=== PATIENT | male | born 1970 | race Caucasian/White ===

== ENCOUNTER 2020-11-09 22:28 | Observation (INO) ==
[2020-11-10] MEDS ORDERED: ONDANSETRON INJ 2 MG/ML 2 ML VIAL IV STA (00:11)
[2020-11-10] MEDS ORDERED: HYDROmorphone INJ 1 MG/ML SYRINGE IV STA (00:11)
--- NOTE | 2020-11-10 00:16 | Emergency Department Note ---
History of Present Illness General Chief complaint: Back Injury/Pain Stated complaint: SEVERE BACK PAIN Time Seen by Provider: 11/10/20 00:03 Source: patient History of Present Illness Provider complaint: Back pain Onset (ago): hour(s) Location: back Radiation: extremity (Both upper legs) Severity: severe Maximum Pain Intensity: 10 Quality: + sharp Exacerbated By: + movement Associated symptoms: no chest pain, no cough, no fever/chills, no nausea/vomiting, no shortness of breath or no weakness This is a 50-year-old male who recently suffered a T12 burst fracture several days ago and was just discharged from [facility] yesterday presenting with worsening pain in his lower back. The patient was being given oxycodone in the hospital which controlled his pain. He states that tonight he only took 1 pill rather than 2 and took his muscle relaxant because he was not having significant pain. He woke up in the middle of night and developed severe pain in his back rating into his upper thighs. He states he had similar pain when he was in the hospital but not as bad as this. He describes the pain as sharp. He rates it a 10 out of 10 in severity. It is worse with movement. He denies any numbness or weakness to his legs, fecal urinary incontinence or saddle anesthesia. He has had no fever, chest pain, shortness of breath, abdominal pain or diarrhea. He does state that he has been constipated. He denies any injury. He has been wearing his thoracic brace as prescribed. Home Medications Medication Instructions Recorded Confirmed Type acetaminophen 500 mg tablet 1,000 mg PO DIRECTED PRN 11/10/20 11/10/20 History (Tylenol Extra Strength) carisoprodol 350 mg tablet 350 mg PO QID PRN 11/10/20 11/10/20 History docusate sodium 100 mg capsule 100 mg PO DAILY 11/10/20 11/10/20 History (Stool Softener) oxycodone 5 mg tablet 5 mg PO Q4H PRN 11/10/20 11/10/20 History paroxetine HCl 20 mg tablet (Paxil) 20 mg PO DAILY 11/10/20 11/10/20 History Allergies Allergy/AdvReac Type Severity Reaction Status Date / Time No Known Allergies Allergy Mild Verified 11/10/20 00:48 Past Med/Surg History Medical History No pertinent past medical history Social History Smoking Status: Current every day smoker Preferred Language: Persian Feels Safe at Home: Yes Review of Systems See HPI for pertinent positives & negatives. and A total of 10 systems reviewed and were otherwise negative Physical Exam Vital Signs Vital Signs - 24 hr 11/09/20 22:31 11/10/20 00:34 11/10/20 01:45 Temperature 36.7 C Temperature Source Temporal Artery Scan Pulse Rate 85 Pulse Rate [Brachial] 87 58 L Pulse Rhythm Regular Pulse Strength Normal Respiratory Rate 21 24 20 Respiratory Effort / Characteristics Non-Labored Spontaneous Respiratory Depth Normal Respiratory Pattern Regular Blood Pressure 137/75 Blood Pressure [Left Arm] 118/72 134/74 Blood Pressure Mean 95 Blood Pressure Mean [Left Arm] 87 94 Blood Pressure Position Sitting Pulse Oximetry 93 96 94 Oxygen Delivery Method Room Air Room Air Room Air Sepsis Recent Fever Within 48 Hours No Sepsis New/Unexplained Change in Mental Status N/A Sepsis Action Taken by Nursing No Action Required Constitutional: Vital signs reviewed. Eyes: Pupils are equal round reactive to light. Conjunctiva are noninjected. ENT: Pharynx is clear without erythema or exudate. Mucous membranes are moist. Neck supple without meningeal signs. Respiratory: Clear to auscultation bilaterally. Breath sounds are equal bilaterally. Cardiovascular: Regular rate and rhythm. No rubs or gallops. GI: Soft, nondistended and nontender. Bowel sounds are present. Musculoskeletal: No peripheral edema. No lower extremity tenderness. Integumentary: No cyanosis. or jaundice. Neurological: The patient is awake and alert. No focal deficits. Motor and sensation are intact throughout the lower extremities. Psychiatric: Anxious. Course Administered Medications Discontinued Medications Hydromorphone HCl (Hydromorphone Inj 1 Mg/Ml Syringe) 1 mg IV NOW STA Stop: 11/10/20 00:12 Last Admin: 11/10/20 00:28 Dose: 1 mg Documented by: [id number] Ondansetron HCl (Ondansetron Inj 2 Mg/Ml 2 Ml Vial) 4 mg IV NOW STA Stop: 11/10/20 00:12 Last Admin: 11/10/20 00:28 Dose: 4 mg Documented by: [id number] Medical Decision Making Differential Diagnosis Compression fracture, strain, disc disease, lumbar radiculopathy, uncontrolled pain Medical Records Attestation: I reviewed the patient's medical records. I did perform a limited focused review of portions of the patient's old chart on the electronic medical record. The patient was seen here 26 for injuries after a fall off a ladder. He was evaluated in the ED and noted to have a T12 burst fracture. He was transferred to [facility]. Home Medications Current Medication List: was personally reviewed by me Laboratory Data Result diagrams: 11/10/20 01:41 11/10/20 01:41 Lab Results 11/10/20 11/10/20 11/10/20 Range/Units 01:41 01:41 01:45 WBC 8.88 (4.8-10.8) K/uL RBC 4.23 L (4.7-6.1) M/uL Hgb 13.3 L (14.0-18.0) g/dL Hct 38.8 L (42-52) % MCV 91.7 (80-100) fL MCH 31.4 (25-34) pg MCHC 34.3 (32-36) g/dL RDW Std Deviation 45.3 (36.4-46.3) fL RDW Coeff of Jaquelin 13.5 (11.5-14.5) % Plt Count 253 (130-400) K/uL MPV 9.4 (7.4-10.4) fL Immature Gran % (Auto) 0.2 % Neut % (Auto) 70.5 % Lymph % (Auto) 15.4 % Gilmer % (Auto) 12.0 % Eos % (Auto) 1.8 % Baso % (Auto) 0.1 % Neut # (Auto) 6.25 (1.4-6.5) K/uL Lymph # (Auto) 1.37 (1.2-3.4) K/uL Gilmer # (Auto) 1.07 H (0.11-0.59) K/uL Eos # (Auto) 0.16 (0-0.5) K/uL Baso # (Auto) 0.01 (0-0.2) K/uL Immature Gran # (Auto) 0.02 (0.00-0.02) K/uL Sodium 136 (136-145) mmol/L Potassium 4.2 (3.5-5.1) mmol/L Chloride 107 (98-107) mmol/L Carbon Dioxide 26 (21-32) mmol/L Anion Gap 3.0 (3-11) BUN 11 (7-18) mg/dl Creatinine 0.73 (0.6-1.4) mg/dl Est Cr Clr Drug Dosing 129.7 ml/min Est GFR ( Amer) 125.4 ml/min Est GFR (Non-Af Amer) 108.2 ml/min BUN/Creatinine Ratio 15.6 (10-20) Glucose 91 (70-99) mg/dl Calcium 8.7 (8.5-10.1) mg/dl COVID-19 Eval Order Covid19 at [facility] Imaging Data Radiologist's Impression: Patient: BYRON SHIELDS (Male) : 70 Status: ER Date: 11/10/20 01:13 Room #: History: FX AT T12 KNOWN, WORSENING PAIN Slices: [id number] Priors: Tech: Luis Haines @ [phone] Exams: CT T SPINE Contrast: Accession Numbers: [id number] Referring Physician: REFERRED SELF Preliminary Findings Only See Final Report For Complete Findings CT T SPINE: Soft tissue: Small right greater than left pleural effusion with some overlying atelectasis. Small hiatal hernia. Lungs: Right lower lobe atelectasis. Linear atelectasis at left lung base. Bones: Slightly comminuted T12 compression fracture with a vertical component. 1.3 cm superior posterior fragment with retropulsion into the spinal canal causing moderately severe spinal canal stenosis. 40% compression deformity along the superior endplate. Remaining vertebral bodies are anatomically aligned. Radiologist: Kevin Nolan MD Study ready at 01:21 and initial results transmitted at 01:31 [facility] Narrative I did evaluate the patient as noted above. Patient is presenting with worsening back pain today. He has a known T12 compression fracture and was evaluated at [facility] and just discharged recently. He does state that the pain radiates down to his upper thighs. On exam he is neurologically intact and has no signs of cauda equina syndrome. IV access was established. I did treat the patient with IV Dilaudid and Zofran. I did order a CT of the abdomen and pelvis. I did review the images myself as well as the radiology report as described above. He has a known compression fracture to T12. I did reassess the patient. He feels slightly better but is still in significant pain if he moves. He does not feel comfortable going home. I did order and review the patient's blood work as noted in the electronic medical record. His white count is not elevated. Hemoglobin is 13.3. Electrolytes are unremarkable. COVID-19 screening is pending. I did discuss the case with the hospitalist and sample case porter. Impression & Plan T12 burst fracture, Intractable back pain Discharge Plan Visit Data Chief Complaint: Back Injury/Pain Stated Complaint: SEVERE BACK PAIN ED Provider: Daniel Adkisn Discharge Problem: T12 burst fracture, Intractable back pain Patient Disposition: Being Evaluated by Hospitalist Forms Stand Alone Forms: My [facility] Prescriptions Prescriptions: No Action carisoprodol 350 mg tablet 350 mg PO QID PRN (Reason: MUSCLE SPASMS) RF: 0 acetaminophen [Tylenol Extra Strength] 500 mg Tablet 1,000 mg PO DIRECTED PRN (Reason: Pain) RF: 0 paroxetine HCl [Paxil] 20 mg Tablet 20 mg PO DAILY RF: 0 docusate sodium [Stool Softener] 100 mg Capsule 100 mg PO DAILY RF: 0 oxycodone 5 mg tablet 5 mg PO Q4H PRN (Reason: Pain) RF: 0 Referrals Referrals: PCP,NO [Primary Care Provider] -
[2020-11-10 02:01] LABS: Basophils # (auto) 0.01 K/uL (0-0.2); Basophils % (auto) 0.1 %; Eosinophils # (auto) 0.16 K/uL (0-0.5); Eosinophils % (auto) 1.8 %; Hematocrit (blood only) 38.8 % (42-52); Hemoglobin 13.3 g/dL (14.0-18.0); Immature Granulocytes # (auto) 0.02 K/uL (0.00-0.02); Immature Granulocytes % (auto) 0.2 %; Lymphocytes # (auto) 1.37 K/uL (1.2-3.4); Lymphocytes % (auto) 15.4 %; Mean Corpuscular Hemoglobin 31.4 pg (25-34); Mean Corpuscular Hgb Conc 34.3 g/dL (32-36); Mean Corpuscular Volume 91.7 fL (80-100); Mean Platelet Volume 9.4 fL (7.4-10.4); Monocytes # (auto) 1.07 K/uL (0.11-0.59); Neutrophils # (auto) 6.25 K/uL (1.4-6.5); Neutrophils % (auto) 70.5 %; Platelet Count 253 K/uL (130-400); RDW Coefficient of Variation 13.5 % (11.5-14.5); RDW Standard Deviation 45.3 fL (36.4-46.3); Red Blood Count 4.23 M/uL (4.7-6.1); White Blood Count 8.88 K/uL (4.8-10.8)
[2020-11-10 02:12] LABS: BUN Creatinine Ratio 15.6 (10-20); Blood Urea Nitrogen 11 mg/dl (7-18); Calcium 8.7 mg/dl (8.5-10.1); Carbon Dioxide 26 mmol/L (21-32); Chloride 107 mmol/L (98-107); Creatinine Clr Calc Pharmacy 129.7 ml/min; Est GFR (African American) 125.4 ml/min; Est GFR (Non-African American) 108.2 ml/min; Glucose 91 mg/dl (70-99); Potassium 4.2 mmol/L (3.5-5.1); Sodium 136 mmol/L (136-145)
--- NOTE | 2020-11-10 02:47 | History & Physical Report ---
Date of Service November 10, 2020 Assessment & Plan (1) Atypical chest pain: Plan: Rule out pulmonary embolism recent T12 burst fracture secondary to fall Worsening discomfort although image unchanged from comparison film as per conversation with teleradiologist hyperlipidemia, as per records anxiety/mood disorder, at baseline Anemia, hemoglobin at baseline of 13 upon discharge from [facility] ongoing tobacco abuse Med telemetry Baseline EKG CT chest PE study Analgesia Orthopedic spine consult Re: Worsening back pain, history T12 burst fracture Nicotine patch as needed DVT prophylaxis. SCDs Re: Possible surgery Full code Text document was generated using [employer] voice recognition software. It may contain grammatical or spelling errors. Kindly contact undersigned for clarification of any documentation item in question. History of Present Illness Chief Complaint: Uncontrolled back pain Primary Care Provider: Dr. Liz History obtained from patient and records. Medical history significant for recent T12 burst fracture, hyperlipidemia, anxiety/mood disorder, ongoing tobacco abuse. Patient fell from a ladder while working in the yard a few days ago. Patient subsequently noted mid/low back pain with some radiation to the right lower extremity. No bowel/bladder incontinence. Thoracic spine pain CT at [facility] ER showed compression fracture deformity of T12 with retropulsion of posterior fractured fragment and mild central canal stenosis as detailed above. Patient transferred to [facility] for further evaluation and was confined from 11/06 to 11/09. Orthopedics spine recommended TLSO brace. No acute surgical intervention at time of exam. 2 weeks follow-up recommended post discharge. Patient woke up last night with mid to low back pain worse than a few days ago without fever, chills, unusual weakness, incontinence symptoms. Transient right-sided chest discomfort without cough symptoms. Patient consulted ER for evaluation. Medical History as above Surgical History : None Family History : Prostate cancer Personal/Social history : 1 pack daily, occasional EtOH intake/denies abuse, disabled Allergies Allergy/AdvReac Type Severity Reaction Status Date / Time No Known Allergies Allergy Mild Verified 11/10/20 00:48 Home Medications Medication Instructions Recorded Confirmed Type acetaminophen 500 mg tablet 1,000 mg PO DIRECTED PRN 11/10/20 11/10/20 History (Tylenol Extra Strength) carisoprodol 350 mg tablet 350 mg PO QID PRN 11/10/20 11/10/20 History docusate sodium 100 mg capsule 100 mg PO DAILY 11/10/20 11/10/20 History (Stool Softener) oxycodone 5 mg tablet 5 mg PO Q4H PRN 11/10/20 11/10/20 History paroxetine HCl 20 mg tablet (Paxil) 20 mg PO DAILY 11/10/20 11/10/20 History Past Med/Surg History Medical History No pertinent past medical history Social History Smoking Status: Current every day smoker Cigarettes Per Day: 10; Hx Alcohol Use: Yes Alcohol type: beer Hx Substance Use: No Preferred Language: Frisian Communication Ability: Effective 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 Beliefs That Will Affect Care: None Current Living Situation: Alone Other Information That Helps Us Care for You: No Feels Safe at Home: Yes Safety Concerns: Feels Safe At This Time Assistive Devices: Brace/Splint/Immobilizer Review of Systems Review of Systems: As per HPI, all 10 systems reviewed, all other ROS negative Physical Exam Physical Exam: GENERAL: uncomfortable, pleasant, no respiratory distress SKIN: Normal color, warm HEENT: [place] palpebral conjunctivae, no ptosis, dry buccal mucosa NECK : Supple, no tenderness CHEST : CTA, no tenderness HEART : Bradycardic, no obvious murmurs ABDOMEN: Some distention, nontender BACK : Mid back tenderness, negative straight leg raise test EXTREMITIES : No LE swelling/tenderness, no other conspicuous deformities noted NEUROLOGIC : Coherent, no facial asymmetry, no other gross focality Results & Data Results & Data ([facility]) Vital Signs (Past 12 Hours) Vital Signs Temp Pulse Pulse Resp BP BP Pulse Ox 11/10/20 01:45 58 L 20 134/74 94 11/10/20 00:34 87 24 118/72 96 11/09/20 22:31 36.7 C 85 21 137/75 93 Laboratory Results Laboratory Results WBC 8.88 K/uL (4.8-10.8) 11/10/20 01:41 RBC 4.23 M/uL (4.7-6.1) L 11/10/20 01:41 Hgb 13.3 g/dL (14.0-18.0) L 11/10/20 01:41 Hct 38.8 % (42-52) L 11/10/20 01:41 MCV 91.7 fL (80-100) 11/10/20 01:41 MCH 31.4 pg (25-34) 11/10/20 01:41 MCHC 34.3 g/dL (32-36) 11/10/20 01:41 RDW Std Deviation 45.3 fL (36.4-46.3) 11/10/20 01:41 RDW Coeff of Jaquelin 13.5 % (11.5-14.5) 11/10/20 01:41 Plt Count 253 K/uL (130-400) 11/10/20 01:41 MPV 9.4 fL (7.4-10.4) 11/10/20 01:41 Immature Gran % (Auto) 0.2 % 11/10/20 01:41 Neut % (Auto) 70.5 % 11/10/20 01:41 Lymph % (Auto) 15.4 % 11/10/20 01:41 White % (Auto) 12.0 % 11/10/20 01:41 Eos % (Auto) 1.8 % 11/10/20 01:41 Baso % (Auto) 0.1 % 11/10/20 01:41 Neut # (Auto) 6.25 K/uL (1.4-6.5) 11/10/20 01:41 Lymph # (Auto) 1.37 K/uL (1.2-3.4) 11/10/20 01:41 White # (Auto) 1.07 K/uL (0.11-0.59) H 11/10/20 01:41 Eos # (Auto) 0.16 K/uL (0-0.5) 11/10/20 01:41 Baso # (Auto) 0.01 K/uL (0-0.2) 11/10/20 01:41 Immature Gran # (Auto) 0.02 K/uL (0.00-0.02) 11/10/20 01:41 Sodium 136 mmol/L (136-145) 11/10/20 01:41 Potassium 4.2 mmol/L (3.5-5.1) 11/10/20 01:41 Chloride 107 mmol/L (98-107) 11/10/20 01:41 Carbon Dioxide 26 mmol/L (21-32) 11/10/20 01:41 Anion Gap 3.0 (3-11) 11/10/20 01:41 BUN 11 mg/dl (7-18) 11/10/20 01:41 Creatinine 0.73 mg/dl (0.6-1.4) 11/10/20 01:41 Est Cr Clr Drug Dosing 129.7 ml/min 11/10/20 01:41 Est GFR ( Amer) 125.4 ml/min 11/10/20 01:41 Est GFR (Non-Af Amer) 108.2 ml/min 11/10/20 01:41 BUN/Creatinine Ratio 15.6 (10-20) 11/10/20 01:41 Glucose 91 mg/dl (70-99) 11/10/20 01:41 Calcium 8.7 mg/dl (8.5-10.1) 11/10/20 01:41 COVID-19 Eval Order Covid19 at [facility] 11/10/20 01:[address] thoracic spine initial read: No significant change fromprior exam. Superior posterior fragment and 40%compression deformityis again noted. Soft tissue: Small right greater than left pleural effusion with some overlying atelectasis. Small hiatal hernia. Lungs:Right lower lobe atelectasis. Linear atelectasis at left lung base. Bones: Slightlycomminuted T12 compression fracture with a vertical component. 1.3 cmsuperior posterior fragment with retropulsion into the spinal canal causing moderatelysevere spinal canal stenosis. 40%compression deformityalong the superior endplate. Remaining vertebral bodies are anatomicallyaligned.
[2020-11-10] MEDS ORDERED: KETOROLAC TROMETHAMINE 15 MG/ML VIAL IV STA (02:56)
[2020-11-10] MEDS ORDERED: LIDOCAINE 5% 1 PATCH TD STA (02:56)
[2020-11-10 03:11] LABS: Troponin I < 0.015 ng/ml (0-0.045)
[2020-11-10] MEDS ORDERED: OPTIRAY 320 125ml IV ONE (03:14)
[2020-11-10] MEDS ORDERED: MoRPHine SULFATE 4 MG/ML 1 ML CARP\\VIAL IV PRN (04:50)
[2020-11-10] MEDS ORDERED: IBUPROFEN 200 MG TAB PO PRN (04:50)
[2020-11-10] MEDS ORDERED: SODIUM CHLORIDE 0.9% 1000ML 1,000 ML IV ONE (04:50)
[2020-11-10] MEDS ORDERED: ACETAMINOPHEN 325 MG TAB PO PRN (04:50)
[2020-11-10] MEDS ORDERED: PROMETHAZINE HCL 12.5 MG in SODIUM CHLORIDE 0.9% 50 ML IV PRN (04:50)
[2020-11-10] MEDS ORDERED: LORazepam 0.5 MG/1 ML VIAL IV PRN (04:50)
--- NOTE | 2020-11-10 07:33 | CT Scan Report ---
THORACIC SPINE CT CT DOSE: 804.25 mGy.cm HISTORY: Fall. worsening pain T12 burst fx TECHNIQUE: Multiaxial CT images of the thoracic spine were performed and reformatted in the sagittal and coronal plane without the use of contrast. A dose lowering technique was utilized adhering to th e principles of ALARA. COMPARISON: Thoracic spine CT 11/06/2020. FINDINGS: There is again noted a T12 burst fracture demonstrating up to 40% loss of height anteriorly and 5 mm of retropulsion of the posterior superior corner. This results in mild to moderate central canal narrowing most pronounced along the left side. This is unchanged compared the prior study. The fracture extends through the left lamina. Therefore, this is consistent with an unstable 3 column fra cture. Mild anterior wedging at the T3 vertebral body is also unchanged and is consistent with an age -indeterminate superior endplate compression fracture. This demonstrates less than 10% loss of height and no significant retropulsion. This favors a chronic compression deformity. There is no paraverteb ral edema identified. Mild paravertebral edema at the T12 level remains unchanged. No pneumothorax. P lease refer the same day chest CTA for further evaluation of the lungs. IMPRESSION: 1. No significant change in the T12 burst fracture demonstrating up to 40% loss of height and 5 mm of retropulsion. This results in [id number] central canal narrowing. The fracture extends into th e left T12 lamina. Therefore, this is consistent with an unstable 3 column fracture. This finding was called/faxed to the emergency department following dictation. 2. Minimal anterior wedging within the superior endplate of T3 is also unchanged. This is consistent with an age-indeterminate compression deformity. This favors a chronic process given the lack of para vertebral edema. ACT 112: Negative or not required by law. Electronically signed by: Ezra Cosme M.D. 11/10/2020 7:32 AM
[2020-11-10] MEDS: PARoxetine HCL 20 MG TAB PO SCH (08:06)
[2020-11-10] MEDS: DOCUSATE SODIUM 100 MG CAP PO SCH (08:06)
--- NOTE | 2020-11-10 08:11 | CT Scan Report ---
CT angio chest PE protocol CT DOSE: 380.58 mGy.cm HISTORY: 50 years-old Male with cp. Acute chest pain with shortness of breath TECHNIQUE: Multiple CTA images of the chest were obtained after the intravenous administration of 95 ml Optiray. Coronal and sagittal MIPS were obtained from the axial data set and were submitted for Bitglassw. All measurements were obtained according to NASCET criteria. A dose lowering technique was ut ilized adhering to the principles of ALARA. COMPARISON: CT thoracic spine of same day and also 11/06/2020 FINDINGS: CTA: Mild cardiac megaly. No pericardial effusion. No thoracic aortic aneurysm or dissection. Dilated pulm onary artery measuring up to 3.2 cm may reflect pulmonary artery hypertension. No pulmonary emboli. CT CHEST: Unremarkable thyroid. Mildly enlarged mediastinal lymph nodes measure up to 10 mm. Prominent hilar ly mph nodes measure up to 9 mm. These findings are likely reactive and have slightly progressed from co mparison. Trace pleural effusions with dependent bibasilar consolidation. Mild patchy groundglass [place] of the upper lobes with mild intralobular septal thickening. Central airways are patent. No acute process of the imaged upper abdomen. Mild wall thickening of the distal esophagus. Mild para vertebral edema at T12 surrounding the acute burst fracture with 40% vertebral body height loss and 5 mm retropulsion. Mild to moderate associated central canal stenosis. Acute fracture of the left T12 lamina is partially imaged. A normal anterior wedging of T3 is unchanged suggestive of a chronic frac ture. IMPRESSION: 1. Cardiomegaly with suggested mild pulmonary edema and trace pleural effusions. 2. Dependent bibasilar consolidation suggestive of atelectasis. Mild patchy groundglass densities of the upper lobes is likely related to pulmonary edema with a superimposed pneumonitis considered less likely. 3. Mild mediastinal and hilar adenopathy, likely reactive. 4. Acute T12 burst fracture with retropulsion and left T12 lamina fracture redemonstrated. 5. Suggested pulmonary arterial hypertension. ACT 112: Negative or not required by law. The above report was generated using voice recognition software. It may contain grammatical, syntax o r spelling errors. Electronically signed by: Reed Kent M.D. 11/10/2020 8:10 AM
--- NOTE | 2020-11-10 08:11 | Orthopedic Consultation ---
Date of Consultation November 10, 2020 Assessment & Plan (1) T12 burst fracture: I did discuss with this patient and treatment plan. Apparently he was going to attempt a period of nonoperative care with a TLSO brace. This is reasonable. However if he continues to have severe spasms or if we appreciate any further deterioration of the vertebral body of T12 he may want to consider surgical stabilization. History of Present Illness Reason for Consultation: Compression fracture Attending Physician: Marlon Koenig MD History of Present Illness Is a very pleasant 50-year-old male that status post fall last Saturday. He sustained a T12 burst fracture and was shifted to [facility]. Apparently he went home yesterday had acute onset of significant pain he was taken to emergency room last evening for pain control. This morning he states his symptoms are improved. He is much, more comfortable. He denies any numbness or tingling to lower extremities. He states he has been up and ambulating with his custom brace in place. Allergies Allergy/AdvReac Type Severity Reaction Status Date / Time No Known Allergies Allergy Mild Verified 11/10/20 00:48 Home Medications Medication Instructions Recorded Confirmed Type acetaminophen 500 mg tablet 1,000 mg PO DIRECTED PRN 11/10/20 11/10/20 History (Tylenol Extra Strength) carisoprodol 350 mg tablet 350 mg PO QID PRN 11/10/20 11/10/20 History docusate sodium 100 mg capsule 100 mg PO DAILY 11/10/20 11/10/20 History (Stool Softener) oxycodone 5 mg tablet 5 mg PO Q4H PRN 11/10/20 11/10/20 History paroxetine HCl 20 mg tablet (Paxil) 20 mg PO DAILY 11/10/20 11/10/20 History Patient History Medical History No pertinent past medical history Social History Smoking Status: Current every day smoker Cigarettes Per Day: 10; Hx Alcohol Use: Yes Alcohol type: beer Hx Substance Use: No Preferred Language: Lao Communication Ability: Effective 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 He does appear comfortable. Sensory symmetric and intact. Results & Data ([facility]) Vital Signs (Past 12 Hours) Vital Signs Temp Pulse Pulse Pulse Resp BP BP 11/10/20 07:44 36.7 C 56 L 20 126/72 11/10/20 04:50 11/10/20 04:20 36.6 C 52 L 20 116/67 11/10/20 03:00 55 L 14 128/67 11/10/20 01:45 58 L 20 134/74 11/10/20 00:34 87 24 118/72 11/09/20 22:31 36.7 C 85 21 137/75 Pulse Ox Pulse Ox 11/10/20 07:44 98 11/10/20 04:50 99 11/10/20 04:20 96 11/10/20 03:00 96 11/10/20 01:45 94 11/10/20 00:34 96 11/09/20 22:31 93
[2020-11-10] MEDS: oxyCODONE HCL IR 5 MG TAB (IMMEDIATE RELEASE) PO PRN ×2 (08:12→18:42)
[2020-11-10] MEDS: KETOROLAC TROMETHAMINE 15 MG/ML VIAL IV PRN (12:02)
[2020-11-10] MEDS: CARISOPRODOL 350 MG TABLET PO PRN ×2 (13:55→22:59)
[2020-11-10] MEDS: POLYETHYLENE (MIRALAX) 17 GM PACK PO PRN (22:59)
--- NOTE | 2020-11-11 00:26 | Hospitalist Progress Note ---
Date of Service November 10, 2020 Assessment & Plan (1) Atypical chest pain: Plan: Mostly due to radiating pain from the back CTA chest showed no pulmonary emboli. Troponin x3 negative clinically stable Back pain Mostly due to T12 burst fracture secondary to fall No significant change in the T12 burst fracture demonstrating up to 40% loss of height and 5 mm of retropulsion. This results in [id number]-[id number] central canal narrowing. The fracture extends into the left T12 lamina. Therefore, this is consistent with an unstable 3 column fracture. Minimal anterior wedging within the superior endplate of T3 is also unchanged. Ortho on board Plan for a period of nonoperative care with a TLSO brace; but if he continues to have severe spasms or if we appreciate any further deterioration of the vertebral body of T12 he may want to consider surgical stabilization. Continue pain control PT/OT eval Will need outpatient Follow up with ortho Fall precaution Tobacco abuse Denies any history of withdrawal or DT Counseling on smoking cessation Continue monitor closely for alcohol withdrawal or DT Continue monitor for sign of DT or withdrawal Alcohol abuse Counseling on alcohol cessation DVT prophylaxis. SCDs Re: Possible surgery Full code Admission and Anticipated Discharge Date Admission Date: November 10, 2020 Subjective Pt was seen and examined for follow up of back pain Lying in bed with no acute distress He said that he continues has back pain worsening with movement and standing Denies any bladder, bowel loss and weakness Physical Exam Physical Exam: General- No acute distress Head- atraumatic Eyes- PERRL, EOMI, ENT- oropharynx clear Neck- supple, no JVD Lungs- clear to auscultation Heart- regular rhythm; no murmur Abdomen- normal bowel sounds, soft, nontender Extremities- no calf tenderness Neuro- alert, oriented x 3; PERRL, EOMI; no facial palsy; no dysarthria Skin- warm & dry Results & Data Results & Data ([facility]) Vital Signs (Past 12 Hours) Vital Signs Temp Pulse Pulse Resp BP Pulse Ox 11/10/20 23:19 55 L 11/10/20 23:07 36.7 C 60 16 136/79 97 11/10/20 19:42 37.4 C 68 17 126/55 L 96 11/10/20 16:23 59 L 11/10/20 15:16 36.7 C 66 17 108/66 95
[2020-11-11] MEDS: KETOROLAC TROMETHAMINE 15 MG/ML VIAL IV PRN ×3 (01:56→16:30)
[2020-11-11] MEDS: oxyCODONE HCL IR 5 MG TAB (IMMEDIATE RELEASE) PO PRN ×2 (01:57→14:14)
[2020-11-11] MEDS ORDERED: KETOROLAC TROMETHAMINE 15 MG/ML VIAL IV ONE (02:04)
[2020-11-11] MEDS ORDERED: LORazepam 1 MG/2 ML VIAL IV STA (02:05)
[2020-11-11] MEDS ORDERED: LORazepam 3 MG/6 ML VIAL IV PRN (04:21)
[2020-11-11] MEDS ORDERED: LORazepam 1 MG/2 ML VIAL IV PRN (04:21)
[2020-11-11] MEDS ORDERED: GABAPENTIN 600 MG TAB PO ONE (04:21)
[2020-11-11] MEDS ORDERED: GABAPENTIN 1200MG ALCOHOL WITHDRAWAL LOAD PO STA (04:21)
[2020-11-11] MEDS ORDERED: LORazepam 2 MG/4 ML VIAL IV PRN (04:21)
[2020-11-11] MEDS ORDERED: ATIVAN IV ALCOHOL WITHDRAWL IV PRN (04:21)
--- NOTE | 2020-11-11 04:23 | Communication Note ---
Date of Service: November 11, 2020 Made aware by RN of restlessness, possible alcohol withdrawal. AP Possible alcohol withdrawal PATRIZIA S, DT precautions Will relay to AM provider.
[2020-11-11] MEDS ORDERED: cloNIDine HCL 0.1 MG TAB PO ONE (04:30)
[2020-11-11] MEDS: CARISOPRODOL 350 MG TABLET PO PRN (04:38)
[2020-11-11] MEDS ORDERED: MULTI-VITAMIN INFUSION 10 ML, THIAMINE HCL 100 MG, FOLIC ACID 1 MG in SODIUM CHLORIDE 0... IV ONE (04:45)
[2020-11-11 04:53] LABS: Basophils # (auto) 0.02 K/uL (0-0.2); Basophils % (auto) 0.2 %; Eosinophils # (auto) 0.19 K/uL (0-0.5); Eosinophils % (auto) 1.9 %; Hematocrit (blood only) 39.7 % (42-52); Hemoglobin 13.5 g/dL (14.0-18.0); Immature Granulocytes # (auto) 0.02 K/uL (0.00-0.02); Immature Granulocytes % (auto) 0.2 %; Lymphocytes # (auto) 1.88 K/uL (1.2-3.4); Lymphocytes % (auto) 18.9 %; Mean Corpuscular Hemoglobin 31.1 pg (25-34); Mean Corpuscular Volume 91.5 fL (80-100); Mean Platelet Volume 9.5 fL (7.4-10.4); Monocytes # (auto) 0.92 K/uL (0.11-0.59); Monocytes % (auto) 9.2 %; Neutrophils # (auto) 6.93 K/uL (1.4-6.5); Neutrophils % (auto) 69.6 %; Platelet Count 244 K/uL (130-400); RDW Coefficient of Variation 13.3 % (11.5-14.5); RDW Standard Deviation 44.9 fL (36.4-46.3); Red Blood Count 4.34 M/uL (4.7-6.1); White Blood Count 9.96 K/uL (4.8-10.8)
[2020-11-11 05:09] LABS: BUN Creatinine Ratio 21.7 (10-20); Calcium 8.5 mg/dl (8.5-10.1); Creatinine Clr Calc Pharmacy 123.8 ml/min; Potassium 4.5 mmol/L (3.5-5.1)
[2020-11-11 05:12] LABS: Albumin Globulin Ratio 0.8 (0.9-2); Bilirubin,Total 0.4 mg/dl (0.2-1); Globulin 3.7 gm/dl (2.5-4.0); Total Protein 6.7 gm/dl (6.4-8.2)
[2020-11-11 05:30] LABS: Magnesium 2.2 mg/dl (1.8-2.4)
[2020-11-11] MEDS ORDERED: LIDOCAINE 5% 1 PATCH TD SCH (09:00)
[2020-11-11] MEDS: PARoxetine HCL 20 MG TAB PO SCH (09:40)
[2020-11-11] MEDS: GABAPENTIN 600 MG TAB PO SCH ×2 (09:40→16:32)
[2020-11-11] MEDS: DOCUSATE SODIUM 100 MG CAP PO SCH (09:40)
--- NOTE | 2020-11-11 10:09 | XRay Report ---
XR thoracic spine 2V CLINICAL HISTORY: standing with brace COMPARISON STUDY: Thoracic spine CT November 10, 2020. FINDINGS: An acute burst fracture of the T12 vertebral body with 40% loss of vertebral body height is similar to CT of November 10, 2020. Retropulsion is better depicted on that examination. No additional a cute thoracic spine fractures are noted. There are multiple old right rib fractures. IMPRESSION: No significant change in an acute burst fracture of T12 with 40% loss of vertebral body h [address] of November 10, 2020. Associated retropulsion of the superior endplate better depicted on that exam. ACT 112: Negative or not required by law. Electronically signed by: Hiren Haskins M.D. 11/11/2020 10:08 AM
--- NOTE | 2020-11-11 13:29 | Orthopedic Progress Note ---
Date of Service November 11, 2020 Assessment & Plan (1) T12 burst fracture: Plan: At this time I have ordered physical therapy for transfers and ambulation. Pending his response we may be able to let him go home this weekend and follow- up next week for x-rays. This point we are hoping he can be managed nonoperatively. Admission and Anticipated Discharge Date Admission Date: November 10, 2020 Subjective Patient states his back pain is much improved since admission. He is tolerating his brace. He has not had physical therapy. Physical Exam Physical Exam: On exam he seen with bed. His TLSO brace is in place in appropriate alignment. He has good strength testing lower extremities. Appears comfortable. Results & Data ([facility]) Vital Signs (Past 12 Hours) Vital Signs Temp Pulse Pulse Resp BP Pulse Ox 11/11/20 12:11 36.9 C 68 18 106/62 99 11/11/20 08:10 37.0 C 88 16 121/63 95 11/11/20 08:00 58 L 11/11/20 04:16 36.4 C L 67 19 171/103 H
[2020-11-11] MEDS: POLYETHYLENE (MIRALAX) 17 GM PACK PO PRN (16:35)
--- NOTE | 2020-11-11 18:13 | Discharge Summary ---
Date of Service November 11, 2020 Admission HPI Per Admitting Provider History obtained from patient and records. Medical history significant for recent T12 burst fracture, hyperlipidemia, anxiety/mood disorder, ongoing tobacco abuse. Patient fell from a ladder while working in the yard a few days ago. Patient subsequently noted mid/low back pain with some radiation to the right lower extremity. No bowel/bladder incontinence. Thoracic spine pain CT at [facility] ER showed compression fracture deformity of T12 with retropulsion of posterior fractured fragment and mild central canal stenosis as detailed above. Patient transferred to [facility] [place] for further evaluation and was confined from 11/06 to 11/09. Orthopedics spine recommended TLSO brace. No acute surgical intervention at time of exam. 2 weeks follow-up recommended post discharge. Patient woke up last night with mid to low back pain worse than a few days ago without fever, chills, unusual weakness, incontinence symptoms. Transient right-sided chest discomfort without cough symptoms. Patient consulted ER for evaluation. Medical History as above Surgical History : None Family History : Prostate cancer Personal/Social history : 1 pack daily, occasional EtOH intake/denies abuse, d isabled Admission Exam Per Admitting Provider GENERAL: uncomfortable, pleasant, no respiratory distress SKIN: Normal color, warm HEENT: [place] palpebral conjunctivae, no ptosis, dry buccal mucosa NECK : Supple, no tenderness CHEST : CTA, no tenderness HEART : Bradycardic, no obvious murmurs ABDOMEN: Some distention, nontender BACK : Mid back tenderness, negative straight leg raise test EXTREMITIES : No LE swelling/tenderness, no other conspicuous deformities noted NEUROLOGIC : Coherent, no facial asymmetry, no other gross focality Principal Diagnosis Back pain Discharge Exam General- No acute distress Head- atraumatic Eyes- PERRL, EOMI, ENT- oropharynx clear Neck- supple, no JVD Lungs- clear to auscultation Heart- regular rhythm; no murmur Abdomen- normal bowel sounds, soft, nontender Extremities- no calf tenderness Neuro- alert, oriented x 3; PERRL, EOMI; no facial palsy; no dysarthria Skin- warm & dry Discharge Data Allergies Allergy/AdvReac Type Severity Reaction Status Date / Time No Known Allergies Allergy Mild Verified 11/10/20 00:48 Consultations 11/10/20 01:36 ED Decision to Admit Stat 11/10/20 03:11 Consult Orthopedic Surgery Routine Ordered Studies 11/10/20 00:11 CT thoracic spine wo con Urgent 11/10/20 02:46 CT angio chest PE protocol Urgent XR thoracic spine 2V CLINICAL HISTORY: standing with brace COMPARISON STUDY: Thoracic spine CT November 10, 2020. FINDINGS: An acute burst fracture of the T12 vertebral body with 40% loss of vertebral body height is similar to CT of November 10, 2020. Retropulsion is better depicted on that examination. No additional acute thoracic spine fractures are noted. There are multiple old right rib fractures. IMPRESSION: No significant change in an acute burst fracture of T12 with 40% loss of vertebral body h[address] of November 10, 2020. Associated retropulsion of the superior endplate better depicted on that exam. ACT 112: Negative or not required by law. Electronically signed by: Hiren Haskins M.D. 11/11/2020 10:08 AM Dictated: 11/11/20 1004Transcribed: 11/11/[address] angio chest PE protocol CT DOSE: 380.58 mGy.cm HISTORY: 50 years-old Male with cp. Acute chest pain with shortness of breath TECHNIQUE: Multiple CTA images of the chest were obtained after the intravenous administration of 95 ml Optiray. Coronal and sagittal MIPS were obtained from the axial data set and were submitted for review. All measurements were obtained according to NASCET criteria. A dose lowering technique was utilized adhering to the principles of ALARA. COMPARISON: CT thoracic spine of same day and also 11/06/2020 FINDINGS: CTA: Mild cardiac megaly. No pericardial effusion. No thoracic aortic aneurysm or dissection. Dilated pulmonary artery measuring up to 3.2 cm may reflect pulmonar y artery hypertension. No pulmonary emboli. CT CHEST: Unremarkable thyroid. Mildly enlarged mediastinal lymph nodes measure up to 10 mm. Prominent hilar lymph nodes measure up to 9 mm. These findings are likely reactive and have slightly progressed from comparison. Trace pleural effusions with dependent bibasilar consolidation. Mild patchy groundglass opacities of the upper lobes with mild intralobular septal thickening. Central airways are patent. No acute process of the imaged upper abdomen. Mild wall thickening of the distal esophagus. Mild paravertebral edema at T12 surrounding the acute burst fracture with 40% vertebral body height loss and 5 mm retropulsion. Mild to moderate associated central canal stenosis. Acute fracture of the left T12 lamina is partially imaged. A normal anterior wedging of T3 is unchanged suggestive of a chronic fracture. IMPRESSION: 1. Cardiomegaly with suggested mild pulmonary edema and trace pleural effusions. 2. Dependent bibasilar consolidation suggestive of atelectasis. Mild patchy groundglass densities of the upper lobes is likely related to pulmonary edema with a superimposed pneumonitis considered less likely. 3. Mild mediastinal and hilar adenopathy, likely reactive. 4. Acute T12 burst fracture with retropulsion and left T12 lamina fracture redemonstrated. 5. Suggested pulmonary arterial hypertension. ACT 112: Negative or not required by law. The above report was generated using voice recognition software. It may contain grammatical, syntax or spelling errors. Electronically signed by: Reed Kent M.D. 11/10/2020 8:10 AM Dictated: 11/10/20 08Transcribed: 11/10/[address] DOSE: 804.25 mGy.cm HISTORY: Fall. worsening pain T12 burst fx TECHNIQUE: Multiaxial CT images of the thoracic spine were performed and reformatted in the sagittal and coronal plane without the use of contrast. A dose lowering technique was utilized adhering to the principles of ALARA. COMPARISON: Thoracic spine CT 11/06/2020. FINDINGS: There is again noted a T12 burst fracture demonstrating up to 40% loss of height anteriorly and 5 mm of retropulsion of the posterior superior corner. This results in mild to moderate central canal narrowing most pronounced along the left side. This is unchanged compared the prior study. The fracture extends through the left lamina. Therefore, this is consistent with an unstable 3 column fracture. Mild anterior wedging at the T3 vertebral body is also unchanged and is consistent with an age-indeterminate superior endplate compression fracture. This demonstrates less than 10% loss of height and no significant retropulsion. This favors a chronic compression deformity. There is no paravertebral edema identified. Mild paravertebral edema at the T12 level remains unchanged. No pneumothorax. Please refer the same day chest CTA for further evaluation of the lungs. IMPRESSION: 1. No significant change in the T12 burst fracture demonstrating up to 40% loss of height and 5 mm of retropulsion. This results in [id number] central canal narrowing. The fracture extends into the left T12 lamina. Therefore, this is consistent with an unstable 3 column fracture. This finding was called/faxed to the emergency department following dictation. 2. Minimal anterior wedging within the superior endplate of T3 is also unchanged. This is consistent with an age-indeterminate compression deformity. This favors a chronic process given the lack of paravertebral edema. ACT 112: Negative or not required by law. Electronically signed by: Ezra Cosme M.D. 11/10/2020 7:32 AM Dictated: 11/10/20725Transcribed: 11/10/20725 Hospital Course (1) Atypical chest pain: Mostly due to radiating pain from the back CTA chest showed no pulmonary emboli. Troponin x3 negative clinically stable Back pain Mostly due to T12 burst fracture secondary to fall No significant change in the T12 burst fracture demonstrating up to 40% loss of height and 5 mm of retropulsion. This results in [id number] central canal narrowing. The fracture extends into the left T12 lamina. Therefore, this is consistent with an unstable 3 column fracture. Minimal anterior wedging within the superior endplate of T3 is also unchanged. Ortho on board Plan for a period of nonoperative care with a TLSO brace; but if he continues to have severe spasms or if we appreciate any further deterioration of the vertebral body of T12 he may want to consider surgical stabilization. Continue pain control PT/OT eval Will need outpatient Follow up with ortho Fall precaution Tobacco abuse Denies any history of withdrawal or DT Counseling on smoking cessation Continue monitor closely for alcohol withdrawal or DT Continue monitor for sign of DT or withdrawal Alcohol abuse Counseling on alcohol cessation DVT prophylaxis. SCDs Re: Possible surgery Full code Total Time Total Time Spent Total Time Spent (In Minutes): 35 miinutes Discharge Plan Discharge Items Patient Disposition: Home - Self-Care Reason For Visit: CP,BACK PAIN Discharge Diagnosis: Back pain Activity: As commented below Non-emergency contact: Primary Care Provider Call non-emergency contact if: you have any medication questions Follow-up/Referrals: PCPAMANDA [Primary Care Provider] - Diet: Regular Addtl Attending Provider Instructions: Follow up with your primary care provider within 1 week Follow up with orthopedic Dr. Small next week for x-rays. (please call for the appointment) Increase your activity gradually as tolerated, No lifting no more than 10 lbs for now fall precaution Counseling on alcohol and tobacco cessation Do not drive or operate any machine after taking the oxycodone Please hold next dose of oxycodone if you become drowsy and lethargy Pending Studies at Discharge: No Stand-Alone Forms: My [facility], Smoking Cessation Medications and DC Order Prescriptions: Continued carisoprodol 350 mg tablet 350 mg PO QID PRN (Reason: MUSCLE SPASMS) RF: 0 acetaminophen [Tylenol Extra Strength] 500 mg Tablet 1,000 mg PO DIRECTED PRN (Reason: Pain) RF: 0 paroxetine HCl [Paxil] 20 mg Tablet 20 mg PO DAILY RF: 0 docusate sodium [Stool Softener] 100 mg Capsule 100 mg PO DAILY RF: 0 Changed oxycodone 5 mg tablet 10 mg PO Q6H PRN (Reason: pain, moderate) Qty: 15 RF: 0 Discontinued oxycodone 5 mg tablet 5 mg PO Q4H PRN (Reason: Pain) RF: 0 Discharge Orders: Discharge Order (Routine); Ordered 11/11/20 Ordered By: Marlon Koenig Admission Data Admit Date/Time: 11/10/20 03:47 Attending Provider: Marlon Koenig Admit Provider: Omer Almaraz Primary Care Provider: PCP,NO Other Providers: Junior Small Other Interventions: Discharge Summary Assessment (RN) Last Done: 11/11/20 18:22
[2020-11-12] MEDS ORDERED: GABAPENTIN 600 MG TAB PO SCH (00:30)
[2020-11-12] MEDS ORDERED: MULTIVITAMIN TAB PO SCH (09:00)
[2020-11-12] MEDS ORDERED: THIAMINE HCL 100 MG TAB PO SCH (09:00)
[2020-11-12] MEDS ORDERED: FOLIC ACID 1 MG TAB PO SCH (09:00)
[2020-11-13] MEDS ORDERED: GABAPENTIN 600 MG TAB PO SCH (04:30)
[2020-11-14] MEDS ORDERED: GABAPENTIN 600 MG TAB PO SCH (16:30)
== END 2020-11-11 18:38 | disposition home or self-care (01) ==
LOC: ED 22:28 → 2S 22:28
DX: Z88.5 Allergy status to narcotic agent; E78.5 Hyperlipidemia, unspecified; W11.XXXA Fall on and from ladder, initial encounter; S22.081A Stable burst fracture of T11-T12 vertebra, initial encounter for closed fracture; Z79.899 Other long term (current) drug therapy; F17.210 Nicotine dependence, cigarettes, uncomplicated; X58.XXXA Exposure to other specified factors, initial encounter; Z88.8 Allergy status to other drugs, medicaments and biological substances

== ENCOUNTER 2023-06-25 11:44 | Inpatient (IN) ==
--- NOTE | 2023-06-25 13:42 | Emergency Department Note ---
Impression & Plan Depression with suicidal ideation, Earache on left, Acute bronchitis due to respiratory syncytial virus ED Provider Note NAME: BYRON SHIELDS AGE: 52 SEX: M : 1970 ARRIVES VIA: Walk-In INFORMANT: Patient, ED PROVIDER(S): Noe White DO CHIEF COMPLAINT: Mental health evaluation HPI: The patient is a 52-year-old male who presented to the emergency department for mental health evaluation. Patient's had some legal problems recently. He is scheduled to be seen in court. He is having significant anxiety and depression about this. He is also had suicidal ideation with a plan to harm himself. The patient also has been describing cough and ear pain. The patient denies having any hemoptysis or chest pain. He denies having high fever or exposures to COVID-19. The patient does have a history of tobacco use. ROS: See above HPI for pertinent positives & negatives. A total of 10 systems reviewed and were otherwise negative. PAST MEDICAL HISTORY: See Below PAST SURGICAL HISTORY: See Below FAMILY HISTORY: See Below SOCIAL HISTORY: See Below HOME MEDICATIONS: See Below ALLERGIES: See Below VITALS: See Below PHYSICAL EXAMINATION: GENERAL: Patient is awake alert in no acute distress patient is resting comfortably and showing no signs of anxiety EYES: The conjunctivae are clear. The pupils are round and reactive. EARS, NOSE, MOUTH AND THROAT: The nose is without any evidence of any deformity. Tympanic membranes are clear. There is mild erythema on the left tympanic membrane. NECK: The neck is nontender and supple. RESPIRATORY: Normal respiratory effort is noted there is no evidence of wheezing rhonchi or rales CARDIOVASCULAR: Regular rate and rhythm noted there no murmurs rubs or gallops normal S1 normal S2. GASTROINTESTINAL: The abdomen is soft. Abdomen is nontender. MUSCULOSKELETAL/EXTREMITIES: There is no evidence of gross deformity full range of motion is noted in the hips and shoulders. SKIN: There is no obvious evidence of any rash. There are no petechiae, pallor or cyanosis noted. NEUROLOGIC: Patient is awake alert and oriented x3 PSYCH: The patient makes good eye contact mostly evaluation. His affect is flat. The patient is currently admitting to having thoughts of harming himself. MEDICAL DECISION MAKING: The patient is a 52-year-old male who presented to the emergency department for an evaluation of mental health issues. The patient was evaluated by the mental health geriatric case manager. The patient was medically cleared in the emergency department. He also complained of earache and cough. He was found to have positive RSV swab. Chest x-ray showed no signs of pneumonia. He also had a left earache. I do feel this is secondary to the upper respiratory tract infection and I do not feel the patient requires an antibiotic at this time. I did recommend that he have his ear rechecked again within the next 2 days to determine if antibiotics would be required at that time. The patient was evaluated by the mental health geriatric case manager. At this time bed search is currently underway the patient was treated with pain medication as well as medication for anxiety. Triage Nursing notes reviewed. Prior medical records reviewed Vital Signs: reviewed and remarkable for no significant abnormalities Differential diagnosis: Mood disorder, infection, hypoglycemia, electrolyte abnormalities, cardiac sources, intracerebral event, toxicologic, trauma, neurologic, as well as other pathologies. ER treatment provided: See below Diagnostics interpreted by me: ECG: none Laboratory studies: As stated above and show below. Imaging studies: See below. Radiographic imaging was reviewed by myself Consultation(s): I discussed this case with the emergency department mental health geriatric case manager. The case was signed out to Dr. Rasheed at change of shift. Please see his note for further disposition. Past Med/Surg History Medical History Intractable back pain T12 burst fracture No pertinent past medical history Social History Smoking Status: Never smoker Cigarettes Per Day: 10; Hx Alcohol Use: Yes Alcohol type: beer Hx Substance Use: No Preferred Language: Bahamian Communication Ability: Effective Mophead Trimmer And Wrapper Required: No Beliefs That Will Affect Care: None Current Living Situation: Alone How many Children do You have: 1 Feels Safe at Home: Yes Gender Identity: Male Assistive Devices: None Allergies Allergies Allergy/AdvReac Type Severity Reaction Status Date / Time No Known Allergies Allergy Mild Verified 11/10/20 00:48 Home Meds Home Medications Medication Instructions Recorded Confirmed acetaminophen 500 mg tablet 1,000 mg PO DIRECTED PRN Pain 11/10/20 11/10/20 (Tylenol Extra Strength) carisoprodol 350 mg tablet 350 mg PO QID PRN MUSCLE SPASMS 11/10/20 11/10/20 docusate sodium 100 mg capsule 100 mg PO DAILY 11/10/20 11/10/20 (Stool Softener) paroxetine HCl 20 mg tablet (Paxil) 20 mg PO DAILY 11/10/20 11/10/20 Previous Rx's Medication Instructions Recorded oxycodone 5 mg tablet 10 mg (2 x 5 mg) PO Q6H PRN pain, 11/11/20 moderate #15 tabs Results & Data (ED) Vital Signs Vital Signs - 24 hr 06/25/23 11:50 06/25/23 12:05 06/25/23 14:00 Temperature 36.6 C Temperature Source Temporal Artery Scan Pulse Rate 101 H Pulse Rate [Radial] 78 Pulse Rhythm [Radial] Pulse Strength [Radial] Respiratory Rate 18 16 Respiratory Effort / Characteristics Non-Labored Spontaneous Non-Labored Non-Labored Respiratory Depth Normal Normal Normal Respiratory Pattern Regular Regular Blood Pressure 114/79 Blood Pressure [Left Arm] 127/79 Blood Pressure Mean 90 Blood Pressure Mean [Left Arm] 95 Blood Pressure Position Sitting Blood Pressure Position [Left Arm] Pulse Oximetry 97 95 Oxygen Delivery Method Room Air Room Air Room Air Sepsis Recent Fever Within 48 Hours No Sepsis New/Unexplained Change in Mental Status N/A Sepsis Action Taken by Nursing No Action Required 06/25/23 17:46 Temperature 36.7 C Temperature Source Oral Pulse Rate Pulse Rate [Radial] 68 Pulse Rhythm [Radial] Regular Pulse Strength [Radial] Normal Respiratory Rate 19 Respiratory Effort / Characteristics Non-Labored Spontaneous Respiratory Depth Normal Respiratory Pattern Regular Blood Pressure Blood Pressure [Left Arm] 116/56 L Blood Pressure Mean Blood Pressure Mean [Left Arm] 76 Blood Pressure Position Blood Pressure Position [Left Arm] Lying Pulse Oximetry 98 Oxygen Delivery Method Room Air Sepsis Recent Fever Within 48 Hours Sepsis New/Unexplained Change in Mental Status Sepsis Action Taken by Intermediate Medications Current Medication List: was personally reviewed by me Laboratory Data Attestation: I reviewed the patient's lab results. 06/25/23 13:08 06/25/23 13:08 Lab Results 06/25/23 06/25/23 06/25/23 Range/Units 13:08 13:16 13:26 WBC 12.46 H (4.8-10.8) K/ul RBC 4.79 (4.70-6.10) M/uL Hgb 13.8 L (14.0-18.0) g/dl Hct 40.9 L (42.0-52.0) % MCV 85.4 (80.0-100.0) fL MCH 28.8 (25.0-34.0) pg MCHC 33.7 (32.0-36.0) g/dL RDW Std Deviation 39.2 (36.4-46.3) fL RDW Coeff of Jaquelin 12.6 (11.5-14.5) % Plt Count 456 H (130-400) K/uL MPV 9.0 L (9.4-12.4) fL Immature Gran % (Auto) 0.6 % Neut % (Auto) 71.7 % Lymph % (Auto) 17.3 % [place] % (Auto) 8.7 % Eos % (Auto) 1.1 % Baso % (Auto) 0.6 % Neut # (Auto) 8.93 H (1.40-6.50) K/uL Lymph # (Auto) 2.15 (1.20-3.40) K/uL [place] # (Auto) 1.09 H (0.11-0.59) K/uL Eos # (Auto) 0.14 (0.00-0.50) K/uL Baso # (Auto) 0.08 (0.00-0.20) K/uL Immature Gran # (Auto) 0.07 (0.01-0.20) K/uL Sodium 134 L (136-145) mmol/L Potassium 3.9 (3.5-5.1) mmol/L Chloride 100 (98-107) mmol/L Carbon Dioxide 25 (21-32) mmol/L Anion Gap 9 (3-11) BUN 11 (6-23) mg/dl Creatinine 0.92 (0.6-1.4) mg/dl Est Cr Clr Drug Dosing 102.0 ml/min Est GFR ( Amer) 110.4 ml/min Est GFR (Non-Af Amer) 95.3 ml/min BUN/Creatinine Ratio 12.0 (10-20) Glucose 113 H (70-99(Fasting)) mg/dl Calcium 9.3 (8.6-10.3) mg/dl Total Bilirubin 0.6 (0.2-1.0) mg/dl AST 14 (13-39) U/L ALT 13 (7-52) U/L Alkaline Phosphatase 134 H (34-104) U/L Total Protein 7.9 (6.0-8.3) gm/dl Albumin 3.9 (3.4-5.0) gm/dl Globulin 4.0 (2.5-4.0) gm/dl Albumin/Globulin Ratio 1.0 (0.9-2) TSH 0.406 (0.300-4.500) uIu/ml Urine Color [place] Urine Appearance Clear (Clear) Urine pH 5.5 (4.5-7.5) Ur Specific [place] 1.028 (1.000-1.030) Urine Protein 1+ H (Negative) Urine Glucose (UA) Negative (Negative) Urine Ketones Trace H (Negative) Urine Blood Negative (Negative) Urine Nitrite Positive A (Negative) Urine Bilirubin 1+ H (Negative) Urine Urobilinogen Negative (Negative) Ur Leukocyte Esterase Trace H (Negative) Urine WBC (Auto) 1-5 (0-5) /hpf Urine RBC (Auto) 0-4 (0-4) /hpf U Hyaline Cast (Auto) 5-10 H (0-5) /lpf U Epithel Cells (Auto) 10-20 H (0-5) /lpf Urine Bacteria (Auto) Negative (Negative) Salicylates < 3.0 L (3.0-30) mg/dl Urine Opiates Screen Neg (Neg) Ur Methadone, Qual Neg (Neg) Acetaminophen < 3 L (10-30) ug/ml Urine Barbiturates Neg (Neg) Ur Phencyclidine (PCP) Neg (Neg) U Amphetamin/Meth Scrn Neg (Neg) MDMA (Ecstasy) Screen Neg (Neg) U Benzodiazepines Scrn Neg (Neg) Ur Cocaine Metabolite Neg (Neg) U Marijuana (THC) Screen Neg (Neg) Ethyl Alcohol mg/dL < 10.0 (<10.0) mg/dl Adenovirus (PCR) Not Detected (NotDetected) B. pertussis DNA (PCR) Not Detected (NotDetected) B.parapertussis DNA PCR Not Detected (NotDetected) C. pneumoniae DNA (PCR) Not Detected (NotDetected) Coronavirus OC43 (PCR) Not Detected (NotDetected) Coronavirus HKU1 (PCR) Not Detected (NotDetected) Coronavirus 229E (PCR) Not Detected (NotDetected) SARS-CoV-2 (PCR) Not Detected (NotDetected) Coronavirus NL63 (PCR) Not Detected (NotDetected) Human Metapneumovir PCR Not Detected (NotDetected) Influenza Type A (PCR) Not Detected (NotDetected) Influenza Type B (PCR) Not Detected (NotDetected) M. pneumoniae (PCR) Not Detected (NotDetected) Parainfluenza 1 (PCR) Not Detected (NotDetected) Parainfluenza 2 (PCR) Not Detected (NotDetected) Parainfluenza 3 (PCR) Not Detected (NotDetected) Parainfluenza 4 (PCR) Not Detected (NotDetected) RSV (PCR) DETECTED A (NotDetected) Entero/Rhino (PCR) Not Detected (NotDetected) Administered Medications Discontinued Medications Acetaminophen (Acetaminophen 500 Mg Tab) 1,000 mg PO NOW STA Stop: 06/25/23 13:39 Last Admin: 06/25/23 13:44 Dose: 1,000 mg Documented By: CRAIG Lorazepam (Lorazepam 1 Mg Tab) 1 mg PO NOW STA Stop: 06/25/23 13:39 Last Admin: 06/25/23 13:44 Dose: 1 mg Documented By: CRAIG Imaging Data Attestation: I personally reviewed and interpreted this imaging study as follows: My Impression: 1 view chest x-ray was obtained in the emergency department. My interpretation is no free air or definite filtrate, final report below Radiologist's Impression: Chest X-Ray 06/25/23 13:38 XR chest 1V portable HISTORY: 52 years-old Male cough acute cough COMPARISON: CTA chest 11/10/2020 TECHNIQUE: AP view the chest FINDINGS: Cardiac mediastinal and hilar silhouettes are within normal limits. No pneumothorax, pleural effusion or airspace consolidation. Chronic appearing right-sided rib fractures. Bones appear grossly intact. IMPRESSION: No acute process. ACT 112: Negative or not required by law. The above report was generated using voice recognition software. It may contain grammatical, syntax or spelling errors. Electronically signed by: Reed Kent M.D. 06/25/2023 2:11 PM Discharge Plan Visit Data Chief Complaint: Mental Health Evaluation Stated Complaint: LEFT EAR DEAFNESS, SOB, CHEST PAIN, MHE ED Provider: Rodrick Rasheed Discharge Problem: Depression with suicidal ideation, Earache on left, Acute bronchitis due to respiratory syncytial virus Patient Disposition: Still a Patient Forms Stand Alone Forms: My [facility], Suicide Prevention Resources Prescriptions Prescriptions: No Action carisoprodol 350 mg tablet 350 mg PO QID PRN (Reason: MUSCLE SPASMS) acetaminophen [Tylenol Extra Strength] 500 mg Tablet 1,000 mg PO DIRECTED PRN (Reason: Pain) paroxetine HCl [Paxil] 20 mg Tablet 20 mg PO DAILY docusate sodium [Stool Softener] 100 mg Capsule 100 mg PO DAILY oxycodone 5 mg tablet 10 mg PO Q6H PRN (Reason: pain, moderate) Qty: 15 0RF Rx Instructions: please hold for lethargy or drowsiness Referrals Referrals: PCP,NO [Physician] -
[2023-06-25] MEDS: LORazepam 1 MG TAB PO STA (13:44)
[2023-06-25] MEDS: ACETAMINOPHEN 500 MG TAB PO STA (13:44)
[2023-06-25 13:57] LABS: Basophils # (auto) 0.08 K/uL (0.00-0.20); Basophils % (auto) 0.6 %; Eosinophils # (auto) 0.14 K/uL (0.00-0.50); Eosinophils % (auto) 1.1 %; Hematocrit (blood only) 40.9 % (42.0-52.0); Hemoglobin 13.8 g/dl (14.0-18.0); Immature Granulocytes # (auto) 0.07 K/uL (0.01-0.20); Immature Granulocytes % (auto) 0.6 %; Lymphocytes # (auto) 2.15 K/uL (1.20-3.40); Lymphocytes % (auto) 17.3 %; Mean Corpuscular Hemoglobin 28.8 pg (25.0-34.0); Mean Corpuscular Hgb Conc 33.7 g/dL (32.0-36.0); Mean Corpuscular Volume 85.4 fL (80.0-100.0); Monocytes # (auto) 1.09 K/uL (0.11-0.59); Monocytes % (auto) 8.7 %; Neutrophils # (auto) 8.93 K/uL (1.40-6.50); Neutrophils % (auto) 71.7 %; Platelet Count 456 K/uL (130-400); RDW Coefficient of Variation 12.6 % (11.5-14.5); RDW Standard Deviation 39.2 fL (36.4-46.3); Red Blood Count 4.79 M/uL (4.70-6.10); White Blood Count 12.46 K/ul (4.8-10.8)
[2023-06-25 13:59] LABS: Appearance Urine Clear (Clear); Bacteria Urine Automated Negative (Negative); Blood Urine Negative (Negative); Color Urine Orange; Glucose Urine UA Negative (Negative); Ketones Urine Trace (Negative); Leukocyte Esterase Urine Trace (Negative); Nitrite Urine Positive (Negative); Protein Urine 1+ (Negative); RBC Urine Automated 0-4 /hpf (0-4); Specific Gravity Urine 1.028 (1.000-1.030); Urobilinogen Urine Negative (Negative); pH Urine 5.5 (4.5-7.5)
[2023-06-25 14:04] LABS: Bilirubin Urine 1+ (Negative)
[2023-06-25 14:09] LABS: Albumin Level 3.9 gm/dl (3.4-5.0); Bilirubin,Total 0.6 mg/dl (0.2-1.0); Calcium 9.3 mg/dl (8.6-10.3); Est GFR (African American) 110.4 ml/min; Est GFR (Non-African American) 95.3 ml/min; Potassium 3.9 mmol/L (3.5-5.1); Total Protein 7.9 gm/dl (6.0-8.3)
[2023-06-25 14:11] LABS: Acetaminophen < 3 ug/ml (10-30); Salicylate < 3.0 mg/dl (3.0-30)
--- NOTE | 2023-06-25 14:14 | XRay Report ---
XR chest 1V portable HISTORY: 52 years-old Male cough acute cough COMPARISON: CTA chest 11/10/2020 TECHNIQUE: AP view the chest FINDINGS: Cardiac mediastinal and hilar silhouettes are within normal limits. No pneumothorax, pleural effusion or airspace consolidation. Chronic appearing right-sided rib fractures. Bones appear grossly intact. IMPRESSION: No acute process. ACT 112: Negative or not required by law. The above report was generated using voice recognition software. It may contain grammatical, syntax o r spelling errors. Electronically signed by: Reed Kent M.D. 06/25/2023 2:11 PM
[2023-06-25 14:25] LABS: Thyroid Stimulating Hormone 0.406 uIu/ml (0.300-4.500)
[2023-06-25 14:27] LABS: Amphetamines+Metham, Urine Neg (Neg); Barbiturates, Urine Neg (Neg); Benzodiazepine, Urine Neg (Neg); Cocaine, Urine Neg (Neg); MDMA (Ecstacy), Urine Neg (Neg); Marijuana, Urine Neg (Neg); Methadone, Urine Neg (Neg); Opiate, Urine Neg (Neg); Phencyclidine, Urine Neg (Neg)
[2023-06-25 14:40] LABS: Adenovirus PCR Not Detected (NotDetected); Bordetella parapertussis PCR Not Detected (NotDetected); Bordetella pertussis PCR Not Detected (NotDetected); Chlamydia pneumoniae PCR Not Detected (NotDetected); Coronavirus 229E PCR Not Detected (NotDetected); Coronavirus CoV-2 (COVID19)PCR Not Detected (NotDetected); Coronavirus HKU1 PCR Not Detected (NotDetected); Coronavirus NL63 PCR Not Detected (NotDetected); Coronavirus OC43PCR Not Detected (NotDetected); Human Metapneumovirus PCR Not Detected (NotDetected); Influenza A PCR Not Detected (NotDetected); Influenza B PCR Not Detected (NotDetected); Mycoplasma pneumoniae PCR Not Detected (NotDetected); Parainfluenza Virus 1 PCR Not Detected (NotDetected); Parainfluenza Virus 2 PCR Not Detected (NotDetected); Parainfluenza Virus 3 PCR Not Detected (NotDetected); Parainfluenza Virus 4 PCR Not Detected (NotDetected); Respiratory Syncytial VirusPCR DETECTED (NotDetected); Rhinovirus/Enterovirus PCR Not Detected (NotDetected)
[2023-06-25] MEDS ORDERED: ACETAMINOPHEN 500 MG TAB PO PRN (18:35)
[2023-06-25] MEDS ORDERED: CARISOPRODOL 350 MG TABLET PO PRN (18:35)
--- NOTE | 2023-06-25 18:36 | Emergency Department Note ---
ED Visit Note 1834: Signout from Dr. White 52-year-old male presenting with suicidal ideation. Patient is RSV positive. Awaiting placement. 1930: Patient is positive for RSV and therefore multiple psychiatric facilities have refused to accept him. Patient will be admitted to the medicine service for a psychiatric consult given his depression and suicidal ideation. .
--- NOTE | 2023-06-25 20:46 | History & Physical Report ---
Date of Service June 25, 2023 Assessment & Plan (1) Complicated UTI (urinary tract infection): Plan: No sepsis for now Shortness of breath rule out PE given abnormal D-dimer and patient debility as per her account RSV infection, congestion symptoms clearing up as per patient today Otitis externa left, unable to fully visualize TM currently to rule out middle ear involvement anxiety/mood disorder Suboptimal Patient anxious during exam and with suicidal thoughts. hyperlipidemia, not on maintenance medications hx fatty liver as per records ongoing tobacco/alcohol abuse. Med telemetry given SOB complaints Urine CS, Ceftriaxone CT chest PE study Topical antibiotic steroid drop for otitis externa left ENT consultation if without improvement Psych consult re: suicidality Suicide precautions until seen by service. PATRIZIA S at risk protocol, DT precautions DVT prophylaxis. Lovenox subcu Full code Text document was generated using [employer] voice recognition software. It may contain grammatical or spelling errors. Kindly contact undersigned for clarification of any documentation item in question. History of Present Illness Chief Complaint: Suicidality Primary Care Provider: Dr. Bravo Medical history significant for T12 burst fracture, hyperlipidemia, fatty liver as per records, adrenal hemorrhage as per records, anxiety/mood disorder, ongoing tobacco/alcohol abuse. Last confinement October 2020 for back pain secondary to T12 burst fracture. Patient with worsening depression since last year. Episodic suicidal ideations. 1 week history of congestion and cough symptoms Poor appetite. Shortness of breath worse on exertion. No chest pain. Symptoms attributed to viral infection as per PCP video visit note. Patient later noted achy left ear pain and hearing loss without drainage Denies trauma or ear manipulation. Dysuria symptoms without flank pain. Some chills. Worsening suicidal ideation secondary to illness as per patient. Patient consulted ER for evaluation. Medical History as above Surgical History : None Family History : Prostate cancer Personal/Social history : 1 pack daily, occasional EtOH intake/denies abuse, disabled Allergies Allergy/AdvReac Type Severity Reaction Status Date / Time No Known Allergies Allergy Mild Verified 06/25/23 19:49 Home Medications Medication Instructions Recorded Confirmed Type mirtazapine 15 mg tablet 15 mg PO HS 06/25/23 06/25/23 History paroxetine HCl 40 mg tablet 40 mg PO DAILY 06/25/23 06/25/23 History Past Med/Surg History Medical History Intractable back pain T12 burst fracture No pertinent past medical history Social History Smoking Status: Current some day smoker Tobacco Type: Cigarettes Cigarettes Per Day: < 1 pack; Smoking End Date: states he quit 2 weeks ago and doesn't plan to start again.; Second Hand Exposure: No; Do You Dip or Chew Tobacco: No; Hx Alcohol Use: Yes Alcohol type: beer Hx Substance Use: No Preferred Language: French Communication Ability: Effective [employer] Sales Representative Required: No Beliefs That Will Affect Care: None Current Living Situation: Alone How many Children do You have: 1 Other Information That Helps Us Care for You: No Feels Safe at Home: Yes Safety Concerns: Feels Safe At This Time Gender Identity: Male Assistive Devices: None Review of Systems Review of Systems: As per HPI, all other systems reviewed and negative Physical Exam Physical Exam: GENERAL: Anxious, unkempt, pleasant, no respiratory distress SKIN: Normal color, warm HEENT: [place] palpebral conjunctivae, no ptosis, dry buccal mucosa; AD patent EAC, intact TM minimal tragal tenderness, retained cerumen, erythematous EAC, TM not fully visualized NECK : Supple, no tenderness CHEST : CTA, no tenderness HEART : RRR, no obvious murmurs ABDOMEN: Some distention, nontender EXTREMITIES : No LE swelling/tenderness, no other conspicuous deformities noted NEUROLOGIC : Coherent, no facial asymmetry, no other gross focality Results & Data Results & Data Vital Signs (Past 12 Hours) Vital Signs Temp Pulse Pulse Resp BP BP Pulse Ox 06/25/23 19:23 36.7 C 67 19 155/75 H 94 06/25/23 17:46 36.7 C 68 19 116/56 L 98 06/25/23 14:00 78 16 127/79 95 06/25/23 12:05 06/25/23 11:50 36.6 C 101 H 18 114/79 97 O2 Del Method 06/25/23 19:23 Room Air 06/25/23 17:46 Room Air 06/25/23 14:00 Room Air 06/25/23 12:05 Room Air 06/25/23 11:50 Room Air Laboratory Results Laboratory Results WBC 12.46 K/ul (4.8-10.8) H 06/25/23 13:08 RBC 4.79 M/uL (4.70-6.10) 06/25/23 13:08 Hgb 13.8 g/dl (14.0-18.0) L 06/25/23 13:08 Hct 40.9 % (42.0-52.0) L 06/25/23 13:08 MCV 85.4 fL (80.0-100.0) 06/25/23 13:08 MCH 28.8 pg (25.0-34.0) 06/25/23 13:08 MCHC 33.7 g/dL (32.0-36.0) 06/25/23 13:08 RDW Std Deviation 39.2 fL (36.4-46.3) 06/25/23 13:08 RDW Coeff of Jaquelin 12.6 % (11.5-14.5) 06/25/23 13:08 Plt Count 456 K/uL (130-400) H 06/25/23 13:08 MPV 9.0 fL (9.4-12.4) L 06/25/23 13:08 Immature Gran % (Auto) 0.6 % 06/25/23 13:08 Neut % (Auto) 71.7 % 06/25/23 13:08 Lymph % (Auto) 17.3 % 06/25/23 13:08 [place] % (Auto) 8.7 % 06/25/23 13:08 Eos % (Auto) 1.1 % 06/25/23 13:08 Baso % (Auto) 0.6 % 06/25/23 13:08 Neut # (Auto) 8.93 K/uL (1.40-6.50) H 06/25/23 13:08 Lymph # (Auto) 2.15 K/uL (1.20-3.40) 06/25/23 13:08 [place] # (Auto) 1.09 K/uL (0.11-0.59) H 06/25/23 13:08 Eos # (Auto) 0.14 K/uL (0.00-0.50) 06/25/23 13:08 Baso # (Auto) 0.08 K/uL (0.00-0.20) 06/25/23 13:08 Immature Gran # (Auto) 0.07 K/uL (0.01-0.20) 06/25/23 13:08 Sodium 134 mmol/L (136-145) L 06/25/23 13:08 Potassium 3.9 mmol/L (3.5-5.1) 06/25/23 13:08 Chloride 100 mmol/L (98-107) 06/25/23 13:08 Carbon Dioxide 25 mmol/L (21-32) 06/25/23 13:08 Anion Gap 9 (3-11) 06/25/23 13:08 BUN 11 mg/dl (6-23) 06/25/23 13:08 Creatinine 0.92 mg/dl (0.6-1.4) 06/25/23 13:08 Est Cr Clr Drug Dosing 102.0 ml/min 06/25/23 13:08 Est GFR ( Amer) 110.4 ml/min 06/25/23 13:08 Est GFR (Non-Af Amer) 95.3 ml/min 06/25/23 13:08 BUN/Creatinine Ratio 12.0 (10-20) 06/25/23 13:08 Glucose 113 mg/dl (70-99(Fasting)) H 06/25/23 13:08 Calcium 9.3 mg/dl (8.6-10.3) 06/25/23 13:08 Total Bilirubin 0.6 mg/dl (0.2-1.0) 06/25/23 13:08 AST 14 U/L (13-39) 06/25/23 13:08 ALT 13 U/L (7-52) 06/25/23 13:08 Alkaline Phosphatase 134 U/L (34-104) H 06/25/23 13:08 Total Protein 7.9 gm/dl (6.0-8.3) 06/25/23 13:08 Albumin 3.9 gm/dl (3.4-5.0) 06/25/23 13:08 Globulin 4.0 gm/dl (2.5-4.0) 06/25/23 13:08 Albumin/Globulin Ratio 1.0 (0.9-2) 06/25/23 13:08 TSH 0.406 uIu/ml (0.300-4.500) 06/25/23 13:08 Urine Color [place] 06/25/23 13:16 Urine Appearance Clear (Clear) 06/25/23 13:16 Urine pH 5.5 (4.5-7.5) 06/25/23 13:16 Ur Specific [place] 1.028 (1.000-1.030) 06/25/23 13:16 Urine Protein 1+ (Negative) H 06/25/23 13:16 Urine Glucose (UA) Negative (Negative) 06/25/23 13:16 Urine Ketones Trace (Negative) H 06/25/23 13:16 Urine Blood Negative (Negative) 06/25/23 13:16 Urine Nitrite Positive (Negative) A 06/25/23 13:16 Urine Bilirubin 1+ (Negative) H 06/25/23 13:16 Urine Urobilinogen Negative (Negative) 06/25/23 13:16 Ur Leukocyte Esterase Trace (Negative) H 06/25/23 13:16 Urine WBC (Auto) 1-5 /hpf (0-5) 06/25/23 13:16 Urine RBC (Auto) 0-4 /hpf (0-4) 06/25/23 13:16 U Hyaline Cast (Auto) 5-10 /lpf (0-5) H 06/25/23 13:16 U Epithel Cells (Auto) 10-20 /lpf (0-5) H 06/25/23 13:16 Urine Bacteria (Auto) Negative (Negative) 06/25/23 13:16 Salicylates < 3.0 mg/dl (3.0-30) L 06/25/23 13:08 Urine Opiates Screen Neg (Neg) 06/25/23 13:16 Ur Methadone, Qual Neg (Neg) 06/25/23 13:16 Acetaminophen < 3 ug/ml (10-30) L 06/25/23 13:08 Urine Barbiturates Neg (Neg) 06/25/23 13:16 Ur Phencyclidine (PCP) Neg (Neg) 06/25/23 13:16 U Amphetamin/Meth Scrn Neg (Neg) 06/25/23 13:16 MDMA (Ecstasy) Screen Neg (Neg) 06/25/23 13:16 U Benzodiazepines Scrn Neg (Neg) 06/25/23 13:16 Ur Cocaine Metabolite Neg (Neg) 06/25/23 13:16 U Marijuana (THC) Screen Neg (Neg) 06/25/23 13:16 Ethyl Alcohol mg/dL < 10.0 mg/dl (<10.0) 06/25/23 13:08 Adenovirus (PCR) Not Detected (NotDetected) 06/25/23 13:26 B. pertussis DNA (PCR) Not Detected (NotDetected) 06/25/23 13:26 B.parapertussis DNA PCR Not Detected (NotDetected) 06/25/23 13:26 C. pneumoniae DNA (PCR) Not Detected (NotDetected) 06/25/23 13:26 Coronavirus OC43 (PCR) Not Detected (NotDetected) 06/25/23 13:26 Coronavirus HKU1 (PCR) Not Detected (NotDetected) 06/25/23 13:26 Coronavirus 229E (PCR) Not Detected (NotDetected) 06/25/23 13:26 SARS-CoV-2 (PCR) Not Detected (NotDetected) 06/25/23 13:26 Coronavirus NL63 (PCR) Not Detected (NotDetected) 06/25/23 13:26 Human Metapneumovir PCR Not Detected (NotDetected) 06/25/23 13:26 Influenza Type A (PCR) Not Detected (NotDetected) 06/25/23 13:26 Influenza Type B (PCR) Not Detected (NotDetected) 06/25/23 13:26 M. pneumoniae (PCR) Not Detected (NotDetected) 06/25/23 13:26 Parainfluenza 1 (PCR) Not Detected (NotDetected) 06/25/23 13:26 Parainfluenza 2 (PCR) Not Detected (NotDetected) 06/25/23 13:26 Parainfluenza 3 (PCR) Not Detected (NotDetected) 06/25/23 13:26 Parainfluenza 4 (PCR) Not Detected (NotDetected) 06/25/23 13:26 RSV (PCR) DETECTED (NotDetected) A 06/25/23 13:26 Entero/Rhino (PCR) Not Detected (NotDetected) 06/25/23 13:26 Impressions Chest X-Ray 06/25/23 13:38 XR chest 1V portable HISTORY: 52 years-old Male cough acute cough COMPARISON: CTA chest 11/10/2020 TECHNIQUE: AP view the chest FINDINGS: Cardiac mediastinal and hilar silhouettes are within normal limits. No pneumothorax, pleural effusion or airspace consolidation. Chronic appearing right-sided rib fractures. Bones appear grossly intact. IMPRESSION: No acute process. ACT 112: Negative or not required by law. The above report was generated using voice recognition software. It may contain grammatical, syntax or spelling errors. Electronically signed by: Reed Kent M.D. 06/25/2023 2:11 PM
[2023-06-25] MEDS ORDERED: LORazepam 1 MG in SYRINGE 0.5 ML IV PRN (20:53)
[2023-06-25] MEDS ORDERED: PROMETHAZINE HCL 12.5 MG in SODIUM CHLORIDE 0.9% 50 ML IV PRN (20:53)
[2023-06-25] MEDS: NSS + 20MEQ KCL 20 MEQ/1,000 ML BAG IV ONE (21:33)
[2023-06-25] MEDS: THIAMINE HCL 100 MG in SYRINGE 9 ML IV STA (21:36)
[2023-06-25] MEDS: MELATONIN 3 MG TAB PO PRN (21:36)
[2023-06-25] MEDS: KETOROLAC TROMETHAMINE 15 MG/ML VIAL IV ONE (21:36)
[2023-06-25 21:45] LABS: Troponin I High Sensitivity 5.8 pg/ml (0-20)
[2023-06-25 22:15] LABS: D Dimer 730 ug/L FEU (0-500)
[2023-06-25] MEDS: OPTIRAY 320 125ml IV ONE (23:04)
[2023-06-25] MEDS: cefTRIAXone SODIUM 2,000 MG in DEXTROSE 5 % MINI-B 50 ML IV SCH (23:23)
[2023-06-25] MEDS: CIPRO 0.2%/HYDROCORTISONE 1% OTIC SUSP 10 ML BTL OTL SCH (23:26)
--- OUTSIDE RECORDS SUMMARY | 2023-06-25 23:26 | External Medical Summary | Summary of Care ---
Author Name Unknown Organization [facility] Address [address] [place] [address] Phone [phone] Care Team Providers Care Wheat Inspector Name Role Phone Nick Bravo MD Primary Care Provider [phone] Reason for Visit * Reason Comments Congestion Encounter Details Date Type Department Care Team ([facility] st Contact Info) Description 06/20/2023 10:20 AM EST Telemedicine [address] [phone] Patience Donovan PA-C [address] [place] [phone] Viral URI with cough* Allergies No known active allergiesdocumented as of this encounter (statuses as of 06/20/2023) Medications Medication Sig Dispensed Refills Start Date End Date Status QUEtiapine Fumarate 25 MG Oral Tablet (SEROquel)Indications :Primary insomnia Take 0.5 Tablets by mouth at bedtime. 45 Tablet 3 04/06/2022 Active traZODone HCl 50 MG Oral Tablet (Desyrel)Indications: Episode of recurrent major depressive disorder, unspecified depression episode severity (HCC) Take 0.5 Tablets by mouth at bedtime. 45 Tablet 3 04/06/2022 Active PARoxetine HCl 40 MG Oral Tablet (Paxil)Indications:Ep isode of recurrent major depressive disorder, unspecified depression episode severity (HCC),Generalized anxiety disorder Take 1 Tablet by mouth in the morning. 90 Tablet 3 07/25/2022 Active documented as of this encounter (statuses as of 06/20/2023) Active Problems Problem Noted Date Diagnosed Date Fall from ladder 11/07/2020 T12 burst fracture 11/07/2020 Scalp abrasion 11/07/2020 Major depressive disorder, recurrent, unspecifie d 02/17/2019 Hyperlipidemia with target LDL less than 130 Fatty liver 07/02/2016 GENERALIZED ANXIETY DIS 12/19/2004 Major depressive disorder 12/19/2004 Overview: ICD-10 update of inactive term documented as of this encounter (statuses as of 06/20/2023) Resolved Problems Problem Noted Date Diagnosed Date Resolved Date Closed fracture of right clavicle 08/04/2017 02/17/2019 Closed fracture of multiple ribs of right side with routine healing 08/04/2017 02/17/2019 Multiple closed fractures of facial bone 08/04/2017 02/17/2019 Adrenal hemorrhage 08/04/2017 9 Purging 11/05/2016 02/17/2019 Closed subcondylar fracture of mandible 02/14/2007 02/17/2019 Overview: ICD-10 update of inactive term Cellulitis of face 02/14/2007 9 documented as of this encounter (statuses as of 06/20/2023) Immunizations Name Administration Dates Next Due Pneumococcal Polysaccharide PPV23 (Pneumovax) 02/17/2013(Deferred: Patient Refused) Seasonal Influenza, Split, I IV3, With Preserve, Inj 02/17/2013(Deferred: Patient Refused) TDAP (age 10 and older)(Boostrix) 08/03/2017 TDAP (age 11 and older)(Adacel) 12/01/19 08(Deferred: Patient Refused - states he is up to date) documented as of this encounter Social History Tobacco Use Types Packs/Day Years Used Date Smoking Tobacco: Some Days Cigarettes Smokeless Tobacco: Former Alcohol Use Standard Drinks/Week Comments Yes 0 (1 standard drink = 0.6 oz pur e alcohol) 5-6 drinks a day PHQ-2 Answer Date Recorded PHQ-2 Score -1 01/03/2020 Hunger Vital Sign Answer Date Recorded Worried About Running Out of Food in the Last Ye ar Never true 11/06/2020 Ran Out of Food in the Last Year Never true 11/06/2020 Sex and Gender Information Value Date Recorded Sex Assigned at Male 02/17/2019 1:30 PM EST Gender Identity Male 02/17/2019 1:30 PM EST Sexual Orientation Straight 02/17/2019 1: 30 PM EST Job Start Date Occupation Industry Not on file Not on file Not on file documented as of this encounter Functional Status Functional Status Response Date of Assess ment Are you deaf or do you have serious difficulty h earing? No 11/07/2020 Are you blind or do you have serious difficulty seeing, even when wearing glasses? No 11/07/2020 Do you have serious difficul ty walking or climbing stairs? (5 years old or older) No 11/07/2020 Do you have difficulty dress ing or bathing? (5 years old or older) No 11/07/2020 Because of a physical, menta l, or emotional condition, do you have difficulty doing errands alone such as visiting a doctor s office or shopping? (15 years old or older) No 11/08/19 Cognitive Status Response Date of Assessm ent Because of a physical, menta l, or emotional condition, do you have serious difficulty concentrating, remembering, or making decisions? (5 years old or older) No 11/07/2020 documented as of this encounter Progress Notes * Patience Donovan PA-C - 06/20/2023 10:22 AM EST Attempted to establish connection at 10:20 AM. Patient having connectivity issues. (Unable to see or hear patient) Allowed time for patient to resolve issues. Issues remained and call was ended at 10:26AM, prior to establishing appropriate connection for visit. Patience Donovan PA-C 06/20/2023 10:28 AM Called patient at 10:49AM Patient location: HOME. I was in a hospital or clinic location. After connecting through televideo,patient was verified with two unique identifiers. Patient (or authorized legal door to door sales representative) was then informed that this was a Telemedicine visit and being conducted confidentially over secure lines. Methods to assure confidentiality were taken. Patient acknowledged consent and understanding of pr ivacy and security of the Telemedicine visit. The patient agreed to participate.TELEPHONIC ONLY Subjective: Bill Berger is a 52 year old male. No chief complaint on file. HPI: Telephonic visit only. Patient reports sinus, chest congestion, and cough for 4- 5 days. Denies any recent increase in his symptoms. Denies any shortness of breath. Denies fevers. Reports fatigue has improved. Denies diagnosis of asthma or COPD. PMH: Patient Active Problem List Diagnosis Code GENERALIZED ANXIETY DIS F41.1 Major depressive disorder F32.9 Hyperlipidemia with target LDL less than 130 E78.5 Fatty liver K76.0 Major depressive disorder, recurrent, unspecified (HCC) F33.9 Fall from ladder W11.XXXA T12 burst fracture (HCC) S22.081A Scalp abrasion S00.01XA Current Outpatient Medications Medication Sig Dispense Refill QUEtiapine Fumarate 25 MG Oral Tablet (SEROquel) Take 0.5 Tablets by mouth at bedtime. 45 Tablet 3 traZODone HCl 50 MG Oral Tablet (Desyrel) Take 0.5 Tablets by mouth at bedtime. 45 Tablet 3 PARoxetine HCl 40 MG Oral Tablet (Paxil) Take 1 Tablet by mouth in the morning. 90 Tablet 3 No current facility-administered medications for this visit. Review of patient's allergies indicates: No Known Allergies Objective: There were no vitals taken for this visit. General: alert Lungs: No conversational dyspnea. Neuro Exam: alert & oriented x 3 with fluent speech ASSESSMENT: Viral URI with cough (Primary) Follow Up: Return if symptoms worsen or fail to improve, for Patient should schedule routine followup with his PCP . | For: Patient should schedule routine follow up with his PCP Continue supportive care. Recommend in person evaluation for any new or worsening symptoms. Seek reevaluation if symptoms fail to improve or become worse. Patience Donovan PA-C documented in this encounter Plan of Treatment Health Maintenance Due Date Last Done Comments Pneumococcal Vaccine: Pediatrics (0 to 5 Years) and At-Risk Patients (6 to 64 Years) (1 of 2 - PCV) 1976 HIV Screening 1985 Hepatitis C Screening 1988 Hepatitis B (1 of 3 - 19+ 3-dose series) 1989 Cologuard 07/27/2015 Fecal Occult Blood Test 07/27/2015 Sigmoidoscopy 07/27/2015 Depression Screening 02/18/2020 02/17/2019 Zoster Vaccines (1 of 2) 2020 Colonoscopy 05/20/2022 05/20/2012 Colorectal Cancer Screening 05/20/2022 COVID-19 Vaccine ( season) 2022 Influenza Vaccine (FLU shot) (#1) 2022 Lipid Panel 12/25/2022 12/25/2017, 03/15, 07/03/2016, Additional history exists Diabetes Screening 12/01/2024 12/01/2021, 0 11/09/2020, 11/08/2020, Additional history exists DTaP,Tdap,and Td Vaccines (3 - Td or Tdap) 11/06/2030 11/06/2020, 08/03/2017 GARDASIL-HPV IMMUNIZATION SERIES Aged Out No longer eligible based on patient's age to complete this topic MENINGOCOCCAL (MENACTRA/MENVEO) Aged Out No longer eligible based on patient's age to complete this topic documented as of this encounter Medical Devices Not on filedocumented as of this encounter Visit Diagnoses Diagnosis Viral URI with cough- Primary Acute upper respiratory infections of unspecified site documented in this encounter Advance Directives Latest Code Status on File Code Status Date Activated Date Inactivated Comments Full Code 11/07/2020 12:14 AM 11/09/2020 6:17 PM This order reflects the patients wishes and were consensually agreed upon. Code Status History Code Status Date Activated Date Inactivated Comments Full Code 08/03/2017 8:12 PM 08/05/2017 8:58 PM Question Answer Comments Discussion of Advance Direct erich occurred with: Not Discussed Does the patient have a Living Will? No Does the patient have Health Care Power of Employment Advisor? No Care Teams Wheat Inspector Relationship Specialty Start Date End Date August, Nick Ortega MD [address] [place] [address] PCP - General Family Medicine 02/01/23 documented as of this encounter"
--- OUTSIDE RECORDS SUMMARY | 2023-06-25 23:26 | External Medical Summary | Summary of Care ---
Author Name Unknown Organization [facility] Address [address] [place] [address] Phone [phone] Care Team Providers Care Client Analyst Name Role Phone AugustNick MD Primary Care Provider [phone] Reason for Visit * Reason Onset Date Comments Med Request 06/18/2023 Encounter Details Date Type Department Care Team (Late st Contact Info) Description 06/18/[address] [facility] [address] [place] [address] Nick Bravo MD [address] [place] [address] Med Request Allergies No known active allergiesdocumented as of this encounter (statuses as of 06/18/2023) Medications Medication Sig Dispensed Refills Start Date [...] as of this encounter (statuses as of 06/18/2023) Active Problems Problem Noted Date Diagnosed Date Fall from ladder 11/07/2020 T12 burst fracture 11/07/2020 Scalp abrasion 11/07/2020 Major depressive disorder, recurrent, unspecifie d 02/17/2019 Hyperlipidemia with target LDL less than 130 Fatty liver 07/02/2016 GENERALIZED ANXIETY DIS 12/19/2004 Major depressive disorder 12/19/2004 Overview: ICD-10 update of inactive term documented as of this encounter (statuses as of 06/18/2023) Resolved Problems Problem Noted Date Diagnosed Date [...] as of this encounter (statuses as of 06/18/2023) Immunizations Name Administration Dates Next Due Pneumococcal [...] No 11/07/2020 documented as of this encounter Miscellaneous Notes * Telephone Encounter - Bridgette Lamb OSA - 06/18/2023 3:23 PM EST LMOM. 06/18/2023 * Telephone Encounter - Lovely Kenney LPN - 06/18/2023 3:16 PM EST Pt will need appointment for any medications, he has not been seen in the office since 2021 * Telephone Encounter - Pastora Ernst CPhT - 06/18/2023 3:08 PM EST Pt asking high priority. Pt calling with complaints of chest cold and is requesting a medication be prescribed. Pt did not want to schedule an appointment at this time. Call details was completed, please refer to this for further information. Thank you, Dot Ernst Garbage Man [facility] (Formerly Telepharmacy) 06/18/2023,3:08 PM documented in this encounter Plan of Treatment [...] Not on filedocumented as of this encounter Advance Directives Latest Code Status [...] the patient have Health Care Power of Manager Agency? No Care Teams Client Analyst Relationship Specialty Start Date End Date August, Nick Ortega MD [address] [id number] PCP - General Family Medicine 02/01/23 documented as of this encounter
--- OUTSIDE RECORDS SUMMARY | 2023-06-25 23:26 | External Medical Summary | Summary of Care ---
Author Name Unknown Organization [facility] Address [address] [place] [address] Phone [phone] Care Team Providers Care Horticultural Specialty Grower Name Role Phone AugustNick MD Primary Care Provider [phone] Reason for Visit * Reason Onset Date Comments Med Request 06/18/2023 Encounter Details Date Type Department Care Team (Late st Contact Info) Description 06/18/2023 Telephone [facility] [address] [place] [address] Nick Bravo MD [address] [place] [address] Med Request Allergies No known active allergiesdocumented as of this encounter (statuses as of 06/19/2023) Medications Medication Sig Dispensed Refills Start Date [...] as of this encounter (statuses as of 06/19/2023) Active Problems Problem Noted Date Diagnosed Date Fall from ladder 11/07/2020 T12 burst fracture 11/07/2020 Scalp abrasion 11/07/2020 Major depressive disorder, recurrent, unspecifie d 02/17/2019 Hyperlipidemia with target LDL less than 130 Fatty liver 07/02/2016 GENERALIZED ANXIETY DIS 12/19/2004 Major depressive disorder 12/19/2004 Overview: ICD-10 update of inactive term documented as of this encounter (statuses as of 06/19/2023) Resolved Problems Problem Noted Date Diagnosed Date [...] as of this encounter (statuses as of 06/19/2023) Immunizations Name Administration Dates Next Due Pneumococcal [...] encounter Miscellaneous Notes * Telephone Encounter - Sosa Maldonado OSA - 06/19/2023 4:59 PM EST Patient has been notified of the message. Patient has no further questions. * Telephone Encounter - Bridgette Lamb OSA [...] for further information. Thank you, Dot Ernst Injection Mold Technician [facility] (Formerly Telepharmacy) [...] Colorectal Cancer Screening 05/20/2022 COVID-19 Vaccine ( - 2022- season) 2022 Influenza Vaccine (FLU shot) (#1) [...] the patient have Health Care Power of Maple Products Supervisor? No Care Teams Horticultural Specialty Grower Relationship Specialty Start Date End Date August, Nick Ortega MD [address] [place] [address] PCP - General Family Medicine 02/01/23 documented as of this encounter
--- OUTSIDE RECORDS SUMMARY | 2023-06-25 23:27 | External Medical Summary | Summary of Care ---
Author Name Unknown Organization [facility] Address [address] [place] [address] Phone [phone] Care Team Providers Care Assistant Professor Sculpture Name Role Phone Nick Bravo MD Primary Care Provider [phone] Reason for Visit * Reason Onset Date Comments Forms Request 05/16/2023 Encounter Details Date Type Department Care Team (Late st Contact Info) Description 05/16/2023 Telephone [facility] [address] [place] [address] Nick Bravo MD [address] [place] [address] Forms Request Allergies No known active allergiesdocumented as of this encounter (statuses as of 05/17/2023) Medications Medication Sig Dispensed Refills Start Date [...] as of this encounter (statuses as of 05/17/2023) Active Problems Problem Noted Date Diagnosed Date Fall from ladder 11/07/2020 T12 burst fracture 11/07/2020 Scalp abrasion 11/07/2020 Major depressive disorder, recurrent, unspecifie d 02/17/2019 Hyperlipidemia with target LDL less than 130 Fatty liver 07/02/2016 GENERALIZED ANXIETY DIS 12/19/2004 Major depressive disorder 12/19/2004 Overview: ICD-10 update of inactive term documented as of this encounter (statuses as of 05/17/2023) Resolved Problems Problem Noted Date Diagnosed Date [...] as of this encounter (statuses as of 05/17/2023) Immunizations Name Administration Dates Next Due Pneumococcal [...] Used Date Smoking Tobacco: Some Days Cigarettes 1 Smokeless Tobacco: Former Alcohol Use Standard Drinks/Week [...] encounter Miscellaneous Notes * Telephone Encounter - Nick Bravo MD - 05/17/2023 11:28 AM EST Most recent office note from late 2021 printed. Nothing more recent. Can be faxed as requested by [place]. Nick Bravo MD * Telephone Encounter - Ariadna Diaz LPN - 05/16/2023 5:28 PM EST Paper work on doctor's desk. See message below. Thanks * Telephone Encounter - Melissa Hill OSA - 05/16/2023 12:19 PM EST 05/16/23 Rec paperwork from [facility] that needs to be completed for the pt. Paperwork placed in the provider's mail bin . documented in this encounter Plan of Treatment Health Maintenance Due Date Last Done Comments Hepatitis B (1 of 3 - 3-dose series) 1970 COVID-19 Vaccine (#1) 01/25/1971 Pneumococcal Vaccine: Pediatrics (0 to 5 Years) and At-Risk Patients (6 to 64 Years) (1 - PCV) 1976 HIV Screening 1985 Hepatitis C Screening 1988 Cologuard 07/27/2015 Fecal Occult Blood Test 07/27/2015 Sigmoidoscopy 07/27/2015 Depression Screening 02/18/2020 02/17/2019 Zoster Vaccines (1 of 2) 2020 Colonoscopy 05/20/2022 05/20/2012 Colorectal Cancer Screening 05/20/2022 Influenza Vaccine (FLU shot) (#1) 2022 Lipid [...] the patient have Health Care Power of Crude Unit Operator? No Care Teams Assistant Professor Sculpture Relationship Specialty Start Date End Date August, Nick Ortega MD [address] [place] [facility] [place] [address] PCP - General Family Medicine 02/01/23 documented as of this encounter
--- OUTSIDE RECORDS SUMMARY | 2023-06-25 23:27 | External Medical Summary | Summary of Care ---
Author Name Unknown Organization [facility] Address [address] [place] [address] Phone [phone] Care Team Providers Care Field Return Repairer Name Role Phone Nick Bravo MD Primary Care Provider [phone] Reason for Visit * Reason Onset Date Comments Forms Request 05/16/2023 Encounter Details Date Type Department Care Team (Late st Contact Info) Description 05/16/2023 Telephone [facility] [address] [place] [address] Nick Bravo MD [address] [place] [address] Forms Request Allergies No known [...] recent. Can be faxed as requested by [email or web address]. Nick Bravo MD * Telephone Encounter - Ariadna Diaz LPN - 05/16/2023 5:28 PM EST Paper work on doctor's desk. See message below. Thanks * Telephone Encounter - Melissa Hill OSA - 05/16/2023 12:19 PM EST 05/16/23 Rec paperwork from [facility] that needs to be completed for [...] the patient have Health Care Power of Rear Admiral? No Care Teams Field Return Repairer Relationship Specialty Start Date End Date August, Nick Ortega MD [address] [facility] [place] [address] PCP - General Family Medicine 02/01/23 documented as of this encounter
--- OUTSIDE RECORDS SUMMARY | 2023-06-25 23:27 | External Medical Summary | Summary of Care ---
Author Name Unknown Organization [facility] Address [address] [place] [address] Phone [phone] Care Team Providers Care Blind Teacher Name Role Phone Ananad Liz MD Primary Care Provider [phone] Reason for Visit * Reason Onset Date Comments Health Maintenance 01/22/2023 Encounter Details Date Type Department Care Team Description 01/22/[address] [phone] Ananda Liz MD [address] [place] [phone] Health Maintenance Allergies No known active allergiesdocumented as of this encounter (statuses as of 01/22/2023) Medications Medication Sig Dispensed Refills Start Date [...] as of this encounter (statuses as of 01/22/2023) Active Problems Problem Noted Date Fall from ladder 11/07/2020 T12 burst fracture 11/07/2020 Scalp abrasion 11/07/2020 Major depressive disorder, recurrent, un specified 02/17/2019 Hyperlipidemia with target LDL less than 130 07/02/2016 Fatty liver 07/02/2016 GENERALIZED ANXIETY DIS 12/19/2004 Major depressive disorder 12/19/2004 Overview: ICD-10 update of inactive term documented as of this encounter (statuses as of 01/22/2023) Resolved Problems Problem Noted Date Resolved Date Closed fracture of right clavicle 08/04/2017 02/17/2019 Closed fracture of multiple ribs of right side with routine healing 08/04/2017 02/17/2019 Multiple closed fractures of facial bone 018 02/17/2019 Adrenal hemorrhage 08/04/2017 02/17/2019 Purging 11/05/2016 02/17/2019 Closed subcondylar fracture of mandible 02/15/20 07 02/17/2019 Overview: ICD-10 update of inactive term Cellulitis of face 02/14/2007 02/17/2019 documented as of this encounter (statuses as of 01/22/2023) Immunizations Name Administration Dates Next Due Pneumococcal [...] pur e alcohol) 5-6 drinks a day Food Insecurity Answer Date Recorded Within the past 12 months, y ou worried that your food would run out before you got money to buy more. Never true 02/17/2019 Within the past 12 months, t he food you bought just didn't last and you didn't have money to get more. Never true 02/17/2019 Sex Assigned at Date Recorded Male 02/17/2019 1:[address] Job Start Date Occupation Industry Not on [...] (15 years old or older) No 11/08/19 21 Cognitive Status Response Date of Assessm ent Because of a physical, menta l, or emotional condition, do you have serious difficulty concentrating, remembering, or making decisions? (5 years old or older No 11/07/2020 documented as of this encounter Miscellaneous Notes * Telephone Encounter - Karine Campbell LPN - 01/22/2023 10:49 AM EDT Care Gaps Comprehensive Care Outreach Last Office/Telemedicine Visit: Visit date not found (in office), 12/01/2021 (telemedicine) Next Office Visit: Visit date not found Hemoglobin AIC Results: No results found for: HEMOGLOBIN A1C Reviewed Health Maintenance below: Health Maintenance Topic Date Due Hepatitis B (1 of 3 - 3-dose series) Never done COVID-19 Vaccine (1) Never done Pneumococcal Vaccine: Pediatrics (0 to 5 Years) and At-Risk Patients (6 to 64 Years) (1 - PCV) Never done HIV Screening Never done Hepatitis C Screening Never done Depression Screening 02/18/2020 Zoster Vaccines (1 of 2) Never done Colorectal Cancer Screening 05/20/2022 Influenza Vaccine (FLU shot) (1) Never done Lipid Panel 12/25/2022 Care Gap Outreach Action Taken: Left message documented in this encounter Plan of Treatment Upcoming Encounters Date Type Specialty Care Team Description 02/11/2023 Office Visit Family Medicine Nick Bravo MD [address] [place] [address] Health Maintenance Due Date Last Done Comments [...] the patient have Health Care Power of Medical Receptionist Biller? No Care Teams Blind Teacher Relationship Specialty Start Date End Date [place] [address] PCP - General Family Medicine 02/19/12 documented as of this encounter
--- OUTSIDE RECORDS SUMMARY | 2023-06-25 23:27 | External Medical Summary | Summary of Care ---
Author Name Unknown Organization [facility] Address [address] [place] [address] Phone [phone] Care Team Providers Care Overnight Associate Name Role Phone Nick Bravo MD Primary Care Provider [phone] Reason for Visit * Reason Onset Date Comments Forms Request 02/01/2023 Encounter Details Date Type Department Care Team ([facility] st Contact Info) Description 02/01/[address] [phone] Ananda Liz MD [address] [place] [phone] Forms Request Allergies No known active allergiesdocumented as of this encounter (statuses as of 05/03/2023) Medications Medication Sig Dispensed Refills Start Date [...] as of this encounter (statuses as of 05/03/2023) Active Problems Problem Noted Date Diagnosed Date Fall from ladder 11/07/2020 T12 burst fracture 11/07/2020 Scalp abrasion 11/07/2020 Major depressive disorder, recurrent, unspecifie d 02/17/2019 Hyperlipidemia with target LDL less than 130 Fatty liver 07/02/2016 GENERALIZED ANXIETY DIS 12/19/2004 Major depressive disorder 12/19/2004 Overview: ICD-10 update of inactive term documented as of this encounter (statuses as of 05/03/2023) Resolved Problems Problem Noted Date Diagnosed Date [...] as of this encounter (statuses as of 05/03/2023) Immunizations Name Administration Dates Next Due Pneumococcal [...] encounter Miscellaneous Notes * Telephone Encounter - Chantal Amaya OSA - 02/01/2023 8:21 AM EDT Received forms forms from [facility]. I put in Dr. Archer. documented in this encounter Plan of Treatment [...] the patient have Health Care Power of Sheet Rock Taper Helper? No Care Teams Overnight Associate Relationship Specialty Start Date End Date August, Nick Ortega MD [address] [place] [address] PCP - General Family Medicine 02/01/23 documented as of this encounter
--- OUTSIDE RECORDS SUMMARY | 2023-06-25 23:27 | External Medical Summary | Summary of Care ---
Author Name Unknown Organization [facility] Address [address] [place] [address] Phone [phone] Care Team Providers Care Textile Science Technician Name Role Phone Nick Bravo MD Primary Care Provider [phone] Reason for Visit * Reason Onset Date Comments FYI 01/18/2023 Encounter Details Date Type Department Care Team Description 01/18/[address] [phone] Ananda Liz MD [address] [place] [id number] FYI Allergies No known active allergiesdocumented as of this encounter (statuses as of 02/01/2023) Medications Medication Sig Dispensed Refills Start Date [...] as of this encounter (statuses as of 02/01/2023) Active Problems Problem Noted Date Fall from ladder 11/07/2020 T12 burst fracture 11/07/2020 Scalp abrasion 11/07/2020 Major depressive disorder, recurrent, un specified 02/17/2019 Hyperlipidemia with target LDL less than 130 07/02/2016 Fatty liver 07/02/2016 GENERALIZED ANXIETY DIS 12/19/2004 Major depressive disorder 12/19/2004 Overview: ICD-10 update of inactive term documented as of this encounter (statuses as of 02/01/2023) Resolved Problems Problem Noted Date Resolved Date [...] as of this encounter (statuses as of 02/01/2023) Immunizations Name Administration Dates Next Due Pneumococcal [...] Notes * Telephone Encounter - Chantal Amaya - 02/01/2023 1:19 PM EDT I sent the request the request for JODI to [place] of Disability Twice. 2nd requedst. * Telephone Encounter - Chantal Amaya - 01/18/2023 10:51 AM EDT Jodi for [place] of Disability Determination. I sent to request to tresa [id number] documented in this encounter Plan of Treatment Upcoming Encounters Date Type Specialty Care Team Description 02/11/2023 Office Visit Family Medicine Nick Bravo MD [address] [place] [address] Health Maintenance Due Date Last Done Comments [...] the patient have Health Care Power of Blue Line Hanger? No Care Teams Textile Science Technician Relationship Specialty Start Date End Date August, Nick Ortega MD [address] [place] [id number] PCP - General Family Medicine 02/01/23 documented as of this encounter
--- OUTSIDE RECORDS SUMMARY | 2023-06-25 23:27 | External Medical Summary | Summary of Care ---
Author Name Unknown Organization [facility] Address [address] [place] [address] Phone [phone] Care Team Providers Care Jewelry Appraiser Name Role Phone Ananda Liz MD Primary Care Provider [phone] Reason for Visit * Reason Onset Date Comments FYI 01/18/2023 Encounter Details Date Type Department Care Team Description 01/18/[address] [address] Ananda Liz MD [address] [place] [phone] FYI Allergies No known active allergiesdocumented as of this encounter (statuses as of 01/18/2023) Medications Medication Sig Dispensed Refills Start Date [...] as of this encounter (statuses as of 01/18/2023) Active Problems Problem Noted Date Fall from ladder 11/07/2020 T12 burst fracture 11/07/2020 Scalp abrasion 11/07/2020 Major depressive disorder, recurrent, un specified 02/17/2019 Hyperlipidemia with target LDL less than 130 07/02/2016 Fatty liver 07/02/2016 GENERALIZED ANXIETY DIS 12/19/2004 Major depressive disorder 12/19/2004 Overview: ICD-10 update of inactive term documented as of this encounter (statuses as of 01/18/2023) Resolved Problems Problem Noted Date Resolved Date [...] as of this encounter (statuses as of 01/18/2023) Immunizations Name Administration Dates Next Due Pneumococcal [...] Chantal Amaya - 01/18/2023 10:51 AM EDT Durga for [place] of Disability Determination. I sent to request to tresa [id number] documented in this encounter Plan of Treatment Upcoming Encounters Date Type Specialty Care Team Description 02/11/2023 Office Visit Family Medicine Nick Bravo MD [address] [place], [place] [phone] Health Maintenance Due Date Last Done Comments [...] the patient have Health Care Power of Electrode Cleaning Machine Operator? No Care Teams Jewelry Appraiser Relationship Specialty Start Date End Date Ananda Liz MD [address] [place] [phone] PCP - General Family Medicine 02/19/12 documented as of this encounter
--- NOTE | 2023-06-25 23:44 | CT Scan Report ---
Exam(s): CTA CHEST EXAM: CT Angiography Chest With Intravenous Contrast CLINICAL HISTORY: Shortness of breath. TECHNIQUE: Axial computed tomographic angiography images of the chest with intravenous contrast. CTDI is 24.47 mGy and DLP is 747 mGy-cm. Automated exposure control was utilized for the study. A dose lowering technique was utilized adhering to the principles of ALARA. MIP reconstructed images were created and reviewed. COMPARISON: CTA chest 11/10/2020 FINDINGS: Pulmonary arteries: Unremarkable. No pulmonary embolus. Aorta: No acute findings. No thoracic aortic aneurysm. Lungs: Interseptal thickening is concerning for pulmonary edema. No mass. Pleural space: Unremarkable. No significant effusion. No pneumothorax. Heart: Unremarkable. No cardiomegaly. No significant pericardial effusion. No evidence of RV dysfunction. Mediastinum: Small hiatal hernia. Bones/joints: There are degenerative changes of the spine. No acute fracture. No dislocation. Soft tissues: Unremarkable. Lymph nodes: Unremarkable. No enlarged lymph nodes. IMPRESSION: 1. No pulmonary embolus. 2. Interseptal thickening is concerning for pulmonary edema. 3. Small hiatal hernia. Electronically signed by: Narcisa Garvey MD 06/25/23 23:43 PM
[2023-06-25] MEDS: MELATONIN 3 MG TAB PO STA (23:53)
[2023-06-26] MEDS: MIRTAZAPINE TAB 15 MG TAB PO SCH (02:18)
[2023-06-26 03:50] LABS: Basophils # (auto) 0.07 K/uL (0.00-0.20); Basophils % (auto) 0.6 %; Eosinophils # (auto) 0.26 K/uL (0.00-0.50); Eosinophils % (auto) 2.4 %; Hematocrit (blood only) 37.5 % (42.0-52.0); Hemoglobin 12.5 g/dl (14.0-18.0); Immature Granulocytes # (auto) 0.07 K/uL (0.01-0.20); Immature Granulocytes % (auto) 0.6 %; Lymphocytes % (auto) 24.1 %; Mean Corpuscular Hemoglobin 28.9 pg (25.0-34.0); Mean Corpuscular Hgb Conc 33.3 g/dL (32.0-36.0); Mean Corpuscular Volume 86.8 fL (80.0-100.0); Monocytes # (auto) 0.94 K/uL (0.11-0.59); Monocytes % (auto) 8.7 %; Neutrophils # (auto) 6.87 K/uL (1.40-6.50); Neutrophils % (auto) 63.6 %; Platelet Count 415 K/uL (130-400); RDW Coefficient of Variation 12.5 % (11.5-14.5); RDW Standard Deviation 39.8 fL (36.4-46.3); Red Blood Count 4.32 M/uL (4.70-6.10); White Blood Count 10.81 K/ul (4.8-10.8)
[2023-06-26 03:52] LABS: Albumin Level 3.5 gm/dl (3.4-5.0); BUN Creatinine Ratio 15.6 (10-20); Bilirubin,Total 0.3 mg/dl (0.2-1.0); Calcium 8.8 mg/dl (8.6-10.3); Creatinine Clr Calc Pharmacy 103.8 ml/min; Est GFR (African American) 113.4 ml/min; Est GFR (Non-African American) 97.9 ml/min; Globulin 3.6 gm/dl (2.5-4.0); Potassium 4.2 mmol/L (3.5-5.1); Total Protein 7.1 gm/dl (6.0-8.3)
[2023-06-26] MEDS: ENOXAPARIN INJ 40 MG/0.4 ML SYR SQ SCH (10:04)
[2023-06-26] MEDS: PARoxetine HCL 20 MG TAB PO SCH (10:05)
[2023-06-26] MEDS: THIAMINE HCL 100 MG TAB PO SCH (10:06)
[2023-06-26] MEDS: MULTIVITAMIN TAB PO SCH (10:06)
[2023-06-26] MEDS: DOCUSATE SODIUM 100 MG CAP PO SCH (10:06)
[2023-06-26] MEDS: FOLIC ACID 1 MG TAB PO SCH (10:06)
--- NOTE | 2023-06-26 14:22 | Hospitalist Progress Note ---
Date of Service June 26, 2023 Assessment & Plan (1) Complicated UTI (urinary tract infection): Plan: Urinary tract infection Urine culture pending Empirically on Rocephin We will adjust medications as needed Acute bronchitis Secondary to RSV infection Elevated D dimer --CTA: No pulmonary embolus.Interseptal thickening is concerning for pulmonary edema. -- BioFire positive for RSV Check procalcitonin Conservative management Saturating well on room air Left Otitis Media/externa Continue ciprofloxacin drops Added Flonase for nasal congestion Will consider ENT evaluation if needed Anxiety/mood disorder Suicidal ideation Continue paroxetine, mirtazapine Psychiatry consulted Suicidal precautions Ongoing tobacco/alcohol abuse Toxicology screen negative Counseled to quit tobacco, alcohol use Monitor for withdrawal Continue thiamine, folic acid Other chronic conditions: Hyperlipidemia--currently not on medications H/O fatty liver DVT Px: Lovenox SQ Code Status Full code Admission and Anticipated Discharge Date Admission Date: June 25, 2023 Subjective Patient is seen and examined at bedside Admits to have cough associate with nasal congestion Also reports feeling depressed Complains of left hearing impairment and pressure-like sensation Denies any chest pain, dyspnea, nausea, vomiting, abdominal pain No other complaints Review of Systems Review of Systems: All systems reviewed & are unremarkable except as noted in Subjective Physical Exam Physical Exam: Physical Exam: Vitals signs as noted above General Appearance:Moderately built and nourished, no apparent distress Head: normocephalic, Atraumatic Eyes: normal inspection, EOMI Neck: supple, Trachea midline Respiratory/Chest: Normal breath sounds, CTA, No accessory muscle use Cardiovascular: S1, S2, No murmur Abdomen/GI:Soft, Non tender, Bowel sounds present Extremities/Musculoskeletal:normal inspection, no edema Neurologic/Psych:AAOX3, grossly no focal neurological deficits, Left hearing impairment Skin: normal color, warm Results & Data Results & Data Vital Signs (Past 12 Hours) Vital Signs Temp Pulse Pulse Resp BP Pulse Ox O2 Del Method 06/26/23 12:37 36.5 C 82 19 131/83 94 Room Air 06/26/23 09:52 36.6 C 69 18 109/69 98 Room Air 06/26/23 05:52 63 Laboratory Results Short CBC 06/26/23 Range/Units 03:16 WBC 10.81 H (4.8-10.8) K/ul Hgb 12.5 L (14.0-18.0) g/dl Hct 37.5 L (42.0-52.0) % Plt Count 415 H (130-400) K/uL BMP 06/25/23 06/26/23 13:08 03:16 Sodium 134 L 133 L Potassium 3.9 4.2 Chloride 100 103 Carbon Dioxide 25 26 BUN 11 14 Creatinine 0.92 0.90 Glucose 113 H 101 H Calcium 9.3 8.8 Liver Function 06/25/23 06/26/23 Range/Units 13:08 03:16 Total Bilirubin 0.6 0.3 (0.2-1.0) mg/dl AST 14 12 L (13-39) U/L ALT 13 12 (7-52) U/L Alkaline Phosphatase 134 H 110 H (34-104) U/L Albumin 3.9 3.5 (3.4-5.0) gm/dl
[2023-06-26] MEDS: ACETAMINOPHEN 325 MG TAB PO PRN (15:27)
[2023-06-26] MEDS: FLUTICASONE PROPIONATE NA SPR 16 GM BTL SCH (15:28)
--- NOTE | 2023-06-26 16:33 | Psychiatric Consultation ---
Date of Consultation June 26, 2023 Impression / Recommendations Impression 52-year-old male with past psychiatric history of depression and anxiety and alcohol dependence with 2 DUIs who came to the hospital due to increased depression. (1) Alcohol use disorder, moderate, dependence: Patient states he is currently attending an outpatient alcohol program. He continues to show minimal insight into how alcohol could be contributing to his depression. A dual diagnosis inpatient unit would be very helpful for this patient. (2) Major depressive disorder with current active episode: Patient would like to voluntarily sign into a inpatient unit for stabilization and treatment. Due to his alcohol dependence and current DUI, a dual diagnosis unit would be very beneficial for the patient If this is not possible, the patient has specifically requested he go to the [facility]. Major depression episode severity: severe Psychotic features: without psychotic features Major depression recurrence: recurrent Qualified Code(s): F33.2 - Major depressive disorder, recurrent severe without psychotic features Plan At the time of the interview the patient denied suicidal ideation homicidal ideation and showed no signs of iza psychosis. He does meet criteria for voluntary psychiatric inpatient hospitalization. Due to the patient's alcohol history and current DUI as well as he is minimizing his current alcohol use I recommend that he go to a dual diagnosis unit. Despite being in outpatient alcohol treatment, the patient continues to show no insight into how alcohol can be contributing to his depression. If this is not possible, the patient voiced a specific preference to go to the [facility]. The patient denies active suicidal ideation, and does not present an imminent danger to self. From the point of view of psychiatry the one-to-one could be discontinued. Psych History Identifying Data 52 year old male with past psychiatric history of depression and alcohol dependence. Chief Complaint "I need something stronger". History of Present Illness 52-year-old male with past psychiatric history of depression and alcohol dependence who presented to the hospital due to increasing depression. The patient states that he has been pretty much lying in bed all year and does not want to keep living like this. He currently takes Paxil 40 mg daily and stated that it helps. When I asked him if he takes it as prescribed he was somewhat evasive. He also has a significant alcohol history that he is minimizing but he does have court for a DUI reportedly next Saturday. He denies suicidal ideation but states he is very depressed and wants more interventions. Reportedly he was recently prescribed Remeron but never picked up the prescription. When I asked him about what other medications he has been on before he only told me Seroquel but found that at very low doses it sedated him. The patient also states that he has bathed only 5 times in the past year. He also states that he goes out approximately once a week and drinks. But he also alluded to the fact that he might be drinking at home. Past Psychiatric History Previous Psych History: Depression. Current Psychiatric Diagnosis: Depression and Anxiety Outpatient Services: He is currently in outpatient services for alcohol treatment. He also has someone who prescribes his Paxil and the Remeron which he never picked up. Previous Psych Admissions: He is willing to go inpatient. History of Previous Suicide Attempt: No Allergies Allergy/AdvReac Type Severity Reaction Status Date / Time No Known Allergies Allergy Mild Verified 06/25/23 19:49 Home Medications Medication Instructions Recorded Confirmed Type mirtazapine 15 mg tablet 15 mg PO HS 06/25/23 06/25/23 History paroxetine HCl 40 mg tablet 40 mg PO DAILY 06/25/23 06/25/23 History Patient History Medical History Intractable back pain T12 burst fracture No pertinent past medical history Social History Smoking Status: Current some day smoker Tobacco Type: Cigarettes Cigarettes Per Day: < 1 pack; Smoking End Date: states he quit 2 weeks ago and doesn't plan to start again.; Second Hand Exposure: No; Do You Dip or Chew Tobacco: No; Hx Alcohol Use: Yes Alcohol type: beer Hx Substance Use: No Preferred Language: British Communication Ability: Effective Manager Financial Services Required: No Beliefs That Will Affect Care: None Current Living Situation: Alone How many Children do You have: 1 Other Information That Helps Us Care for You: No Feels Safe at Home: Yes Safety Concerns: Feels Safe At This Time Gender Identity: Male Assistive Devices: None Physical Exam Psychiatric: A+Ox3, euthymic affect Orientation: alert, oriented x 3 and cooperative Apperance: + disheveled Eye Contact: good eye contact Motor Behavior: no abnormal motor movements Speech: normal rate/rhythm/volume of speech Affect: euthymic affect Mood: + dysphoric mood Thought Process: goal directed thought process, linear/logical thought process and clear/coherent thought process Thought Content: + hopelessness and + worthlessness Suicidal Thoughts: denies suicidal thoughts, denies suicidal plan and denies suicidal intent Homicidal Thoughts: denies homicidal thoughts, denies homicidal plan and denies homicidal intent Hallucinations: no auditory hallucinations and no visual hallucinations Cognition: recent memory grossly intact, remote memory grossly intact, attention grossly intact and language grossly intact Estimated Intelligence: average estimated intelligence Insight: + fair insight Judgment: + fair judgement Vital Signs (Past 24 Hours): Last Vital Signs Temp 36.7 C 06/26/23 14:59 Pulse 81 06/26/23 14:59 Resp 20 06/26/23 14:59 BP 110/72 06/26/23 14:59 Pulse Ox 93 06/26/23 14:59 O2 Del Method Room Air 06/26/23 14:59 Results & Data (PSY) Medications Administered Acetaminophen (Acetaminophen 325 Mg Tab) 650 mg PO QID PRN PRN Reason: pain/fever Stop: 07/25/23 20:52 Last Admin: 06/26/23 15:27 Dose: 650 mg Documented By: FERNANDO Ciprofloxacin/Hydrocortisone (Cipro 0.2%/Hydrocortisone 1% Otic Susp 10 Ml Btl) 3 drops OTL BID [facility] Stop: 07/02/23 20:59 Last Admin: 06/26/23 10:06 Dose: 3 drops Documented By: Admin: 06/25/23 23:26 Dose: 3 drops Documented By: CHIKI Docusate Sodium (Docusate Sodium 100 Mg Cap) 100 mg PO DAILY [facility] Stop: 07/26/23 08:59 Last Admin: 06/26/23 10:06 Dose: 100 mg Documented By: FERNANDO Enoxaparin Sodium (Enoxaparin Inj 40 Mg/0.4 Ml Syr) 40 mg SQ QAM [facility] Stop: 07/26/23 08:59 Last Admin: 06/26/23 10:04 Dose: 40 mg Documented By: FERNANDO Fluticasone Propionate (Fluticasone Propionate Na Spr 16 Gm Btl) 2 sprays NA DAILY [facility] Stop: 07/26/23 11:44 Last Admin: 06/26/23 15:28 Dose: 2 sprays Documented By: FERNANDO Folic Acid (Folic Acid 1 Mg Tab) 1 mg PO QAM [facility] Stop: 07/26/23 08:59 Last Admin: 06/26/23 10:06 Dose: 1 mg Documented By: FERNANDO Ceftriaxone Sodium 2,000 mg/ (Dextrose) 50 mls @ 100 mls/hr IV Q24H [facility]; Protocol Stop: 07/05/23 22:59 Last Infusion: 06/26/23 00:00 Dose: Infused Documented By: Admin: 06/25/23 23:23 Dose: 100 mls/hr Documented By: CHIKI Mirtazapine (Mirtazapine Tab 15 Mg Tab) 15 mg PO HS [facility] Stop: 07/26/23 01:53 Last Admin: 06/26/23 02:18 Dose: 15 mg Documented By: JI Multivitamins (Multivitamin Tab) 1 tab PO [facility] Stop: 07/26/23 08:59 Last Admin: 06/26/23 10:06 Dose: 1 tab Documented By: FERNANDO Paroxetine HCl (Paroxetine Hcl 20 Mg Tab) 20 mg PO DAILY [facility] Stop: 07/26/23 08:59 Last Admin: 06/26/23 10:05 Dose: 20 mg Documented By: FERNANDO Thiamine HCl (Thiamine Hcl 100 Mg Tab) [facility] Stop: 07/26/23 08:59 Last Admin: 06/26/23 10:06 Dose: 100 mg Documented By: FERNANDO [place] [address] Office/OBS Consult Lvl 1 Patient Type New History Problem Focused Exam Problem Focused Medical Decision Making Straight Forward Diagnoses Alcohol use disorder, moderate, dependence F10.20 Severe episode of recurrent major depressive disorder, without psychotic features F33.2 Major depression episode severity: severe Psychotic features: without psychotic features Major depression recurrence: recurrent
--- NOTE | 2023-06-26 19:11 | XRay Report ---
XR orbits for MRI HISTORY: 52 years-old Male Screening for foreign body for MRI COMPARISON: Head CT 11/06/2020 TECHNIQUE: 3 views of the orbits FINDINGS: No metallic foreign body of the orbits. No acute facial bone fracture. Mastoid cells and paranasal si nuses are clear. IMPRESSION: No opaque foreign body in the orbits. ACT 112: Negative or not required by law. The above report was generated using voice recognition software. It may contain grammatical, syntax o r spelling errors. Electronically signed by: Reed Kent M.D. 06/26/2023 7:10 PM
[2023-06-26] MEDS: busPIRone 5 MG TAB PO PRN (20:42)
[2023-06-26] MEDS: MELATONIN 3 MG TAB PO PRN (20:42)
[2023-06-27] MEDS: GADOBUTROL 65ML VIAL IV ONE (02:31)
[2023-06-27] MEDS: guaiFENesin/CODEINE 100MG/10MG 5ML UDC PO PRN (03:05)
--- NOTE | 2023-06-27 03:48 | Magnetic Resonance Report ---
Exam(s): MRI IACS IV Amt: 8.5cc gadavist EXAM: MR Head With Intravenous Contrast, Internal Auditory Canal Protocol CLINICAL HISTORY: Reason for exam: Unilateral hearing loss. TECHNIQUE: Magnetic resonance images of the head/brain with intravenous contrast in multiple planes using internal auditory canal protocol. CONTRAST: Patient received 8.5cc gadavist of IV contrast COMPARISON: Comparison made to prior head CT from November 06, 2009 1. FINDINGS: Cranial nerves: Unremarkable. No mass. No abnormal enhancement. Cochlea and semicircular canals: Unremarkable. Cerebellopontine angles: Unremarkable. No mass. Brain: Mild nonspecific white matter changes. No mass. No hemorrhage. The flow voids at the base of the brain are intact. Ventricles: Unremarkable as visualized. Bones/joints: Unremarkable. No acute fracture. Prominent cervical lymph nodes. Sinuses: Chronic pansinusitis. Mastoid air cells: Left mastoid and middle ear effusion. Orbits: Unremarkable as visualized. IMPRESSION: Left mastoid and middle ear effusion. Mild nonspecific white matter changes. Chronic pansinusitis. Electronically signed by: Devi Fowler MD 06/27/23 03:47 AM
[2023-06-27 07:10] LABS: Hematocrit (blood only) 39.8 % (42.0-52.0); Mean Corpuscular Hemoglobin 28.8 pg (25.0-34.0); Mean Corpuscular Hgb Conc 32.7 g/dL (32.0-36.0); Mean Corpuscular Volume 88.2 fL (80.0-100.0); Platelet Count 456 K/uL (130-400); RDW Coefficient of Variation 12.7 % (11.5-14.5); RDW Standard Deviation 41.4 fL (36.4-46.3); Red Blood Count 4.51 M/uL (4.70-6.10); White Blood Count 11.43 K/ul (4.8-10.8)
[2023-06-27 07:19] LABS: BUN Creatinine Ratio 13.4 (10-20); Calcium 8.9 mg/dl (8.6-10.3); Creatinine Clr Calc Pharmacy 114.4 ml/min; Est GFR (African American) 117.8 ml/min; Est GFR (Non-African American) 101.7 ml/min; Magnesium 2.1 mg/dl (1.7-2.4); Potassium 4.6 mmol/L (3.5-5.1)
--- NOTE | 2023-06-27 16:16 | Hospitalist Progress Note ---
Date of Service June 27, 2023 Assessment & Plan (1) Complicated UTI (urinary tract infection): Plan: Acute bronchitis Secondary to RSV infection Elevated D dimer --CTA: No pulmonary embolus.Interseptal thickening is concerning for pulmonary edema. -- BioFire positive for RSV Normal procalcitonin Empirically received Rocephin Day #2 Conservative management Saturating well on room air Urinary tract infection--Ruled out Urine culture showed no growth Empirically received Rocephin Left Otitis Media/externa Continue ciprofloxacin drops Also on Rocephin Added Flonase for nasal congestion Will consider ENT evaluation if needed Anxiety/mood disorder Suicidal ideation Continue paroxetine, mirtazapine Psychiatry consulted Suicidal precautions Ongoing tobacco/alcohol abuse Toxicology screen negative Counseled to quit tobacco, alcohol use Monitor for withdrawal Continue thiamine, folic acid Other chronic conditions: Hyperlipidemia--currently not on medications H/O fatty liver DVT Px: Lovenox SQ Code Status Full code Admission and Anticipated Discharge Date Admission Date: June 26, 2023 Subjective Patient is seen and examined at bedside States feeling better today No new complaints Less cough today Still has left ear pressure-like sensation Denies any chest pain, dyspnea, nausea, vomiting, abdominal pain Review of Systems Review of Systems: All systems reviewed & are unremarkable except as noted in Subjective Physical Exam Physical Exam: Physical Exam: Vitals signs as noted above General Appearance:Moderately built and nourished, no apparent distress Head: normocephalic, Atraumatic Eyes: normal inspection, EOMI Neck: supple, Trachea midline Respiratory/Chest: Normal breath sounds, CTA, No accessory muscle use Cardiovascular: S1, S2, No murmur Abdomen/GI:Soft, Non tender, Bowel sounds present Extremities/Musculoskeletal:normal inspection, no edema Neurologic/Psych:AAOX3, grossly no focal neurological deficits, Left hearing impairment Skin: normal color, warm Results & Data Results & Data Vital Signs (Past 12 Hours) Vital Signs Temp Pulse Pulse Resp BP BP Pulse Ox 06/27/23 15:34 70 06/27/23 15:01 36.9 C 71 16 134/80 95 06/27/23 09:31 36.8 C 68 16 109/70 96 06/27/23 05:56 57 L O2 Del Method 06/27/23 15:34 06/27/23 15:01 Room Air 06/27/23 09:31 Room Air 06/27/23 05:56 Laboratory Results Short CBC 06/27/23 Range/Units 06:41 WBC 11.43 H (4.8-10.8) K/ul Hgb 13.0 L (14.0-18.0) g/dl Hct 39.8 L (42.0-52.0) % Plt Count 456 H (130-400) K/uL BMP 06/27/23 06:41 Sodium 137 Potassium 4.6 Chloride 105 Carbon Dioxide 28 BUN 11 Creatinine 0.82 Glucose 87 Calcium 8.9
[2023-06-27] MEDS: LORATADINE 10 MG TAB PO ONE (19:52)
[2023-06-28 07:07] LABS: Hematocrit (blood only) 39.9 % (42.0-52.0); Hemoglobin 12.9 g/dl (14.0-18.0); Mean Corpuscular Hemoglobin 28.5 pg (25.0-34.0); Mean Corpuscular Hgb Conc 32.3 g/dL (32.0-36.0); Mean Corpuscular Volume 88.1 fL (80.0-100.0); Mean Platelet Volume 8.9 fL (9.4-12.4); Platelet Count 483 K/uL (130-400); RDW Coefficient of Variation 12.7 % (11.5-14.5); RDW Standard Deviation 40.9 fL (36.4-46.3); Red Blood Count 4.53 M/uL (4.70-6.10); White Blood Count 8.73 K/ul (4.8-10.8)
[2023-06-28 07:42] LABS: BUN Creatinine Ratio 16.2 (10-20); Calcium 9.1 mg/dl (8.6-10.3); Creatinine Clr Calc Pharmacy 126.1 ml/min; Est GFR (African American) 122.9 ml/min; Est GFR (Non-African American) 106.1 ml/min; Potassium 4.2 mmol/L (3.5-5.1)
[2023-06-28] MEDS: LORATADINE 10 MG TAB PO SCH (09:22)
--- NOTE | 2023-06-28 10:48 | Hospitalist Progress Note ---
Date of Service June 28, 2023 Assessment & Plan (1) Complicated UTI (urinary tract infection): Plan: Acute bronchitis Secondary to RSV infection Elevated D dimer --CTA: No pulmonary embolus.Interseptal thickening is concerning for pulmonary edema. -- BioFire positive for RSV Normal procalcitonin Continue antitussives and supportive care. Urinary tract infection--Ruled out Urine culture showed no growth Left Otitis Media Antibiotic changed to Augmentin. Continue loratadine. Internal auditory canal MRI noted left mastoid and middle ear effusion, mild nonspecific white matter changes and chronic pansinusitis. I called [facility] ENT physician and reviewed patient with him. He recommends continuing current treatment. He stated that hearing loss usually persist for some time and improves over time with resolution of effusion Anxiety/mood disorder Continue paroxetine, mirtazapine Psych evaluation noted. Psychiatry recommended discharge to a floor unit once stable. One-to-one discontinued per psychiatry recommendation. Ongoing tobacco/alcohol abuse Toxicology screen negative Counseled to quit tobacco, alcohol use Monitor for withdrawal and manage appropriately Continue thiamine, folic acid Other chronic conditions: Hyperlipidemia--currently not on medications H/O fatty liver DVT Px: Lovenox SQ Code Status Full code Patient will need to be discharged to psych unit per psych recommendation once off RSV isolation I spent a total of 55 minutes coordinating, documenting and providing care for this patient excluding time spent in performance of separately billed services Admission and Anticipated Discharge Date Admission Date: June 26, 2023 Subjective Patient seen and examined. Reports cough continues to improve. Still reports left ear pressure and occasional pain. Also still has left hearing loss. Denies any fever, chills, nausea, vomiting Denies chest pain, shortness of breath Denies any suicidal homicidal ideation today. Physical Exam Constitutional: + well hydrated; no acute distress Eyes: PERRL, conjunctivae normal, anicteric sclerae ENMT: External ear is normal. No tragal tenderness. Has some tenderness over the left mastoid region Respiratory: normal respiratory effort, lungs clear to auscultation Cardiovascular: Rate/Rhythm: regular rate and regular rhythm S1-S2. Gastrointestinal (Abdomen): normal bowel sounds, soft, nontender, no hep atosplenomegaly Musculoskeletal: no cyanosis or clubbing, extremities motor strength 5/5 Neurologic: PERRL, EOMI, accommodation nl, no face palsy, no dysarthria Psychiatric: A+Ox3, euthymic affect Results & Data Results & Data Vital Signs (Past 12 Hours) Vital Signs Temp Pulse Pulse Resp BP BP Pulse Ox 06/28/23 09:56 06/28/23 08:04 36.5 C 54 L 18 151/84 H 99 06/28/23 07:00 56 L 06/28/23 06:23 60 18 122/75 96 06/27/23 23:27 36.4 C L 72 18 121/68 96 O2 Del Method 06/28/23 09:56 Room Air 06/28/23 08:04 Room Air 06/28/23 07:00 06/28/23 06:23 Room Air 06/27/23 23:27 Room Air Laboratory Results Abnormal lab results 06/28/23 Range/Units 06:18 RBC 4.53 L (4.70-6.10) M/uL Hgb 12.9 L (14.0-18.0) g/dl Hct 39.9 L (42.0-52.0) % Plt Count 483 H (130-400) K/uL MPV 8.9 L (9.4-12.4) fL
[2023-06-28] MEDS: AMOXICILLIN/CLAVULANATE 875 MG TAB PO SCH (13:36)
[2023-06-29 06:59] LABS: Hematocrit (blood only) 39.2 % (42.0-52.0); Hemoglobin 13.1 g/dl (14.0-18.0); Mean Corpuscular Hemoglobin 28.9 pg (25.0-34.0); Mean Corpuscular Hgb Conc 33.4 g/dL (32.0-36.0); Mean Corpuscular Volume 86.3 fL (80.0-100.0); Mean Platelet Volume 8.8 fL (9.4-12.4); Platelet Count 493 K/uL (130-400); RDW Coefficient of Variation 12.6 % (11.5-14.5); RDW Standard Deviation 39.7 fL (36.4-46.3); Red Blood Count 4.54 M/uL (4.70-6.10); White Blood Count 9.39 K/ul (4.8-10.8)
[2023-06-29 07:07] LABS: BUN Creatinine Ratio 17.7 (10-20); Calcium 9.2 mg/dl (8.6-10.3); Creatinine Clr Calc Pharmacy 118.4 ml/min; Est GFR (African American) 119.7 ml/min; Est GFR (Non-African American) 103.2 ml/min; Magnesium 2.2 mg/dl (1.7-2.4); Phosphorus 4.1 mg/dl (2.5-4.9); Potassium 4.3 mmol/L (3.5-5.1)
--- NOTE | 2023-06-29 09:09 | Hospitalist Progress Note ---
Date of Service June 29, 2023 Assessment & Plan (1) Acute bronchitis due to respiratory syncytial virus: Plan: Acute bronchitis Secondary to RSV infection Elevated D dimer --CTA: No pulmonary embolus.Interseptal thickening is concerning for pulmonary edema. -- BioFire positive for RSV Normal procalcitonin Continue antitussives and supportive care. Urinary tract infection--Ruled out Urine culture showed no growth Left Otitis Media Continue Augmentin. Continue loratadine. Internal auditory canal MRI noted left mastoid and middle ear effusion, mild nonspecific white matter changes and chronic pansinusitis. On 06/28/23, I called [facility] ENT physician and reviewed patient with him. He recommends continuing current treatment. He stated that hearing loss usually persist for some time and improves over time with resolution of effusion Anxiety/mood disorder Continue paroxetine, mirtazapine Psych evaluation noted. Psychiatry recommended discharge to a floor unit once stable. One-to-one discontinued per psychiatry recommendation. Ongoing tobacco/alcohol abuse Toxicology screen negative Counseled to quit tobacco, alcohol use Monitor for withdrawal and manage appropriately Continue thiamine, folic acid Other chronic conditions: Hyperlipidemia--currently not on medications H/O fatty liver DVT Px: Lovenox SQ Code Status Full code Downgrade to med surg Patient will need to be discharged to psych unit per psych recommendation once off RSV isolation I spent a total of 45 minutes coordinating, documenting and providing care for this patient excluding time spent in performance of separately billed services Admission and Anticipated Discharge Date Admission Date: June 26, 2023 Subjective Patient seen and examined. Still has left-sided ear fullness and hearing loss. Reports cough is minimal. No other new complaints Physical Exam Constitutional: + well hydrated; no acute distress Eyes: PERRL, conjunctivae normal, anicteric sclerae Respiratory: normal respiratory effort, lungs clear to auscultation Cardiovascular: Rate/Rhythm: regular rate and regular rhythm S1 S2 Gastrointestinal (Abdomen): normal bowel sounds, soft, nontender, no hepatosplenomegaly Musculoskeletal: no cyanosis or clubbing, extremities motor strength 5/5 Neurologic: PERRL, EOMI, accommodation nl, no face palsy, no dysarthria Psychiatric: A+Ox3, euthymic affect Results & Data Results & Data Vital Signs (Past 12 Hours) Vital Signs Temp Pulse Pulse Resp BP BP Pulse Ox 06/29/23 07:50 36.6 C 66 16 128/78 98 06/29/23 07:00 59 L 06/29/23 03:25 36.9 C 76 18 126/79 94 06/29/23 00:38 36.6 C 70 18 130/80 95 06/29/23 00:19 06/28/23 21:59 71 O2 Del Method 06/29/23 07:50 Room Air 06/29/23 07:00 06/29/23 03:25 Room Air 06/29/23 00:38 Room Air 06/29/23 00:19 Room Air 06/28/23 21:59 Laboratory Results Abnormal lab results 06/29/23 Range/Units 06:08 RBC 4.54 L (4.70-6.10) M/uL Hgb 13.1 L (14.0-18.0) g/dl Hct 39.2 L (42.0-52.0) % Plt Count 493 H (130-400) K/uL MPV 8.8 L (9.4-12.4) fL
--- NOTE | 2023-06-29 11:21 | Psychiatric Progress Note ---
Date of Service June 29, 2023 Impression / Recommendations Impression 52-year-old male with past psychiatric history of depression and anxiety and alcohol dependence with 2 DUIs who came to the hospital due to increased depression and was found RSV positive and admitted medically for respiratory isolation, w/u ear c/o Overall, I spent a total of 45 minutes with this case, including review of chart, direct evaluation of the patient, ordering medication, coordination of care with nursing, and documentation. (1) Alcohol use disorder, moderate, dependence: (2) Major depressive disorder with current active episode: Plan patient is now less acutely suicidal than when first admitted to the hospital, reviewed his medications/sure scripts history and Paxil dose does see to prefer/be 40 mg, will shift to hs as how it is dosed at home. I see no hx of qtc issues with Paxil and historically has worked well for him. Patient already received 20 mg this am, reviewed with pharmacy rationale to start 40 mg tonight as getting less Paxil past few days. continue Remeron trial, a bit early to increase. will need formal safety plan, confirmation of follow up care and possible involvement of his CM if not admitted psychiatrically. Protective Factors Assessment Employed: No (Disabled) Interval History Identifying Information 52 year old male with past psychiatric history of depression and alcohol dependence. Admit RSV + for respiratory isolation. Initial consult by Dr. Davila completed on 06/26/23. Chief Complaint "I've just laid in bed for the past year." Subjective Subjective at the same time, patient does have a DUI charge, has 2 therapy sessions a week and meets with CM at the library, etc. He was focussed on his inability to care for self but admittedly doing well in hospital as needs are being met re: meals, care. He denies active SI but states his thoughts are intermittent and chronic. Continues to minimize contribution of ETOH. He hadn't picked up Remeron yet per patient so just started here 3 days ago with some benefit. He asked questions about Xanax and CBD oil and we reviewed why those would not be recommended. No evidence of withdrawal during stay and says "I can never drink again." Reviewed that therapy sessions are not available on med floor, we provide support, monitor medications, and make level of care recommendations. Patient was seen & assessed and interval progress reviewed with nursing. Physical Exam Psychiatric A+Ox3, euthymic affect Orientation: alert, oriented x 3 and cooperative Apperance: appropriately groomed (though long hair/verdin) Eye Contact: good eye contact Motor Behavior: no abnormal motor movements Speech: normal rate/rhythm/volume of speech Affect: euthymic affect Mood: + dysphoric mood Thought Process: + circumstantial thought process Thought Content: reality based without delusions Suicidal Thoughts: denies suicidal thoughts ("but not sure how I"d be at home.") Homicidal Thoughts: denies homicidal thoughts Hallucinations: no auditory hallucinations and no visual hallucinations Cognition: recent memory grossly intact, remote memory grossly intact, attention grossly intact and language grossly intact Estimated Intelligence: average estimated intelligence Vital Signs (Past 24 Hours) Last Vital Signs Temp 36.6 C 06/29/23 07:50 Pulse 66 06/29/23 07:50 Resp 16 06/29/23 07:50 BP 128/78 06/29/23 07:50 Pulse Ox 98 06/29/23 07:50 O2 Del Method Room Air 06/29/23 08:00 Results & Data ([facility]) Laboratory Results Laboratory Results - last 24 hr 06/29/23 06:08 WBC 9.39 RBC 4.54 L Hgb 13.1 L Hct 39.2 L MCV 86.3 MCH 28.9 MCHC 33.4 RDW Std Deviation 39.7 RDW Coeff of Jaquelin 12.6 Plt Count 493 H MPV 8.8 L Sodium 136 Potassium 4.3 Chloride 105 Carbon Dioxide 24 Anion Gap 7 BUN 14 Creatinine 0.79 Est Cr Clr Drug Dosing 118.4 Est GFR ( Amer) 119.7 Est GFR (Non-Af Amer) 103.2 BUN/Creatinine Ratio 17.7 Glucose 88 Calcium 9.2 Phosphorus 4.1 Magnesium 2.2 Current Inpatient Medications Current Inpatient Medications: Current Inpatient Medications Acetaminophen (Acetaminophen 325 Mg Tab) 650 mg PO QID PRN PRN Reason: pain/fever Stop: 07/25/23 20:52 Last Admin: 06/27/23 23:19 Dose: 650 mg Amoxicillin/Clavulanate Potassium (Amoxicillin/Clavulanate 875 Mg Tab) 1 tab PO BIDM [facility]; Protocol Stop: 07/08/23 12:29 Last Admin: 06/29/23 08:59 Dose: 1 tab Buspirone HCl (Buspirone 5 Mg Tab) 10 mg PO TID PRN PRN Reason: Anxiety Stop: 07/26/23 20:59 Last Admin: 06/28/23 14:53 Dose: 10 mg Ciprofloxacin/Hydrocortisone (Cipro 0.2%/Hydrocortisone 1% Otic Susp 10 Ml Btl) 3 drops OTL BID [facility] Stop: 07/02/23 20:59 Last Admin: 06/29/23 09:00 Dose: 3 drops Docusate Sodium (Docusate Sodium 100 Mg Cap) 100 mg PO DAILY [facility] Stop: 07/26/23 08:59 Last Admin: 06/29/23 09:00 Dose: Not Given Enoxaparin Sodium (Enoxaparin Inj 40 Mg/0.4 Ml Syr) 40 mg SQ QAM [facility] Stop: 07/26/23 08:59 Last Admin: 06/29/23 08:59 Dose: 40 mg Fluticasone Propionate (Fluticasone Propionate Na Spr 16 Gm Btl) 2 sprays NA DAILY [facility] Stop: 07/26/23 11:44 Last Admin: 06/29/23 09:00 Dose: Not Given Folic Acid (Folic Acid 1 Mg Tab) 1 mg PO QAM [facility] Stop: 07/26/23 08:59 Last Admin: 06/29/23 08:59 Dose: 1 mg Guaifenesin/Codeine Phosphate (Guaifenesin/Codeine 100mg/10mg 5ml Udc) 5 ml PO Q6H PRN PRN Reason: Cough Stop: 07/27/23 02:52 Last Admin: 06/27/23 03:05 Dose: 5 ml Promethazine HCl 12.5 mg/ (Sodium Chloride) 50.5 mls @ 202 mls/hr IV Q6H PRN PRN Reason: Nausea And Vomiting Stop: 07/25/23 20:52 Lorazepam 1 mg/ Syringe 1 mls @ 2 mls/min IV ONE PRN; Protocol PRN Reason: EtoH Withdrawal AWSS 6-10 Loratadine (Loratadine 10 Mg Tab) 10 mg PO QAM [facility] Stop: 07/28/23 08:59 Last Admin: 06/29/23 08:59 Dose: 10 mg Melatonin (Melatonin 3 Mg Tab) 6 mg PO HS PRN PRN Reason: Sleep Stop: 07/25/23 20:45 Last Admin: 06/28/23 21:33 Dose: 6 mg Mirtazapine (Mirtazapine Tab 15 Mg Tab) 15 mg PO HS [facility] Stop: 07/26/23 01:53 Last Admin: 06/28/23 21:32 Dose: 15 mg Multivitamins (Multivitamin Tab) 1 tab PO QAM [facility] Stop: 07/26/23 08:59 Last Admin: 06/29/23 08:59 Dose: 1 tab Paroxetine HCl (Paroxetine Hcl 20 Mg Tab) 20 mg PO DAILY [facility] Stop: 07/26/23 08:59 Last Admin: 06/29/23 08:59 Dose: 20 mg Thiamine HCl (Thiamine Hcl 100 Mg Tab) 100 mg PO QAM [facility] Stop: 07/26/23 08:59 Last Admin: 06/29/23 08:59 Dose: 100 mg Mental Health & Subst Abuse Tx Therapist Name of Therapist: Paige Luevano Dialysis Biomed Technician Name of Dialysis Biomed Technician: Yonathan SNIDER Post Discharge Appointments Primary Care Physician Name Of Family Doctor/PCP: NO PCP (2) Major depressive disorder with current active episode Major depression recurrence: recurrent Major depression episode severity: severe Psychotic features: without psychotic features Qualified Code(s): F33.2 - Major depressive disorder, recurrent severe without psychotic features
[2023-06-29] MEDS: PARoxetine HCL 20 MG TAB PO SCH (21:56)
[2023-06-30 06:42] LABS: Hematocrit (blood only) 43.5 % (42.0-52.0); Hemoglobin 14.2 g/dl (14.0-18.0); Mean Corpuscular Hemoglobin 28.6 pg (25.0-34.0); Mean Corpuscular Hgb Conc 32.6 g/dL (32.0-36.0); Mean Corpuscular Volume 87.7 fL (80.0-100.0); Mean Platelet Volume 8.7 fL (9.4-12.4); Platelet Count 546 K/uL (130-400); RDW Coefficient of Variation 12.7 % (11.5-14.5); RDW Standard Deviation 40.8 fL (36.4-46.3); Red Blood Count 4.96 M/uL (4.70-6.10)
[2023-06-30 07:11] LABS: Calcium 9.7 mg/dl (8.6-10.3); Creatinine Clr Calc Pharmacy 106.3 ml/min; Est GFR (African American) 114.5 ml/min; Est GFR (Non-African American) 98.8 ml/min; Potassium 5.1 mmol/L (3.5-5.1)
--- NOTE | 2023-06-30 10:53 | Hospitalist Progress Note ---
Date of Service June 30, 2023 Assessment & Plan (1) Acute bronchitis due to respiratory syncytial virus: Plan: Acute bronchitis Secondary to RSV infection Elevated D dimer --CTA: No pulmonary embolus.Interseptal thickening is concerning for pulmonary edema. -- BioFire positive for RSV Normal procalcitonin Continue antitussives and supportive care. Urinary tract infection--Ruled out Urine culture showed no growth Left Otitis Media Continue Augmentin. Continue loratadine. Internal auditory canal MRI noted left mastoid and middle ear effusion, mild nonspecific white matter changes and chronic pansinusitis. On 06/28/23, I called [facility] ENT physician and reviewed patient with him. He recommends continuing current treatment. He stated that hearing loss usually persist for some time and improves over time with resolution of effusion Anxiety/mood disorder Continue paroxetine, mirtazapine Psych evaluation noted. Psychiatry recommended discharge to a dual unit once stable. One-to-one discontinued per psychiatry recommendation. Ongoing tobacco/alcohol abuse Toxicology screen negative Counseled to quit tobacco, alcohol use Monitor for withdrawal and manage appropriately Continue thiamine, folic acid Other chronic conditions: Hyperlipidemia--currently not on medications H/O fatty liver DVT Px: Lovenox SQ Code Status Full code Patient will need to be discharged to psych unit per psych recommendation once off RSV isolation I spent a total of 35 minutes coordinating, documenting and providing care for this patient excluding time spent in performance of separately billed services Admission and Anticipated Discharge Date Admission Date: June 26, 2023 Subjective Patient seen and examined. Still has left-sided ear fullness and hearing loss. No cough today No other new complaints Physical Exam Constitutional: + well hydrated; no acute distress Eyes: PERRL, conjunctivae normal, anicteric sclerae Respiratory: normal respiratory effort, lungs clear to auscultation Cardiovascular: Rate/Rhythm: regular rate and regular rhythm S1 S2 Gastrointestinal (Abdomen): normal bowel sounds, soft, nontender, no hepatosplenomegaly Musculoskeletal: no cyanosis or clubbing, extremities motor strength 5/5 Neurologic: PERRL, EOMI, accommodation nl, no face palsy, no dysarthria Psychiatric: A+Ox3, euthymic affect Results & Data Results & Data Vital Signs (Past 12 Hours) Vital Signs Temp Pulse Resp BP Pulse Ox O2 Del Method 06/30/23 07:11 36.5 C 63 18 129/78 96 Room Air Laboratory Results Abnormal lab results 06/30/23 Range/Units 06:19 Plt Count 546 H (130-400) K/uL MPV 8.7 L (9.4-12.4) fL
--- NOTE | 2023-06-30 12:29 | History & Physical ---
Date of Service June 30, 2023 Impression / Recommendations Impression 52-year-old male with past psychiatric history of depression and anxiety and alcohol dependence with 2 DUIs who came to the hospital due to increased depression and was found RSV positive and admitted medically for respiratory isolation, w/u ear c/o A private room remains medically necessary for the safety of self and others due to paranoid and pspycho Overall, I spent a total of 45 minutes with this case, including review of chart, direct evaluation of the patient, ordering medication, coordination of care with nursing, and documentation. Plan The patient was admitted to the [facility] ([facility] unit) on q15 min checks (behavioral with suicide precautions) for safety. The patient will participate in group, recreational, and milieu therapies and will be offered additional individual and family sessions as clinically appropriate. Protective Factors Assessment Employed: No (Disabled) Psychiatric History Identifying Data is a 52-year-old M who currently lives in [facility] , has a history of [id number], and was admitted on 06/26/23 15:44 on a 201 voluntary commitment for SI with plan. Chief Complaint "". History of Present Illness Past Psychiatric History Current Psychiatric Diagnosis: Depression and Anxiety History of Previous Suicide Attempt: No Allergies Allergy/AdvReac Type Severity Reaction Status Date / Time No Known Allergies Allergy Mild Verified 06/25/23 19:49 Home Medications Medication Instructions Recorded Confirmed Type mirtazapine 15 mg tablet 15 mg PO HS 06/25/23 06/25/23 History paroxetine HCl 40 mg tablet 40 mg PO DAILY 06/25/23 06/25/23 History Family History Family History of: Depression and Anxiety Alcohol History Hx of Alcohol Use Over the Past 12 Months: Yes Smoking Use Have You Smoked or Used Tobacco Products in the Last 30 Days: Yes tobacco type: cigarettes Smoking Status: Current some day smoker Substance History Hx of Prescription Med Misuse Over the Past 12 Months: No Hx of Over the Counter Med Misuse Over the Past 12 Months: No Hx of Inhalent Misuse Over the Past 12 Months: No Hx of Organic Substance Use Over the Past 12 Months: No Hx of Illegal Substances/Street Drug Use Over Past 12 Months: No Problems as a Result of Past Substance Use: 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 Personal History Living Arrangements: Home Beliefs That Will Affect Care: None Patient History Medical History Intractable back pain T12 burst fracture No pertinent past medical history Social History Smoking Status: Current some day smoker Tobacco Type: Cigarettes Cigarettes Per Day: < 1 pack; Second Hand Exposure: No; Do You Dip or Chew Tobacco: No; Hx Alcohol Use: Yes Alcohol type: beer Hx Substance Use: No Preferred Language: Mozambican Communication Ability: Effective 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 Beliefs That Will Affect Care: None Current Living Situation: Alone How many Children do You have: 1 Feels Safe at Home: Yes Gender Identity: Male Assistive Devices: None Review of Systems Review of Systems: All systems reviewed & are unremarkable except as noted in HPI & below Physical Exam Psychiatric: Orientation: alert and oriented x 3 Apperance: appropriately dressed and appropriately groomed Eye Contact: good eye contact Motor Behavior: no abnormal motor movements Speech: normal rate/rhythm/volume of speech Affect: no depressed affect Mood: + depressed mood Thought Process: goal directed thought process Thought Content: reality based without delusions Suicidal Thoughts: denies suicidal thoughts Homicidal Thoughts: denies homicidal thoughts Hallucinations: no auditory hallucinations and no visual hallucinations Cognition: attention grossly intact and language grossly intact Estimated Intelligence: consistent with education level Insight: + limited insight Judgment: + limited judgement Vital Signs (Past 24 Hours): Last Vital Signs Temp 36.5 C 06/30/23 07:11 Pulse 63 06/30/23 07:11 Resp 18 06/30/23 07:11 BP 129/78 06/30/23 07:11 Pulse Ox 96 06/30/23 07:11 O2 Del Method Room Air 06/30/23 07:11 Exam Statement: A physical exam was performed in the ED by Dr. Dubose for the purposes of medical clearance. I accept that physical as correct and adequate for the purposes of the inpatient physical exam. Results & Data (U) Laboratory Results Laboratory Results - last 24 hr 06/30/23 06:19 WBC 7.60 RBC 4.96 Hgb 14.2 Hct 43.5 MCV 87.7 MCH 28.6 MCHC 32.6 RDW Std Deviation 40.8 RDW Coeff of Jaquelin 12.7 Plt Count 546 H MPV 8.7 L Sodium 138 Potassium 5.1 Chloride 102 Carbon Dioxide 32 Anion Gap 4 BUN 15 Creatinine 0.88 Est Cr Clr Drug Dosing 106.3 Est GFR ( Amer) 114.5 Est GFR (Non-Af Amer) 98.8 BUN/Creatinine Ratio 17.0 Glucose 88 Calcium 9.7 Current Inpatient Medications Current Inpatient Medications: Current Inpatient Medications Acetaminophen (Acetaminophen 325 Mg Tab) 650 mg PO QID PRN PRN Reason: pain/fever Stop: 07/25/23 20:52 Last Admin: 06/27/23 23:19 Dose: 650 mg Amoxicillin/Clavulanate Potassium (Amoxicillin/Clavulanate 875 Mg Tab) 1 tab PO BIDM [facility]; Protocol Stop: 07/08/23 12:29 Last Admin: 06/30/23 08:19 Dose: 1 tab Buspirone HCl (Buspirone 5 Mg Tab) 10 mg PO TID PRN PRN Reason: Anxiety Stop: 07/26/23 20:59 Last Admin: 06/30/23 08:19 Dose: 10 mg Ciprofloxacin/Hydrocortisone (Cipro 0.2%/Hydrocortisone 1% Otic Susp 10 Ml Btl) 3 drops OTL BID [facility] Stop: 07/02/23 20:59 Last Admin: 06/30/23 08:20 Dose: Not Given Docusate Sodium (Docusate Sodium 100 Mg Cap) 100 mg PO DAILY [facility] Stop: 07/26/23 08:59 Last Admin: 06/30/23 08:23 Dose: 100 mg Enoxaparin Sodium (Enoxaparin Inj 40 Mg/0.4 Ml Syr) 40 mg SQ QAM [facility] Stop: 07/26/23 08:59 Last Admin: 06/30/23 08:20 Dose: 40 mg Fluticasone Propionate (Fluticasone Propionate Na Spr 16 Gm Btl) 2 sprays NA DAILY [facility] Stop: 07/26/23 11:44 Last Admin: 06/30/23 08:21 Dose: 2 sprays Folic Acid (Folic Acid 1 Mg Tab) 1 mg PO QAM [facility] Stop: 07/26/23 08:59 Last Admin: 06/30/23 08:19 Dose: 1 mg Guaifenesin/Codeine Phosphate (Guaifenesin/Codeine 100mg/10mg 5ml Udc) 5 ml PO Q6H PRN PRN Reason: Cough Stop: 07/27/23 02:52 Last Admin: 06/27/23 03:05 Dose: 5 ml Promethazine HCl 12.5 mg/ (Sodium Chloride) 50.5 mls @ 202 mls/hr IV Q6H PRN PRN Reason: Nausea And Vomiting Stop: 07/25/23 20:52 Lorazepam 1 mg/ Syringe 1 mls @ 2 mls/min IV ONE PRN; Protocol PRN Reason: EtoH Withdrawal AWSS 6-10 Loratadine (Loratadine 10 Mg Tab) 10 mg PO [facility] Stop: 07/28/23 08:59 Last Admin: 06/30/23 08:19 Dose: 10 mg Melatonin (Melatonin 3 Mg Tab) 6 mg PO HS PRN PRN Reason: Sleep Stop: 07/25/23 20:45 Last Admin: 06/29/23 21:57 Dose: 6 mg Mirtazapine (Mirtazapine Tab 15 Mg Tab) 15 mg PO [facility] Stop: 07/26/23 01:53 Last Admin: 06/29/23 21:56 Dose: 15 mg [facility]ivit[facility] ([facility]) [facility] Stop: 07/26/23 08:59 Last Admin: 06/30/23 08:19 Dose: 1 tab Paroxetine HCl (Paroxetine Hcl 20 Mg Tab) 40 mg PO [facility] Stop: 07/29/23 20:59 Last Admin: 06/29/23 21:56 Dose: 40 mg Thiamine HCl (Thiamine Hcl 100 Mg Tab) [facility] Stop: 07/26/23 08:59 Last Admin: 06/30/23 08:19 Dose: 100 mg
[2023-07-01 07:24] LABS: Hematocrit (blood only) 40.9 % (42.0-52.0); Hemoglobin 13.2 g/dl (14.0-18.0); Mean Corpuscular Hemoglobin 28.3 pg (25.0-34.0); Mean Corpuscular Hgb Conc 32.3 g/dL (32.0-36.0); Mean Corpuscular Volume 87.6 fL (80.0-100.0); Mean Platelet Volume 8.8 fL (9.4-12.4); Platelet Count 515 K/uL (130-400); RDW Coefficient of Variation 12.9 % (11.5-14.5); RDW Standard Deviation 41.4 fL (36.4-46.3); Red Blood Count 4.67 M/uL (4.70-6.10); White Blood Count 8.46 K/ul (4.8-10.8)
[2023-07-01 07:43] LABS: BUN Creatinine Ratio 18.4 (10-20); Calcium 9.3 mg/dl (8.6-10.3); Creatinine Clr Calc Pharmacy 107.5 ml/min; Est GFR (Non-African American) 99.2 ml/min; Potassium 4.8 mmol/L (3.5-5.1)
--- NOTE | 2023-07-01 13:03 | Discharge Summary ---
Date of Service July 01, 2023 Admission HPI Per Admitting Provider Medical history significant for T12 burst fracture, hyperlipidemia, fatty liver as per records, adrenal hemorrhage as per records, anxiety/mood disorder, ongoing tobacco/alcohol abuse. Last confinement October 2020 for back pain secondary to T12 burst fracture. Patient with worsening depression since last year. Episodic suicidal ideations. 1 week history of congestion and cough symptoms Poor appetite. Shortness of breath worse on exertion. No chest pain. Symptoms attributed to viral infection as per PCP video visit note. Patient later noted achy left ear pain and hearing loss without drainage Denies trauma or ear manipulation. Dysuria symptoms without flank pain. Some chills. Worsening suicidal ideation secondary to illness as per patient. Patient consulted ER for evaluation. Medical History as above Surgical History : None Family History : Prostate cancer Personal/Social history : 1 pack daily, occasional EtOH intake/denies abuse, disabled Admission Exam Per Admitting Provider GENERAL: Anxious, unkempt, pleasant, no respiratory distress SKIN: Normal color, warm HEENT: [place] palpebral conjunctivae, no ptosis, dry buccal mucosa; AD patent EAC, intact TM minimal tragal tenderness, retained cerumen, erythematous EAC, TM not fully visualized NECK : Supple, no tenderness CHEST : CTA, no tenderness HEART : RRR, no obvious murmurs ABDOMEN: Some distention, nontender EXTREMITIES : No LE swelling/tenderness, no other conspicuous deformities noted NEUROLOGIC : Coherent, no facial asymmetry, no other gross focality Principal Diagnosis Acute bronchitis due to RSV infection Otitis media Major depressive disorder Alcohol use Discharge Exam Constitutional + well hydrated; no acute distress Eyes PERRL, conjunctivae normal, anicteric sclerae ENMT +left hearing deficit Respiratory normal respiratory effort, lungs clear to auscultation Cardiovascular Rate/Rhythm: regular rate and regular rhythm S1 S2 Gastrointestinal (Abdomen) normal bowel sounds, soft, nontender, no hepatosplenomegaly Musculoskeletal no cyanosis or clubbing, extremities motor strength 5/5 Neurologic PERRL, EOMI, accommodation nl, no face palsy, no dysarthria Psychiatric A+Ox3, euthymic affect Discharge Data Allergies Allergy/AdvReac Type Severity Reaction Status Date / Time No Known Allergies Allergy Mild Verified 06/25/23 19:49 Consultations 06/25/23 19:26 ED Decision to Admit Stat 06/26/23 01:54 Consult Psychiatry Routine Ordered Studies 06/25/23 22:15 CT angio chest PE protocol Stat 06/27/23 01:40 MR brain IAC wo/w con Routine Hospital Course (1) Acute bronchitis due to respiratory syncytial virus: Acute bronchitis Secondary to RSV infection Elevated D dimer --CTA: No pulmonary embolus.Interseptal thickening is concerning for pulmonary edema. -- BioFire positive for RSV Normal procalcitonin Managed with antitussives and supportive care. Left Otitis Media Continue Augmentin for 5 days to complete treatment Continue loratadine. Internal auditory canal MRI noted left mastoid and middle ear effusion, mild nonspecific white matter changes and chronic pansinusitis. On 06/28/23, I called [facility] ENT physician and reviewed patient with him. He recommends continuing current treatment. He stated that hearing loss usually persist for some time and improves over time with resolution of effusion PCP can refer to ENT if hearing deficit does not improve with resolution Anxiety/mood disorder Major depressive disorder Ongoing tobacco/alcohol abuse Continue paroxetine, mirtazapine Started on buspirone inpatient Psych had evaluated and initially recommended inpt psych. However, Psychiatrist notified me today after reevaluation and recommended no inpt psych needed at this time Patient is to follow up with his psych programs outpatient Continue thiamine, folic acid Other chronic conditions: Hyperlipidemia--currently not on medications H/O fatty liver Urinary tract infection--Ruled out Total Time Total Time Spent Total Time Spent (In Minutes): 40 Total Time Includes: Examination of the Patient, Discharge Planning, Medication Reconciliation and Communication With Other Providers Discharge Plan Discharge Items Patient Disposition: Home - Self-Care Reason For Visit: Shortness of breath, cough, depression Discharge Diagnosis: Acute bronchitis due to RSV infection Otitis media Major depressive disorder Alcohol use Activity: Resume your previous activity Non-emergency contact: Primary Care Provider and Psychiatrist Call non-emergency contact if: you have any medication questions and your symptoms worsen Follow-up/Referrals: Aleena Garcias MD [Primary Care Provider] - 07/05/23 11:00 am (Date & Time 07/05/2023 11:00 AM Provider Aleena Garcias MD [facility] ) Diet: Regular Addtl Attending Provider Instructions: Mr Berger You came to the hospital complaining of congestion, shortness of breath, depression You were managed for the above listed diagnosis You were also managed by the Psychiatrist. You are being discharged on Augmentin for next 5 days to complete treatment. You are being discharged on buspirone in addition to your home medications. Please ensure follow up with your Primary Doctor. Your Primary Doctor can refer you to ENT doctor if hearing loss does not improve. It was a pleasure taking care of you. Pending Studies at Discharge: No Stand-Alone Forms: My [facility], Smoking Cessation Medications and DC Order Prescriptions: New buspirone 5 mg Tablet 10 mg PO TID PRN (Reason: anxiety) 30 Days Qty: 180 0RF thiamine HCl (vitamin B1) 100 mg Tablet 100 mg PO QAM Qty: 30 0RF folic acid 1 mg Tablet 1 mg PO QAM Qty: 30 0RF loratadine [Wal-itin] 10 mg Tablet 10 mg PO QAM 5 Days Qty: 5 0RF amoxicillin-pot clavulanate 875-125 mg Tablet 1 tab PO BIDM 5 Days Qty: 10 0RF Continued paroxetine HCl 40 mg tablet 40 mg PO DAILY mirtazapine 15 mg tablet 15 mg PO HS Patient Comments: Pt states he is to be taking this medication but has not started it yet/ has not picked it up yet Discharge Orders: Discharge Order (Routine); Ordered 07/01/23 Ordered By: Augusta Shea/Other Patient Handouts: Suicide Know Self Warnings, RSV (Respiratory Syncytial Virus) Admission Data Admit Date/Time: 06/26/23 15:44 Attending Provider: Augusta Snyder I. Admit Provider: Enrique Weaver Primary Care Provider: Aleena Garcias Other Providers: Enrique Weaver; Omer Almaraz; Mercy Luna; Karine Kate; Jordan Forrest; Myke Alexander; Evans Foster Jr; Angelic Davila; Joy Espinosa Other Interventions: Discharge Summary Assessment (RN) Last Done: 07/01/23 13:13
== END 2023-07-01 14:43 | disposition home or self-care (01) | DRG 202 ==
LOC: ED 11:44 → 2N 11:44 → SUATTDRO 20:51 → 2N 06-26 01:36 → SUATTDRO 06-26 15:44 → 3N 06-29 15:17

== ENCOUNTER 2024-01-23 15:19 | Inpatient (IN) ==
[2024-01-23 16:09] LABS: Basophils # (auto) 0.07 K/uL (0.00-0.20); Basophils % (auto) 0.6 %; Eosinophils # (auto) 0.21 K/uL (0.00-0.50); Eosinophils % (auto) 1.9 %; Hematocrit (blood only) 37.7 % (42.0-52.0); Hemoglobin 12.7 g/dl (14.0-18.0); Immature Granulocytes # (auto) 0.05 K/uL (0.01-0.20); Immature Granulocytes % (auto) 0.5 %; Lymphocytes # (auto) 3.02 K/uL (1.20-3.40); Lymphocytes % (auto) 27.2 %; Mean Corpuscular Hemoglobin 29.1 pg (25.0-34.0); Mean Corpuscular Hgb Conc 33.7 g/dL (32.0-36.0); Mean Corpuscular Volume 86.3 fL (80.0-100.0); Mean Platelet Volume 9.6 fL (9.4-12.4); Monocytes # (auto) 0.81 K/uL (0.11-0.59); Monocytes % (auto) 7.3 %; Neutrophils # (auto) 6.93 K/uL (1.40-6.50); Neutrophils % (auto) 62.5 %; Platelet Count 350 K/uL (130-400); RDW Coefficient of Variation 14.2 % (11.5-14.5); RDW Standard Deviation 44.2 fL (36.4-46.3); Red Blood Count 4.37 M/uL (4.70-6.10); White Blood Count 11.09 K/ul (4.8-10.8)
[2024-01-23 16:16] LABS: Appearance Urine Clear (Clear); Bilirubin Urine Negative (Negative); Blood Urine Negative (Negative); Color Urine Yellow; Glucose Urine UA Negative (Negative); Ketones Urine Negative (Negative); Leukocyte Esterase Urine Negative (Negative); Nitrite Urine Negative (Negative); Protein Urine Negative (Negative); Specific Gravity Urine 1.024 (1.000-1.030); Urobilinogen Urine Negative (Negative)
[2024-01-23 16:27] LABS: Albumin Level 3.9 gm/dl (3.4-5.0); Bilirubin,Total 0.3 mg/dl (0.2-1.0); Calcium 9.2 mg/dl (8.6-10.3); Potassium 4.2 mmol/L (3.5-5.1)
[2024-01-23 16:30] LABS: Acetaminophen < 3 ug/ml (10-30); Salicylate < 3.0 mg/dl (3.0-30)
[2024-01-23 16:33] LABS: Albumin Globulin Ratio 1.3 (0.9-2); BUN Creatinine Ratio 19.8 (10-20); Creatinine Clr Calc Pharmacy 118.3 ml/min; Globulin 2.9 gm/dl (2.5-4.0); Total Protein 6.8 gm/dl (6.0-8.3)
--- NOTE | 2024-01-23 16:34 | Emergency Department Note ---
History of Present Illness General Chief complaint: Mental Health Evaluation Time Seen by Provider: 01/23/24 15:20 History of Present Illness Provider complaint: Mental health evaluation 53-year-old male presents emergency department for mental health evaluation patient states he is depressed and wants to . Patient is requesting to be sedated. Denies any drugs or alcohol. No access to any firearms. Home Medications Medication Instructions Recorded Confirmed Type buspirone 5 mg tablet 10 mg PO TID PRN Anxiety 09/13/23 01/23/24 History multivitamin 1 tab PO DAILY 09/13/23 01/23/24 History paroxetine HCl 40 mg tablet 40 mg PO QAM 09/13/23 01/23/24 History quetiapine 25 mg tablet 12.5 mg PO HS 09/13/23 01/23/24 History Allergies Allergy/AdvReac Type Severity Reaction Status Date / Time No Known Allergies Allergy Mild Verified 06/25/23 19:49 Past Med/Surg History Problem List (Updated 01/23/24 @ 20:02 by Rodrick Rasheed MD) Depression with suicidal ideation (Acute) Complicated UTI (urinary tract infection) Acute bronchitis due to respiratory syncytial virus (Acute) Earache on left (Acute) Medical History (Updated 01/23/24 @ 20:02 by Rodrick Rasheed MD) Major depressive disorder with current active episode Alcohol use disorder, moderate, dependence Depression with suicidal ideation Intractable back pain T12 burst fracture No pertinent past medical history Social History Smoking Status: Current some day smoker Tobacco Type: Cigarettes Cigarettes Per Day: < 1 pack; Second Hand Exposure: No; Do You Dip or Chew Tobacco: No; Hx Alcohol Use: Yes Alcohol type: beer Hx Substance Use: No Preferred Language: Divehi Communication Ability: Effective [employer] Required: No Beliefs That Will Affect Care: None Current Living Situation: Alone How many Children do You have: 1 Feels Safe at Home: Yes Gender Identity: Male Assistive Devices: None Physical Exam Vital Signs Vital Signs - 24 hr 01/23/24 15:29 01/23/24 18:30 Temperature 36.8 C 36.8 C Temperature Source Oral Oral Pulse Rate 75 Pulse Rate [Right Finger] 84 Pulse Rhythm Regular Pulse Rhythm [Right Finger] Regular Pulse Strength Normal Pulse Strength [Right Finger] Normal Respiratory Rate 20 20 Respiratory Effort / Characteristics Non-Labored Spontaneous Non-Labored Spontaneous Respiratory Depth Normal Normal Respiratory Pattern Regular Regular Blood Pressure 117/71 Blood Pressure [Right Arm] 139/79 Blood Pressure Mean 86 Blood Pressure Mean [Right Arm] 99 Blood Pressure Position Semi-fowlers Blood Pressure Position [Right Arm] Lying Pulse Oximetry 98 98 Oxygen Delivery Method Room Air Room Air Sepsis Recent Fever Within 48 Hours No Sepsis New/Unexplained Change in Mental Status N/A Sepsis Action Taken by Nursing No Action Required Physical Exam GENERAL: Disheveled. HENT: Exam performed. - Head: Normocephalic and atraumatic. EYES: Conjunctivae and EOM are normal. Right eye exhibits no discharge. Left eye exhibits no discharge. No scleral icterus. NECK: Normal range of motion. Neck supple. No JVD present. CV: Normal rate, regular rhythm, normal heart sounds and intact distal pulses. There is no peripheral edema. Palpable radial pulses bue. PULM/CHEST: Effort normal and breath sounds normal. No respiratory distress. No stridor. no wheezes. no rales. NEURO: Motor and sensation grossly intact. PSYCH: Bizarre affect. Depressed. Suicidal ideation. Course Course 1520: The patient was evaluated in room A6. A complete history and physical exam was performed 164: Vital signs stable. Patient medically cleared. Awaiting psychiatric evaluation and placement. Patient placed in observation at this time. 2000: Vital signs stable. Awaiting psychiatric evaluation and placement. Case signed out to Dr. Vogel Medical Decision Making Laboratory Data Attestation: I reviewed the patient's lab results. 01/23/24 15:46 01/23/24 15:46 Lab Results 01/23/24 Range/Units 15:46 WBC 11.09 H (4.8-10.8) K/ul RBC 4.37 L (4.70-6.10) M/uL Hgb 12.7 L (14.0-18.0) g/dl Hct 37.7 L (42.0-52.0) % MCV 86.3 (80.0-100.0) fL MCH 29.1 (25.0-34.0) pg MCHC 33.7 (32.0-36.0) g/dL RDW Std Deviation 44.2 (36.4-46.3) fL RDW Coeff of Jaquelin 14.2 (11.5-14.5) % Plt Count 350 (130-400) K/uL MPV 9.6 (9.4-12.4) fL Immature Gran % (Auto) 0.5 % Neut % (Auto) 62.5 % Lymph % (Auto) 27.2 % [place] % (Auto) 7.3 % Eos % (Auto) 1.9 % Baso % (Auto) 0.6 % Neut # (Auto) 6.93 H (1.40-6.50) K/uL Lymph # (Auto) 3.02 (1.20-3.40) K/uL [place] # (Auto) 0.81 H (0.11-0.59) K/uL Eos # (Auto) 0.21 (0.00-0.50) K/uL Baso # (Auto) 0.07 (0.00-0.20) K/uL Immature Gran # (Auto) 0.05 (0.01-0.20) K/uL Sodium 140 (136-145) mmol/L Potassium 4.2 (3.5-5.1) mmol/L Chloride 106 (98-107) mmol/L Carbon Dioxide 28 (21-32) mmol/L Anion Gap 6 (3-11) BUN 16 (6-23) mg/dl Creatinine 0.81 (0.6-1.4) mg/dl Est Cr Clr Drug Dosing 118.3 ml/min eGFR 105.43 BUN/Creatinine Ratio 19.8 (10-20) Glucose 85 (70-99(Fasting)) mg/dl Calcium 9.2 (8.6-10.3) mg/dl Magnesium 1.9 (1.7-2.4) mg/dl Total Bilirubin 0.3 (0.2-1.0) mg/dl AST 17 (13-39) U/L ALT 23 (7-52) U/L Alkaline Phosphatase 100 (34-104) U/L Total Creatine Kinase 49 (30-223) U/L Total Protein 6.8 (6.0-8.3) gm/dl Albumin 3.9 (3.4-5.0) gm/dl Globulin 2.9 (2.5-4.0) gm/dl Albumin/Globulin Ratio 1.3 (0.9-2) TSH 0.545 (0.300-4.500) uIu/ml Urine Color Yellow Urine Appearance Clear (Clear) Urine pH 6.0 (4.5-7.5) Ur Specific [place] 1.024 (1.000-1.030) Urine Protein Negative (Negative) Urine Glucose (UA) Negative (Negative) Urine Ketones Negative (Negative) Urine Blood Negative (Negative) Urine Nitrite Negative (Negative) Urine Bilirubin Negative (Negative) Urine Urobilinogen Negative (Negative) Ur Leukocyte Esterase Negative (Negative) Salicylates < 3.0 L (3.0-30) mg/dl Urine Opiates Screen Neg (Neg) Ur Methadone, Qual Neg (Neg) Urine Fentanyl Screen Neg (Neg) Acetaminophen < 3 L (10-30) ug/ml Urine Barbiturates Neg (Neg) Ur Phencyclidine (PCP) Neg (Neg) U Amphetamin/Meth Scrn Neg (Neg) MDMA (Ecstasy) Screen Neg (Neg) U Benzodiazepines Scrn Neg (Neg) Ur Cocaine Metabolite Neg (Neg) U Marijuana (THC) Screen Pos H (Neg) Ethyl Alcohol mg/dL < 10.0 (<10.0) mg/dl SARS-CoV-2, RNA, NAAT NEGATIVE (NEGATIVE) MDM Narrative 1520: The patient was evaluated in room A6. A complete history and physical exam was performed 1645: Vital signs stable. Patient medically cleared. Awaiting psychiatric evaluation and placement. Patient placed in observation at this time. 2000: Vital signs stable. Awaiting psychiatric evaluation and placement. Case signed out to Dr. Vogel Observation note Indication: Psych eval/placement Patient, with depression and suicidal ideation was first seen at 1520 hrs and the observation time began at 1645 hrs and was necessary in order to have psych evaluation completed . Impression & Plan Depression with suicidal ideation Discharge Plan Visit Data Chief Complaint: Mental Health Evaluation ED Provider: Rodrick Rasheed Discharge Problem: Depression with suicidal ideation Patient Disposition: Still a Patient Forms Stand Alone Forms: My [facility], Suicide Prevention Resources Prescriptions Prescriptions: No Action multivitamin Tablet 1 tab PO DAILY quetiapine 25 mg tablet 12.5 mg PO HS buspirone 5 mg tablet 10 mg PO TID PRN (Reason: Anxiety) paroxetine HCl 40 mg tablet 40 mg PO QAM Referrals Referrals: Aleena Garcias MD [Primary Care Provider] -
[2024-01-23 16:41] LABS: Thyroid Stimulating Hormone 0.545 uIu/ml (0.300-4.500)
[2024-01-23 17:02] LABS: Amphetamines+Metham, Urine Neg (Neg); Barbiturates, Urine Neg (Neg); Benzodiazepine, Urine Neg (Neg); Cocaine, Urine Neg (Neg); Fentanyl, Urine Neg (Neg); MDMA (Ecstacy), Urine Neg (Neg); Marijuana, Urine Pos (Neg); Methadone, Urine Neg (Neg); Opiate, Urine Neg (Neg); Phencyclidine, Urine Neg (Neg)
[2024-01-23 17:03] LABS: Magnesium 1.9 mg/dl (1.7-2.4)
--- NOTE | 2024-01-23 20:06 | Emergency Department Note ---
ED Visit Note Received this patient in signout. See Dr. Rasheed's note for full details. Patient with depressive thoughts and suicidal thoughts. Inpatient voluntary mental health care placement was sought with assistance case management. Home medications ordered. Accepted to [facility] for further inpatient treatment. .
[2024-01-23] MEDS: QUEtiapine FUMARATE 25 MG TABLET PO SCH (21:10)
[2024-01-23] MEDS: LORazepam 0.5 MG TAB PO STA (21:19)
[2024-01-24] MEDS ORDERED: SODIUM CHLORIDE 0.65% NA SOLN 45 ML (OCEAN) PRN (01:16)
[2024-01-24] MEDS ORDERED: ACETAMINOPHEN 325 MG TAB PO PRN (01:16)
[2024-01-24] MEDS ORDERED: MAGNESIUM HYDROXIDE SUSP 30 ML UDC PO PRN (01:16)
[2024-01-24] MEDS ORDERED: ALUMINUM/MAGNESIUM SUSP 30 ML UDC PO PRN (01:16)
[2024-01-24] MEDS ORDERED: BISMUTH SUBSALICYLATE 262 MG CHEW PO PRN (01:16)
[2024-01-24] MEDS: hydrOXYzine HCl 25 MG TAB PO PRN ×2 (01:42→11:30)
[2024-01-24 02:47] VITALS: RESP 18
[2024-01-24] MEDS ORDERED: NON-FORMULARY MEDICATION (Paroxetine Hcl 40 mg tablet) PO SCH (09:00)
[2024-01-24] MEDS ORDERED: PARoxetine HCL 20 MG TAB PO SCH (09:00)
--- OUTSIDE RECORDS SUMMARY | 2024-01-24 10:43 | External Medical Summary | Summary of Care ---
Author Name Unknown Organization [facility] Address [address] [place] [address] Phone [phone] Care Team Providers Care Network Services Project Manager Name Role Phone Clifton Cruz MD Primary Care Provider [phone] Reason for Visit * Reason Comments eRx-Medication Refill Encounter Details Date Type Department Care Team (Late st Contact Info) Description 09/16/[address] [facility] [address] [place] [address] Aleena Garcias MD [address] [place] [address] Episode of recurrent major depressive disorder, unspecified depression episode severity (HCC); GENERALIZED ANXIETY DIS Allergies No known active allergiesdocumented as of this encounter (statuses as of 09/17/2023) Medications Medication Sig Dispensed Refills Start Date End Date Status QUEtiapine Fumarate 25 MG Oral Tablet (SEROquel)Indicat ions:Primary insomnia Take 0.5 Tablets by mouth at bedtime. 45 Tablet 3 04/06/2022 Active Additional Information Patient not taking.Reported on 07/05/2023 busPIRone HCl 5 MG Oral Tablet (Buspar) TAKE 2 TABLETS BY MOUTH 3 TIMES A DAY NEEDED FOR ANXIETY 07/01/2023 Active Mirtazapine 15 MG Oral Tablet (Remeron) Take 1 Tablet by mouth at bedtime. 07/02/2023 Active Amoxicillin-Pot Clavulanate 875-125 MG Oral Tablet (Augmentin) TAKE 1 TAB ORALLY TWICE DAILY WITH MEALS FOR 5 DAYS 07/01/2023 Active Multivitamin Adult Oral Tablet Take by mouth. Act tyler PARoxetine HCl 40 MG Oral Tablet (pAXil)Indication s:Episode of recurrent major depressive disorder, unspecified depression episode severity (HCC),Generalized anxiety disorder TAKE 1 TABLET BY MOUTH EVERY DAY IN THE MORNING 90 Tablet 3 09/17/2023 Active PARoxetine HCl 40 MG Oral Tablet (pAXil)Indication s:Episode of recurrent major depressive disorder, unspecified depression episode severity (HCC),Generalized anxiety disorder TAKE 1 TABLET BY MOUTH EVERY DAY IN THE MORNING 90 Tablet 07/05/2023 4 Discontinued Hospital, Clinic, or Other Facility Administered Medication Ordered Dose Route Frequency Start Date End Date Status albuterol (VENTOLIN HFA/PROVENTIL HFA) inhalerIndications:Form er heavy cigarette smoker (20-39 per day),Shortness of breath 3 Puff IN PRN 07/05/2023 07/04/2024 Active Albuterol Sulfate (Proventil) (2.5 MG/3ML) 0.083% inhalation solution 2.5 mgIndications:Former heavy cigarette smoker (20-39 per day),Shortness of breath 2.5 mg NEBULIZER PRN 07/15/2023 07/14/2024 Active Albuterol Sulfate (Proventil) (5 MG/ML) 0.5% *conc* inhalation solution 2.5 mgIndications:Former heavy cigarette smoker (20-39 per day),Shortness of breath 2.5 mg NEBULIZER PRN 07/15/2023 07/14/2024 Active documented as of this encounter (statuses as of 09/17/2023) Active Problems Problem Noted Date Diagnosed Date Former heavy cigarette smoker (20-39 per day) Fall from ladder 11/07/2020 T12 burst fracture 11/07/2020 Scalp abrasion 11/07/2020 Major depressive disorder, recurrent, unspecifie d 02/17/2019 Hyperlipidemia with target LDL less than 130 Fatty liver 07/02/2016 GENERALIZED ANXIETY DIS 12/19/2004 Major depressive disorder 12/19/2004 Overview: ICD-10 update of inactive term documented as of this encounter (statuses as of 09/17/2023) Resolved Problems Problem Noted Date Diagnosed Date [...] as of this encounter (statuses as of 09/17/2023) Immunizations Name Administration Dates Next Due Pneumococcal Polysaccharide PPV23 (Pneumovax) 02/17/2013(Deferred: Patient Refused) Seasonal Influenza, Split, I IV3, With Preserve, Inj 02/17/2013(Deferred: Patient Refused) TDAP (age 10 and older)(Boostrix) 08/03/2017 TDAP, Age 7 and older, IM (Adacel) 11/30(Deferred: Patient Refused - states he is up to date) documented as of this encounter Social History Tobacco Use Types Packs/Day Years Used Date Smoking Tobacco: Every Day Cigarettes 1 30.2 Started: 07/04/1993 Smokeless Tobacco: Former Alcohol Use Standard Drinks/Week Comments Not Currently 0 (1 standard drink = 0.6 oz [...] encounter Miscellaneous Notes * Telephone Encounter - Rachid Barnard [facility] - 09/17/2023 4:59 PM EDTSigned Prescriptions: Disp Refills PARoxetine HCl 40 MG Oral Tablet (pAXil) 90 Tab*3 Sig: TAKE 1 TABLET BY MOUTH EVERY DAY IN THE MORNINGAuthorizing Provider: CLIFTON CRUZ User: RACHID BARNARD documented in this encounter Plan of Treatment Upcoming Encounters Date Type Department Care Team (Late st Contact Info) Description 01/01/2024 2:00 PM EDT [facility] [place] [address] [address] [place] [address] [facility] [place] [address] 01/06/2024 4:20 PM EDT Office Visit [facility] [address] [place] [facility] [address] Aleena Garcias MD [address] [place] [address] Health Maintenance Due Date Last Done Comments Pneumococcal Vaccine: Pediatrics (0 to 5 Years) and At-Risk Patients (6 to 64 Years) (1 of 2 - PCV) 1976 HIV Screening 1985 Hepatitis C Screening 1988 Hepatitis B (1 of 3 - 19+ 3-dose series) 1989 Cologuard 07/27/2015 Fecal Occult Blood Test 07/27/2015 Sigmoidoscopy 07/27/2015 Lung Cancer Screening 2020 08/03/2017 Zoster Vaccines (1 of 2) 2020 Colonoscopy 05/20/2022 05/20/2012 Colorectal Cancer Screening 05/20/2022 COVID-19 Vaccine ( season) 2022 Lipid Panel 12/25/2022 12/25/2017, 03/15, 07/03/2016, Additional history exists Influenza Vaccine (FLU shot) (Season Ended) 2023 Diabetes Screening 12/01/2024 12/01/2021, 0 11/09/2020, 11/08/2020, [...] as of this encounter Visit Diagnoses Diagnosis Episode of recurrent major depressive disorder, unspecified depression episode severity (HCC) GENERALIZED ANXIETY DIS Generalized anxiety disorder documented in this encounter Advance Directives * Full Code (Latest Code Status on File) Date Activated Date Inactivated Comments 11/07/2020 12:14 AM 11/09/2020 6:17 PM This order reflects the patients wishes and were consensually agreed upon. * Full Code Date Activated Date Inactivated Comments 08/03/2017 8:12 PM 08/05/2017 8:58 PM Question Answer Comments Discussion of Advance Directives occurred with: Not Discussed Does the patient have a Living Will? No Does the patient have Health Care Power of Attor arianna? No Care Teams Network Services Project Manager Relationship Specialty Start Date End Date August, Clifton Ortega MD [address] [place] [id number] PCP - General Family Medicine 02/01/23 documented as of this encounter
--- OUTSIDE RECORDS SUMMARY | 2024-01-24 10:43 | External Medical Summary | Summary of Care ---
Author Name Unknown Organization [facility] Address [address] [place] [address] Phone [phone] Care Team Providers Care Dispensing Operator Name Role Phone Nick Bravo MD Primary Care Provider [phone] Reason for Visit * Reason Comments Acute Pt is here today due to having some anxiety Pt states he has a lump on the right side of his neck Encounter Details Date Type Department Care Team (Late st Contact Info) Description 12/27/2023 12:40 PM EDT Office Visit [facility] [address] [place] [address] Ellie Sutton MD [address] [place] [address] Episode of recurrent major depressive disorder, unspecified depression episode severity (HCC)*; GENERALIZED ANXIETY DIS; PTSD (post-traumatic stress disorder); Dermoid cyst Allergies No known active allergiesdocumented as of this encounter (statuses as of 12/27/2023) Medications Medication Sig Dispensed Refills Start Date End Date Status Multivitamin Adult Oral Tablet Take by mouth. Active PARoxetine HCl 40 MG Oral Tablet (pAXil)Indication s:Episode of recurrent major depressive disorder, unspecified depression episode severity (HCC),Generalized anxiety disorder TAKE 1 TABLET BY MOUTH EVERY DAY IN THE MORNING 90 Tablet 3 09/17/2023 Active QUEtiapine Fumarate 25 MG Oral Tablet (SEROquel)Indicat ions:Primary insomnia Take 0.5 Tablets by mouth at bedtime. 45 Tablet 3 04/06/2022 4 Discontinued busPIRone HCl 5 MG Oral Tablet (Buspar) TAKE 2 TABLETS BY MOUTH 3 TIMES A DAY NEEDED FOR ANXIETY 07/01/2023 4 Discontinued Mirtazapine 15 MG Oral Tablet (Remeron) Take 1 Tablet by mouth at bedtime. 07/02/2023 4 Discontinued Amoxicillin-Pot Clavulanate 875-125 MG Oral Tablet (Augmentin) TAKE 1 TAB ORALLY TWICE DAILY WITH MEALS FOR 5 DAYS 07/01/2023 4 Discontinued(Rhoda ent preference/discon tinuation) Hospital, Clinic, or Other Facility Administered Medication [...] as of this encounter (statuses as of 12/27/2023) Active Problems Problem Noted Date Diagnosed Date PTSD (post-traumatic stress disorder) 12/27/2023 Former heavy cigarette smoker (20-39 per day) Fall from ladder 11/07/2020 T12 burst fracture 11/07/2020 Scalp abrasion 11/07/2020 Major depressive disorder, recurrent, unspecifie d 02/17/2019 Hyperlipidemia with target LDL less than 130 Fatty liver 07/02/2016 GENERALIZED ANXIETY DIS 12/19/2004 documented as of this encounter (statuses as of 12/27/2023) Resolved Problems Problem Noted Date Diagnosed Date Resolved Date Closed fracture of right clavicle 08/04/2017 02/17/2019 Closed fracture of multiple ribs of right side with routine healing 08/04/2017 02/17/2019 Multiple closed fractures of facial bone 08/04/2017 02/17/2019 Adrenal hemorrhage 08/04/2017 9 Purging 11/05/2016 02/17/2019 Closed subcondylar fracture of mandible 02/14/2007 02/17/2019 Overview: ICD-10 update of inactive term Cellulitis of face 02/14/2007 9 Major depressive disorder 12/19/2004 Overview: ICD-10 update of inactive term documented as of this encounter (statuses as of 12/27/2023) Immunizations Name Administration Dates Next Due Pneumococcal Polysaccharide PPV23 (Pneumovax) 02/17/2013(Deferred: Patient Refused) Seasonal Influenza, Trivalen t, (IIV3), with Preserv, (Fluzone) 02/17/2013(Deferred: Patient Refused) TDAP (age 10 and older)(Boostrix) 08/03/2017 TDAP, Age 7 and older, IM (Adacel) 11/30(Deferred: Patient Refused - states he is up to date) documented as of this encounter Social History Tobacco Use Types Packs/Day Years Used Date Smoking Tobacco: Every Day Cigarettes 1 30.5 Started: 07/04/1993 Smokeless Tobacco: Former Alcohol Use [...] in the Last Year Never true 11/06/2020 Utilities Answer Date Recorded Do you have trouble paying y our heating, water, or electric bill? (Adult - for ages 18 years and over) Not on file 10/01/2023 Is your family able to pay t he heat, water, or electric bill? (Household - for ages 0-17 years) Not on file 10/01/2023 Does your family have access to good internet? (Household - for ages 0-17 years) Not on file 10/01/2023 Social Connections Answer Date Recorded How often do you feel lonely or isolated from those around you? (Adult - for ages 18 years and over) Not on file 10/01/2023 Sex and Gender Information Value Date Recorded Sex Assigned at Male 02/17/2019 1:30 PM EST Gender Identity Male 02/17/2019 1:30 PM EST Sexual Orientation Straight 02/17/2019 1: 30 PM EST Job Start Date Occupation Industry Not on file Not on file Not on file documented as of this encounter Last Filed Vital Signs Vital Sign Reading Time Taken Comments Blood Pressure 118/76 12/27/2023 12:35 PM EDT Pulse 86 12/27/2023 12:35 PM EDT Temperature 36.6 C (97.8 F) 12/27/2023 12:35 PM E DT Respiratory Rate 20 12/27/2023 12:35 PM EDT Oxygen Saturation 95% 12/27/2023 12:35 PM EDT Inhaled Oxygen Concentration - - Weight 94.8 kg (209 lb) 12/27/2023 12:35 PM EDT Height - - Body Mass Index 31.78 02/09/2022 1:13 PM EDT documented in this encounter Functional Status Functional Status Response [...] No 11/07/2020 documented as of this encounter Patient Instructions * Patient Instructions* Ariadna Diaz LPN - 12/27/2023 12:38 PM EDT ~~PATIENT INSTRUCTIONS FOR PNEUMOCOCCAL VACCINE~~ Possible side effects of pneumococcal vaccine, (pneumonia shot), are usually mild and can include: 1. Soreness or redness at injection site 2. Low grade fever 3. Body aches You may use Tylenol/Acetaminophen as needed for these symptoms. LET YOUR DOCTOR KNOW IMMEDIATELY IF YOU HAVE DIFFICULTY BREATHING OR SWALLOWING, EXPERIENCE ITCHINGOF FEET OR HANDS, HAVE SWELLING OF EYES, FACE OR INSIDE OF NOSE. Vaccination is the best way to protect against hepatitis B. Depending on age and vaccine used most patients get 2 or 3 doses of hepatitis B vaccine. If you miss a dose or get behind schedule, get the next dose as soon as you can. There is no need to start over. Age for Hepatitis B Vaccine: INFANTS: *Infants whose mother HAS hepatitis B virus: #1 dose- at 2 month visit #2 dose- 1 month after dose #1 #3 dose- 7 months of age (at least 5 months after dose #1) *Infants whose mother does NOT have hepatitis B virus: #1 dose- - 2 months of age #2 dose- 1-4 months of age (at least 1 month after dose #1) #3 dose- 6-18 months of age ( at least 2 months after dose #2) *Adults at recommended age to receive Hepatitis B vaccine may receive 2 or 3 doses depending on thetype of vaccine administered: #1 dose- Now #2 dose- 1-2 months after dose #1 #3 dose- (if needed)- 4-6 months after dose #1 WHAT ARE THE RISKS FROM HEPATITIS B VACCINE? Hepatitis B vaccine is one of the safest vaccines. Getting the disease is much more likely to causeserious illness than getting the vaccine. MILD PROBLEMS: - soreness where the shot was given. - mild to moderate fever Acetaminophen or Ibuprofen (not aspirin) may be used to reduce fever and pain. SEVERE PROBLEMS: - serious allergic reaction is very rare. WHAT TO DO IF THERE IS A SERIOUS REACTION: - Call a doctor or get the person to a doctor right away. - Ask your doctor, nurse, or health department to file a Vaccine Adverse Event Report form. To filea report yourself you can call: (toll-free) LET YOUR DOCTOR KNOW IMMEDIATELY IF YOU HAVE DIFFICULTY BREATHING OR SWALLOWING, EXPERIENCE ITCHING OF FEET OR HANDS, HAVE SWELLING OF EYES, FACE OR INSIDE OF NOSE. documented in this encounter Progress Notes * Ellie Sutton MD - 12/27/2023 12:46 PM EDT Subjective Bill Berger is a 53 year old male. Chief Complaint Patient presents with Acute Pt is here today due to having some anxiety Pt states he has a lump on the right side of his neck HPI: Here to discuss about chronic depression anxiety , PTSD Has chronic hx , currently taking paxil 40 mg daily Seeing counselor weekly Was seeing psych at [facility] but he didn't like provider there , stopped going there Also mentioned that he has ADHD chronic He wanted to check about xanax, ativan klonopin or valium Discussed about limitation use , side effect of mentioned meds Since pt was seeing psych until 3 wks ago , should be managed by his recent psychiatrist Small rt sided neck cyst, dermoid cyst, Not infection Ok to observe PMH: Patient Active Problem List Diagnosis GENERALIZED ANXIETY DIS Hyperlipidemia with target LDL less than 130 Fatty liver Major depressive disorder, recurrent, unspecified (HCC) Fall from ladder T12 burst fracture (HCC) Scalp abrasion Former heavy cigarette smoker (20-39 per day) PTSD (post-traumatic stress disorder) Current Outpatient Medications Medication Sig Dispense Refill Multivitamin Adult Oral Tablet Take by mouth. PARoxetine HCl 40 MG Oral Tablet (pAXil) TAKE 1 TABLET BY MOUTH EVERY DAY IN THE MORNING 90 Tablet 3 Current Facility-Administered Medications Medication Dose Route Frequency Provider Last Rate Last Admin albuterol (VENTOLIN HFA/PROVENTIL HFA) inhaler 3 Puff Inhalation PRN Aleena Garcias MD Albuterol Sulfate (Proventil) (2.5 MG/3ML) 0.083% inhalation solution 2.5 mg 2.5 mg Nebulizer PRAleena Avitia MD Albuterol Sulfate (Proventil) (5 MG/ML) 0.5% *conc* inhalation solution 2.5 mg 2.5 mg Nebulizer PRAleena Carreno MD Past Medical History: Diagnosis Date Adrenal hemorrhage (HCC) 08/04/2017 Cellulitis of face 02/14/2007 Closed fracture of multiple ribs of right side with routine healing 08/04/2017 Closed fracture of right clavicle 08/04/2017 Closed subcondylar fracture of mandible (HCC) 02/14/2007 ICD-10 update of inactive term Multiple closed fractures of facial bone (HCC) 08/04/2017 No past surgical history on file. Review of patient's allergies indicates: No Known Allergies Family History Problem Relation Name Age of Onset Cancer Father prostate cancer in 50's Family Status Relation Status Fa (Not Specified) Social History Socioeconomic History Marital status: Single Spouse name: Not on file Number of children: Not on file Years of education: Not on file Highest education level: Not on file Occupational History Not on file Tobacco Use Smoking status: Every Day Current packs/day: 1.00 Average packs/day: 1 pack/day for 30.5 years (30.5 ttl pk-yrs) Types: Cigarettes Start date: 07/04/1993 Smokeless tobacco: Former Vaping Use Vaping status: Never Used Substance and Sexual Activity Alcohol use: Not Currently Comment: 5-6 drinks a day Drug use: No Sexual activity: Not on file Other Topics Concern Not on file Social History Narrative Not on file Social Determinants of Health Financial Resource Strain: Not on file Food Insecurity: No Food Insecurity (11/06/2020) Hunger Vital Sign Worried About Running Out of Food in the Last Year: Never true Ran Out of Food in the Last Year: Never true Transportation Needs: Not on file Social Connections: Unknown (10/01/2023) Social Connections How often do you feel lonely or isolated from those around you? (Adult - for ages 18 years and over): Not on file Housing Stability: Not on file Review of Systems Constitutional: Positive for fatigue. Negative for activity change, appetite change, chills, diaphoresis, fever and unexpected weight change. Respiratory: Positive for chest tightness (with anxiety) and shortness of breath (with anxiety). Negative for cough and wheezing. Cardiovascular: Negative for chest pain, palpitations and leg swelling. Gastrointestinal: Negative for abdominal distention and abdominal pain. Endocrine: Negative. Neurological: Negative for dizziness, light-headedness and headaches. Psychiatric/Behavioral: Positive for decreased concentration, dysphoric mood and sleep disturbance.Negative for agitation and behavioral problems. The patient is nervous/anxious. Objective BP 118/76 | Pulse 86 | Temp 36.6 C (97.8 F) (Tympanic) | Resp 20 | Wt 94.8 kg (209 lb) | SpO2 95% | BMI 31.78 kg/m | BSA 2.13 m Physical Exam Constitutional: General: He is not in acute distress. Appearance: Normal appearance. He is not ill-appearing, toxic-appearing or diaphoretic. HENT: Head: Normocephalic and atraumatic. Nose: Nose normal. Eyes: Extraocular Movements: Extraocular movements intact. Cardiovascular: Rate and Rhythm: Normal rate and regular rhythm. Pulmonary: Effort: Pulmonary effort is normal. Breath sounds: Normal breath sounds. Neurological: General: No focal deficit present. Mental Status: He is alert and oriented to person, place, and time. Psychiatric: Behavior: Behavior normal. Comments: Depression anxiety ADHD ASSESSMENT/PLAN: Episode of recurrent major depressive disorder, unspecified depression episode severity (HCC) (Primary) GENERALIZED ANXIETY DIS PTSD (post-traumatic stress disorder) Dermoid cyst Check-out note: Follow-up 1 month HepB nurse appt F/u with counseling Discuss about benzo class medication prescription with psychiatrist Ok to cont harmonyil Ellie Sutton MD documented in this encounter Nursing Notes * Ariadna Diaz LPN - 12/27/2023 12:33 PM EDT Chief Complaint Patient presents with Acute Pt is here today due to having some anxiety documented in this encounter Plan of Treatment Upcoming Encounters Date Type Department Care Team (Late st Contact Info) Description 01/01/2024 2:00 PM EDT [facility] [place] [address] [address] [place] [address] [facility] [place] [id number] 01/06/2024 4:20 PM EDT Office Visit [facility] [place] [address] [facility] [place] [phone] Aleena Garcias MD [address], [place] [id number] Health Maintenance Due Date Last Done Comments Pneumococcal Vaccine: Pediatrics (0 to 5 Years) and At-Risk Patients (6 to 64 Years) (1 of 2 - PCV) 1976 HIV Screening 1985 Hepatitis C Screening 1988 Hepatitis B Vaccine (1 of 3 - 19+ 3-dose series) 1989 Cologuard 07/27/2015 Fecal Occult Blood Test 07/27/2015 Sigmoidoscopy 07/27/2015 Lung Cancer Screening 2020 08/03/2017 Zoster Vaccines (1 of 2) 2020 Colonoscopy 05/20/2022 05/20/2012 Colorectal Cancer Screening 05/20/2022 Lipid Panel 12/25/2022 12/25/2017, 03/15, 07/03/2016, Additional history exists COVID-19 Vaccine ( - season) 2023 Influenza Vaccine (FLU shot) (#1) 2023 Diabetes Screening 12/01/2024 12/01/2021, 0 11/09/2020, 11/08/2020, Additional history exists Depression Monitoring 12/26/2024 12/27/2023, 019 DTap/Tdap Vaccines (3 - Td or Tdap) 11/06/2030 11/06/2020, 08/03/2017 HPV (Gardasil) Vaccine Aged Out No lo nger eligible based on patient's age to complete this topic MENINGOCOCCAL (MENACTRA/MENVEO) Aged Out No longer eligible based on patient's age to complete this topic documented as of this encounter Medical Devices Not on filedocumented as of this encounter Visit Diagnoses Diagnosis Episode of recurrent major depressive disorder, unspecified depression episode severity (HCC)- Primary GENERALIZED ANXIETY DIS Generalized anxiety disorder PTSD (post-traumatic stress disorder) Posttraumatic stress disorder Dermoid cyst Benign neoplasm of unspecified site documented in this encounter Advance Directives * [...] Power of Attor arianna? No Care Teams Dispensing Operator Relationship Specialty Start Date End Date August, Nick Ortega MD [address] [facility] [place] [address] PCP - General Family Medicine 02/01/23 documented as of this encounter"
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
[2024-01-24] MEDS ORDERED: QUEtiapine FUMARATE 25 MG TABLET PO PRN (18:43)
[2024-01-24] MEDS: PARoxetine HCL 20 MG TAB PO SCH (19:47)
[2024-01-24] MEDS: QUEtiapine FUMARATE 25 MG TABLET PO SCH (21:00)
[2024-01-25 06:50] VITALS: BP 104/68; TEMP 97.4; O2SAT 93
[2024-01-25] MEDS: QUEtiapine FUMARATE 25 MG TABLET PO SCH ×2 (08:54→14:31)
--- NOTE | 2024-01-25 09:41 | Psychiatric Progress Note ---
Date of Service January 25, 2024 Impression / Recommendations Risk Factors Assessment Do You Have Access To A Gun?: No Protective Factors Assessment Employed: No Interval History Chief Complaint "[]". Review of Systems Sleep Information Total Hours of Sleep: 8 Sleep Comments: HS Seroquel Meal Information Percent Meal Consumed - Breakfast: 50 Percent Meal Consumed - Lunch: 0 Percent Meal Consumed - Dinner: 0 Subjective Subjective Patient was seen & assessed and interval progress reviewed with treatment team nursing and social work. Very isolative to his room, not attending any groups. Has been requesting benzodiazepines. Irritable last evening. Showered this morning. Physical Exam Vital Signs (Past 24 Hours) Last Vital Signs Temp 36.3 C L 01/25/24 06:48 Pulse 60 01/25/24 06:48 Resp 18 01/25/24 06:48 BP 104/68 01/25/24 06:49 Pulse Ox 93 01/25/24 06:48 O2 Del Method Room Air 01/25/24 06:48 Results & Data ([facility]) Current Inpatient Medications Current Inpatient Medications: Current Inpatient Medications Acetaminophen (Acetaminophen 325 Mg Tab) 650 mg PO Q4H PRN PRN Reason: Headache or Minor Fever Stop: 02/23/24 01:15 Al Hydrox/Mg Hydrox/Simethicone (Aluminum/Magnesium Susp 30 Ml Udc) 30 ml PO Q4H PRN PRN Reason: GI Upset Stop: 02/23/24 01:15 Bismuth Subsalicylate (Bismuth Subsalicylate 262 Mg Chew) 2 tab PO Q30M PRN PRN Reason: Loose Stool/Diarrhea Stop: 02/23/24 01:15 Hydroxyzine HCl (Hydroxyzine Hcl 25 Mg Tab) 50 mg PO HSZ PRN PRN Reason: Insomnia Stop: 02/23/24 01:15 Last Admin: 01/24/24 01:42 Dose: 50 mg Hydroxyzine HCl (Hydroxyzine Hcl 25 Mg Tab) 25 mg PO Q4H PRN PRN Reason: Anxiety Stop: 02/23/24 01:15 Last Admin: 01/24/24 11:30 Dose: 25 mg Magnesium Hydroxide (Magnesium Hydroxide Susp 30 Ml Udc) 30 ml PO DAILY PRN PRN Reason: Constipation Stop: 02/23/24 01:15 Paroxetine HCl (Paroxetine Hcl 20 Mg Tab) 60 mg PO QAM GEETA Stop: 02/23/24 18:44 Last Admin: 01/25/24 08:53 Dose: 60 mg Quetiapine Fumarate (Quetiapine Fumarate 25 Mg Tablet) 25 mg PO HS GEETA Stop: 02/23/24 21:59 Last Admin: 01/24/24 21:00 Dose: 25 mg Quetiapine Fumarate (Quetiapine Fumarate 25 Mg Tablet) 12.5 mg PO DAILY GEETA Stop: 02/24/24 08:59 Last Admin: 01/25/24 08:54 Dose: 12.5 mg Quetiapine Fumarate (Quetiapine Fumarate 25 Mg Tablet) 12.5 mg PO BID PRN PRN Reason: Anxiety Stop: 02/23/24 18:42 Quetiapine Fumarate (Quetiapine Fumarate 25 Mg Tablet) 12.5 mg PO DAILY@1400 [facility] Stop: 02/24/24 13:59 Sodium Chloride (Sodium Chloride 0.65% Na Soln 45 Ml ([place])) 1 - 2 sprays NA PRN PRN PRN Reason: Nasal Dryness/Congestion Stop: 02/23/24 01:15 Mental Health & Subst Abuse Tx Therapist Name of Therapist: Paige Ambrose: [facility] [phone] Date of Therapist Appointment: 01/30/24 Time of Therapist Appointment: 2:00pm Therapist Release of Information: Obtained Java Front End Web Developer Name of Java Front End Web Developer: Shelli
[2024-01-25] MEDS ORDERED: QUEtiapine FUMARATE 200 MG TAB PO SCH (14:00)
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
[2024-01-25 16:32] VITALS: PULSE 67
[2024-01-26 10:12] LABS: Marijuana Quant, GCMS Urine 188 ng/mL (<5)
== END 2024-01-25 18:02 | disposition home or self-care (01) | DRG 881 ==
LOC: ED 15:19 → SUATTDRO 01-24 00:06 → 3S 01-24 00:06

== ENCOUNTER 2024-04-17 14:54 | Inpatient (IN) ==
--- NOTE | 2024-04-17 15:34 | Emergency Department Note ---
Impression & Plan Depression ED Provider Note ED Provider Note NAME: BYRON SHIELDS AGE:53 SEX: Male : 1970 ARRIVES VIA: Private vehicle INFORMANT: Patient ED PROVIDER(s): Ynes Maki DO CHIEF COMPLAINT: Mental health evaluation HPI: This is a 53-year-old male presents emerged department for mental health evaluation. Patient with a long history of depression and prior inpatient mental health treatment. Patient states he feels his symptoms have been worse of the last 2 years. Patient's most recent admission was to the [facility] in February 2024. He states they started him on Effexor at that time and after 1 month he felt as though he was finally experiencing some effectiveness of this however it caused him to have difficulty sleeping and so he stopped it on his own. He restarted the Paxil he had previously been prescribed. Patient states he does occasionally use alcohol and marijuana, last use was yesterday. Patient states he has thoughts of not wanting to be here anymore although no active SI or plan. He denies HI. PAST MEDICAL HISTORY:See Below PAST SURGICAL HISTORY:See Below FAMILY HISTORY:See Below SOCIAL HISTORY:See Below HOME MEDICATIONS:See Below ALLERGIES:See Below VITALS:See Below PHYSICAL EXAMINATION: GENERAL: alert, well appearing, well nourished, no distress, non-toxic EYE EXAM: normal conjunctiva, PERRL and EOM's grossly intact OROPHARYNX: no exudate, no erythema, lips, buccal mucosa, and tongue normal and mucous membranes are moist NECK: supple, no nuchal rigidity, no adenopathy, non-tender LUNGS: Clear to auscultation. Normal chest wall mechanics, no w/r/r HEART: no murmurs, S1 normal and S2 normal ABDOMEN: abdomen soft, non-tender, normo-active bowel sounds, no masses, no rebound or guarding. SKIN: no rashes, petechiae, orbruising UPPER EXTREMITIES: upper extremities are grossly normal. FROM, nml pulses b/l. LOWER EXTREMITIES: No pitting edema. FROM, nml pulses b/l. NEURO EXAM: Normal sensorium, cranial nerves II-XII grossly intact, normal speech, no facial droop,nogross weakness of arms, no gross weakness of legs. Gross sensation intact. No ataxia. Vital Signs: reviewed and remarkable Differential Diagnosis: mood disorder, suicidal ideation, anxiety, depression, substance abuse, toxidrome, infection, hypoglycemia, electrolyte abnormalities, ICH as well as others were considered. MEDICAL DECISION MAKING: This is a 53-year-old male presents emergency department due to worsening anxiety and depression and passive SI. Patient states this has been waxing and waning over many years. He was afebrile vital signs stable on arrival. Labs and urine collected and sent per protocol are reassuring. Patient medically cleared and seen and evaluated by case management. Patient desires inpatient mental health treatment and was referred to [facility]. Patient evaluated by [facility] and accepted for ongoing inpatient mental health treatment. 201 signed by me. Consultation(s): 1819: Patient seen and evaluated by case management and referred to [facility] for additional inpatient evaluation. Patient seen by [facility] and accepted for further inpatient treatment. 201 signed by me. ER Treatment Provided: See below Diagnostics Interpreted By Me: -Laboratory studies: As stated above and show below. Triage Nursing Note Reviewed Prior/Outside Records Reviewed Past Med/Surg History Problem List (Updated 04/17/24 @ 15:34 by Ynes Maki DO) Depression (Acute) Passive suicidal ideations Chronic depression Generalized anxiety disorder with panic attacks Complicated UTI (urinary tract infection) Acute bronchitis due to respiratory syncytial virus (Acute) Earache on left (Acute) Medical History (Updated 04/17/24 @ 15:34 by Ynes Maki DO) Polysubstance use disorder Polysubstance abuse Depression with suicidal ideation Major depressive disorder with current active episode Alcohol use disorder, moderate, dependence Depression with suicidal ideation Intractable back pain T12 burst fracture No pertinent past medical history Social History Smoking Status: Current some day smoker Tobacco Type: Cigarettes Cigarettes Per Day: < 1 pack; Second Hand Exposure: No; Do You Dip or Chew Tobacco: No; Hx Alcohol Use: Yes Alcohol type: beer Hx Substance Use: Yes Preferred Language: Kuwaiti Communication Ability: Effective Small Order Cutter Required: No Beliefs That Will Affect Care: None Current Living Situation: Alone How many Children do You have: 1 Feels Safe at Home: Yes Gender Identity: Male Assistive Devices: None Allergies Allergies Allergy/AdvReac Type Severity Reaction Status Date / Time No Known Allergies Allergy Mild Verified 06/25/23 19:49 Home Meds Home Medications Medication Instructions Recorded Confirmed multivitamin 1 tab PO DAILY 09/13/23 04/17/24 lorazepam 1 mg tablet 1 mg PO BID PRN Anxiety 02/24/24 04/17/24 paroxetine HCl 20 mg tablet 40 mg PO DAILY 02/24/24 04/17/24 hydroxyzine pamoate 25 mg capsule mg PRN Anxiety 04/17/24 (Vistaril) propranolol 10 mg tablet 10 mg PO 1XD 04/17/24 04/17/24 Results & Data (ED) Vital Signs Vital Signs - 24 hr 04/17/24 15:10 04/17/24 16:20 04/17/24 16:22 Temperature 36.7 C 37.1 C Temperature Source Skin Oral Pulse Rate 80 Pulse Rate [Finger] 60 Pulse Rhythm [Finger] Regular Pulse Strength [Finger] Normal Respiratory Rate 18 18 Respiratory Effort / Characteristics Non-Labored Spontaneous Non-Labored Spontaneous Respiratory Depth Normal Normal Respiratory Pattern Regular Regular Blood Pressure 122/81 Blood Pressure [Left Arm] 122/77 Blood Pressure Mean 94 Blood Pressure Mean [Left Arm] 92 Blood Pressure Position [Left Arm] Semi-fowlers Pulse Oximetry 99 99 96 Oxygen Delivery Method Room Air Room Air Room Air Sepsis Recent Fever Within 48 Hours No Sepsis New/Unexplained Change in Mental Status N/A Sepsis Action Taken by Nursing No Action Required 04/17/24 18:32 Temperature Temperature Source Pulse Rate Pulse Rate [Finger] Pulse Rhythm [Finger] Pulse Strength [Finger] Respiratory Rate Respiratory Effort / Characteristics Respiratory Depth Respiratory Pattern Blood Pressure Blood Pressure [Left Arm] Blood Pressure Mean Blood Pressure Mean [Left Arm] Blood Pressure Position [Left Arm] Pulse Oximetry Oxygen Delivery Method Room Air Sepsis Recent Fever Within 48 Hours Sepsis New/Unexplained Change in Mental Status Sepsis Action Taken by Nursing Laboratory Data 04/17/24 15:40 04/17/24 15:40 Lab Results 04/17/24 04/17/24 04/17/24 Range/Units 15:21 15:40 16:27 WBC 10.87 H (4.8-10.8) K/ul RBC 4.21 L (4.70-6.10) M/uL Hgb 11.0 L (14.0-18.0) g/dl Hct 34.8 L (42.0-52.0) % MCV 82.7 (80.0-100.0) fL MCH 26.1 (25.0-34.0) pg MCHC 31.6 L (32.0-36.0) g/dL RDW Std Deviation 41.0 (36.4-46.3) fL RDW Coeff of Jaquelin 13.8 (11.5-14.5) % Plt Count 424 H (130-400) K/uL MPV 9.3 L (9.4-12.4) fL Immature Gran % (Auto) 0.4 % Neut % (Auto) 58.9 % Lymph % (Auto) 30.6 % Simpson % (Auto) 7.7 % Eos % (Auto) 1.8 % Baso % (Auto) 0.6 % Neut # (Auto) 6.40 (1.40-6.50) K/uL Lymph # (Auto) 3.33 (1.20-3.40) K/uL Simpson # (Auto) 0.84 H (0.11-0.59) K/uL Eos # (Auto) 0.20 (0.00-0.50) K/uL Baso # (Auto) 0.06 (0.00-0.20) K/uL Immature Gran # (Auto) 0.04 (0.01-0.20) K/uL Sodium 139 (136-145) mmol/L Potassium 4.7 (3.5-5.1) mmol/L Chloride 105 (98-107) mmol/L Carbon Dioxide 28 (21-32) mmol/L Anion Gap 6 (3-11) BUN 15 (6-23) mg/dl Creatinine 0.84 (0.6-1.4) mg/dl Est Cr Clr Drug Dosing 114.9 ml/min eGFR 104.27 BUN/Creatinine Ratio 17.9 (10-20) Glucose 91 (70-99(Fasting)) mg/dl Calcium 9.4 (8.6-10.3) mg/dl Total Bilirubin 0.3 (0.2-1.0) mg/dl AST 16 (13-39) U/L ALT 16 (7-52) U/L Alkaline Phosphatase 108 H (34-104) U/L Total Protein 7.0 (6.0-8.3) gm/dl Albumin 4.0 (3.4-5.0) gm/dl Globulin 3.0 (2.5-4.0) gm/dl Albumin/Globulin Ratio 1.3 (0.9-2) TSH 1.792 (0.300-4.500) uIu/ml Urine Color Yellow Urine Appearance Clear (Clear) Urine pH 5.5 (4.5-7.5) Ur Specific Ringling 1.020 (1.000-1.030) Urine Protein Negative (Negative) Urine Glucose (UA) Negative (Negative) Urine Ketones Negative (Negative) Urine Blood Negative (Negative) Urine Nitrite Negative (Negative) Urine Bilirubin Negative (Negative) Urine Urobilinogen Negative (Negative) Ur Leukocyte Esterase Negative (Negative) Salicylates < 3.0 L (3.0-30) mg/dl Urine Opiates Screen Neg (Neg) Ur Methadone, Qual Neg (Neg) Urine Fentanyl Screen Neg (Neg) Acetaminophen < 3 L (10-30) ug/ml Urine Barbiturates Neg (Neg) Ur Phencyclidine (PCP) Neg (Neg) U Amphetamin/Meth Scrn Neg (Neg) MDMA (Ecstasy) Screen Neg (Neg) U Benzodiazepines Scrn Neg (Neg) Ur Cocaine Metabolite Neg (Neg) U Marijuana (THC) Screen Pos H (Neg) Ethyl Alcohol mg/dL < 10.0 (<10.0) mg/dl SARS-CoV-2, RNA, NAAT NEGATIVE (NEGATIVE) Administered Medications Hydroxyzine HCl (Hydroxyzine Hcl 25 Mg Tab) 50 mg PO HSZ PRN PRN Reason: Insomnia Stop: 05/17/24 19:07 Last Admin: 04/17/24 21:02 Dose: 50 mg Documented By: HUDSON Lorazepam (Lorazepam 0.5 Mg Tab) 0.5 mg PO BID PRN PRN Reason: Agitation Stop: 05/17/24 19:09 Last Admin: 04/17/24 21:02 Dose: 0.5 mg Documented By: HUDSON Olanzapine (Olanzapine 5 Mg Tablet) 5 mg PO HS GEETA Stop: 05/17/24 21:59 Last Admin: 04/17/24 21:02 Dose: 5 mg Documented By: HUDSON Discharge Plan Visit Data Chief Complaint: Anxiety Stated Complaint: ANXIETY, DEPRESSION ED Provider: Ynes Maki Discharge Problem: Depression Patient Disposition: Admitted As Inpatient Discharge Instructions Interventions: ED Discharge Assessment Last Done: 04/17/24 18:32
[2024-04-17 15:49] LABS: Appearance Urine Clear (Clear); Bilirubin Urine Negative (Negative); Blood Urine Negative (Negative); Color Urine Yellow; Glucose Urine UA Negative (Negative); Ketones Urine Negative (Negative); Leukocyte Esterase Urine Negative (Negative); Nitrite Urine Negative (Negative); Protein Urine Negative (Negative); Urobilinogen Urine Negative (Negative); pH Urine 5.5 (4.5-7.5)
[2024-04-17 16:01] LABS: Basophils # (auto) 0.06 K/uL (0.00-0.20); Basophils % (auto) 0.6 %; Eosinophils % (auto) 1.8 %; Hematocrit (blood only) 34.8 % (42.0-52.0); Immature Granulocytes # (auto) 0.04 K/uL (0.01-0.20); Immature Granulocytes % (auto) 0.4 %; Lymphocytes # (auto) 3.33 K/uL (1.20-3.40); Lymphocytes % (auto) 30.6 %; Mean Corpuscular Hemoglobin 26.1 pg (25.0-34.0); Mean Corpuscular Hgb Conc 31.6 g/dL (32.0-36.0); Mean Corpuscular Volume 82.7 fL (80.0-100.0); Mean Platelet Volume 9.3 fL (9.4-12.4); Monocytes # (auto) 0.84 K/uL (0.11-0.59); Monocytes % (auto) 7.7 %; Neutrophils % (auto) 58.9 %; Platelet Count 424 K/uL (130-400); RDW Coefficient of Variation 13.8 % (11.5-14.5); Red Blood Count 4.21 M/uL (4.70-6.10); White Blood Count 10.87 K/ul (4.8-10.8)
[2024-04-17 16:11] LABS: Amphetamines+Metham, Urine Neg (Neg); Barbiturates, Urine Neg (Neg); Benzodiazepine, Urine Neg (Neg); Cocaine, Urine Neg (Neg); Fentanyl, Urine Neg (Neg); MDMA (Ecstacy), Urine Neg (Neg); Marijuana, Urine Pos (Neg); Methadone, Urine Neg (Neg); Opiate, Urine Neg (Neg); Phencyclidine, Urine Neg (Neg)
[2024-04-17 16:14] LABS: Acetaminophen < 3 ug/ml (10-30); Salicylate < 3.0 mg/dl (3.0-30)
[2024-04-17 16:19] LABS: Albumin Globulin Ratio 1.3 (0.9-2); BUN Creatinine Ratio 17.9 (10-20); Bilirubin,Total 0.3 mg/dl (0.2-1.0); Calcium 9.4 mg/dl (8.6-10.3); Creatinine Clr Calc Pharmacy 114.9 ml/min; Potassium 4.7 mmol/L (3.5-5.1)
[2024-04-17 16:32] LABS: Thyroid Stimulating Hormone 1.792 uIu/ml (0.300-4.500)
[2024-04-17] MEDS ORDERED: ALUMINUM/MAGNESIUM SUSP 30 ML UDC PO PRN (19:08)
[2024-04-17] MEDS ORDERED: hydrOXYzine HCl 25 MG TAB PO PRN (19:08)
[2024-04-17] MEDS ORDERED: BISMUTH SUBSALICYLATE 262 MG CHEW PO PRN (19:08)
[2024-04-17] MEDS ORDERED: NICOTINE POLACRILEX 2 MG GUM MT PRN (19:08)
[2024-04-17] MEDS ORDERED: SODIUM CHLORIDE 0.65% NA SOLN 45 ML (OCEAN) PRN (19:08)
[2024-04-17] MEDS ORDERED: MAGNESIUM HYDROXIDE SUSP 30 ML UDC PO PRN (19:08)
[2024-04-17] MEDS ORDERED: ACETAMINOPHEN 325 MG TAB PO PRN (19:08)
[2024-04-17] MEDS: LORazepam 0.5 MG TAB PO PRN (21:02)
[2024-04-17] MEDS: hydrOXYzine HCl 25 MG TAB PO PRN (21:02)
[2024-04-17] MEDS: OLANZapine 5 MG TABLET PO SCH (21:02)
--- OUTSIDE RECORDS SUMMARY | 2024-04-17 21:52 | External Medical Summary | Summary of Care ---
Author Name Unknown Organization [facility] Address [address] [place] [address] Phone [phone] Care Team Providers Care Floor Care Technician Name Role Phone Nick Bravo MD Primary Care Provider [phone] Reason for Visit * Reason Onset Date Comments No Show 03/11/2024 [facility] No Show Auto mation Encounter Details Date Type Department Care Team (Late st Contact Info) Description 03/11/2024 Telephone [facility] [address] [facility] [place] [address] Francheska Garcias MD [address] [place] [address] No Show ([place] No Show Automation) Allergies No known active allergiesdocumented as of this encounter (statuses as of 03/11/2024) Medications Multivitamin Adult Oral Tablet Take by mouth. Active PARoxetine HCl 40 MG Oral Tablet (pAXil)Indicatio ns:Episode of recurrent major depressive disorder, unspecified depression episode severity (HCC),Generalize d anxiety disorder TAKE 1 TABLET BY MOUTH EVERY DAY IN THE MORNING 90 Tablet 3 09/17/2023 Active Hospital, Clinic, or Other Facility Administered Medication [...] as of this encounter (statuses as of 03/11/2024) Active Problems Problem Noted Date Diagnosed Date PTSD (post-traumatic stress disorder) 12/27/2023 Former heavy cigarette smoker (20-39 per day) Fall from ladder 11/07/2020 T12 burst fracture 11/07/2020 Scalp abrasion 11/07/2020 Major depressive disorder, recurrent, unspecifie d 02/17/2019 Hyperlipidemia with target LDL less than 130 Fatty liver 07/02/2016 GENERALIZED ANXIETY DIS 12/19/2004 documented as of this encounter (statuses as of 03/11/2024) Resolved Problems Problem Noted Date Diagnosed Date Resolved Date Closed fracture of right clavicle 08/04/2017 02/17/2019 Closed fracture of multiple ribs of right side with routine healing 08/04/2017 02/17/2019 Multiple closed fractures of facial bone 08/04/2017 02/17/2019 Adrenal hemorrhage 08/04/2017 9 Purging 11/05/2016 02/17/2019 Closed subcondylar fracture of mandible 02/14/2007 02/17/2019 Overview (01/17/2016): ICD-10 update of inactive term Cellulitis of face 02/14/2007 9 Major depressive disorder 12/19/2004 Overview (02/05/2017): ICD-10 update of inactive term documented as of this encounter (statuses as of 03/11/2024) Immunizations Name Administration Dates Next Due Pneumococcal Polysaccharide PPV23 (Pneumovax) 02/17/2013(Deferred: Patient Refused) Seasonal Influenza Vac., MDV , IM, 0.5 mL (Fluzone) 02/17/2013(Deferred: Patient Refused) TDAP (age 10 and older)(Boostrix) 08/03/2017 TDAP, Age 7 and older, IM (Adacel) 11/30(Deferred: Patient Refused - states he is up to date) documented as of this encounter Social History Tobacco Use Types Packs/Day Years Used Date Smoking Tobacco: Every Day Cigarettes 1 30.7 Started: 07/04/1993 Smokeless Tobacco: Former Alcohol Use Standard Drinks/Week Comments Not Currently 0 (1 standard drink = 0.6 oz pur e alcohol) 5-6 drinks a day PHQ-2 Answer Date Recorded PHQ Adult Total Score 2 12/27/2023 Hunger Vital Sign Answer Date Recorded Worried [...] Assigned at Male 02/17/2019 1:30 PM EST Legal Sex Male 5:40 AM EST Gender Identity Male 02/17/2019 1:30 PM EST Sexual Orientation Straight 02/17/2019 1: 30 PM EST documented as of this encounter Functional Status * Are you deaf or do you have serious difficulty hearing? Answer Date of Assessment Author No 11/07/2020 12:29 PM EDT Nisreen Ricketts RN * Are you blind or do you have serious difficulty seeing, even when wearing glasses? Answer Date of Assessment Author No 11/07/2020 12:29 PM EDT Nisreen Ricketts RN * Do you have serious difficulty walking or climbing stairs? (5 years old or older) Answer Date of Assessment Author No 11/07/2020 12:29 PM EDT Nisreen Ricketts RN * Do you have difficulty dressing or bathing? (5 years old or older) Answer Date of Assessment Author No 11/07/2020 12:29 PM EDT Nisreen Ricketts RN * Because of a physical, mental, or emotional condition, do you have difficulty doing errands alone such as visiting a doctors office or shopping? (15 years old or older) Answer Date of Assessment Author No 11/07/2020 12:29 PM EDT Nisreen Ricketts RN documented as of this encounter Mental Status * Because of a physical, mental, or emotional condition, do you have serious difficulty concentrating, remembering, or making decisions? (5 years old or older) Answer Entry Date Author No 11/07/2020 12:29 PM EDT Nisreen Ricketts RN documented in this encounter Miscellaneous Notes * Telephone Encounter - [facility], No Show - 03/11/2024 3:44 PM EST Dear Bill Berger, Looks like you missed an appointment with FRANCHESKA GARCIAS on 03/06/2024 at 11:00 AM. If you haven't already rescheduled, you have a couple of options: Reschedule in [email or web address] Call us at [phone] Can't make a future appointment? Cancel and let someone else have your spot! It's easy to do via PayNearMe or by calling us. Thanks for trusting [facility] with your care. We hope to see you back in our office soon. Sincerely, FRANCHESKA GARCIAS documented in this encounter Plan of Treatment [...] 05/20/2012 Colorectal Cancer Screening 05/20/2022 COVID-19 Vaccine (1 - season) 2023 Influenza Vaccine (FLU shot) (#1) 2023 Depression Monitoring 12/26/2024 12/27/2023 Lipid Panel 02/24/2029 02/25/2024, 12/14, 04/01/2017, Additional history exists DTap/Tdap Vaccines (3 - Td or Tdap) 11/06/2030 11/06/2020, 08/03/2017 HPV (Gardasil) Vaccine Aged Out No lo nger eligible based on patient's age to complete this topic MENINGOCOCCAL (MENACTRA/MENVEO) Aged Out No longer eligible based on patient's age to complete this topic documented as of this encounter Medical Devices Not on filedocumented as of this encounter Advance Directives * Full Code [...] Power of Attor arianna? No Care Teams Floor Care Technician Relationship Specialty Start Date End Date August, Nick Ortega MD [address] [facility] [place] [address] PCP - General Family Medicine 02/01/23 documented as of this encounter
--- OUTSIDE RECORDS SUMMARY | 2024-04-17 21:52 | External Medical Summary | Summary of Care ---
Author Name Unknown Organization [facility] Address [address] [place] [address] Phone [phone] Care Team Providers Care Sample Coordinator Name Role Phone AugustNick MD Primary Care Provider [phone] Reason for Visit * Reason Onset Date Comments Appointment 03/06/2024 Hospital Follow-Up 03/06/2024 Encounter Details Date Type Department Care Team (Late st Contact Info) Description 03/06/2024 Telephone [facility] [address] [place] [address] Nick Bravo MD [address] [place] [address] Appointment; Hospital Follow-Up Allergies No known active allergiesdocumented as of this encounter (statuses as of 03/13/2024) Medications Multivitamin Adult Oral Tablet Take by [...] as of this encounter (statuses as of 03/13/2024) Active Problems Problem Noted Date Diagnosed Date PTSD (post-traumatic stress disorder) 12/27/2023 Former heavy cigarette smoker (20-39 per day) Fall from ladder 11/07/2020 T12 burst fracture 11/07/2020 Scalp abrasion 11/07/2020 Major depressive disorder, recurrent, unspecifie d 02/17/2019 Hyperlipidemia with target LDL less than 130 Fatty liver 07/02/2016 GENERALIZED ANXIETY DIS 12/19/2004 documented as of this encounter (statuses as of 03/13/2024) Resolved Problems Problem Noted Date Diagnosed Date [...] as of this encounter (statuses as of 03/13/2024) Immunizations Name Administration Dates Next Due Pneumococcal [...] of Assessment Author No 11/07/2020 12:29 PM ROBSONT Nisreen Ricketts RN * Do you have [...] encounter Miscellaneous Notes * Telephone Encounter - Ant Smith OSA - 03/13/2024 11:23 AM EST Patient will call back later * Telephone Encounter - Pako Lea OSA - 03/06/2024 11:10 AM EST Reason for patient's call: HOSPITAL DISCHARGE appt needed please call back at: [phone] Appt was missed due to weather documented in this encounter Plan of Treatment [...] Power of Attor arianna? No Care Teams Sample Coordinator Relationship Specialty Start Date End Date August, Nick Ortega MD [address] [place] [address] PCP - General Family Medicine 02/01/23 documented as of this encounter
--- OUTSIDE RECORDS SUMMARY | 2024-04-17 21:52 | External Medical Summary | Summary of Care ---
Author Name Unknown Organization [facility] Address [address] [place] [address] Phone [phone] Care Team Providers Care Rn Cardiology Name Role Phone AugustNick MD Primary Care Provider [phone] Reason for Visit * Reason Onset Date Comments FYI 12/26/2023 Encounter Details Date Type Department Care Team (Late st Contact Info) Description 12/26/2023 Telephone [facility] [address] [place] [address] Nick Bravo MD [address] [place] [address] FY Allergies No known active allergiesdocumented as of this encounter (statuses as of 03/26/2024) Medications Multivitamin Adult Oral Tablet Take by [...] as of this encounter (statuses as of 03/26/2024) Active Problems Problem Noted Date Diagnosed Date PTSD (post-traumatic stress disorder) 12/27/2023 Former heavy cigarette smoker (20-39 per day) Fall from ladder 11/07/2020 T12 burst fracture 11/07/2020 Scalp abrasion 11/07/2020 Major depressive disorder, recurrent, unspecifie d 02/17/2019 Hyperlipidemia with target LDL less than 130 Fatty liver 07/02/2016 GENERALIZED ANXIETY DIS 12/19/2004 documented as of this encounter (statuses as of 03/26/2024) Resolved Problems Problem Noted Date Diagnosed Date [...] as of this encounter (statuses as of 03/26/2024) Immunizations Name Administration Dates Next Due Pneumococcal [...] of Assessment Author No 11/07/2020 12:29 PM Nisreen Stubbs RN * Are you blind or do you have serious difficulty seeing, even when wearing glasses? Answer Date of Assessment Author No 11/07/2020 12:29 PM Nisreen Stubbs RN * Do you have serious difficulty [...] encounter Miscellaneous Notes * Telephone Encounter - Jody Mistry LPN - 12/27/2023 8:39 AM EDT I attempted to call Amanda to clarify the relation to the patient and got the voicemail for [facility]. * Telephone Encounter - Shabana Zamora OSA - 12/26/2023 6:26 PM EDT Amanda called and said that if anyone needed to reach out in regards to ongoing care for the patient they can reach out to [phone] and ask for Amanda or Pretty. documented in this encounter Plan of Treatment Upcoming Encounters Date Type Department Care Team (Late st Contact Info) Description 03/31/2024 11:00 AM EST Office [facility] Ordonez [address] [place] [address] Nick Bravo MD [address] [address] Health Maintenance Due Date Last Done Comments [...] Cancer Screening 05/20/2022 COVID-19 Vaccine ( - season) 2023 Influenza [...] Power of Attor arianna? No Care Teams Rn Cardiology Relationship Specialty Start Date End Date August, Nick Ortega MD [address] [place] [address] PCP - General Family Medicine 02/01/23 documented as of this encounter
--- OUTSIDE RECORDS SUMMARY | 2024-04-17 21:52 | External Medical Summary | Summary of Care ---
Author Name Unknown Organization [facility] Address [address] [place] [address] Phone [phone] Care Team Providers Care Stenotypist Name Role Phone Nick Bravo MD Primary Care Provider [phone] Encounter Details Date Type Department Care Team (Late st Contact Info) Description 03/10/2024 Orders Only [facility] [address] [facility] [address] [address] Aleena Garcias MD [address] [place] [address] Allergies No known active allergiesdocumented as of this encounter (statuses as of 03/10/2024) Medications Multivitamin Adult Oral Tablet Take by [...] as of this encounter (statuses as of 03/10/2024) Active Problems Problem Noted Date Diagnosed Date PTSD (post-traumatic stress disorder) 12/27/2023 Former heavy cigarette smoker (20-39 per day) Fall from ladder 11/07/2020 T12 burst fracture 11/07/2020 Scalp abrasion 11/07/2020 Major depressive disorder, recurrent, unspecifie d 02/17/2019 Hyperlipidemia with target LDL less than 130 Fatty liver 07/02/2016 GENERALIZED ANXIETY DIS 12/19/2004 documented as of this encounter (statuses as of 03/10/2024) Resolved Problems Problem Noted Date Diagnosed Date [...] as of this encounter (statuses as of 03/10/2024) Immunizations Name Administration Dates Next Due Pneumococcal [...] Nisreen Ricketts RN documented in this encounter Plan of Treatment [...] Colorectal Cancer Screening 05/20/2022 Lipid Panel 12/25/2022 02/25/2024, 12/14, 04/01/2017, Additional history exists COVID-19 Vaccine ( season) 2023 Influenza Vaccine (FLU shot) (#1) 2023 Depression Monitoring 12/26/2024 12/27/2023 DTap/Tdap Vaccines (3 - Td or Tdap) 11/06/2030 11/06/2020, 08/03/2017 HPV (Gardasil) Vaccine Aged Out No lo nger eligible based on patient's age to complete this topic MENINGOCOCCAL (MENACTRA/MENVEO) Aged Out No longer eligible based on patient's age to complete this topic documented as of this encounter Medical Devices Not on filedocumented as of this encounter Procedures Procedure Name Priority Date/Time Associated Diagnosis Comments CHEMISTRY-OUTSIDE Routine 02/25/2024 documented in this encounter Results * (ABNORMAL) CHEMISTRY-OUTSIDE (02/25/2024) Not all results display below - see scan for full detail OUTSIDE LAB (SEE SCANNED REPORT) Comment:SCAN INCLUDES - LP CREATININE OUTSIDE L AB (SEE SCANNED REPORT) EGFR OUTSIDE LA B (SEE SCANNED REPORT) POTASSIUM OUTSIDE LA B (SEE SCANNED REPORT) GLUCOSE OUTSIDE LA B (SEE SCANNED REPORT) HOURS FASTING OUTSID E LAB (SEE SCANNED REPORT) TRIGLYCERIDES-OUT SIDE LAB 169(A) 0 - 149 MG/DL OUTSIDE LAB (SEE SCANNED REPORT) CHOLESTEROL-OUTSI DE LAB 162 100 - 199 MG/DL OUTSIDE LAB (SEE SCANNED REPORT) HDL-OUTSIDE LAB 43 >39 MG/DL OUTS EFRAIN LAB (SEE SCANNED REPORT) CHOL/HDL RATIO-OUTSIDE LAB OUTSIDE LA B (SEE SCANNED REPORT) LDL (CALCULATED)-OUTS EFRAIN LAB 90 0 - 99 MG/DL OUTSIDE LAB (SEE SCANNED REPORT) LDL (DIRECT MEASURE)-OUTSIDE LAB OUTSIDE LAB (SEE SCANNED REPORT) HEMOGLOBIN, [id number] LAB OUTSIDE LAB (SEE SCANNED REPORT) PHOSPHORUS-OUTSID E LAB OUTSIDE LAB (SEE SCANNED REPORT) PTH-OUTSIDE LAB OUTS EFRAIN LAB (SEE SCANNED REPORT) MICROALBUMIN RATIO-OUTSIDE LAB OUTSIDE LA B (SEE SCANNED REPORT) PROTEIN, UA-OUTSIDE LAB OUTSIDE LAB (SEE SCANNED REPORT) HGB OUTSIDE LA B (SEE SCANNED REPORT) 02/25/2024 us History Per Patient LABORATORY Final Result OUTSIDE LAB (SEE SCANNED REPORT) documented in this encounter Advance Directives * [...] Power of Attor arianna? No Care Teams Stenotypist Relationship Specialty Start Date End Date August, Nick Ortega MD [address] [place] [id number] PCP - General Family Medicine 02/01/23 documented as of this encounter
[2024-04-18 06:30] VITALS: RESP 16
[2024-04-18] MEDS: NICOTINE 14 MG/24 HR PATCH TD SCH (09:18)
--- NOTE | 2024-04-18 09:31 | History & Physical ---
Date of Service April 18, 2024 Impression / Recommendations Impression BYRON SHIELDS is a 53-year-old man who currently lives in [place] has a history of persistent depressive disorder, generalized anxiety with panic attacks, alcohol use disorder, and was admitted on 04/17/24 18:42 on a 201 voluntary commitment for worsening depression, passive SI, poor self-care. Diagnostically consistent with unspecified depression with differential including persistent depressive disorder vs depression and anxiety 2/2 alcohol use vs MDD and VEGA with panic attacks vs anxiety 2/2 cannabis and benzodiazepine use. Discussed medication treatment options in detail. Discussed risks, benefits and alternatives. Patient would like to start and consented to Abilify for depression augmentation, ongoing use of Paxil for depression/anxiety, mirtazapine for insomnia/depression/anxiety, propranolol as off-label use for anxiety, and Ativan prn for panic attacks/agitation with goal of longer term tapering given his history of alcohol use disorder. Reviewed side effects including but not limited to: GI, REYNOLDS, sexual side effects with Paxil; movement (TD, NMS), cardiac (QTc prolongation), and metabolic (stroke, insulin resistance) and necessity for fasting lipid and glucose labwork and AIMS done wi th score of 0 with Abilify; low BP/syncope with propranolol; sedation/weight gain with mirtazapine; respiratory suppression/addiction/confusion/falls/not operating vehicle or machinery while using with Ativan. The patient's audit score, use history and negative consequences suggests alcohol use disorder. Motivational interviewing was done as a brief intervention. Intervention was greater than 5 minutes in length and included assessing readiness to quit, advice on how to reduce or abstain and to set a specific goal for this hospitalization. sand worker will also assist in anticipating barriers to reducing or abstaining from substance use and in problem-solving for solutions to those problems while arranging for referral to appropriate treatment. The patient is in contemplative stage with regards to transtheoretical model of change. Recommended decreasing consumption due to disinhibiting effects and potential for worsening psychiatric symptoms. Overall I spent a total of 75 minutes for this admission including review of chart records, review of labwork, direct evaluation of the patient, counseling the patient, ordering medication, risk assessment, discussion with the psychiatric liason RN and documentation in the electronic health record. (1) Depression: (2) Generalized anxiety disorder with panic attacks: (3) Alcohol use: Plan 04/18/2024: The patient was admitted to the [facility] ([facility] unit) on q15 min checks (behavioral with suicide precautions) for safety. The patient will participate in group, recreational, and milieu therapies and will be offered additional individual and family sessions as clinically appropriate. -Medications: * Continue Paxil 40mg daily (he declines option to increase dose or try alternative SSRI) * Start mirtazapine 15mg HS po * Start Abilify 5mg daily * Propranolol 10mg TID po * Ativan 0.5mg BID prn for panic attacks/agitation * Consider use of naltrexone -Labwork: * HbA1c * Fasting lipid panel * Vit D level -Recovery handbook -[facility] [place], at this time he prefers weekly individual therapy -Discussed ECT/ketamine-reviewed neither available in our inpatient setting. Discussed indications, risks, benefits and outpatient locations where such services are offered locally for his consideration in the future Inventory Assets Strengths: has outpatient providers, willing to get treatment Needs: safety and stabilization, medication adjustment, additional coping skills, increased outpatient services Suicide Risk Level Suicide Risk Level: Moderate (q15 min suicide checks) (passive SI but increased mood symptoms, feels safe in the hospital, feels able to ask for support) Risk Factors Assessment Male: Yes : Yes Do You Have Access To A Gun?: No Health Problems: No Mental Health Diagnoses: Yes Substance Use Disorders: Yes Previous Attempt: No Family History of Suicide: No Previous Psychiatric Hospitalization: Yes Hopelessness: No Protective Factors Assessment Employed: No Stable Relationships: Yes Good Rapport with Provider: Yes Psychiatric History Identifying Data BYRON SHIELDS is a 53-year-old man who currently lives in [place] has a history of persistent depressive disorder, generalized anxiety with panic attacks, alcohol use disorder, and was admitted on 04/17/24 18:42 on a 201 voluntary commitment for worsening depression, passive SI, poor self-care. Chief Complaint "It's like I'm in a constant anxiety attack 05/11". History of Present Illness Byron presents for psychiatric admission for worsening depression and anxiety describing that "I can't handle the pain and suffering" and feels as though "I'm in a constant panic attack". He feels his symptoms have been present for decades and worsening over the past two years. He describes symptoms of increased irritability, feeling sick, nauseous, and "not right in his head". He wonders about having a brain scan to show "the extent of my depression and anxiety". Reviewed limitations of brain imaging which he understood, he denies any recent or historical neurological symptoms except sometimes having dizziness which we reviewed could also be due to his Ativan use. He reports thinking of frequently but denies current suicidal ideation. States that he "loves life" but thinks about due to his psychic distress. He is currently prescribed psychiatric medications of Paxil and Ativan. Ativan is prescribed as 1mg BID prn but he finds this provides little relief, so at times has taken it as a combined dose of 2mg which seems to help but still only slightly. He wonders about having Xanax "or something stronger" to treat his anxiety. He's also prescribed propranolol but hasn't been taking this, isn't sure if it's helpful. Reviewed past medication trials of which he's found all to be ineffective for his anxiety. He is willing to try other medication options but also notes he doesn't like to take many medications. He asks about ECT and ketamine and if he could leave the hospital to get these treatments during the day and then return. He is currently attending therapy once a week but does not believe increasing the frequency would be helpful for his symptoms. He cannot identify any recent stressors or changes in his life. He reports no longer being on probation from past DUI, feels his alcohol use has been minimal. Reports having a beer two days ago and a 6 pack of beer two days before [place]. Occasionally uses cannabis. Psychiatric ROS notable for no current nor history of symptoms of iza, psychosis, OCD nor eating disorder. History of PTSD, denies current symptoms though describes being in constant heightened anxiety state which could represent stress response/trauma reaction. Past Psychiatric History Current Psychiatric Diagnosis: Chronic depression Outpatient Services: Psychiatry through [employer], therapy at [place] and [facility] through [facility] Previous Psych Admissions: Feb 2024-[facility] Jan 2024-[facility] Do You Have Access To A Gun?: No History of Previous Suicide Attempt: No Past Medication Trials: Effexor in Feb but stopped due to nightmares duloxetine Buspar-ineffective Seroquel-helped with sleep but no benefit for anxiety Wellbutrin-ineffective mirtazapine-prescribed in the past, unclear if he's ever taken this Past Head Trauma/Neuro History History of Concussion/Seizure: No Allergies Allergy/AdvReac Type Severity Reaction Status Date / Time No Known Allergies Allergy Mild Verified 06/25/23 19:49 Home Medications Medication Instructions Recorded Confirmed Type multivitamin 1 tab PO DAILY 09/13/23 04/17/24 History lorazepam 1 mg tablet 1 mg PO BID PRN Anxiety 02/24/24 04/17/24 History paroxetine HCl 20 mg tablet 40 mg PO DAILY 02/24/24 04/17/24 History hydroxyzine pamoate 25 mg capsule mg PRN Anxiety 04/17/24 History (Vistaril) propranolol 10 mg tablet 10 mg PO 1XD 04/17/24 04/17/24 History Family History Family History of: Depression, Anxiety and Alcoholism/Drug Abuse Alcohol History Hx of Alcohol Use Over the Past 12 Months: Yes (Heavy Consumption Monthly) AUDIT Total Score: 15 He reports lower use currently but seems to minimize impact of past and recent use given hx of legal consequences from drinking (2 prior DUIs) Smoking Use Have You Smoked or Used Tobacco Products in the Last 30 Days: Yes tobacco type: cigarettes Smoking Status: Current some day smoker Substance History Hx of Prescription Med Misuse Over the Past 12 Months: No (denies) Hx of Over the Counter Med Misuse Over the Past 12 Months: No (denies) Hx of Inhalent Misuse Over the Past 12 Months: No (denies) Hx of Organic Substance Use Over the Past 12 Months: Yes (marijuana) Hx of Illegal Substances/Street Drug Use Over Past 12 Months: No (denies) Problems as a Result of Past Substance Use: Arrested Personal History Living Arrangements: Home Employment Status: Disabled Marital Status: Single Beliefs That Will Affect Care: None Current Legal Problems: No (recently on probation for past DUI) Hx Legal Problems: Yes Hx Traumatic Life Events: Yes Patient History Medical History Polysubstance use disorder Polysubstance abuse Depression with suicidal ideation Major depressive disorder with current active episode Alcohol use disorder, moderate, dependence Depression with suicidal ideation Intractable back pain T12 burst fracture No pertinent past medical history Social History Smoking Status: Current some day smoker Tobacco Type: Cigarettes Cigarettes Per Day: < 1 pack; Second Hand Exposure: No; Do You Dip or Chew Tobacco: No; Hx Alcohol Use: Yes Alcohol type: beer Hx Substance Use: Yes Preferred Language: Setswana Communication Ability: Effective Game Master Required: No Beliefs That Will Affect Care: None Current Living Situation: Alone How many Children do You have: 1 Feels Safe at Home: Yes Gender Identity: Male Assistive Devices: None Review of Systems Review of Systems: All systems reviewed & are unremarkable except as noted in HPI & below Physical Exam Psychiatric: Orientation: alert and oriented x 3 Apperance: appropriately dressed and + disheveled Eye Contact: good eye contact Motor Behavior: no abnormal motor movements Speech: normal rate/rhythm/volume of speech Affect: + depressed affect and + constricted affect Mood: + depressed mood and + anxious mood Thought Process: goal directed thought process Thought Content: reality based without delusions Suicidal Thoughts: denies suicidal plan and denies suicidal intent; + reports suicidal thoughts (passive thoughts ) Homicidal Thoughts: denies homicidal thoughts Hallucinations: no auditory hallucinations and no visual hallucinations Cognition: recent memory grossly intact, remote memory grossly intact, attention grossly intact and language grossly intact Estimated Intelligence: consistent with education level Insight: + limited insight Judgment: + limited judgement Vital Signs (Past 24 Hours): Last Vital Signs Temp 36.1 C L 04/18/24 06:00 Pulse 71 04/18/24 06:00 Resp 16 04/18/24 06:00 BP 101/68 04/18/24 06:30 Pulse Ox 98 04/18/24 06:00 O2 Del Method Room Air 04/18/24 06:00 Exam Statement: A physical exam was performed in the ED by Dr. Maynard for the purposes of medical clearance. I accept that physical as correct and adequate for the purposes of the inpatient physical exam. Results & Data ([facility]) Laboratory Results Laboratory Results - last 24 hr 04/17/24 04/17/24 04/17/24 15:21 15:40 16:27 WBC 10.87 H RBC 4.21 L Hgb 11.0 L Hct 34.8 L MCV 82.7 MCH 26.1 MCHC 31.6 L RDW Std Deviation 41.0 RDW Coeff of Jaquelin 13.8 Plt Count 424 H MPV 9.3 L Immature Gran % (Auto) 0.4 Neut % (Auto) 58.9 Lymph % (Auto) 30.6 [place] % (Auto) 7.7 Eos % (Auto) 1.8 Baso % (Auto) 0.6 Neut # (Auto) 6.40 Lymph # (Auto) 3.33 [place] # (Auto) 0.84 H Eos # (Auto) 0.20 Baso # (Auto) 0.06 Immature Gran # (Auto) 0.04 Sodium 139 Potassium 4.7 Chloride 105 Carbon Dioxide 28 Anion Gap 6 BUN 15 Creatinine 0.84 Est Cr Clr Drug Dosing 114.9 eGFR 104.27 BUN/Creatinine Ratio 17.9 Glucose 91 Calcium 9.4 Total Bilirubin 0.3 AST 16 ALT 16 Alkaline Phosphatase 108 H Total Protein 7.0 Albumin 4.0 Globulin 3.0 Albumin/Globulin Ratio 1.3 TSH 1.792 Urine Color Yellow Urine Appearance Clear Urine pH 5.5 Ur Specific [place] 1.020 Urine Protein Negative Urine Glucose (UA) Negative Urine Ketones Negative Urine Blood Negative Urine Nitrite Negative Urine Bilirubin Negative Urine Urobilinogen Negative Ur Leukocyte Esterase Negative Salicylates < 3.0 L Urine Opiates Screen Neg Ur Methadone, Qual Neg Urine Fentanyl Screen Neg Acetaminophen < 3 L Urine Barbiturates Neg Ur Phencyclidine (PCP) Neg U Amphetamin/Meth Scrn Neg MDMA (Ecstasy) Screen Neg U Benzodiazepines Scrn Neg Ur Cocaine Metabolite Neg U Marijuana (THC) Screen Pos H U Marijuana THC Carboxy Pending Drug Screen Comment Pending Ethyl Alcohol mg/dL < 10.0 SARS-CoV-2, RNA, NAAT NEGATIVE Current Inpatient Medications Current Inpatient Medications: Current Inpatient Medications Acetaminophen (Acetaminophen 325 Mg Tab) 650 mg PO Q4H PRN PRN Reason: Headache or Minor Fever Stop: 05/17/24 19:07 Al Hydrox/Mg Hydrox/Simethicone (Aluminum/Magnesium Susp 30 Ml Udc) 30 ml PO Q4H PRN PRN Reason: GI Upset Stop: 05/17/24 19:07 Bismuth Subsalicylate (Bismuth Subsalicylate 262 Mg Chew) 2 tab PO Q30M PRN PRN Reason: Loose Stool/Diarrhea Stop: 05/17/24 19:07 Hydroxyzine HCl (Hydroxyzine Hcl 25 Mg Tab) 50 mg PO HSZ PRN PRN Reason: Insomnia Stop: 05/17/24 19:07 Last Admin: 04/17/24 21:02 Dose: 50 mg Hydroxyzine HCl (Hydroxyzine Hcl 25 Mg Tab) 25 mg PO Q4H PRN PRN Reason: Anxiety Stop: 05/17/24 19:07 Lorazepam (Lorazepam 0.5 Mg Tab) 0.5 mg PO BID PRN PRN Reason: Agitation Stop: 05/17/24 19:09 Last Admin: 04/17/24 21:02 Dose: 0.5 mg Magnesium Hydroxide (Magnesium Hydroxide Susp 30 Ml Udc) 30 ml PO DAILY PRN PRN Reason: Constipation Stop: 05/17/24 19:07 Miscellaneous (Remove Nicoderm Patch) 1 each N/A DAILY@[id number] [facility] Stop: 05/18/24 08:58 Last Admin: 04/18/24 09:20 Dose: Not Given Nicotine (Nicotine 14 Mg/24 Hr Patch) 1 patch TD QAM [facility] Stop: 05/18/24 08:59 Last Admin: 04/18/24 09:18 Dose: Not Given Nicotine Polacrilex (Nicotine Polacrilex 2 Mg Gum) 2 piece MT PRN PRN PRN Reason: Nicotine Withdrawal Symptoms Stop: 05/17/24 19:07 Olanzapine (Olanzapine 5 Mg Tablet) 5 mg PO HS [facility] Stop: 05/17/24 21:59 Last Admin: 04/17/24 21:02 Dose: 5 mg Sodium Chloride (Sodium Chloride 0.65% Na Soln 45 Ml ([place])) 1 - 2 sprays NA PRN PRN PRN Reason: Nasal Dryness/Congestion Stop: 05/17/24 19:07
[2024-04-18] MEDS: PARoxetine HCL 20 MG TAB PO SCH (10:12)
[2024-04-18] MEDS: MULTIVITAMIN TAB PO SCH (10:12)
[2024-04-18] MEDS: ARIPiprazole 5 MG TAB PO SCH (12:58)
[2024-04-18] MEDS: PROPRANOLOL HCL 10 MG TAB PO SCH (14:00)
[2024-04-18] MEDS: MIRTAZAPINE TAB 15 MG TAB PO SCH (21:08)
[2024-04-19 06:35] VITALS: BP 124/70; PULSE 64; TEMP 97.5; O2SAT 97
[2024-04-19 08:11] LABS: Chol HDL Ratio 5.2 (0-5)
[2024-04-19 08:34] LABS: Estimated Average Glucose 123 mg/dl; Hemoglobin A1C 5.9 % (4.5-5.6)
--- NOTE | 2024-04-19 09:17 | Psychiatric Progress Note ---
Date of Service April 19, 2024 Impression / Recommendations Impression BYRON SHIELDS is a 53-year-old man who currently lives in [place] has a history of persistent depressive disorder, generalized anxiety with panic attacks, alcohol use disorder, and was admitted on 04/17/24 18:42 on a 201 voluntary commitment for worsening depression, passive SI, poor self-care. Diagnostically consistent with unspecified depression with differential including persistent depressive disorder vs depression and anxiety 2/2 alcohol use vs MDD and VEGA with panic attacks vs anxiety 2/2 cannabis and benzodiazepine use. Discussed medication treatment options in detail. Discussed risks, benefits and alternatives. Patient would like to start and consented to Abilify for depression augmentation, ongoing use of Paxil for depression/anxiety, mirtazapine for insomnia/depression/anxiety, propranolol as off-label use for anxiety, and Ativan prn for panic attacks/agitation with goal of longer term tapering given his history of alcohol use disorder. Reviewed side effects including but not limited to: GI, REYNOLDS, sexual side effects with Paxil; movement (TD, NMS), cardiac (QTc prolongation), and metabolic (stroke, insulin resistance) and necessity for fasting lipid and glucose labwork and AIMS done wi th score of 0 with Abilify; low BP/syncope with propranolol; sedation/weight gain with mirtazapine; respiratory suppression/addiction/confusion/falls/not operating vehicle or machinery while using with Ativan. The patient's audit score, use history and negative consequences suggests alcohol use disorder. Motivational interviewing was done as a brief intervention. Intervention was greater than 5 minutes in length and included assessing readiness to quit, advice on how to reduce or abstain and to set a specific goal for this hospitalization. transfer and line up worker will also assist in anticipating barriers to reducing or abstaining from substance use and in problem-solving for solutions to those problems while arranging for referral to appropriate treatment. The patient is in contemplative stage with regards to transtheoretical model of change. Recommended decreasing consumption due to disinhibiting effects and potential for worsening psychiatric symptoms. Overall I spent a total of 75 minutes for this admission including review of chart records, review of labwork, direct evaluation of the patient, counseling the patient, ordering medication, risk assessment, discussion with the psychiatric liason RN and documentation in the electronic health record. (1) Depression: (2) Generalized anxiety disorder with panic attacks: (3) Alcohol use: Plan 04/18/2024: The patient was admitted to the [facility]) on q15 min checks (behavioral with suicide precautions) for safety. The patient will participate in group, recreational, and milieu therapies and will be offered additional individual and family sessions as clinically appropriate. -Medications: * Continue Paxil 40mg daily (he declines option to increase dose or try alternative SSRI) * Start mirtazapine 15mg HS po * Start Abilify 5mg daily * Propranolol 10mg TID po * Ativan 0.5mg BID prn for panic attacks/agitation * Consider use of naltrexone -Labwork: * HbA1c * Fasting lipid panel * Vit D level -Recovery handbook -Consideration for [facility], at this time he prefers weekly individual therapy -Discussed ECT/ketamine-reviewed neither available in our inpatient setting. Discussed indications, risks, benefits and outpatient locations where such services are offered locally for his consideration in the future Inventory Assets Strengths: has outpatient providers, willing to get treatment Needs: safety and stabilization, medication adjustment, additional coping skills, increased outpatient services Suicide Risk Level Suicide Risk Level: Moderate (q15 min suicide checks) (passive SI but increased mood symptoms, feels safe in the hospital, feels able to ask for support) Risk Factors Assessment Male: Yes : Yes Do You Have Access To A Gun?: No Health Problems: No Mental Health Diagnoses: Yes Substance Use Disorders: Yes Previous Attempt: No Family History of Suicide: No Previous Psychiatric Hospitalization: Yes Hopelessness: No Protective Factors Assessment Employed: No Stable Relationships: Yes Good Rapport with Provider: Yes Interval History Chief Complaint "[]". Review of Systems Sleep Information Total Hours of Sleep: 7 Meal Information Percent Meal Consumed - Breakfast: 100 Percent Meal Consumed - Lunch: 100 Percent Meal Consumed - Dinner: 100 Subjective Subjective Patient was seen & assessed and interval progress reviewed with nursing. Attending groups. Still very disheveled. Reports ongoing constant anxiety, using BID atian prn. Watched football with peers last evening, reported his mood as "exhausted". Physical Exam Vital Signs (Past 24 Hours) Last Vital Signs Temp 36.4 C L 04/19/24 06:00 Pulse 64 04/19/24 06:00 Resp 16 04/19/24 06:00 BP 124/70 04/19/24 06:00 Pulse Ox 97 04/19/24 06:00 O2 Del Method Room Air 04/19/24 06:00 Results & Data ([facility]) Laboratory Results Laboratory Results - last 24 hr 04/19/24 07:08 Estimat Average Glucose 123 Hemoglobin A1c 5.9 H Triglycerides 273 H Cholesterol 219 H LDL Cholesterol, Calc 122 VLDL Cholesterol, Calc 55 H HDL Cholesterol 42 Cholesterol/HDL Ratio 5.2 H 25-OH Vitamin D Total 17.4 L Current Inpatient Medications Current Inpatient Medications: Current Inpatient Medications Acetaminophen (Acetaminophen 325 Mg Tab) 650 mg PO Q4H PRN PRN Reason: Headache or Minor Fever Stop: 05/17/24 19:07 Al Hydrox/Mg Hydrox/Simethicone (Aluminum/Magnesium Susp 30 Ml Udc) 30 ml PO Q4H PRN PRN Reason: GI Upset Stop: 05/17/24 19:07 Aripiprazole (Aripiprazole 5 Mg Tab) 5 mg PO QAM GEETA Stop: 05/18/24 11:44 Last Admin: 04/19/24 09:03 Dose: 5 mg Bismuth Subsalicylate (Bismuth Subsalicylate 262 Mg Chew) 2 tab PO Q30M PRN PRN Reason: Loose Stool/Diarrhea Stop: 05/17/24 19:07 Hydroxyzine HCl (Hydroxyzine Hcl 25 Mg Tab) 50 mg PO HSZ PRN PRN Reason: Insomnia Stop: 05/17/24 19:07 Last Admin: 04/17/24 21:02 Dose: 50 mg Hydroxyzine HCl (Hydroxyzine Hcl 25 Mg Tab) 25 mg PO Q4H PRN PRN Reason: Anxiety Stop: 05/17/24 19:07 Lorazepam (Lorazepam 0.5 Mg Tab) 0.5 mg PO BID PRN PRN Reason: Agitation Stop: 05/17/24 19:09 Last Admin: 04/19/24 09:08 Dose: 0.5 mg Magnesium Hydroxide (Magnesium Hydroxide Susp 30 Ml Udc) 30 ml PO DAILY PRN PRN Reason: Constipation Stop: 05/17/24 19:07 Mirtazapine (Mirtazapine Tab 15 Mg Tab) 15 mg PO HS GEETA Stop: 05/18/24 21:59 Last Admin: 04/18/24 21:08 Dose: 15 mg Miscellaneous (Remove Nicoderm Patch) 1 each N/A DAILY@0859 [facility] Stop: 05/18/24 08:58 Last Admin: 04/19/24 09:03 Dose: Not Given Multivitamins (Multivitamin Tab) 1 tab PO QAM [facility] Stop: 05/18/24 09:44 Last Admin: 04/19/24 09:03 Dose: 1 tab Nicotine (Nicotine 14 Mg/24 Hr Patch) 1 patch TD QAM [facility] Stop: 05/18/24 08:59 Last Admin: 04/19/24 09:04 Dose: Not Given Nicotine Polacrilex (Nicotine Polacrilex 2 Mg Gum) 2 piece MT PRN PRN PRN Reason: Nicotine Withdrawal Symptoms Stop: 05/17/24 19:07 Olanzapine (Olanzapine 5 Mg Tablet) 5 mg PO HS [facility] Stop: 05/17/24 21:59 Last Admin: 04/18/24 21:08 Dose: 5 mg Paroxetine HCl (Paroxetine Hcl 20 Mg Tab) 40 mg PO DAILY [facility] Stop: 05/18/24 09:44 Last Admin: 04/18/24 10:12 Dose: 40 mg Propranolol HCl (Propranolol Hcl 10 Mg Tab) 10 mg PO TID GEETA Stop: 05/18/24 13:59 Last Admin: 04/19/24 09:04 Dose: 10 mg Sodium Chloride (Sodium Chloride 0.65% Na Soln 45 Ml ([place])) 1 - 2 sprays NA PRN PRN PRN Reason: Nasal Dryness/Congestion Stop: 05/17/24 19:07 Mental Health & Subst Abuse Tx Therapist Name of Therapist: NINA MILES Case Manager Name of Paralegals: BEE SIMS [facility]ID Post Discharge Appointments Primary Care Physician Name Of Family Doctor/PCP: Dr. Garcias
--- NOTE | 2024-04-19 12:31 | Discharge Summary ---
Date of Service April 19, 2024 History of Present Illness Bill presents for psychiatric admission for worsening depression and anxiety describing that "I can't handle the pain and suffering" and feels as though "I'm in a constant panic attack". He feels his symptoms have been present for decades and worsening over the past two years. He describes symptoms of increased irritability, feeling sick, nauseous, and "not right in his head". He wonders about having a brain scan to show "the extent of my depression and anxiety". Reviewed limitations of brain imaging which he understood, he denies any recent or historical neurological symptoms except sometimes having dizziness which we reviewed could also be due to his Ativan use. He reports thinking of frequently but denies current suicidal ideation. States that he "loves life" but thinks about due to his psychic distress. He is currently prescribed psychiatric medications of Paxil and Ativan. Ativan is prescribed as 1mg BID prn but he finds this provides little relief, so at times has taken it as a combined dose of 2mg which seems to help but still only slightly. He wonders about having Xanax "or something stronger" to treat his anxiety. He's also prescribed propranolol but hasn't been taking this, isn't sure if it's helpful. Reviewed past medication trials of which he's found all to be ineffective for his anxiety. He is willing to try other medication options but also notes he doesn't like to take many medications. He asks about ECT and ketamine and if he could leave the hospital to get these treatments during the day and then return. He is currently attending therapy once a week but does not believe increasing the frequency would be helpful for his symptoms. He cannot identify any recent stressors or changes in his life. He reports no longer being on probation from past DUI, feels his alcohol use has been minimal. Reports having a beer two days ago and a 6 pack of beer two days before [place]. Occasionally uses cannabis. Psychiatric ROS notable for no current nor history of symptoms of iza, psychosis, OCD nor eating disorder. History of PTSD, denies current symptoms though describes being in constant heightened anxiety state which could represent stress response/trauma reaction. Physical Exam Vital Signs (Past 24 Hours) Last Vital Signs Temp 36.4 C L 04/19/24 06:00 Pulse 64 04/19/24 06:00 Resp 16 04/19/24 06:00 BP 124/70 04/19/24 06:00 Pulse Ox 97 04/19/24 06:00 O2 Del Method Room Air 04/19/24 06:00 Principal Diagnosis Generalized Anxiety Disorder with panic attacks, Unspecified Depressive Disorder Psychiatric Data See daily stay summary. In short, patient was engaged with the social/therapeutic milieu of the unit, safety was maintained and the patient was cooperative with care. Medication changes included initiation of Abilify for off-label use for anxiety and depression augmentation, mirtazapine for depression/anxiety/insomnia, increase of propranolol to TID for off-label use for anxiety/panic symptoms and discontinuation of olanzapine and they tolerated this well. He also requested a prescription for naltrexone for history of alcohol use disorder and potential help should he have cravings in the future. Discussed risks, benefits and alternatives, reviewed side effects including but not limited to: liver damage, GI side effects, need to avoid concurrent opioids. Baseline labs of fasting glucose, fasting lipid profile, and weight were preformed (see labwork results below). Reviewed that Abilify may have slightly lower risk for some metabolic side effects compared to olanzapine but still risks are present and therefore recommended ongoing follow-up and discussions with his outpatient psychiatrist and PCP given his elevated HbA1c and cholesterol. He is agreeable to continuing to follow this closely and discuss potential options for management (i.e. metformin and/or statin) with his providers. Recommend repeat weight in one month. Recommend repeat fasting glucose, HbA1c and fasting lipid profile every 12 weeks and then annually. If symptoms arise recommend checking BP, EKG, prolactin level as clinically indicated or relevant. He declined a support session. He completed a safety plan prior to discharge. They participated in safety planning and in discussions about ways to seek support and recognizing warning signs and utilizing coping skills. Reviewed ways to have their safety plan and contacts easily available should thoughts of SI re-emerge in the future. Reviewed importance of seeking emergency care should SI intensify, worsen or should they feel unsafe in the future which they agree to do. On the day of discharge they stated their mood was "I seem to be feeling good, I'd like to leave today before the snow comes tomorrow" and remained future-oriented including seeing his neighbors, showering, eventually getting back to work and engaging in aftercare appointments for psychiatry and therapy. Day of Discharge Assessment Today the patient voices readiness for discharge. They note improvement in mood and anxiety. They deny thoughts of harm to self or others. Thoughts remain organized and they are clinically improved from admission. There is no evidence of psychosis. They improved in the hospital with support and medication adjustments. They agree to take medications as prescribed and keep follow-up appointments. At the time of the discharge they are deemed to be stable and appropriate for outpatient level of care. They are not deemed to be at imminent risk of harm to self or others. They are aware of emergency and crisis services. Knows to call 911 or go to nearest emergency care center if in a crisis which cannot be handled as an outpatient. Suicide risk assessment: Acute risk is low given improvement in mood and denial of SI, lack of access to lethal means, plan to avoid substance use, improvement in sleep, hopefulness and improvement in anxiety and physical symptoms (no longer with nausea). Chronic risk is moderate given some non-modifiable risk factors: psychiatric co-morbid diagnoses, periods of impulsivity, prior psychiatric hospitalizations, limited social support, childhood trauma but also with protective factors including sense of responsibility to family and social supports, outpatient care in place, positive coping skills, positive problem solving, willingness to engage with treatment. Counseled on ways to reduce acute and chronic risk including engaging with outpatient providers, using safety plan if needed, utilizing supports, avoiding substance use, taking medication, and using coping skills. Modifiable risk factors of passive SI, anxiety and depression were addressed during hospitalization through development of new coping skills, safety planning, and medication adjustments. Discharge physical exam: See admission H&P, MSE per above and day of discharge summary. Overall, I spent a total of 35 minutes on this case including meeting with the patient, reviewing the chart, nursing report, multidisciplinary team meeting, discharge orders, anticipatory planning, safety planning, risk assessment and documentation. Transition of Care Transition Of Care Record: was reviewed with the patient Advance Directives Advance Directives Information Provided: No Advance Directives: No Mental Health Advance Directive: No Advance Directives on File: No Living Will: No Power of Transfer Coordinator: No Advance Directives Reason:: Declines as Mental Health Visit. Suicide Risk Level Suicide Risk Level Comments: Acute risk is low given denial of SI and future-oriented, see further assessment above Risk Factors Assessment Male: Yes : Yes Do You Have Access To A Gun?: No Health Problems: No Mental Health Diagnoses: Yes Substance Use Disorders: Yes Previous Attempt: No Family History of Suicide: No Previous Psychiatric Hospitalization: Yes Hopelessness: No Protective Factors Assessment Employed: No Stable Relationships: Yes Good Rapport with Provider: Yes Discharge Data Lab Results 04/17/24 04/17/24 04/17/24 15:21 15:40 16:27 WBC 10.87 H RBC 4.21 L Hgb 11.0 L Hct 34.8 L MCV 82.7 MCH 26.1 MCHC 31.6 L RDW Std Deviation 41.0 RDW Coeff of Jaquelin 13.8 Plt Count 424 H MPV 9.3 L Immature Gran % (Auto) 0.4 Neut % (Auto) 58.9 Lymph % (Auto) 30.6 [place] % (Auto) 7.7 Eos % (Auto) 1.8 Baso % (Auto) 0.6 Neut # (Auto) 6.40 Lymph # (Auto) 3.33 [place] # (Auto) 0.84 H Eos # (Auto) 0.20 Baso # (Auto) 0.06 Immature Gran # (Auto) 0.04 Sodium 139 Potassium 4.7 Chloride 105 Carbon Dioxide 28 Anion Gap 6 BUN 15 Creatinine 0.84 Est Cr Clr Drug Dosing 114.9 eGFR 104.27 BUN/Creatinine Ratio 17.9 Glucose 91 Estimat Average Glucose Hemoglobin A1c Calcium 9.4 Total Bilirubin 0.3 AST 16 ALT 16 Alkaline Phosphatase 108 H Total Protein 7.0 Albumin 4.0 Globulin 3.0 Albumin/Globulin Ratio 1.3 Triglycerides Cholesterol LDL Cholesterol, Calc VLDL Cholesterol, Calc HDL Cholesterol Cholesterol/HDL Ratio 25-OH Vitamin D Total TSH 1.792 Urine Color Yellow Urine Appearance Clear Urine pH 5.5 Ur Specific [place] 1.020 Urine Protein Negative Urine Glucose (UA) Negative Urine Ketones Negative Urine Blood Negative Urine Nitrite Negative Urine Bilirubin Negative Urine Urobilinogen Negative Ur Leukocyte Esterase Negative Salicylates < 3.0 L Urine Opiates Screen Neg Ur Methadone, Qual Neg Urine Fentanyl Screen Neg Acetaminophen < 3 L Urine Barbiturates Neg Ur Phencyclidine (PCP) Neg U Amphetamin/Meth Scrn Neg MDMA (Ecstasy) Screen Neg U Benzodiazepines Scrn Neg Ur Cocaine Metabolite Neg U Marijuana (THC) Screen Pos H Ethyl Alcohol mg/dL < 10.0 SARS-CoV-2, RNA, NAAT NEGATIVE 04/19/24 07:08 WBC RBC Hgb Hct MCV MCH MCHC RDW Std Deviation RDW Coeff of [place] Plt Count MPV Immature Gran % (Auto) Neut % (Auto) Lymph % (Auto) [place] % (Auto) Eos % (Auto) Baso % (Auto) Neut # (Auto) Lymph # (Auto) [place] # (Auto) Eos # (Auto) Baso # (Auto) Immature Gran # (Auto) Sodium Potassium Chloride Carbon Dioxide Anion Gap BUN Creatinine Est Cr Clr Drug Dosing eGFR BUN/Creatinine Ratio Glucose Estimat Average Glucose 123 Hemoglobin A1c 5.9 H Calcium Total Bilirubin AST ALT Alkaline Phosphatase Total Protein Albumin Globulin Albumin/Globulin Ratio Triglycerides 273 H Cholesterol 219 H LDL Cholesterol, Calc 122 VLDL Cholesterol, Calc 55 H HDL Cholesterol 42 Cholesterol/HDL Ratio 5.2 H 25-OH Vitamin D Total 17.4 L TSH Urine Color Urine Appearance Urine pH Ur Specific [place] Urine Protein Urine Glucose (UA) Urine Ketones Urine Blood Urine Nitrite Urine Bilirubin Urine Urobilinogen Ur Leukocyte Esterase Salicylates Urine Opiates Screen Ur Methadone, Qual Urine Fentanyl Screen Acetaminophen Urine Barbiturates Ur Phencyclidine (PCP) U Amphetamin/Meth Scrn MDMA (Ecstasy) Screen U Benzodiazepines Scrn Ur Cocaine Metabolite U Marijuana (THC) Screen Ethyl Alcohol mg/dL SARS-CoV-2, RNA, NAAT Hospital Course (1) Depression: (2) Generalized anxiety disorder with panic attacks: (3) Alcohol use: Plan 04/19/2024: He reports significant improvement in his mood and lessening of anxiety today. He desires discharge and doesn't meet 302 criteria. Safe for discharge. -Naltrexone 50mg daily for alcohol use disorder -Recommended Vit D supplement, he prefers to get over the counter 04/18/2024: The patient was admitted to the [facility]) on q15 min checks (behavioral with suicide precautions) for safety. The patient will participate in group, recreational, and milieu therapies and will be offered additional individual and family sessions as clinically appropriate. -Medications: * Continue Paxil 40mg daily (he declines option to increase dose or try alternative SSRI) * Start mirtazapine 15mg HS po * Start Abilify 5mg daily * Propranolol 10mg TID po * Ativan 0.5mg BID prn for panic attacks/agitation * Consider use of naltrexone -Labwork: * HbA1c * Fasting lipid panel * Vit D level -Recovery handbook -Consideration for [facility], at this time he prefers weekly individual therapy -Discussed ECT/ketamine-reviewed neither available in our inpatient setting. Discussed indications, risks, benefits and outpatient locations where such services are offered locally for his consideration in the future Mental Health & Subst Abuse Tx Therapist Name of Therapist: NINA MILES stretcher leveler operator helper Name of Acquisition Lead: BEE SIMS [facility] Post Discharge Appointments Primary Care Physician Name Of Family Doctor/PCP: Dr. Garcias Discharge Plan Discharge Items Patient Disposition: Home - Self-Care Reason For Visit: UNSPECIFIED DEPRESSIVE DISORDER Discharge Diagnosis: Generalized Anxiety Disorder Activity: Resume your previous activity Non-emergency contact: Primary Care Provider, Psychiatrist and Therapist Call non-emergency contact if: you have any medication questions and your symptoms worsen Follow-up/Referrals: Aleena Garcias MD [Primary Care Provider] - Diet: Regular Addtl Attending Provider Instructions: SPECIAL CARE INSTRUCTIONS: 1. Follow through with your scheduled aftercare appointments. If unable to keep an appointment, please call to reschedule. 2. Take your medication only as prescribed. Medication should not be changed or stopped without the approval of your doctor. In the event of worsening symptoms or concerns about side effects, contact your doctor immediately. 3. Utilize new healthy coping skills, anger management skills, and stress management skills learned during your hospitalization. Journal feelings and process them with a support person. Identify stressors or situations that may result in relapse, deterioration or inappropriate behaviors and develop a plan to deal with those issues. 4. If your coping skills are ineffective and you are in crisis, contact your outpatient providers for direction. If unable to reach your providers, please call the [facility] CRISIS LINE AT , go to the [facility] walk-in center at [address], [address], [place], or go to the closest Emergency Room. 5. Avoid alcohol and un-prescribed drugs. 6. You have been provided with the Mental Health Advance Directives Pamphlet for your review. 7. Your condition is stable for discharge to outpatient level of care, but recovery is an ongoing process. Ifthoughts to harm yourself or others return, follow the safety plan developed during your stay. Planning for a safe return home includes securing weapons. Our treatment team recommends weaponsbe removed from the home until your outpatient provider reassesses your progress. In rare cases where the items themselvescannot be removed, guns and ammunitionshould be secured separatelyand keys stored by a reliable personoutside of the home. If you were admitted on an involuntary commitment, the police or other legal authorities may be involved in this process. AFTERCARE APPOINTMENTS: * Please call your insurance company prior to your scheduled appointment to confirm your aftercare providers are covered. Take your insurance information to your appointments. WHO TO CALL AND WHEN: Medical Emergencies: For questions or emergencies related to your hospital stay, please contact the Inpatient Behavioral Health Unit at [phone]. A manager presentation is on-call 05/11 for the Behavioral Health Unit for emergencies At any time you feel your situation is an emergency, you may also call 911 immediately. National Crisis Hotline: 829 Pending Studies at Discharge: No Stand-Alone Forms: My [facility] Medications and DC Order Prescriptions: New propranolol 10 mg Tablet 10 mg PO TID 30 Days Qty: 90 0RF mirtazapine 15 mg Tablet 15 mg PO HS 30 Days Qty: 30 0RF aripiprazole [Abilify] 5 mg Tablet 5 mg PO QAM 30 Days Qty: 30 0RF naltrexone 50 mg Tablet 50 mg PO DAILY 30 Days Qty: 30 0RF Continued multivitamin Tablet 1 tab PO DAILY paroxetine HCl 20 mg tablet 40 mg PO DAILY lorazepam 1 mg tablet 1 mg PO BID PRN (Reason: Anxiety) hydroxyzine pamoate [Vistaril] 25 mg capsule PRN (Reason: Anxiety) Discontinued propranolol 10 mg Tablet 10 mg PO 1XD Discharge Orders: Discharge Order (Routine); Ordered 04/19/24 Ordered By: Mercy Luna Admission Data Admit Date/Time: 04/17/24 18:42 Attending Provider: Mercy Luna Admit Provider: Mercy Luna Primary Care Provider: Aleena Garcias Other Interventions: Discharge Summary Assessment (RN) Last Done: 04/19/24 12:44 PSY Interdisciplinary Discharge Planning Last Done: 04/19/24 12:40 Coding Level of Care Code 18381 D/C day mgmt > 30 min Diagnoses Depression F32.A Generalized anxiety disorder with panic attacks F41.1; F41.0 Alcohol use F10.90
[2024-04-20] MEDS ORDERED: NALTREXONE HCL 50 MG TAB PO SCH (09:00)
[2024-04-20 14:27] LABS: Marijuana Quant, GCMS Urine 2204 ng/mL (<5)
== END 2024-04-19 13:32 | disposition home or self-care (01) | DRG 880 ==
LOC: ED 14:54 → 3S 18:32

== ENCOUNTER 2024-06-30 14:45 | Inpatient (IN) ==
--- NOTE | 2024-06-30 15:02 | Emergency Department Note ---
Impression & Plan Anxiety and depression ED Provider Note Provider: Jean Claude Vogel MD CHIEF COMPLAINT: Anxiety, depression HISTORY OF PRESENT ILLNESS: Patient is a 53-year-old gentleman significant past medical history including anxiety and depression prior hospitalization in April of this year on [facility] for inpatient psychiatric care presenting today stating he has had worsening symptoms. States he has been following with his outpatient therapist at [place]. Denies HI but reports general suicidal thoughts just not wanting to be alive. No specific plan or attempts have been reported. Reports his anxiety makes him feel quite nauseous. This is similar to prior episodes. States compliance with home medication. Here with his [facility] case operator. Did not feel left doing his telehealth appointment. States Ativan at home for anxiety has not been helpful. States Xanax has helped before. Also states he got an oxycodone tablet from her friend did help his symptoms several days ago. Feels clammy and tingly and palpitations and again this nausea. Denies true pain however when asked specifically. He reports he believes he needs inpatient treatment. Not getting out of bed and being functional. PAST MEDICAL HISTORY: As noted above MEDICATIONS: Reviewed home medications SOCIAL HISTORY: Smoker no recent alcohol use. Lives by himself PHYSICAL EXAM: GENERAL: alert and oriented in no acute distress on stretcher Head: normocephalic and atraumatic EYES: No injection, discharge or icterus. NECK: Trachea midline. ENT: Mucous membranes pink and moist. LUNGS: Airway patent. No retractions. Breath sounds clear with good air entry bilaterally. HEART: Regular rate and rhythm. No chest wall tenderness ABDOMEN: Soft and non-tender, without guarding or rebound. SKIN: Acyanotic, warm, dry, without rashes EXTREMITIES: Without swelling, tenderness or deformity NEUROLOGICAL: No focal deficits. No aphasia. No facial droop or slurred speech. Ambulatory. Psych: Some pressured speech with mildly elevated affect. Reports some hopelessness and generalized SI/thoughts of not wanting to be alive but denying specific attempts recently or plans. Denies HI. Denies hallucinations. EK bpm normal sinus rhythm. No PVC or PAC with a QTc of 402. Some artifact in lead V3. No ST segment elevation or depression. Patient's laboratory studies reviewed. Differential includes Mood disorder, infection, hypoglycemia, electrolyte abnormalities, cardiac sources, intracerebral event, toxicologic, trauma, neurologic, as well as other pathologies. IMPRESSION/MEDICAL DECISION MAKING: Patient reports significant anxiety affecting his ability to function and now having hopelessness and thoughts of not wanting to be alive. Denies acting on this or having a specific plan for suicide. Has a history of multiple inpatient treatments in the past. States has been on outpatient medications including as needed Ativan which has not been helpful currently. Benign abdomen on exam and doubt acute intra-abdominal pathologies perforation, obstruction, volvulus, diverticulitis, or pancreatitis. Patient reports his symptoms ongoing for some time but worsening recent leave with his anxiety. Basic blood work as well as EKG obtained here to screen for any general medical condition but seems likely more related to his underlying anxiety and mental health issues. Blood work without significant leukocytosis and stable mild anemia. He is requesting inpatient treatment. Seen with case operator here. Referrals made based on his wishes and complaints of anxiety and depression. Reviewed and accepted by [facility] here for further inpatient psychiatric care. DIAGNOSIS: Anxiety and depression DISPOSITION: To [facility] for further inpatient psychiatric care on a voluntary basis. Past Med/Surg History Problem List (Updated 06/30/24 @ 15:41 by Jean Claude Vogel M.D.) Anxiety and depression (Acute) Depression (Acute) Passive suicidal ideations Chronic depression Generalized anxiety disorder with panic attacks Complicated UTI (urinary tract infection) Acute bronchitis due to respiratory syncytial virus (Acute) Earache on left (Acute) Medical History Polysubstance use disorder Polysubstance abuse Depression with suicidal ideation Major depressive disorder with current active episode Alcohol use disorder, moderate, dependence Depression with suicidal ideation Intractable back pain T12 burst fracture No pertinent past medical history Social History Smoking Status: Heavy tobacco smoker Tobacco Type: Cigarettes Cigarettes Per Day: < 1 pack; Second Hand Exposure: No; Do You Dip or Chew Tobacco: No; Hx Alcohol Use: Yes Alcohol type: beer Hx Substance Use: Yes Preferred Language: Malagasy Communication Ability: Effective Education Research Analyst Required: No Beliefs That Will Affect Care: None Current Living Situation: Alone How many Children do You have: 1 Feels Safe at Home: Yes Gender Identity: Male Assistive Devices: None Allergies Allergies Allergy/AdvReac Type Severity Reaction Status Date / Time No Known Allergies Allergy Mild Verified 06/25/23 19:49 Home Meds Home Medications Medication Instructions Recorded Confirmed multivitamin 1 tab PO DAILY 09/13/23 06/30/24 lorazepam 1 mg tablet 1 mg PO BID PRN Anxiety 02/24/24 06/30/24 paroxetine HCl 20 mg tablet 40 mg PO PM 02/24/24 06/30/24 hydroxyzine pamoate 25 mg capsule 25 mg PO TID PRN Anxiety 04/17/24 06/30/24 (Vistaril) mirtazapine 30 mg tablet 30 mg PO PM 06/30/24 06/30/24 Results & Data (ED) Vital Signs Vital Signs - 24 hr 06/30/24 14:48 Temperature 36.7 C Temperature Source Temporal Artery Scan Pulse Rate 84 Pulse Rhythm Regular Pulse Strength Normal Respiratory Rate 20 Respiratory Effort / Characteristics Non-Labored Spontaneous Respiratory Depth Normal Blood Pressure 134/86 Blood Pressure Mean 102 Blood Pressure Position Sitting Pulse Oximetry 97 Oxygen Delivery Method Room Air Sepsis Recent Fever Within 48 Hours No Sepsis New/Unexplained Change in Mental Status N/A Sepsis Action Taken by Nursing No Action Required Laboratory Data 06/30/24 15:29 06/30/24 15:29 Lab Results 06/30/24 06/30/24 Range/Units 15:20 15:29 WBC 9.27 (4.8-10.8) K/ul RBC 4.68 L (4.70-6.10) M/uL Hgb 11.6 L (14.0-18.0) g/dl Hct 36.6 L (42.0-52.0) % MCV 78.2 L (80.0-100.0) fL MCH 24.8 L (25.0-34.0) pg MCHC 31.7 L (32.0-36.0) g/dL RDW Std Deviation 47.0 H (36.4-46.3) fL RDW Coeff of Jaquelin 16.7 H (11.5-14.5) % Plt Count 406 H (130-400) K/uL MPV 9.3 L (9.4-12.4) fL Immature Gran % (Auto) 0.4 % Neut % (Auto) 53.6 % Lymph % (Auto) 32.7 % Duchesne % (Auto) 9.4 % Eos % (Auto) 3.1 % Baso % (Auto) 0.8 % Neut # (Auto) 4.97 (1.40-6.50) K/uL Lymph # (Auto) 3.03 (1.20-3.40) K/uL Duchesne # (Auto) 0.87 H (0.11-0.59) K/uL Eos # (Auto) 0.29 (0.00-0.50) K/uL Baso # (Auto) 0.07 (0.00-0.20) K/uL Immature Gran # (Auto) 0.04 (0.01-0.20) K/uL Sodium 139 (136-145) mmol/L Potassium 4.1 (3.5-5.1) mmol/L Chloride 108 H (98-107) mmol/L Carbon Dioxide 24 (21-32) mmol/L Anion Gap 7 (3-11) BUN 14 (6-23) mg/dl Creatinine 0.91 (0.6-1.4) mg/dl Est Cr Clr Drug Dosing 108.2 ml/min eGFR 100.78 BUN/Creatinine Ratio 15.4 (10-20) Glucose 86 (70-99(Fasting)) mg/dl Calcium 9.2 (8.6-10.3) mg/dl Total Bilirubin 0.4 (0.2-1.0) mg/dl AST 17 (13-39) U/L ALT 19 (7-52) U/L Alkaline Phosphatase 107 H (34-104) U/L Total Protein 7.1 (6.0-8.3) gm/dl Albumin 4.2 (3.4-5.0) gm/dl Globulin 2.9 (2.5-4.0) gm/dl Albumin/Globulin Ratio 1.4 (0.9-2) TSH 1.056 (0.300-4.500) uIu/ml Urine Color Yellow Urine Appearance Clear (Clear) Urine pH 7.0 (4.5-7.5) Ur Specific Lentner 1.026 (1.000-1.030) Urine Protein Negative (Negative) Urine Glucose (UA) Negative (Negative) Urine Ketones Trace H (Negative) Urine Blood Negative (Negative) Urine Nitrite Negative (Negative) Urine Bilirubin Negative (Negative) Urine Urobilinogen Negative (Negative) Ur Leukocyte Esterase Trace H (Negative) Urine WBC (Auto) 0-5 (0-5) /hpf Urine RBC (Auto) 0-2 (0-2) /hpf U Hyaline Cast (Auto) 0-2 (0-2) /lpf U Epithel Cells (Auto) 0-2 (0-2) /hpf Urine Bacteria (Auto) None Seen (None Seen) Salicylates < 3.0 L (3.0-30) mg/dl Urine Opiates Screen Neg (Neg) Ur Methadone, Qual Neg (Neg) Urine Fentanyl Screen Neg (Neg) Acetaminophen < 3 L (10-30) ug/ml Urine Barbiturates Neg (Neg) Ur Phencyclidine (PCP) Neg (Neg) U Amphetamin/Meth Scrn Neg (Neg) MDMA (Ecstasy) Screen Neg (Neg) U Benzodiazepines Scrn Neg (Neg) Ur Cocaine Metabolite Neg (Neg) U Marijuana (THC) Screen Pos H (Neg) Ethyl Alcohol mg/dL < 10.0 (<10.0) mg/dl SARS-CoV-2, RNA, NAAT NEGATIVE (NEGATIVE) Administered Medications Lorazepam (Lorazepam 1 Mg Tab) 1 mg PO BID PRN PRN Reason: Anxiety Stop: 07/30/24 18:49 Last Admin: 06/30/24 20:57 Dose: 1 mg Documented By: RB Mirtazapine (Mirtazapine Tab 15 Mg Tab) 30 mg PO HS GEETA Stop: 07/30/24 21:59 Last Admin: 06/30/24 20:57 Dose: 30 mg Documented By: RB Paroxetine HCl (Paroxetine Hcl 20 Mg Tab) 40 mg PO HS GEETA Stop: 07/30/24 21:59 Last Admin: 06/30/24 20:57 Dose: 40 mg Documented By: RB Discontinued Medications Alprazolam (Alprazolam 0.5 Mg Tablet) 1 mg PO NOW STA Stop: 06/30/24 15:14 Last Admin: 06/30/24 15:22 Dose: 1 mg Documented By: TNK Discharge Plan Visit Data Chief Complaint: Anxiety Stated Complaint: NAUSEA, ANXIETY AND DEPRESSION ED Provider: Jean Claude Vogel Discharge Problem: Anxiety and depression Patient Disposition: Admitted As Inpatient Discharge Instructions Interventions: ED Discharge Assessment Last Done: 06/30/24 18:05
[2024-06-30] MEDS: ALPRAZolam 0.5 MG TABLET PO STA (15:22)
[2024-06-30 15:49] LABS: Appearance Urine Clear (Clear); Bacteria Urine Automated None Seen (None Seen); Bilirubin Urine Negative (Negative); Blood Urine Negative (Negative); Cast Urine Automated 0-2 /lpf (0-2); Color Urine Yellow; Epithelial Cell Urine Auto 0-2 /hpf (0-2); Glucose Urine UA Negative (Negative); Ketones Urine Trace (Negative); Leukocyte Esterase Urine Trace (Negative); Nitrite Urine Negative (Negative); Protein Urine Negative (Negative); RBC Urine Automated 0-2 /hpf (0-2); Specific Gravity Urine 1.026 (1.000-1.030); Urobilinogen Urine Negative (Negative); WBC Urine Automated 0-5 /hpf (0-5)
[2024-06-30 15:54] LABS: Basophils # (auto) 0.07 K/uL (0.00-0.20); Basophils % (auto) 0.8 %; Eosinophils # (auto) 0.29 K/uL (0.00-0.50); Eosinophils % (auto) 3.1 %; Hematocrit (blood only) 36.6 % (42.0-52.0); Hemoglobin 11.6 g/dl (14.0-18.0); Immature Granulocytes # (auto) 0.04 K/uL (0.01-0.20); Immature Granulocytes % (auto) 0.4 %; Lymphocytes # (auto) 3.03 K/uL (1.20-3.40); Lymphocytes % (auto) 32.7 %; Mean Corpuscular Hemoglobin 24.8 pg (25.0-34.0); Mean Corpuscular Hgb Conc 31.7 g/dL (32.0-36.0); Mean Corpuscular Volume 78.2 fL (80.0-100.0); Mean Platelet Volume 9.3 fL (9.4-12.4); Monocytes # (auto) 0.87 K/uL (0.11-0.59); Monocytes % (auto) 9.4 %; Neutrophils # (auto) 4.97 K/uL (1.40-6.50); Neutrophils % (auto) 53.6 %; Platelet Count 406 K/uL (130-400); RDW Coefficient of Variation 16.7 % (11.5-14.5); Red Blood Count 4.68 M/uL (4.70-6.10); White Blood Count 9.27 K/ul (4.8-10.8)
[2024-06-30 16:10] LABS: Acetaminophen < 3 ug/ml (10-30); Salicylate < 3.0 mg/dl (3.0-30)
[2024-06-30 16:13] LABS: Albumin Globulin Ratio 1.4 (0.9-2); Albumin Level 4.2 gm/dl (3.4-5.0); BUN Creatinine Ratio 15.4 (10-20); Bilirubin,Total 0.4 mg/dl (0.2-1.0); Calcium 9.2 mg/dl (8.6-10.3); Creatinine Clr Calc Pharmacy 108.2 ml/min; Globulin 2.9 gm/dl (2.5-4.0); Potassium 4.1 mmol/L (3.5-5.1); Total Protein 7.1 gm/dl (6.0-8.3)
[2024-06-30 16:27] LABS: Thyroid Stimulating Hormone 1.056 uIu/ml (0.300-4.500)
[2024-06-30 16:41] LABS: Amphetamines+Metham, Urine Neg (Neg); Barbiturates, Urine Neg (Neg); Benzodiazepine, Urine Neg (Neg); Cocaine, Urine Neg (Neg); Fentanyl, Urine Neg (Neg); MDMA (Ecstacy), Urine Neg (Neg); Marijuana, Urine Pos (Neg); Methadone, Urine Neg (Neg); Opiate, Urine Neg (Neg); Phencyclidine, Urine Neg (Neg)
[2024-06-30] MEDS ORDERED: hydrOXYzine HCl 25 MG TAB PO PRN ×2 (18:37)
[2024-06-30] MEDS ORDERED: MAGNESIUM HYDROXIDE SUSP 30 ML UDC PO PRN (18:37)
[2024-06-30] MEDS ORDERED: NICOTINE POLACRILEX 2 MG GUM MT PRN (18:37)
[2024-06-30] MEDS ORDERED: BISMUTH SUBSALICYLATE 262 MG CHEW PO PRN (18:37)
[2024-06-30] MEDS ORDERED: SODIUM CHLORIDE 0.65% NA SOLN 45 ML (OCEAN) PRN (18:37)
[2024-06-30] MEDS ORDERED: ACETAMINOPHEN 325 MG TAB PO PRN (18:37)
[2024-06-30] MEDS: LORazepam 1 MG TAB PO PRN (20:57)
[2024-06-30] MEDS: MIRTAZAPINE TAB 15 MG TAB PO SCH (20:57)
[2024-06-30] MEDS: PARoxetine HCL 20 MG TAB PO SCH (20:57)
[2024-07-01] MEDS: MULTIVITAMIN TAB PO SCH (09:00)
[2024-07-01] MEDS: NICOTINE 21 MG/24 HR TDSY TD SCH (09:00)
--- NOTE | 2024-07-01 09:16 | History & Physical ---
Date of Service July 01, 2024 Impression / Recommendations Impression BYRON SHIELDS is a 53-year-old man who currently lives in [place], has a history of persistent depressive disorder, generalized anxiety with panic attacks, alcohol use disorder, and was admitted on 06/30/24 18:31 on a 201 voluntary commitment for increased depression, anxiety and SI. Diagnostically consistent with persistent depressive disorder, generalized anxiety disorder with panic attacks and history of alcohol use disorder with recent use of non-prescribed oxycodone and still drinks alcohol in small amount intermittently. Suspect current symptoms exacerbated in setting of not having a lorazepam refill available and cancelling appointments with his outpatient psychiatric provider. Concern for a possible medication seeking component to his presentation as typically he declines groups and is focused on starting Xanax however this could also represent his level of depression and feeling of helplessness coping with his symptoms without a psychoactive substance (in the past he used alcohol to this end, drinking much less and less frequently but he now feels benzodiazepines may the only solution for his symptoms). Discussed medication treatment options in detail. Discussed risks, benefits and alternatives. He consents to increasing Paxil to max dose of 50mg daily in the evening for depression and anxiety, continuing mirtazapine and trial of gabapentin as off-label use for anxiety and alcohol use disorder and pain. Will also start PPI given his report of increased GI symptoms consistent with possible reflex, no episodes of hematemesis to suggest need for acute GI workup/ulcer concern, encouraged him to explore symptoms further with his primary care provider if symptoms do not improve with psychiatric medication changes and start of PPI. Reviewed side effects including but not limited to: GI, REYNOLDS, sexual side effects with Paxil, sedation/increased appetite with mirtazapine, dizziness/addiction potential/potential for fatal respiratory suppression if combing alcohol and/or benzodiazepines with gabapentin. Will continue prior to admission lorazepam prn as he has been using this consistently to avoid potential for acute withdrawal but he reports limited benefit so long- term goal of taper to discontinuation is recommended, especially given his history of alcohol use disorder, which we discussed. Overall I spent a total of 75 minutes for this admission including review of chart records, review of labwork, direct evaluation of the patient, counseling the patient, ordering medication, risk assessment, discussion with the psychiatric liason RN and documentation in the electronic health record. (1) Chronic depression: (2) Generalized anxiety disorder with panic attacks: (3) Passive suicidal ideations: (4) Anxiety and depression: (5) Alcohol use: Plan 07/01/2024: The patient was admitted to the [facility] ([facility]) on q15 min checks (behavioral with suicide precautions) for safety. The patient will participate in group, recreational, and milieu therapies and will be offered additional individual and family sessions as clinically appropriate. -Increase Paxil to 50mg daily in the evening -Continue mirtazapine 30mg HS -Start gabapentin 100mg TID -Continue prior to admission lorazepam 1mg BID prn for panic attack -Consider option for TMS but discussed importance of outpatient adherence with treatment plan to better determine if medications can offer benefit prior to utilizing more invasive option Inventory Assets Strengths: supportive relationships, willing to get treatment Needs: safety and stabilization, medication adjustment, additional coping skills, increased outpatient services Suicide Risk Level Suicide Risk Level: Moderate (q15 min suicide checks) (depression and anxiety with SI but feels safe in the hospital and feels able to ask for support and wants treatment ) Suicide Risk Level Comments: Risk Factors Assessment Male: Yes : Yes Do You Have Access To A Gun?: No Health Problems: Yes Mental Health Diagnoses: Yes Substance Use Disorders: Yes (hx alcohol use disorder, recent use of alcohol) Previous Attempt: No Family History of Suicide: No Previous Psychiatric Hospitalization: Yes Hopelessness: No Protective Factors Assessment Employed: No Stable Relationships: Yes Supportive Family: Yes (sister) Good Rapport with Provider: Yes Psychiatric History Identifying Data BYRON SHIELDS is a 53-year-old man who currently lives in [place], has a history of persistent depressive disorder, generalized anxiety with panic attacks, alcohol use disorder, and was admitted on 06/30/24 18:31 on a 201 voluntary commitment for increased depression, anxiety and SI. Chief Complaint "I'm suffering every day, I can't keep going like this". History of Present Illness Byron presents with persistent nausea, anxiety, depression, and generalized pain that have been worsening in recent days. He describes a long history of symptoms, ongoing for 27 years, with significant worsening over the past two years. He describes a constant feeling of being 'sick' and nauseous, with a burning sensation in the stomach and he raises concerns about having a possible ulcer. He cites some difficulty engaging fully with the interview due to feeling as though he is on the verge of vomiting. He denies any new acute stressors, but did run out of his previous lorazpeam script a few days ago. He describes ongoing depression noting "I don't enjoy life at all" and "I can't keep going." He expresses frustration that nothing seems to be helping, including his current medications. Notably he has not been consistent with his medications (has not filled abilify since April and cancelled his outpatient psychiatry appointment yesterday). States he felt better after taking a friend's oxycodone recently and wishes there was something like that he could be prescribed. Feels ativan doesn't work for him and wishes he could be on Xanax. He endorses depressive symptoms including anhedonia and hopelessness. He describes his pain as both mental and physical, stating, "Everywhere, just like I feel sick, my body hurts. It's not pain like a broken bone. It's a different pain." He endorses thoughts of dying and doesn't want to act of these thoughts but feels that "soon I'll have no choice, I can't keep going like this". Describes that: "I don't feel good at all. I feel sick." and "I just don't want to get out of bed" and "I'm suffering every day. I can't keep going." He reports constant severe anxiety that presents as nausea and constant worry. He finds no relief from his medications. He expresses that his current medications are not providing adequate relief and has been taking Paxil consistently, he's unsure if he's been taking mirtazapine but did fill this in late May along with the Paxil. Has not had a lorazepam script since early May, and hasn't filled abilify or naltrexone since discharge from last hospitalization in early April. He reports his current substance use is very rare use of marijuana and minimal alcohol consumption (1/2 bottle of beer now and then, most recently a few days ago). He states, "I don't like being drunk or high. I like control of myself." He denies feeling as though he is struggling with any type of substance use disorder. He expresses a strong willingness to try new treatments, including TMS, stating, "I'm interested in anything that's different. It isn't a week, it isn't a month, it isn't a year, it's been 27 years now." Psychiatric ROS notable for no known current or history of iza nor psychosis nor eating disorder nor OCD nor self-harm. Past Psychiatric History Current Psychiatric Diagnosis: MDD, Anxiety, PTSD, ADHD Outpatient Services: Psychiatry: [facility]. Rasmussen [facility] Therapy with [facility] Previous Psych Admissions: multiple, most recently [facility] in April 2024 Do You Have Access To A Gun?: No History of Previous Suicide Attempt: No Past Medication Trials: multiple: SNRI: Effexor and duloxetine Buspar-ineffective Seroquel-helped with sleep but no benefit for anxiety Wellbutrin-ineffective propranolol-ineffective Abilify-discontinued Past Head Trauma/Neuro History History of Concussion/Seizure: No Allergies Allergy/AdvReac Type Severity Reaction Status Date / Time No Known Allergies Allergy Mild Verified 06/25/23 19:49 Home Medications Medication Instructions Recorded Confirmed Type multivitamin 1 tab PO DAILY 09/13/23 06/30/24 History lorazepam 1 mg tablet 1 mg PO BID PRN Anxiety 02/24/24 06/30/24 History paroxetine HCl 20 mg tablet 40 mg PO PM 02/24/24 06/30/24 History mirtazapine 30 mg tablet 30 mg PO PM 06/30/24 06/30/24 History Family History Family History of: Depression and Anxiety Alcohol History Hx of Alcohol Use Over the Past 12 Months: Yes ("not much at all") Smoking Use Have You Smoked or Used Tobacco Products in the Last 30 Days: Yes tobacco type: cigarettes Smoking Status: Heavy tobacco smoker Smoking packs per day: 1 Substance History Hx of Prescription Med Misuse Over the Past 12 Months: Yes (used a friend's Oxycodone several times) Hx of Over the Counter Med Misuse Over the Past 12 Months: No Hx of Inhalent Misuse Over the Past 12 Months: No Hx of Organic Substance Use Over the Past 12 Months: Yes (marijuana - "a couple hits from friend's vape pen") Hx of Illegal Substances/Street Drug Use Over Past 12 Months: No Problems as a Result of Past Substance Use: None Identified Personal History Living Arrangements: Home Highest Grade Completed: G.E.D. Employment Status: Disabled Marital Status: Single Beliefs That Will Affect Care: None Current Legal Problems: No Hx Legal Problems: Yes (DUI) Hx Traumatic Life Events: Yes Patient History Medical History Alcohol use Polysubstance use disorder Polysubstance abuse Depression with suicidal ideation Major depressive disorder with current active episode Alcohol use disorder, moderate, dependence Depression with suicidal ideation Intractable back pain T12 burst fracture No pertinent past medical history Social History Smoking Status: Heavy tobacco smoker Tobacco Type: Cigarettes Cigarettes Per Day: < 1 pack; Second Hand Exposure: No; Do You Dip or Chew Tobacco: No; Hx Alcohol Use: Yes Alcohol type: beer Hx Substance Use: Yes Preferred Language: Italian Communication Ability: Effective Sulphate Tester Required: No Beliefs That Will Affect Care: None Current Living Situation: Alone How many Children do You have: 1 Feels Safe at Home: Yes Gender Identity: Male Assistive Devices: None Review of Systems Review of Systems: All systems reviewed & are unremarkable except as noted in HPI & below Physical Exam Psychiatric: Orientation: alert and oriented x 3 Apperance: appropriately dressed and appropriately groomed Eye Contact: + fair eye contact Motor Behavior: no abnormal motor movements Speech: normal rate/rhythm/volume of speech Affect: + anxious affect Mood: + depressed mood and + anxious mood Thought Process: goal directed thought process Thought Content: reality based without delusions Suicidal Thoughts: denies suicidal plan and denies suicidal intent; + reports suicidal thoughts (intermittent passive thoughts ) Homicidal Thoughts: denies homicidal thoughts Hallucinations: no auditory hallucinations and no visual hallucinations Cognition: recent memory grossly intact, remote memory grossly intact, attention grossly intact and language grossly intact Estimated Intelligence: consistent with education level Insight: + limited insight Judgment: + limited judgement Vital Signs (Past 24 Hours): Last Vital Signs Temp 36.6 C 07/01/24 06:00 Pulse 84 07/01/24 06:27 Resp 17 07/01/24 06:00 BP 108/72 07/01/24 06:27 Pulse Ox 96 07/01/24 06:00 O2 Del Method Room Air 07/01/24 06:00 Exam Statement: A physical exam was performed in the ED by Dr. Vogel for the purposes of m edical clearance. I accept that physical as correct and adequate for the purposes of the inpatient physical exam. Results & Data ([facility]) Laboratory Results Laboratory Results - last 24 hr 06/30/24 06/30/24 15:20 15:29 WBC 9.27 RBC 4.68 L Hgb 11.6 L Hct 36.6 L MCV 78.2 L MCH 24.8 L MCHC 31.7 L RDW Std Deviation 47.0 H RDW Coeff of Jaquelin 16.7 H Plt Count 406 H MPV 9.3 L Immature Gran % (Auto) 0.4 Neut % (Auto) 53.6 Lymph % (Auto) 32.7 [place] % (Auto) 9.4 Eos % (Auto) 3.1 Baso % (Auto) 0.8 Neut # (Auto) 4.97 Lymph # (Auto) 3.03 [place] # (Auto) 0.87 H Eos # (Auto) 0.29 Baso # (Auto) 0.07 Immature Gran # (Auto) 0.04 Sodium 139 Potassium 4.1 Chloride 108 H Carbon Dioxide 24 Anion Gap 7 BUN 14 Creatinine 0.91 Est Cr Clr Drug Dosing 108.2 eGFR 100.78 BUN/Creatinine Ratio 15.4 Glucose 86 Calcium 9.2 Total Bilirubin 0.4 AST 17 ALT 19 Alkaline Phosphatase 107 H Total Protein 7.1 Albumin 4.2 Globulin 2.9 Albumin/Globulin Ratio 1.4 TSH 1.056 Urine Color Yellow Urine Appearance Clear Urine pH 7.0 Ur Specific Curtis 1.026 Urine Protein Negative Urine Glucose (UA) Negative Urine Ketones Trace H Urine Blood Negative Urine Nitrite Negative Urine Bilirubin Negative Urine Urobilinogen Negative Ur Leukocyte Esterase Trace H Urine WBC (Auto) 0-5 Urine RBC (Auto) 0-2 U Hyaline Cast (Auto) 0-2 U Epithel Cells (Auto) 0-2 Urine Bacteria (Auto) None Seen Salicylates < 3.0 L Urine Opiates Screen Neg Ur Methadone, Qual Neg Urine Fentanyl Screen Neg Acetaminophen < 3 L Urine Barbiturates Neg Ur Phencyclidine (PCP) Neg U Amphetamin/Meth Scrn Neg MDMA (Ecstasy) Screen Neg U Benzodiazepines Scrn Neg Ur Cocaine Metabolite Neg U Marijuana (THC) Screen Pos H U Marijuana THC Carboxy Pending Drug Screen Comment Pending Ethyl Alcohol mg/dL < 10.0 SARS-CoV-2, RNA, NAAT NEGATIVE Current Inpatient Medications Current Inpatient Medications: Current Inpatient Medications Acetaminophen (Acetaminophen 325 Mg Tab) 650 mg PO Q4H PRN PRN Reason: Headache or Minor Fever Stop: 07/30/24 18:36 Al Hydrox/Mg Hydrox/Simethicone (Aluminum/Magnesium Susp 30 Ml Udc) 30 ml PO Q4H PRN PRN Reason: GI Upset Stop: 07/30/24 18:36 Bismuth Subsalicylate (Bismuth Subsalicylate 262 Mg Chew) 2 tab PO Q30M PRN PRN Reason: Loose Stool/Diarrhea Stop: 07/30/24 18:36 Hydroxyzine HCl (Hydroxyzine Hcl 25 Mg Tab) 50 mg PO HSZ PRN PRN Reason: Insomnia Stop: 07/30/24 18:36 Hydroxyzine HCl (Hydroxyzine Hcl 25 Mg Tab) 25 mg PO Q4H PRN PRN Reason: Anxiety Stop: 07/30/24 18:36 Lorazepam (Lorazepam 1 Mg Tab) 1 mg PO BID PRN PRN Reason: Anxiety Stop: 07/30/24 18:49 Last Admin: 06/30/24 20:57 Dose: 1 mg Magnesium Hydroxide (Magnesium Hydroxide Susp 30 Ml Udc) 30 ml PO DAILY PRN PRN Reason: Constipation Stop: 07/30/24 18:36 Mirtazapine (Mirtazapine Tab 15 Mg Tab) 30 mg PO HS [facility] Stop: 07/30/24 21:59 Last Admin: 06/30/24 20:57 Dose: 30 mg Miscellaneous (Remove Nicoderm Patch) 1 each N/A DAILY@0859 [facility] Stop: 07/31/24 08:58 Last Admin: 07/01/24 08:59 Dose: Not Given Multivitamins (Multivitamin Tab) 1 tab PO QAM [facility] Stop: 07/31/24 08:59 Last Admin: 07/01/24 09:00 Dose: 1 tab Nicotine (Nicotine 21 Mg/24 Hr Tdsy) 1 patch TD QAM [facility] Stop: 07/31/24 08:59 Last Admin: 07/01/24 09:00 Dose: Not Given Nicotine Polacrilex (Nicotine Polacrilex 2 Mg Gum) 1 piece MT PRN PRN PRN Reason: Nicotine Withdrawal Symptoms Stop: 07/30/24 18:36 Paroxetine HCl (Paroxetine Hcl 20 Mg Tab) 40 mg PO HS [facility] Stop: 07/30/24 21:59 Last Admin: 06/30/24 20:57 Dose: 40 mg Sodium Chloride (Sodium Chloride 0.65% Na Soln 45 Ml ([place])) 1 - 2 sprays NA PRN PRN PRN Reason: Nasal Dryness/Congestion Stop: 07/30/24 18:36
--- NOTE | 2024-07-01 11:40 | Electrocardiogram Report ---
Test Reason : Blood Pressure : */* mmHG Vent. Rate : 66 BPM Atrial Rate : 66 BPM P-R Int : 176 ms QRS Dur : 86 ms QT Int : 384 ms P-R-T Axes : 48 -21 21 degrees QTcB Int : 402 ms Normal sinus rhythm Incomplete right bundle branch block When compared with ECG of 06-Nov-2020 17:23, No significant change was found Confirmed by Jae Flores [id number] on 07/01/2024 11:39:53 AM Referred By: REFERRED SELF Confirmed By: Jae Flores
[2024-07-01] MEDS: ALUMINUM/MAGNESIUM SUSP 30 ML UDC PO PRN (12:46)
[2024-07-01] MEDS: PANTOprazole 40 MG TAB PO SCH (12:49)
[2024-07-01] MEDS: GABAPENTIN 100 MG CAP PO SCH (13:38)
[2024-07-01] MEDS: LORazepam 1 MG TAB PO PRN (19:32)
[2024-07-01] MEDS ORDERED: PARoxetine HCL 10 MG TAB PO SCH ×2 (21:00→22:00)
[2024-07-01] MEDS: PARoxetine HCL 10 MG TAB PO SCH (21:22)
[2024-07-01] MEDS: MIRTAZAPINE TAB 15 MG TAB PO SCH (21:22)
[2024-07-02 06:31] VITALS: O2SAT 98
--- NOTE | 2024-07-02 08:53 | Psychiatric Progress Note ---
Date of Service July 02, 2024 Impression / Recommendations Impression BYRON SHIELDS is a 53-year-old man who currently lives in [place], has a history of persistent depressive disorder, generalized anxiety with panic attacks, alcohol use disorder, and was admitted on 06/30/24 18:31 on a 201 voluntary commitment for increased depression, anxiety and SI. Diagnostically consistent with persistent depressive disorder, generalized anxiety disorder with panic attacks and history of alcohol use disorder with recent use of non-prescribed oxycodone and still drinks alcohol in small amount intermittently. Suspect current symptoms exacerbated in setting of not having a lorazepam refill available and cancelling appointments with his outpatient psychiatric provider. Concern for a possible medication seeking component to his presentation as typically he declines groups and is focused on starting Xanax however this could also represent his level of depression and feeling of helplessness coping with his symptoms without a psychoactive substance (in the past he used alcohol to this end, drinking much less and less frequently but he now feels benzodiazepines may the only solution for his symptoms). A: Mood improving significantly today, tolerating medication changes, denies any medication side effects. Thinking more about behavioral activation and strategies to improve his mood once he return to his home environment. Discussed option for a support meeting, he declines this. Overall, I spent a total of 35 minutes on this case including meeting with the patient, reviewing the chart, nursing report, multidisciplinary team meeting, orders, and documentation. (1) Chronic depression: (2) Generalized anxiety disorder with panic attacks: (3) Passive suicidal ideations: (4) Anxiety and depression: (5) Alcohol use: Plan 07/02/2024: Continue current medications and tx plan 07/01/2024: The patient was admitted to the [facility] ([facility] mental health unit) on q15 min checks (behavioral with suicide precautions) for safety. The patient will participate in group, recreational, and milieu therapies and will be offered additional individual and family sessions as clinically appropriate. -Increase Paxil to 50mg daily in the evening -Continue mirtazapine 30mg HS -Start gabapentin 100mg TID -Continue prior to admission lorazepam 1mg BID prn for panic attack -Consider option for TMS but discussed importance of outpatient adherence with treatment plan to better determine if medications can offer benefit prior to utilizing more invasive option Inventory Assets Strengths: supportive relationships, willing to get treatment Needs: safety and stabilization, medication adjustment, additional coping skills, increased outpatient services Suicide Risk Level Suicide Risk Level: Moderate (q15 min suicide checks) (depression and anxiety with SI prior to admission, mood improving, denies SI and feels safe in the hospital and feels able to ask for support and wants treatment ) Suicide Risk Level Comments: Risk Factors Assessment Male: Yes : Yes Do You Have Access To A Gun?: No Health Problems: Yes Mental Health Diagnoses: Yes Substance Use Disorders: Yes (hx alcohol use disorder, recent use of alcohol) Previous Attempt: No Family History of Suicide: No Previous Psychiatric Hospitalization: Yes Hopelessness: No Protective Factors Assessment Employed: No Stable Relationships: Yes Supportive Family: Yes (sister) Good Rapport with Provider: Yes Interval History Identifying Information BYRON SHIELDS is a 53-year-old man who currently lives in [place], has a history of persistent depressive disorder, generalized anxiety with panic attacks, alcohol use disorder, and was admitted on 06/30/24 18:31 on a 201 voluntary commitment for increased depression, anxiety and SI. Chief Complaint "I feel a lot better". Review of Systems Sleep Information Total Hours of Sleep: 7 Meal Information Percent Meal Consumed - Breakfast: 100 Percent Meal Consumed - Dinner: 75 Subjective Subjective Patient was seen & assessed and interval progress reviewed with nursing and social work. Yesterday his CM visited and he then asked to be transferred to the [facility] or started on Xanax. Then in the evening he got upset with a nurse who was attempting to process his anxiety with him rather than utilizing ativan prn. He then attended group later in the evening and reported his marlin as "content". Was otherwise isolative to his room and in bed. Ate the majority of his dinner. Today he has been attending some groups and tells me that his mood is "a lot better". Reports that his stomach issues have resolved and he is pleased about this. He denies suicidal ideation today and reflects that he feels it was the anxiety contributing to his significant physical pain and stomach issues yesterday. He likes the gabapentin so far denies any side effects and feels that this is helping and working well. He feels that it is also helping with some of the body aches/physical pain that he struggles with and relates to his anxiety and depression. He reflects that he was thinking about going to the [facility] yesterday and explains to me that this is because he wanted more time than was initially presented on his treatment plan. We discussed this in his history of preferring brief stays and thus that being part of the treatment team plan but option for him to stay longer if he is benefiting from treatment and if he feels more inpatient treatment is needed for safety and stabilization. He reflects that now given his improvement today he is thinking that this timeline seems appropriate and he does not desire lateral transfer. He describes that he is thinking about making some changes to his home environment as he thinks this is contributing to his depression and anxiety after staying in bed for most of the winter month. He will be able to get his license back potentially at the end of August and September from his DUI this winter but is also considering instead maybe using an electric bike to get outside and do more activity. Physical Exam Psychiatric Orientation: alert and oriented x 3 Apperance: appropriately dressed and appropriately groomed Eye Contact: + fair eye contact Motor Behavior: no abnormal motor movements Speech: normal rate/rhythm/volume of speech Affect: + constricted affect (but a lot brighter) Mood: + depressed mood and + anxious mood Thought Process: goal directed thought process Thought Content: reality based without delusions Suicidal Thoughts: denies suicidal thoughts, denies suicidal plan and denies suicidal intent Homicidal Thoughts: denies homicidal thoughts Hallucinations: no auditory hallucinations and no visual hallucinations Cognition: recent memory grossly intact, remote memory grossly intact, attention grossly intact and language grossly intact Estimated Intelligence: consistent with education level Insight: + limited insight Judgment: + limited judgement Vital Signs (Past 24 Hours) Last Vital Signs Temp 36.6 C 07/02/24 06:00 Pulse 78 07/02/24 06:30 Resp 17 07/02/24 06:00 BP 103/68 07/02/24 06:30 Pulse Ox 98 07/02/24 06:00 O2 Del Method Room Air 07/02/24 06:00 Results & Data ([facility]) Current Inpatient Medications Current Inpatient Medications: Current Inpatient Medications Acetaminophen (Acetaminophen 325 Mg Tab) 650 mg PO Q4H PRN PRN Reason: Headache or Minor Fever Stop: 07/30/24 18:36 Al Hydrox/Mg Hydrox/Simethicone (Aluminum/Magnesium Susp 30 Ml Udc) 30 ml PO Q4H PRN PRN Reason: GI Upset Stop: 07/30/24 18:36 Last Admin: 07/01/24 12:46 Dose: 30 ml Bismuth Subsalicylate (Bismuth Subsalicylate 262 Mg Chew) 2 tab PO Q30M PRN PRN Reason: Loose Stool/Diarrhea Stop: 07/30/24 18:36 Gabapentin (Gabapentin 100 Mg Cap) 100 mg PO TID [facility] Stop: 07/31/24 13:59 Last Admin: 07/01/24 21:21 Dose: 100 mg Hydroxyzine HCl (Hydroxyzine Hcl 25 Mg Tab) 50 mg PO HSZ PRN PRN Reason: Insomnia Stop: 07/30/24 18:36 Hydroxyzine HCl (Hydroxyzine Hcl 25 Mg Tab) 25 mg PO Q4H PRN PRN Reason: Anxiety Stop: 07/30/24 18:36 Lorazepam (Lorazepam 1 Mg Tab) 1 mg PO BID PRN PRN Reason: panic attack Stop: 07/31/24 16:20 Last Admin: 07/01/24 19:32 Dose: 1 mg Magnesium Hydroxide (Magnesium Hydroxide Susp 30 Ml Udc) 30 ml PO DAILY PRN PRN Reason: Constipation Stop: 07/30/24 18:36 Mirtazapine (Mirtazapine Tab 15 Mg Tab) 30 mg PO PM [facility] Stop: 07/31/24 20:59 Last Admin: 07/01/24 21:22 Dose: 30 mg Miscellaneous (Remove Nicoderm Patch) 1 each N/A DAILY@0859 [facility] Stop: 07/31/24 08:58 Last Admin: 07/01/24 08:59 Dose: Not Given Multivitamins (Multivitamin Tab) 1 tab PO DAILY [facility] Stop: 08/01/24 08:59 Nicotine (Nicotine 21 Mg/24 Hr Tdsy) 1 patch TD QAM [facility] Stop: 07/31/24 08:59 Last Admin: 07/01/24 09:00 Dose: Not Given Nicotine Polacrilex (Nicotine Polacrilex 2 Mg Gum) 1 piece MT PRN PRN PRN Reason: Nicotine Withdrawal Symptoms Stop: 07/30/24 18:36 Pantoprazole Sodium (Pantoprazole 40 Mg Tab) 40 mg PO QAM [facility] Stop: 07/31/24 12:29 Last Admin: 07/01/24 12:49 Dose: 40 mg Paroxetine HCl (Paroxetine Hcl 10 Mg Tab) 50 mg PO PM [facility] Stop: 07/31/24 20:59 Last Admin: 07/01/24 21:22 Dose: 50 mg Sodium Chloride (Sodium Chloride 0.65% Na Soln 45 Ml ([place])) 1 - 2 sprays NA PRN PRN PRN Reason: Nasal Dryness/Congestion Stop: 07/30/24 18:36 Mental Health & Subst Abuse Tx Psychiatrist Name of Psychiatrist: [facility]. Rasmussen Psychiatrist's Date Of Appointment With Psychiatric Provider: 07/08/24 Time of Appointment with Psychiatrist: 11:40 Therapist Name of Therapist: Paige Gresham Therapist's Date of Therapist Appointment: 07/10 Time of Therapist Appointment: 4pm Therapy Appointment Comment: Telehealth appt Industrial Maintenance Electrician Name of Industrial Maintenance Electrician: AGATHA Neal Post Discharge Appointments Primary Care Physician Name Of Family Doctor/PCP: Dr. Garcias Contact Information Discharge Discharge Address: [address] [place] [id number]
[2024-07-02] MEDS: MULTIVITAMIN TAB PO SCH (09:12)
[2024-07-03 06:46] VITALS: RESP 16
--- NOTE | 2024-07-03 11:03 | Psychiatric Progress Note ---
Date of Service July 03, 2024 Impression / Recommendations Impression BYRON SHIELDS is a 53-year-old man who currently lives in [place], has a history of persistent depressive disorder, generalized anxiety with panic attacks, alcohol use disorder, and was admitted on 06/30/24 18:31 on a 201 voluntary commitment for increased depression, anxiety and SI. Diagnostically consistent with persistent depressive disorder, generalized anxiety disorder with panic attacks and history of alcohol use disorder with recent use of non-prescribed oxycodone and still drinks alcohol in small amount intermittently. Suspect current symptoms exacerbated in setting of not having a lorazepam refill available and cancelling appointments with his outpatient psychiatric provider. Concern for a possible medication seeking component to his presentation as typically he declines groups and is focused on starting Xanax however this could also represent his level of depression and feeling of helplessness coping with his symptoms without a psychoactive substance (in the past he used alcohol to this end, drinking much less and less frequently but he now feels benzodiazepines may the only solution for his symptoms). A: Mood continues to improve with lessening of depression and anxiety, brighter affect and now spending time out of his bed and engaging in groups. Continuing to discuss behavioral activation and how to continue this improvement after he he leaves the hospital. For the first time in recent admissions he is willing to continue with inpatient treatment to work on some of his coping skills by attending groups which was praised. Given increased nightmares we will adjust dosing of Paxil will give 20mg dose for tonight to prevent serotonin withdrawal symptoms and then with 50mg dose tomorrow morning. Overall, I spent a total of 40 minutes on this case including meeting with the patient, reviewing the chart, nursing report, multidisciplinary team meeting, orders, and documentation. (1) Chronic depression: (2) Generalized anxiety disorder with panic attacks: (3) Passive suicidal ideations: (4) Anxiety and depression: (5) Alcohol use: Plan 07/03/2024: -Reduce Paxil dose tonight due to concern for nightmares so 20mg to avoid withdrawal symptoms -Tomorrow AM Paxil dose of 50mg 07/02/2024: Continue current medications and tx plan 07/01/2024: The patient was admitted to the [facility] ([facility] mental health unit) on q15 min checks (behavioral with suicide precautions) for safety. The patient will participate in group, recreational, and milieu therapies and will be offered additional individual and family sessions as clinically appropriate. -Increase Paxil to 50mg daily in the evening -Continue mirtazapine 30mg HS -Start gabapentin 100mg TID -Continue prior to admission lorazepam 1mg BID prn for panic attack -Consider option for TMS but discussed importance of outpatient adherence with treatment plan to better determine if medications can offer benefit prior to utilizing more invasive option Inventory Assets Strengths: supportive relationships, willing to get treatment Needs: safety and stabilization, medication adjustment, additional coping skills, increased outpatient services Suicide Risk Level Suicide Risk Level: Moderate (q15 min suicide checks) (depression and anxiety with SI prior to admission, mood improving, denies SI and feels safe in the hospital and feels able to ask for support and wants treatment ) Suicide Risk Level Comments: Risk Factors Assessment Male: Yes : Yes Do You Have Access To A Gun?: No Health Problems: Yes Mental Health Diagnoses: Yes Substance Use Disorders: Yes (hx alcohol use disorder, recent use of alcohol) Previous Attempt: No Family History of Suicide: No Previous Psychiatric Hospitalization: Yes Hopelessness: No Protective Factors Assessment Employed: No Stable Relationships: Yes Supportive Family: Yes (sister) Good Rapport with Provider: Yes Interval History Identifying Information BYRON SHIELDS is a 53-year-old man who currently lives in [place], has a history of persistent depressive disorder, generalized anxiety with panic attacks, alc ohol use disorder, and was admitted on 06/30/24 18:31 on a 201 voluntary commitment for increased depression, anxiety and SI. Chief Complaint "Not bad". Review of Systems Sleep Information Total Hours of Sleep: 6.5 Meal Information Percent Meal Consumed - Breakfast: 100 Percent Meal Consumed - Lunch: 100 Percent Meal Consumed - Dinner: 90 Subjective Subjective Patient was seen & assessed and interval progress reviewed with treatment team. Attending some groups. Eating more. Reports that it was a little uncomfortable to have a roommate as he has been alone for so long but feels he is getting used to it. Reports he had some nightmares last night which he wonders if it could be related to the higher dose of Paxil he asked about moving this to morning dosing. Continues to be quite focused on Ativan and wonders if he will get a prescription for this when he leaves the hospital, though has only been using one prn dose daily. Reports he is thinking about going and spending a month with one of his sisters to continue the behavioral activation that has been helpful here. Reports that his sisters are very supportive and all live near the [place] area where [place] could use the metro be outside and go to museums. He denies suicidal thoughts today. He denies any other medication issues or side effects. Anxiety and physical pain/sense of heaviness from depression significantly improving. Physical Exam Psychiatric Orientation: alert and oriented x 3 Apperance: appropriately dressed and appropriately groomed Eye Contact: + fair eye contact Motor Behavior: no abnormal motor movements Speech: normal rate/rhythm/volume of speech Affect: euthymic affect Mood: + depressed mood and + anxious mood Thought Process: goal directed thought process Thought Content: reality based without delusions Suicidal Thoughts: denies suicidal thoughts, denies suicidal plan and denies suicidal intent Homicidal Thoughts: denies homicidal thoughts Hallucinations: no auditory hallucinations and no visual hallucinations Cognition: recent memory grossly intact, remote memory grossly intact, attention grossly intact and language grossly intact Estimated Intelligence: consistent with education level Insight: + limited insight Judgment: + limited judgement Vital Signs (Past 24 Hours) Last Vital Signs Temp 36.7 C 07/03/24 06:44 Pulse 86 07/03/24 06:45 Resp 16 07/03/24 06:44 BP 117/73 07/03/24 06:45 Pulse Ox 98 07/02/24 06:00 O2 Del Method Room Air 07/02/24 06:00 Results & Data ([facility]) Current Inpatient Medications Current Inpatient Medications: Current Inpatient Medications Acetaminophen (Acetaminophen 325 Mg Tab) 650 mg PO Q4H PRN PRN Reason: Headache or Minor Fever Stop: 07/30/24 18:36 Al Hydrox/Mg Hydrox/Simethicone (Aluminum/Magnesium Susp 30 Ml Udc) 30 ml PO Q4H PRN PRN Reason: GI Upset Stop: 07/30/24 18:36 Last Admin: 07/01/24 12:46 Dose: 30 ml Bismuth Subsalicylate (Bismuth Subsalicylate 262 Mg Chew) 2 tab PO Q30M PRN PRN Reason: Loose Stool/Diarrhea Stop: 07/30/24 18:36 Gabapentin (Gabapentin 100 Mg Cap) 100 mg PO TID [facility] Stop: 07/31/24 13:59 Last Admin: 07/03/24 08:51 Dose: 100 mg Hydroxyzine HCl (Hydroxyzine Hcl 25 Mg Tab) 50 mg PO HSZ PRN PRN Reason: Insomnia Stop: 07/30/24 18:36 Hydroxyzine HCl (Hydroxyzine Hcl 25 Mg Tab) 25 mg PO Q4H PRN PRN Reason: Anxiety Stop: 07/30/24 18:36 Lorazepam (Lorazepam 1 Mg Tab) 1 mg PO BID PRN PRN Reason: panic attack Stop: 07/31/24 16:20 Last Admin: 07/03/24 08:55 Dose: 1 mg Magnesium Hydroxide (Magnesium Hydroxide Susp 30 Ml Udc) 30 ml PO DAILY PRN PRN Reason: Constipation Stop: 07/30/24 18:36 Mirtazapine (Mirtazapine Tab 15 Mg Tab) 30 mg PO PM [facility] Stop: 07/31/24 20:59 Last Admin: 07/02/24 21:41 Dose: 30 mg Miscellaneous (Remove Nicoderm Patch) 1 each N/A DAILY@0859 [facility] Stop: 07/31/24 08:58 Last Admin: 07/03/24 08:54 Dose: Not Given Multivitamins (Multivitamin Tab) 1 tab PO DAILY [facility] Stop: 08/01/24 08:59 Last Admin: 07/03/24 08:51 Dose: 1 tab Nicotine (Nicotine 21 Mg/24 Hr Tdsy) 1 patch TD QAM [facility] Stop: 07/31/24 08:59 Last Admin: 07/03/24 08:53 Dose: Not Given Nicotine Polacrilex (Nicotine Polacrilex 2 Mg Gum) 1 piece MT PRN PRN PRN Reason: Nicotine Withdrawal Symptoms Stop: 07/30/24 18:36 Pantoprazole Sodium (Pantoprazole 40 Mg Tab) 40 mg PO QAM [facility] Stop: 07/31/24 12:29 Last Admin: 07/03/24 08:51 Dose: 40 mg Paroxetine HCl (Paroxetine Hcl 10 Mg Tab) 50 mg PO PM [facility] Stop: 07/31/24 20:59 Last Admin: 07/02/24 21:40 Dose: 50 mg Sodium Chloride (Sodium Chloride 0.65% Na Soln 45 Ml ([place])) 1 - 2 sprays NA PRN PRN PRN Reason: Nasal Dryness/Congestion Stop: 07/30/24 18:36 Mental Health & Subst Abuse Tx Psychiatrist Name of Psychiatrist: [facility] Rasmussen Psychiatrist's Date Of Appointment With Psychiatric Provider: 07/08/24 Time of Appointment with Psychiatrist: 11:40 Therapist Name of Therapist: Paige Ambrose-Amador Therapist's Date of Therapist Appointment: 07/10 Time of Therapist Appointment: 4pm Therapy Appointment Comment: Telehealth appt Meal Packer Name of Meal Packer: AGATHA Neal Post Discharge Appointments Primary Care Physician Name Of Family Doctor/PCP: Dr. Garcias Contact Information Discharge Discharge Address: [address] [place], [place] [id number]
[2024-07-03] MEDS: PARoxetine HCL 20 MG TAB PO ONE (16:47)
[2024-07-04 06:42] VITALS: TEMP 97.7
[2024-07-04] MEDS: PARoxetine HCL 10 MG TAB PO SCH (08:46)
[2024-07-04] MEDS: CHOLECALCIFEROL 125 MCG (5,000 UNITS) TAB PO SCH (15:10)
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
[2024-07-05 06:46] VITALS: BP 127/85
--- NOTE | 2024-07-05 10:59 | Discharge Summary ---
Date of Service July 05, 2024 History of Present Illness Bill presents with persistent nausea, anxiety, depression, and generalized pain that have been worsening in recent days. He describes a long history of symptoms, ongoing for 27 years, with significant worsening over the past two years. He describes a constant feeling of being 'sick' and nauseous, with a burning sensation in the stomach and he raises concerns about having a possible ulcer. He cites some difficulty engaging fully with the interview due to feeling as though he is on the verge of vomiting. He denies any new acute stressors, but did run out of his previous lorazpeam script a few days ago. He describes ongoing depression noting "I don't enjoy life at all" and "I can't keep going." He expresses frustration that nothing seems to be helping, including his current medications. Notably he has not been consistent with his medications (has not filled abilify since April and cancelled his outpatient psychiatry appointment yesterday). States he felt better after taking a friend's oxycodone recently and wishes there was something like that he could be prescribed. Feels ativan doesn't work for him and wishes he could be on Xanax. He endorses depressive symptoms including anhedonia and hopelessness. He describes his pain as both mental and physical, stating, "Everywhere, just like I feel sick, my body hurts. It's not pain like a broken bone. It's a different pain." He endorses thoughts of dying and doesn't want to act of these thoughts but feels that "soon I'll have no choice, I can't keep going like this". Describes that: "I don't feel good at all. I feel sick." and "I just don't want to get out of bed" and "I'm suffering every day. I can't keep going." He reports constant severe anxiety that presents as nausea and constant worry. He finds no relief from his medications. He expresses that his current medications are not providing adequate relief and has been taking Paxil consistently, he's unsure if he's been taking mirtazapine but did fill this in late May along with the Paxil. Has not had a lorazepam script since early May, and hasn't filled abilify or naltrexone since discharge from last hospitalization in early April. He reports his current substance use is very rare use of marijuana and minimal alcohol consumption (1/2 bottle of beer now and then, most recently a few days ago). He states, "I don't like being drunk or high. I like control of myself." He denies feeling as though he is struggling with any type of substance use disorder. He expresses a strong willingness to try new treatments, including TMS, stating, "I'm interested in anything that's different. It isn't a week, it isn't a month, it isn't a year, it's been 27 years now." Psychiatric ROS notable for no known current or history of iza nor psychosis nor eating disorder nor OCD nor self-harm. Physical Exam Mental Examination Appearance: Disheveled Eye Contact: Maintains Eye Contact Motor Behavior: Unremarkable Speech: Normal Mood: Euthymic and Calm Affect: Nervous Thought Process: Intact Hallucinations: None Insight: Fair Judgement: Fair Vital Signs (Past 24 Hours) Last Vital Signs Temp 36.5 C 07/05/24 06:43 Pulse 88 07/05/24 06:44 Resp 16 07/05/24 06:43 BP 127/85 07/05/24 06:44 Pulse Ox 98 07/02/24 06:00 O2 Del Method Room Air 07/02/24 06:00 Principal Diagnosis Persistent Depressive Disorder Psychiatric Data See daily stay summary. In short, safety was maintained and the patient was cooperative with care. Medication changes included increasing paroxetine to 60mg QAM, Vit D supplementation, starting Gabapentin 100mg TID and they tolerated this well. A family session was refused and safety plan was completed prior to discharge. Given 2 week supply of lorazepam PRN. Pt encouraged to work on trauma counseling, avoid trauma triggers, continue medications. Day of Discharge Assessment Today the patient voices readiness for discharge. They note improvement in mood and deny thoughts to harm self or others. Thoughts remain organized and they are improved from admission. There is no evidence of psychosis. They agree to take mediations as prescribed and keep follow-up appointments. They are stable for discharge to outpatient level of care. Transition of Care Transition Of Care Record: was reviewed with the patient Advance Directives Advance Directives Information Provided: Yes Advance Directives: No Mental Health Advance Directive: No Advance Directives on File: No Living Will: No Power of Banana Carrier: No Advance Directives Reason:: Declines as Mental Health Visit. Suicide Risk Level Suicide Risk Level Comments: Risk Factors Assessment Male: Yes : Yes Do You Have Access To A Gun?: No Health Problems: Yes Mental Health Diagnoses: Yes Substance Use Disorders: Yes (hx alcohol use disorder, recent use of alcohol) Previous Attempt: No Family History of Suicide: No Previous Psychiatric Hospitalization: Yes Hopelessness: No Protective Factors Assessment Employed: No Stable Relationships: Yes Supportive Family: Yes (sister) Good Rapport with Provider: Yes Discharge Data Lab Results 06/30/24 06/30/24 15:20 15:29 WBC 9.27 RBC 4.68 L Hgb 11.6 L Hct 36.6 L MCV 78.2 L MCH 24.8 L MCHC 31.7 L RDW Std Deviation 47.0 H RDW Coeff of Jaquelin 16.7 H Plt Count 406 H MPV 9.3 L Immature Gran % (Auto) 0.4 Neut % (Auto) 53.6 Lymph % (Auto) 32.7 Hanson % (Auto) 9.4 Eos % (Auto) 3.1 Baso % (Auto) 0.8 Neut # (Auto) 4.97 Lymph # (Auto) 3.03 Hanson # (Auto) 0.87 H Eos # (Auto) 0.29 Baso # (Auto) 0.07 Immature Gran # (Auto) 0.04 Sodium 139 Potassium 4.1 Chloride 108 H Carbon Dioxide 24 Anion Gap 7 BUN 14 Creatinine 0.91 Est Cr Clr Drug Dosing 108.2 eGFR 100.78 BUN/Creatinine Ratio 15.4 Glucose 86 Calcium 9.2 Total Bilirubin 0.4 AST 17 ALT 19 Alkaline Phosphatase 107 H Total Protein 7.1 Albumin 4.2 Globulin 2.9 Albumin/Globulin Ratio 1.4 TSH 1.056 Urine Color Yellow Urine Appearance Clear Urine pH 7.0 Ur Specific [place] 1.026 Urine Protein Negative Urine Glucose (UA) Negative Urine Ketones Trace H Urine Blood Negative Urine Nitrite Negative Urine Bilirubin Negative Urine Urobilinogen Negative Ur Leukocyte Esterase Trace H Urine WBC (Auto) 0-5 Urine RBC (Auto) 0-2 U Hyaline Cast (Auto) 0-2 U Epithel Cells (Auto) 0-2 Urine Bacteria (Auto) None Seen Salicylates < 3.0 L Urine Opiates Screen Neg Ur Methadone, Qual Neg Urine Fentanyl Screen Neg Acetaminophen < 3 L Urine Barbiturates Neg Ur Phencyclidine (PCP) Neg U Amphetamin/Meth Scrn Neg MDMA (Ecstasy) Screen Neg U Benzodiazepines Scrn Neg Ur Cocaine Metabolite Neg U Marijuana (THC) Screen Pos H Ethyl Alcohol mg/dL < 10.0 SARS-CoV-2, RNA, NAAT NEGATIVE Hospital Course (1) Chronic depression: (2) Generalized anxiety disorder with panic attacks: (3) Alcohol use: (4) Vitamin D insufficiency: Plan 07/04/2024: Start vitamin D 5000 units daily 07/03/2024: -Reduce Paxil dose tonight due to concern for nightmares so 20mg to avoid withdrawal symptoms -Tomorrow AM Paxil dose of 50mg 07/02/2024: Continue current medications and tx plan 07/01/2024: The patient was admitted to the [facility] ([facility] mental health unit) on q15 min checks (behavioral with suicide precautions) for safety. The patient will participate in group, recreational, and milieu therapies and will be offered additional individual and family sessions as clinically appropriate. -Increase Paxil to 50mg daily in the evening -Continue mirtazapine 30mg HS -Start gabapentin 100mg TID -Continue prior to admission lorazepam 1mg BID prn for panic attack -Consider option for TMS but discussed importance of outpatient adherence with treatment plan to better determine if medications can offer benefit prior to utilizing more invasive option Mental Health & Subst Abuse Tx Psychiatrist Name of Psychiatrist: [facility]-Dr. Rasmussen Psychiatrist's Date Of Appointment With Psychiatric Provider: 07/08/24 Time of Appointment with Psychiatrist: 11:40 Therapist Name of Therapist: Paige Gresham Therapist's Date of Therapist Appointment: 07/10 Time of Therapist Appointment: 4pm Therapy Appointment Comment: Telehealth appt Winder Operator Name of Winder Operator: AGATHA Neal Phone Number for Winder Operator: [phone] Case Management Appointment Comment: Please follow up with director of casework services post discharge. Post Discharge Appointments Primary Care Physician Name Of Family Doctor/PCP: Dr. Garcias Primary Care Provider Appointment Comment: Call as Needed Contact Information Discharge Discharge Address: [address] [place], [place] [id number] Discharge Plan Discharge Items Patient Disposition: Home - Self-Care Reason For Visit: UNSPECIFIED DEPRESSIVE DISORDER Discharge Diagnosis: Persistent Depressive Disorder Generalized anxiety disorder with panic attacks Alcohol use Vitamin D Insufficiency Condition on Discharge: Fair Activity: Resume your previous activity Non-emergency contact: Primary Care Provider and Psychiatrist Call non-emergency contact if: you have any medication questions and your symptoms worsen Follow-up/Referrals: Aleena Garcias MD [Primary Care Provider] - Diet: Regular Addtl Attending Provider Instructions: -Continue Paroxetine 50mg daily -Continue Mirtazapine 30mg at bedtime -Continue Gabapentin 100mg three times daily -Continue Vitamin D supplement 125mcg daily -Take Lorazepam NEEDED for anxiety and sleep (0.5mg for anxiety, 1mg for sleep). Try to cut down use. -Attend trauma counseling, avoid trauma triggers, focus on self care (eating well, sleep, stress free) Pending Studies at Discharge: No Stand-Alone Forms: My [facility], Smoking Cessation Medications and DC Order Prescriptions: New nicotine (polacrilex) [Nicorette] 2 mg Gum 2 mg MT PRN PRN (Reason: nicotine cravings) Qty: 120 0RF pantoprazole 40 mg Tablet,Delayed Release (Dr/Ec) 40 mg PO QAM Qty: 30 0RF gabapentin 100 mg capsule 100 mg PO TID Qty: 90 0RF lorazepam [Ativan] 1 mg tablet 1 mg PO BID PRN (Reason: anxiety/insomnia) Qty: 28 0RF paroxetine HCl 40 mg tablet 40 mg PO DAILY Qty: 30 0RF Rx Instructions: Take with Paroxetine 10mg for total of 50mg daily cholecalciferol (vitamin D3) 125 mcg (5,000 unit) capsule 125 mcg PO DAILY Qty: 30 0RF paroxetine HCl 10 mg tablet 10 mg PO DAILY Qty: 30 0RF Rx Instructions: Take with Paroxetine 40mg for 50mg daily total Continued multivitamin Tablet 1 tab PO DAILY mirtazapine 30 mg tablet 30 mg PO PM Discontinued paroxetine HCl 20 mg tablet 40 mg PO PM lorazepam 1 mg tablet 1 mg PO BID PRN (Reason: Anxiety) Discharge Orders: Discharge Order (Routine); Ordered 07/05/24 Ordered By: Conor Hogue Admission Data Admit Date/Time: 06/30/24 18:31 Attending Provider: Mercy Luna Admit Provider: Mercy Luna Primary Care Provider: Aleena Garcias Other Interventions: Discharge Summary Assessment (RN) Last Done: 07/05/24 11:55 PSY Interdisciplinary Discharge Planning Last Done: 07/05/24 11:55 [place] [address] D/C day mgmt > 30 min Patient Type Established History Detailed Exam Detailed Medical Decision Making High Complexity Diagnoses Chronic depression F32.A Generalized anxiety disorder with panic attacks F41.1; F41.0 Alcohol use F10.90 Vitamin D insufficiency E55.9
[2024-07-05 11:52] LABS: Marijuana Quant, GCMS Urine 410 ng/mL (<5)
[2024-07-05 11:58] VITALS: PULSE 78
== END 2024-07-05 13:10 | disposition home or self-care (01) | DRG 881 ==
LOC: ED 14:45 → 3S 18:05

== ENCOUNTER 2024-10-21 15:14 | Inpatient (IN) ==
--- NOTE | 2024-10-21 15:50 | Emergency Department Note ---
Impression & Plan Depression with suicidal ideation ED Provider Note NAME: BYRON SHIELDS AGE: 54 SEX: M : 1970 ARRIVES VIA: Walk-In INFORMANT: Patient, ED PROVIDER(S): Nick Garcia MD CHIEF COMPLAINT: Suicidal ideation MEDICAL DECISION MAKING: Patient presents with the above with a plan to hang himself. Blood work was obtained. Patient was admitted medically cleared seen and evaluated by the psych therapeutic case manager. Patient's blood work shows a normal white count mild anemia hemoglobin 11.5 normal platelet count kidney function is unremarkable. Urinalysis does not show evidence of blood or infection. UDS positive for benzos which he did admit to taking some Ativan this morning. Patient was referred to 3 S. Patient was accepted as a voluntary 201 which was signed and the patient was taken upstairs for admission and treatment. Discussion w/ other healthcare providers: ED case management, psych Prior /Outside records reviewed: None Differential diagnosis: Mood disorder, infection, hypoglycemia, electrolyte abnormalities, dehydration, medication side effect among others were considered. Diagnostics, as interpreted by me: ECG: None Medical decision rules: Suicide risk severity score Imaging studies: None HPI: Patient presents today due to concern for worsening depression. The patient states that he felt like a "zombie" yesterday and also reports that he had thoughts of hanging himself. Patient does not feel safe at home. The patient states that his sleep has been filled with nightmares. He states that his appetite has been "so-so." He does report that he is compliant with his medications but did not take them this morning prior to presenting here. Patient does believe that he requires inpatient treatment. He denies any alcohol tobacco or drug use. Patient per case management is not going to his psychiatrist or therapy appointments anymore. He does report taking Ativan this morning and he states "this is for anxiety" and did not really make him feel any better. PAST MEDICAL HISTORY: See Below PAST SURGICAL HISTORY: See Below SOCIAL HISTORY: See Below HOME MEDICATIONS: See Below ALLERGIES: See Below VITALS: See Below PHYSICAL EXAMINATION: GENERAL: NAD, non-toxic. Flat affect. EYE EXAM: Normal conjunctiva. PERRL, no anisocoria and EOM's grossly intact w/o pain. OROPHARYNX: Moist mucus membranes, grossly normal dentition. NECK: Trachea midline, no stridor. Supple, no nuchal rigidity, no adenopathy, non-tender. No signs of meningismus. FROM of the neck with good chin to chest and neck extension. LUNGS: Clear to auscultation. Normal chest wall mechanics. HEART: NSR, no MRG. ABDOMEN: Abdomen soft, non-tender, no masses, no rebound or guarding. BACK: No CVA TTP. SKIN: No rashes and no bruising. UPPER EXTREMITIES: Upper extremities are grossly normal. LOWER EXTREMITIES: Grossly normal, no edema. NEURO EXAM: Awake and alert, follows commands, no obvious facial asymmetry, normal speech, moves all 4 extremities. Psych: Positive SI with plan, denies HI or AVH he denies HI or AVH. Past Med/Surg History Problem List (Updated 10/21/24 @ 16:53 by Nick Garcia MD) Depression with suicidal ideation (Acute) Vitamin D insufficiency Depression (Acute) Chronic depression Generalized anxiety disorder with panic attacks Complicated UTI (urinary tract infection) Acute bronchitis due to respiratory syncytial virus (Acute) Earache on left (Acute) Medical History Alcohol use Polysubstance use disorder Polysubstance abuse Depression with suicidal ideation Major depressive disorder with current active episode Alcohol use disorder, moderate, dependence Depression with suicidal ideation Intractable back pain T12 burst fracture No pertinent past medical history Social History Smoking Status: Former smoker Tobacco Type: Cigarettes Cigarettes Per Day: < 1 pack; Second Hand Exposure: No; Do You Dip or Chew Tobacco: No; Hx Alcohol Use: Yes Alcohol type: beer Hx Substance Use: Yes Preferred Language: Turkish Communication Ability: Effective Tappet Adjuster Required: No Beliefs That Will Affect Care: None Current Living Situation: Alone How many Children do You have: 1 Feels Safe at Home: Hesitant to Answer Gender Identity: Male Assistive Devices: None Allergies Allergies Allergy/AdvReac Type Severity Reaction Status Date / Time No Known Allergies Allergy Mild Verified 06/25/23 19:49 Home Meds Home Medications Medication Instructions Recorded Confirmed mirtazapine 30 mg tablet 30 mg PO HS 06/30/24 10/21/24 gabapentin 300 mg capsule 300 mg PO TID 09/30/24 10/21/24 guanfacine 1 mg tablet 1 mg PO BID 09/30/24 10/21/24 paroxetine HCl 40 mg tablet 40 mg PO DAILY 09/30/24 10/21/24 alprazolam 1 mg tablet 1 mg PO DAILY PRN Anxiety 10/21/24 10/21/24 Previous Rx's Medication Instructions Recorded lorazepam 1 mg tablet (Ativan) 1 mg PO BID PRN anxiety/insomnia 07/05/24 #28 tabs pantoprazole 40 mg tablet,delayed 40 mg PO QAM #30 tabs 07/05/24 release Results & Data (ED) Vital Signs Vital Signs - 24 hr 10/21/24 15:15 10/21/24 17:42 Temperature 36.5 C Temperature Source Temporal Artery Scan Pulse Rate 83 Pulse Rate [Finger] 61 Respiratory Rate 18 16 Respiratory Effort / Characteristics Non-Labored Spontaneous Non-Labored Spontaneous Respiratory Depth Normal Normal Respiratory Pattern Regular Blood Pressure 115/82 Blood Pressure [Right Arm] 113/73 Blood Pressure Mean 93 Blood Pressure Mean [Right Arm] 86 Blood Pressure Position Sitting Blood Pressure Position [Right Arm] Lying Pulse Oximetry 97 98 Oxygen Delivery Method Room Air Room Air Sepsis Recent Fever Within 48 Hours No Sepsis New/Unexplained Change in Mental Status No Sepsis Action Taken by Nursing No Action Required Home Medications Current Medication List: was personally reviewed by me Laboratory Data Attestation: I reviewed the patient's lab results. 10/21/24 15:40 10/21/24 15:40 Lab Results 10/21/24 10/21/24 Range/Units 15:29 15:40 WBC 10.70 (4.8-10.8) K/ul RBC 4.80 (4.70-6.10) M/uL Hgb 11.5 L (14.0-18.0) g/dl Hct 37.1 L (42.0-52.0) % MCV 77.3 L (80.0-100.0) fL MCH 24.0 L (25.0-34.0) pg MCHC 31.0 L (32.0-36.0) g/dL RDW Std Deviation 48.5 H (36.4-46.3) fL RDW Coeff of Jaquelin 17.5 H (11.5-14.5) % Plt Count 384 (130-400) K/uL MPV 9.4 (9.4-12.4) fL Immature Gran % (Auto) 0.4 % Neut % (Auto) 68.5 % Lymph % (Auto) 22.2 % [place] % (Auto) 6.4 % Eos % (Auto) 2.0 % Baso % (Auto) 0.5 % Neut # (Auto) 7.33 H (1.40-6.50) K/uL Lymph # (Auto) 2.38 (1.20-3.40) K/uL [place] # (Auto) 0.69 H (0.11-0.59) K/uL Eos # (Auto) 0.21 (0.00-0.50) K/uL Baso # (Auto) 0.05 (0.00-0.20) K/uL Immature Gran # (Auto) 0.04 (0.01-0.20) K/uL Sodium 137 (136-145) mmol/L Potassium 4.3 (3.5-5.1) mmol/L Chloride 106 (98-107) mmol/L Carbon Dioxide 23 (21-32) mmol/L Anion Gap 8 (3-11) BUN 12 (6-23) mg/dl Creatinine 0.96 (0.6-1.4) mg/dl Est Cr Clr Drug Dosing 100.7 ml/min eGFR 93.93 BUN/Creatinine Ratio 12.5 (10-20) Glucose 94 (70-99(Fasting)) mg/dl Calcium 9.1 (8.6-10.3) mg/dl Total Bilirubin 0.5 (0.2-1.0) mg/dl AST 20 (13-39) U/L ALT 18 (7-52) U/L Alkaline Phosphatase 118 H (34-104) U/L Total Protein 7.4 (6.0-8.3) gm/dl Albumin 3.9 (3.4-5.0) gm/dl Globulin 3.5 (2.5-4.0) gm/dl Albumin/Globulin Ratio 1.1 (0.9-2) TSH 0.776 (0.300-4.500) uIu/ml Urine Color Dark Yellow Urine Appearance Clear (Clear) Urine pH 5.5 (4.5-7.5) Ur Specific [place] 1.024 (1.000-1.030) Urine Protein Negative (Negative) Urine Glucose (UA) Negative (Negative) Urine Ketones Trace H (Negative) Urine Blood Negative (Negative) Urine Nitrite Negative (Negative) Urine Bilirubin Negative (Negative) Urine Urobilinogen Negative (Negative) Ur Leukocyte Esterase Negative (Negative) Urine Comment Salicylates < 3.0 L (3.0-30) mg/dl Urine Opiates Screen Neg (Neg) Ur Methadone, Qual Neg (Neg) Urine Fentanyl Screen Neg (Neg) Acetaminophen < 3 L (10-30) ug/ml Urine Barbiturates Neg (Neg) Ur Phencyclidine (PCP) Neg (Neg) U Amphetamin/Meth Scrn Neg (Neg) MDMA (Ecstasy) Screen Neg (Neg) U Benzodiazepines Scrn Pos H (Neg) Ur Cocaine Metabolite Neg (Neg) U Marijuana (THC) Screen Neg (Neg) Ethyl Alcohol mg/dL < 10.0 (<10.0) mg/dl SARS-CoV-2, RNA, NAAT NEGATIVE (NEGATIVE) Discharge Plan Visit Data Chief Complaint: Mental Health Evaluation Stated Complaint: MAJOR DEPRESSION ED Provider: Nick Garcia Discharge Problem: Depression with suicidal ideation Patient Disposition: Transfer Behavioral Health Fac Condition: Good Discharge Instructions Interventions: ED Discharge Assessment Last Done: 10/21/24 18:12
[2024-10-21 15:54] LABS: Hematocrit (blood only) 37.1 % (42.0-52.0); Hemoglobin 11.5 g/dl (14.0-18.0); Immature Granulocytes # (auto) 0.04 K/uL (0.01-0.20); Immature Granulocytes % (auto) 0.4 %; Mean Corpuscular Hemoglobin 24.0 pg (25.0-34.0); Mean Corpuscular Volume 77.3 fL (80.0-100.0); Platelet Count 384 K/uL (130-400); RDW Standard Deviation 48.5 fL (36.4-46.3); Red Blood Count 4.80 M/uL (4.70-6.10); White Blood Count 10.70 K/ul (4.8-10.8)
[2024-10-21 16:01] LABS: Appearance Urine Clear (Clear); Glucose Urine UA Negative (Negative)
[2024-10-21 16:10] LABS: Acetaminophen < 3 ug/ml (10-30); Salicylate < 3.0 mg/dl (3.0-30)
[2024-10-21 16:12] LABS: Alanine Aminotransferase 18.0 U/L (7-52); Albumin Globulin Ratio 1.1 (0.9-2); Alkaline Phosphatase 118.0 U/L (34-104); Anion Gap 8.0 (3-11); Bilirubin,Total 0.5 mg/dl (0.2-1.0); Blood Urea Nitrogen 12.0 mg/dl (6-23); Calcium 9.1 mg/dl (8.6-10.3); Carbon Dioxide 23.0 mmol/L (21-32); Chloride 106.0 mmol/L (98-107); Creatinine Clr Calc Pharmacy 100.7 ml/min; Globulin 3.5 gm/dl (2.5-4.0); Glucose 94.0 mg/dl (70-99(Fasting)); Potassium 4.3 mmol/L (3.5-5.1); Sodium 137.0 mmol/L (136-145); Total Protein 7.4 gm/dl (6.0-8.3)
[2024-10-21 16:27] LABS: Thyroid Stimulating Hormone 0.776 uIu/ml (0.300-4.500)
[2024-10-21 16:35] LABS: Amphetamines+Metham, Urine Neg (Neg); MDMA (Ecstacy), Urine Neg (Neg); Marijuana, Urine Neg (Neg)
[2024-10-21] MEDS ORDERED: SODIUM CHLORIDE 0.65% NA SOLN 45 ML (OCEAN) PRN (18:09)
[2024-10-21] MEDS ORDERED: BISMUTH SUBSALICYLATE 262 MG CHEW PO PRN (18:09)
[2024-10-21] MEDS ORDERED: ACETAMINOPHEN 325 MG TAB PO PRN (18:09)
[2024-10-21] MEDS ORDERED: MAGNESIUM HYDROXIDE SUSP 30 ML UDC PO PRN (18:09)
[2024-10-21] MEDS ORDERED: ALUMINUM/MAGNESIUM SUSP 30 ML UDC PO PRN (18:09)
[2024-10-21] MEDS: MIRTAZAPINE TAB 15 MG TAB PO ONE (20:56)
[2024-10-21] MEDS: GABAPENTIN 300 MG CAP PO ONE (20:56)
--- NOTE | 2024-10-22 08:51 | History & Physical ---
Date of Service October 22, 2024 Impression / Recommendations Impression BYRON SHIELDS is a 54-year-old man who currently lives in [place] alone, has a history of persistent depressive disorder, generalized anxiety with panic attacks, alcohol use disorder (in early remission), chronic nausea and was admitted on 10/21/24 18:34 on a 201 voluntary commitment for SI with thoughts of hanging himself. Diagnostically consistent with major depressive disorder vs persistent depressive disorder as well as generalized anxiety disorder with panic attacks. Does also seem to have some dependent personality traits and subthreshold PTSD symptoms of nightmares. Discussed medication treatment options in detail. Discussed risks, benefits and alternatives. Will reduce guanfacine dose due to his concerns of recent low blood pressure during the day but will continue HS dose, taper Paxil given li mited benefit over last 6 months (even at maximum doses) and potential contribution to nausea, start Wellbutrin for depression given prominent low energy, lack of motivation and possible that some difficulty with concentration is further driving his anxiety and stop prn Xanax given high misuse potential and hx of alcohol use disorder. Will continue gabapentin for off-label use for anxiety, alcohol use and mirtazapine for depression/anxiety/insomnia/nausea. He consents to all of these changes and continuations. Reviewed side effects including but not limited to: GI, REYNOLDS, sexual side effects with Paxil, addictive potential/falls/cognition changes/not driving or operating heavy machinery while taking with benzodiazepines, sedation/weight gain with mirtazapine, sedation/low BP/syncope with guanfacine, increased anxiety/decreased appetite/cardiac changes with Wellbutrin. Overall I spent a total of 90 minutes for this admission including review of chart records, review of labwork, direct evaluation of the patient, counseling the patient, ordering medication, risk assessment, discussion with the psychiatric liason RN and documentation in the electronic health record. (1) Depression with suicidal ideation: (2) Generalized anxiety disorder with panic attacks: (3) MDD (major depressive disorder), recurrent episode, severe: (4) Nightmares: (5) Nausea & vomiting: Plan 10/22/2024: The patient was admitted to the [facility] ([facility] mental health unit) on q15 min checks (behavioral with suicide precautions) for safety. The patient will participate in group, recreational, and milieu therapies and will be offered additional individual and family sessions as clinically appropriate. -Start Wellbutrin XL 150mg daily -Decreased Paxil from 40mg daily to 20mg daily -Continue mirtazapine 30mg HS -Decrease guanfacine from 1mg BID to 1mg HS -Continue gabapentin 300mg TID -Consider use of alternative SSRI for anxiety after tapering Paxil -Continue ativan 1mg BID prn -Start zofran 8mg q4h prn for nausea/emesis -SW to epxlore recent barriers to outpatient therapy, could explore TMS and/or intensive IOP for CBT/DBT -Encourage further outpatient GI workup for his chronic nausea with periods of emesis Inventory Assets Strengths: supportive relationships, willing to get treatment Needs: safety and stabilization, medication adjustment, additional coping skills, increased outpatient services Suicide Risk Level Suicide Risk Level: High-Moderate (q15 min suicide checks) (depression with SI but feels safe in the hospital and feels able to ask for support) Risk Factors Assessment Male: Yes : Yes Do You Have Access To A Gun?: No Health Problems: Yes Mental Health Diagnoses: Yes Substance Use Disorders: No (alcohol use in the past though) Previous Attempt: No Family History of Suicide: No Previous Psychiatric Hospitalization: Yes Hopelessness: Yes Protective Factors Assessment Employed: No Supportive Family: Yes Psychiatric History Identifying Data BYRON SHIELDS is a 54-year-old man who currently lives in [place] alone, has a history of persistent depressive disorder, generalized anxiety with panic attacks, PTSD, alcohol use disorder (in early remission), chronic nausea and was admitted on 10/21/24 18:34 on a 201 voluntary commitment for SI with thoughts of hanging himself. Chief Complaint "I thought, what can I do to take myself out?". History of Present Illness Byron presents for psychiatric admission for worsening depression and SI with plan of hanging and ongoing anxiety. He reports this is despite a recent inpatient psychiatric hospitalization at the [facility] where he feels he should have been kept longer. Today describes his recent experience during his inpatient stay at the [facility] including various disruptive patients and that "I didn't feel ready to go and I told them that but they discharged me anyway". References that he may have gotten irritable or emotionally reactive with a nurse while admitted there. Spends a good deal of time detailing his responses to some of the other patients during this recent admission. Byron reports worsening symptoms of depression, anxiety and associated physical symptoms including nausea and dizziness. He reports constant anxiety, describing it as feeling like he is in a constant panic attack. While his anxiety has slightly improved since his stay at the [facility] he feels his depression has worsened. He endorses depressive symptoms including feeling "horrible", difficulty concentrating, low energy, inability to get out of bed, feeling "useless" and having "no reason to live". He also reports that his sleep is somewhat disrupted by nightmares but overall feels his sleep is okay. He expresses that the only thing he looks forward to his going back to sleep when he wakes up. He describes a significant decline in his daily functioning mentioning that he has been lying in bed and expresses frustration he continues to miss holidays like October 16 and past s due to his depression. He reports ongoing severe depression with new onset SI within the last few days to the point he knew he needed to come to the hospital or he thought he might act on these thoughts. Notes "my mind is not straight" when asked about some recent details regarding his outpatient providers. He endorses anxiety symptoms including constant worry, panic attacks and a conflicted mental state where 1 part of his mind is not worried while another part feels worried about everything with his mind "going a million miles per hour". He also reports difficulty breathing despite recent normal evaluation for this in the emergency department and what he reports was reassuring chest imaging. He describes nightmares especially in the last week which he wonders might be related to his medications. He also describes feeling lonely which seems to exacerbate his symptoms. References that while he was on the inpatient unit in the [facility] they did feel a bit like his family. He denies current alcohol use reporting he no longer drinks regularly. He ment ions having 1 drink a few weeks ago but states has been 3 to 4 months since he last drank heavily. Review of systems positive for fatigue, decreased energy, nausea, vomiting, dizziness, shortness of breath at times, difficulty concentrating, anxiety, depression, panic attacks and nightmares. Current psychiatric medications: guanfacine 1mg BID as off-label for anxiety, Paxil 40mg daily for depression/anxiety, ativan 1mg bid prn and Xanax daily as needed for panic attacks/anxiety, gabapentin 300mg TID, mirtazapine 30mg HS. Past Psychiatric History Current Psychiatric Diagnosis: Major Depression Outpatient Services: Psychiatry: [facility], Dr. Rasmussen Therapy: not active currently, he states he hasn't gone in the last few weeks CM: Sharon Previous Psych Admissions: multiple -most recently at the [facility] for 2 weeks (August 2024) -last on [facility] in June 2024 Do You Have Access To A Gun?: No History of Previous Suicide Attempt: No Past Medication Trials: multiple: SSRI: Paxil and likely others (he cannot recall) SNRI: Effexor and duloxetine Buspar-ineffective Seroquel-helped with sleep but no benefit for anxiety Wellbutrin-ineffective propranolol-ineffective Abilify-discontinued Allergies Allergy/AdvReac Type Severity Reaction Status Date / Time No Known Allergies Allergy Mild Verified 06/25/23 19:49 Home Medications Medication Instructions Recorded Confirmed Type mirtazapine 30 mg tablet 30 mg PO HS 06/30/24 10/21/24 History lorazepam 1 mg tablet (Ativan) 1 mg PO BID PRN anxiety/insomnia 07/05/24 10/21/24 Rx #28 tabs pantoprazole 40 mg tablet,delayed 40 mg PO QAM #30 tabs 07/05/24 10/21/24 Rx release gabapentin 300 mg capsule 300 mg PO TID 09/30/24 10/21/24 History guanfacine 1 mg tablet 1 mg PO BID 09/30/24 10/21/24 History paroxetine HCl 40 mg tablet 40 mg PO DAILY 09/30/24 10/21/24 History alprazolam 1 mg tablet 1 mg PO DAILY PRN Anxiety 10/21/24 10/21/24 History Family History Family History of: Doesn't Know Alcohol History Hx of Alcohol Use Over the Past 12 Months: No AUDIT Total Score: 0 recalls last having alcohol a few weeks ago, denies any heavy use in 3-4 months Smoking Use Have You Smoked or Used Tobacco Products in the Last 30 Days: No tobacco type: cigarettes Smoking Status: Former smoker Substance History Hx of Prescription Med Misuse Over the Past 12 Months: No Hx of Over the Counter Med Misuse Over the Past 12 Months: No Hx of Inhalent Misuse Over the Past 12 Months: No Hx of Organic Substance Use Over the Past 12 Months: No Hx of Illegal Substances/Street Drug Use Over Past 12 Months: No Problems as a Result of Past Substance Use: None Identified Personal History Living Arrangements: Apartment Employment Status: Unemployed Marital Status: Single Beliefs That Will Affect Care: None Current Legal Problems: No Hx Legal Problems: Yes (DUI) Hx Traumatic Life Events: Yes Patient History Medical History Alcohol use Polysubstance use disorder Polysubstance abuse Depression with suicidal ideation Major depressive disorder with current active episode Alcohol use disorder, moderate, dependence Depression with suicidal ideation Intractable back pain T12 burst fracture No pertinent past medical history Social History Smoking Status: Former smoker Tobacco Type: Cigarettes Cigarettes Per Day: < 1 pack; Second Hand Exposure: No; Do You Dip or Chew Tobacco: No; Hx Alcohol Use: Yes Alcohol type: beer Hx Substance Use: Yes Preferred Language: Turkmen Communication Ability: Effective Printing Plate Clerk Required: No Beliefs That Will Affect Care: None Current Living Situation: Alone How many Children do You have: 1 Feels Safe at Home: Hesitant to Answer Gender Identity: Male Assistive Devices: None Review of Systems Review of Systems: All systems reviewed & are unremarkable except as noted in HPI & below Physical Exam Psychiatric: Orientation: alert and oriented x 3 Apperance: appropriately dressed and appropriately groomed Eye Contact: good eye contact Motor Behavior: no abnormal motor movements Speech: normal rate/rhythm/volume of speech Affect: + constricted affect; + mood not congruent with affect Mood: + depressed mood and + anxious mood Thought Process: + circumstantial thought process Thought Content: reality based without delusions, + hopelessness, + worthlessness and + loneliness Suicidal Thoughts: denies suicidal plan (none for hospital but outside to hang himself) and denies suicidal intent; + reports suicidal thoughts Homicidal Thoughts: denies homicidal thoughts Hallucinations: no auditory hallucinations and no visual hallucinations Cognition: recent memory grossly intact, remote memory grossly intact, attention grossly intact and language grossly intact Estimated Intelligence: consistent with education level Insight: + limited insight Judgment: + limited judgement Vital Signs (Past 24 Hours): Last Vital Signs Temp 36.0 C L 10/22/24 06:00 Pulse 58 L 10/22/24 06:00 Resp 16 10/22/24 06:00 BP 107/71 10/22/24 06:00 Pulse Ox 95 10/22/24 06:00 O2 Del Method Room Air 10/22/24 06:00 Exam Statement: A physical exam was performed in the ED by Dr. Garcia for the purposes of medical clearance. I accept that physical as correct and adequate for the purposes of the inpatient physical exam. Results & Data ([facility]) Laboratory Results Laboratory Results - last 24 hr 10/21/24 10/21/24 15:29 15:40 WBC 10.70 RBC 4.80 Hgb 11.5 L Hct 37.1 L MCV 77.3 L MCH 24.0 L MCHC 31.0 L RDW Std Deviation 48.5 H RDW Coeff of Jaquelin 17.5 H Plt Count 384 MPV 9.4 Immature Gran % (Auto) 0.4 Neut % (Auto) 68.5 Lymph % (Auto) 22.2 [place] % (Auto) 6.4 Eos % (Auto) 2.0 Baso % (Auto) 0.5 Neut # (Auto) 7.33 H Lymph # (Auto) 2.38 [place] # (Auto) 0.69 H Eos # (Auto) 0.21 Baso # (Auto) 0.05 Immature Gran # (Auto) 0.04 Sodium 137 Potassium 4.3 Chloride 106 Carbon Dioxide 23 Anion Gap 8 BUN 12 Creatinine 0.96 Est Cr Clr Drug Dosing 100.7 eGFR 93.93 BUN/Creatinine Ratio 12.5 Glucose 94 Calcium 9.1 Total Bilirubin 0.5 AST 20 ALT 18 Alkaline Phosphatase 118 H Total Protein 7.4 Albumin 3.9 Globulin 3.5 Albumin/Globulin Ratio 1.1 TSH 0.776 Urine Color Dark Yellow Urine Appearance Clear Urine pH 5.5 Ur Specific [place] 1.024 Urine Protein Negative Urine Glucose (UA) Negative Urine Ketones Trace H Urine Blood Negative Urine Nitrite Negative Urine Bilirubin Negative Urine Urobilinogen Negative Ur Leukocyte Esterase Negative Urine Comment Salicylates < 3.0 L Urine Opiates Screen Neg Ur Methadone, Qual Neg Urine Fentanyl Screen Neg Acetaminophen < 3 L Urine Barbiturates Neg Ur Phencyclidine (PCP) Neg U Amphetamin/Meth Scrn Neg MDMA (Ecstasy) Screen Neg U [place]-Alprazolam Confrm Pending U Benzodiazepines Scrn Pos H 7-[place] Clonazepam Pending Ur Nordiazepam Confirm Pending U [place]-ethylflurazepam Pending U Lorazepam Cnf GC/MS Pending U Oxazepam Confm GC/MS Pending Ur Temazepam Confirm Pending U [place]-Triazolam Confirm Pending U [place]-Midazolam Confirm Pending Ur Cocaine Metabolite Neg U Marijuana (THC) Screen Neg Drug Screen Comment Pending Ethyl Alcohol mg/dL < 10.0 SARS-CoV-2, RNA, NAAT NEGATIVE Current Inpatient Medications Current Inpatient Medications: Current Inpatient Medications Acetaminophen (Acetaminophen 325 Mg Tab) 650 mg PO Q4H PRN PRN Reason: Headache or Minor Fever Stop: 11/20/24 18:08 Al Hydrox/Mg Hydrox/Simethicone (Aluminum/Magnesium Susp 30 Ml Udc) 30 ml PO Q4H PRN PRN Reason: GI Upset Stop: 11/20/24 18:08 Bismuth Subsalicylate (Bismuth Subsalicylate 262 Mg Chew) 2 tab PO Q30M PRN PRN Reason: Loose Stool/Diarrhea Stop: 11/20/24 18:08 Hydroxyzine HCl (Hydroxyzine Hcl 25 Mg Tab) 50 mg PO HSZ PRN PRN Reason: Insomnia Stop: 11/20/24 18:08 Last Admin: 10/21/24 20:54 Dose: 50 mg Hydroxyzine HCl (Hydroxyzine Hcl 25 Mg Tab) 25 mg PO Q4H PRN PRN Reason: Anxiety Stop: 11/20/24 18:08 Magnesium Hydroxide (Magnesium Hydroxide Susp 30 Ml Udc) 30 ml PO DAILY PRN PRN Reason: Constipation Stop: 11/20/24 18:08 Sodium Chloride (Sodium Chloride 0.65% Na Soln 45 Ml ([place])) 1 - 2 sprays NA PRN PRN PRN Reason: Nasal Dryness/Congestion Stop: 11/20/24 18:08
[2024-10-22] MEDS: ONDANSETRON 4 MG OD TAB PO PRN (11:59)
[2024-10-22] MEDS: GABAPENTIN 300 MG CAP PO SCH (14:07)
[2024-10-22] MEDS: LORazepam 1 MG TAB PO PRN (19:08)
[2024-10-22] MEDS: MIRTAZAPINE TAB 15 MG TAB PO SCH (21:02)
--- NOTE | 2024-10-23 08:54 | Psychiatric Progress Note ---
Date of Service October 23, 2024 Impression / Recommendations Impression BYRON SHIELDS is a 54-year-old man who currently lives in [place] alone, has a history of persistent depressive disorder, generalized anxiety with panic attacks, alcohol use disorder (in early remission), chronic nausea and was admitted on 10/21/24 18:34 on a 201 voluntary commitment for SI with thoughts of hanging himself. Diagnostically consistent with major depressive disorder vs persistent depressive disorder as well as generalized anxiety disorder with panic attacks. Does also seem to have some dependent personality traits and subthreshold PTSD symptoms of nightmares. A: Ongoing depression and anxiety but affect a little brighter today and less hopeless. Tolerating medication changes so far. Discussed cross-taper from Paxil to sertraline which he consents to. Reviewed side effects. Overall, I spent a total of 35 minutes on this case including meeting with the patient, reviewing the chart, nursing report, multidisciplinary team meeting, orders, and documentation. (1) Depression with suicidal ideation: (2) Generalized anxiety disorder with panic attacks: (3) MDD (major depressive disorder), recurrent episode, severe: (4) Nightmares: (5) Nausea & vomiting: Plan 10/23/2024: -Decrease Paxil to 10mg daily -Start sertraline 50mg daily 10/22/2024: The patient was admitted to the [facility] ([facility] mental health unit) on q15 min checks (behavioral with suicide precautions) for safety. The patient will participate in group, recreational, and milieu therapies and will be offered additional individual and family sessions as clinically appropriate. -Start Wellbutrin XL 150mg daily -Decreased Paxil from 40mg daily to 20mg daily -Continue mirtazapine 30mg HS -Decrease guanfacine from 1mg BID to 1mg HS -Continue gabapentin 300mg TID -Consider use of alternative SSRI for anxiety after tapering Paxil -Continue ativan 1mg BID prn -Start zofran 8mg q4h prn for nausea/emesis -SW to epxlore recent barriers to outpatient therapy, could explore TMS and/or intensive IOP for CBT/DBT -Encourage further outpatient GI workup for his chronic nausea with periods of emesis Inventory Assets Strengths: supportive relationships, willing to get treatment Needs: safety and stabilization, medication adjustment, additional coping skills, increased outpatient services Suicide Risk Level Suicide Risk Level: Moderate (q15 min suicide checks) (depression with SI but mood improving, feels safe in the hospital and feels able to ask for support) Risk Factors Assessment Male: Yes : Yes Do You Have Access To A Gun?: No Health Problems: Yes Mental Health Diagnoses: Yes Substance Use Disorders: No (alcohol use in the past though) Previous Attempt: No Family History of Suicide: No Previous Psychiatric Hospitalization: Yes Hopelessness: Yes Protective Factors Assessment Employed: No Supportive Family: Yes Interval History Identifying Information BYRON SHIELDS is a 54-year-old man who currently lives in [place] alone, has a history of persistent depressive disorder, generalized anxiety with panic attacks, PTSD, alcohol use disorder (in early remission), chronic nausea and was admitted on 10/21/24 18:34 on a 201 voluntary commitment for SI with thoughts of hanging himself. Chief Complaint "A little less like a zoombie". Review of Systems Sleep Information Total Hours of Sleep: 8.5 Meal Information Percent Meal Consumed - Breakfast: 90 Percent Meal Consumed - Lunch: 100 Percent Meal Consumed - Dinner: 90 Subjective Subjective Patient was seen & assessed and interval progress reviewed with treatment team. Found zofran helpful for nausea yesterday. Got prn Vistaril for anxiety. Attended some groups. Reported his mood as "content". Today reports his mind feels a little clearer and not as rough but still with SI and feels "afraid to go home". He's considering option to stay with his sister in [place] after discharge. Denies any medication side effects. Physical Exam Psychiatric Orientation: alert and oriented x 3 Apperance: appropriately dressed and appropriately groomed Eye Contact: good eye contact Motor Behavior: no abnormal motor movements Speech: normal rate/rhythm/volume of speech Affect: + constricted affect (but with some smiles); + mood not congruent with affect Mood: + depressed mood and + anxious mood Thought Process: + circumstantial thought process Thought Content: reality based without delusions and + loneliness Suicidal Thoughts: denies suicidal plan (none for hospital but outside to hang himself) and denies suicidal intent; + reports suicidal thoughts Homicidal Thoughts: denies homicidal thoughts Hallucinations: no auditory hallucinations and no visual hallucinations Cognition: recent memory grossly intact, remote memory grossly intact, attention grossly intact and language grossly intact Estimated Intelligence: consistent with education level Insight: + limited insight Judgment: + limited judgement Vital Signs (Past 24 Hours) Last Vital Signs Temp 36.6 C 10/23/24 06:24 Pulse 76 10/23/24 06:25 Resp 16 10/23/24 06:24 BP 109/77 10/23/24 06:25 Pulse Ox 95 10/22/24 06:00 O2 Del Method Room Air 10/22/24 06:00 Results & Data ([facility]) Current Inpatient Medications Current Inpatient Medications: Current Inpatient Medications Acetaminophen (Acetaminophen 325 Mg Tab) 650 mg PO Q4H PRN PRN Reason: Headache or Minor Fever Stop: 11/20/24 18:08 Al Hydrox/Mg Hydrox/Simethicone (Aluminum/Magnesium Susp 30 Ml Udc) 30 ml PO Q4H PRN PRN Reason: GI Upset Stop: 11/20/24 18:08 Bismuth Subsalicylate (Bismuth Subsalicylate 262 Mg Chew) 2 tab PO Q30M PRN PRN Reason: Loose Stool/Diarrhea Stop: 11/20/24 18:08 Bupropion HCl (Bupropion Xl 150 Mg Tabcr) 150 mg PO QAM GEETA Stop: 11/22/24 08:59 Last Admin: 10/23/24 08:39 Dose: 150 mg Gabapentin (Gabapentin 300 Mg Cap) 300 mg PO TID GEETA Stop: 11/21/24 11:29 Last Admin: 10/23/24 08:39 Dose: 300 mg Guanfacine HCl (Guanfacine Hcl 1 Mg Tab) 1 mg PO HS GEETA Stop: 11/21/24 21:59 Last Admin: 10/22/24 21:01 Dose: 1 mg Hydroxyzine HCl (Hydroxyzine Hcl 25 Mg Tab) 50 mg PO HSZ PRN PRN Reason: Insomnia Stop: 11/20/24 18:08 Last Admin: 10/21/24 20:54 Dose: 50 mg Hydroxyzine HCl (Hydroxyzine Hcl 25 Mg Tab) 25 mg PO Q4H PRN PRN Reason: Anxiety Stop: 11/20/24 18:08 Lorazepam (Lorazepam 1 Mg Tab) 1 mg PO BID PRN PRN Reason: anxiety/insomnia Stop: 11/21/24 11:27 Last Admin: 10/22/24 19:08 Dose: 1 mg Magnesium Hydroxide (Magnesium Hydroxide Susp 30 Ml Udc) 30 ml PO DAILY PRN PRN Reason: Constipation Stop: 11/20/24 18:08 Mirtazapine (Mirtazapine Tab 15 Mg Tab) 30 mg PO HS GEETA Stop: 11/21/24 21:59 Last Admin: 10/22/24 21:02 Dose: 30 mg Ondansetron HCl (Ondansetron 4 Mg Od Tab) 8 mg PO Q4H PRN PRN Reason: Nausea And Vomiting Stop: 11/21/24 11:29 Last Admin: 10/22/24 11:59 Dose: 8 mg Pantoprazole Sodium (Pantoprazole 40 Mg Tab) 40 mg PO QAM GEETA Stop: 11/21/24 11:29 Last Admin: 10/23/24 08:39 Dose: 40 mg Paroxetine HCl (Paroxetine Hcl 20 Mg Tab) 20 mg PO DAILY GEETA Stop: 11/21/24 11:59 Last Admin: 10/23/24 08:39 Dose: 20 mg Sodium Chloride (Sodium Chloride 0.65% Na Soln 45 Ml ([place])) 1 - 2 sprays NA PRN PRN PRN Reason: Nasal Dryness/Congestion Stop: 11/20/24 18:08 Mental Health & Subst Abuse Tx Psychiatrist Name of Psychiatrist: [facility], [facility] Psychiatrist's Therapist Name of Therapist: Paige Therapist's Date of Therapist Appointment: 11/05/24 Time of Therapist Appointment: 10 AM Therapy Appointment Comment: Intake with Haydee Mccormack Licensed Vocational Nurse Name of Licensed Vocational Nurse: Sharon Phone Number for Licensed Vocational Nurse: [phone] Post Discharge Appointments Contact Information Discharge Discharge Address: [address] [place] [id number]
[2024-10-24] MEDS: SERTRALINE HCL 50 MG TABLET PO SCH (09:09)
--- NOTE | 2024-10-24 09:54 | Psychiatric Progress Note ---
Date of Service October 24, 2024 Impression / Recommendations Impression BYRON SHIELDS is a 54-year-old man who currently lives in [place] alone, has a history of persistent depressive disorder, generalized anxiety with panic attacks, alcohol use disorder (in early remission), chronic nausea and was admitted on 10/21/24 18:34 on a 201 voluntary commitment for SI with thoughts of hanging himself. Diagnostically consistent with major depressive disorder vs persistent depressive disorder as well as generalized anxiety disorder with panic attacks. Does also seem to have some dependent personality traits and subthreshold PTSD symptoms of nightmares. A: Ongoing depression and anxiety but mood gradually improving. Reflecting on barriers to motivation and progress outside the hospital and considering options for alternative housing like staying at [facility] or spending some time with family to avoid pattern of social isolation and mood worsening. Tolerating medication changes so far, will continue with Paxil to sertraline cross-taper. Overall, I spent a total of 50 minutes on this case including meeting with the patient, reviewing the chart, nursing report, multidisciplinary team meeting, orders, and documentation. (1) Depression with suicidal ideation: (2) Generalized anxiety disorder with panic attacks: (3) MDD (major depressive disorder), recurrent episode, severe: (4) Nightmares: (5) Nausea & vomiting: Plan 10/24/2024: -Discontinue Paxil 10/23/2024: -Decrease Paxil to 10mg daily -Start sertraline 50mg daily 10/22/2024: The patient was admitted to the [facility] ([facility] mental health unit) on q15 min checks (behavioral with suicide precautions) for safety. The patient will participate in group, recreational, and milieu therapies and will be offered additional individual and family sessions as clinically appropriate. -Start Wellbutrin XL 150mg daily -Decreased Paxil from 40mg daily to 20mg daily -Continue mirtazapine 30mg HS -Decrease guanfacine from 1mg BID to 1mg HS -Continue gabapentin 300mg TID -Consider use of alternative SSRI for anxiety after tapering Paxil -Continue ativan 1mg BID prn -Start zofran 8mg q4h prn for nausea/emesis -SW to epxlore recent barriers to outpatient therapy, could explore TMS and/or intensive IOP for CBT/DBT -Encourage further outpatient GI workup for his chronic nausea with periods of emesis Inventory Assets Strengths: supportive relationships, willing to get treatment Needs: safety and stabilization, medication adjustment, additional coping skills, increased outpatient services Suicide Risk Level Suicide Risk Level: Moderate (q15 min suicide checks) (depression with SI but mood improving, feels safe in the hospital and feels able to ask for support) Risk Factors Assessment Male: Yes : Yes Do You Have Access To A Gun?: No Health Problems: Yes Mental Health Diagnoses: Yes Substance Use Disorders: No (alcohol use in the past though) Previous Attempt: No Family History of Suicide: No Previous Psychiatric Hospitalization: Yes Hopelessness: Yes Protective Factors Assessment Employed: No Supportive Family: Yes Interval History Identifying Information BYRON SHIELDS is a 54-year-old man who currently lives in [place] alone, has a history of persistent depressive disorder, generalized anxiety with panic attacks, PTSD, alcohol use disorder (in early remission), chronic nausea and was admitted on 10/21/24 18:34 on a 201 voluntary commitment for SI with thoughts of hanging himself. Chief Complaint "heavy chested and anxious". Review of Systems Sleep Information Total Hours of Sleep: 6.5 Meal Information Percent Meal Consumed - Breakfast: 100 Percent Meal Consumed - Lunch: 80 Percent Meal Consumed - Dinner: 95 Subjective Subjective Patient was seen & assessed and interval progress reviewed with nursing and social work. Attending groups. Out of his room socializing with peers. Rated his mood as "7" and "content". Reports ongoing anxiety today but continues to find prn ativan very beneficial for this. Feels his mood is improving. Still some SI but starting to lessen. Thinking about future including possibly spending some time with his sister or looking into alternative housing options as he notes the mess in his home makes it hard for him to want to get out of bed as he ends up avoiding the mess by lying in bed. Likes medication adjustments so far. Physical Exam Psychiatric Orientation: alert and oriented x 3 Apperance: appropriately dressed and appropriately groomed Eye Contact: good eye contact Motor Behavior: no abnormal motor movements Speech: normal rate/rhythm/volume of speech Affect: + constricted affect (but with some smiles); + mood not congruent with affect Mood: + depressed mood and + anxious mood Thought Process: + circumstantial thought process Thought Content: reality based without delusions and + loneliness Suicidal Thoughts: denies suicidal plan (none for hospital but outside to hang himself) and denies suicidal intent; + reports suicidal thoughts Homicidal Thoughts: denies homicidal thoughts Hallucinations: no auditory hallucinations and no visual hallucinations Cognition: recent memory grossly intact, remote memory grossly intact, attention grossly intact and language grossly intact Estimated Intelligence: consistent with education level Insight: + limited insight Judgment: + limited judgement Vital Signs (Past 24 Hours) Last Vital Signs Temp 36.9 C 10/24/24 06:29 Pulse 75 10/24/24 06:30 Resp 16 10/24/24 06:29 BP 104/71 10/24/24 06:30 Pulse Ox 95 10/22/24 06:00 O2 Del Method Room Air 10/22/24 06:00 Results & Data ([facility]) Current Inpatient Medications Current Inpatient Medications: Current Inpatient Medications Acetaminophen (Acetaminophen 325 Mg Tab) 650 mg PO Q4H PRN PRN Reason: Headache or Minor Fever Stop: 11/20/24 18:08 Al Hydrox/Mg Hydrox/Simethicone (Aluminum/Magnesium Susp 30 Ml Udc) 30 ml PO Q4H PRN PRN Reason: GI Upset Stop: 11/20/24 18:08 Bismuth Subsalicylate (Bismuth Subsalicylate 262 Mg Chew) 2 tab PO Q30M PRN PRN Reason: Loose Stool/Diarrhea Stop: 11/20/24 18:08 Bupropion HCl (Bupropion Xl 150 Mg Tabcr) 150 mg PO QAM GEETA Stop: 11/22/24 08:59 Last Admin: 10/24/24 09:08 Dose: 150 mg Gabapentin (Gabapentin 300 Mg Cap) 300 mg PO TID GEETA Stop: 11/21/24 11:29 Last Admin: 10/24/24 09:08 Dose: 300 mg Guanfacine HCl (Guanfacine Hcl 1 Mg Tab) 1 mg PO HS GEETA Stop: 11/21/24 21:59 Last Admin: 10/23/24 21:03 Dose: 1 mg Hydroxyzine HCl (Hydroxyzine Hcl 25 Mg Tab) 50 mg PO HSZ PRN PRN Reason: Insomnia Stop: 11/20/24 18:08 Last Admin: 10/21/24 20:54 Dose: 50 mg Hydroxyzine HCl (Hydroxyzine Hcl 25 Mg Tab) 25 mg PO Q4H PRN PRN Reason: Anxiety Stop: 11/20/24 18:08 Lorazepam (Lorazepam 1 Mg Tab) 1 mg PO BID PRN PRN Reason: anxiety/insomnia Stop: 11/21/24 11:27 Last Admin: 10/24/24 09:18 Dose: 1 mg Magnesium Hydroxide (Magnesium Hydroxide Susp 30 Ml Udc) 30 ml PO DAILY PRN PRN Reason: Constipation Stop: 11/20/24 18:08 Mirtazapine (Mirtazapine Tab 15 Mg Tab) 30 mg PO HS GEETA Stop: 11/21/24 21:59 Last Admin: 10/23/24 21:03 Dose: 30 mg Ondansetron HCl (Ondansetron 4 Mg Od Tab) 8 mg PO Q4H PRN PRN Reason: Nausea And Vomiting Stop: 11/21/24 11:29 Last Admin: 10/22/24 11:59 Dose: 8 mg Pantoprazole Sodium (Pantoprazole 40 Mg Tab) 40 mg PO QAM GEETA Stop: 11/21/24 11:29 Last Admin: 10/24/24 09:08 Dose: 40 mg Paroxetine HCl (Paroxetine Hcl 10 Mg Tab) 10 mg PO DAILY GEETA Stop: 11/23/24 08:59 Last Admin: 10/24/24 09:09 Dose: 10 mg Sertraline HCl (Sertraline Hcl 50 Mg Tablet) 50 mg PO QAM GEETA Stop: 11/23/24 08:59 Last Admin: 10/24/24 09:09 Dose: 50 mg Sodium Chloride (Sodium Chloride 0.65% Na Soln 45 Ml ([place])) 1 - 2 sprays NA PRN PRN PRN Reason: Nasal Dryness/Congestion Stop: 11/20/24 18:08 Mental Health & Subst Abuse Tx Psychiatrist Name of Psychiatrist: [facility] Psychiatrist's Therapist Name of Therapist: Paige Therapist's Date of Therapist Appointment: 11/05/24 Time of Therapist Appointment: 10 AM Therapy Appointment Comment: Intake with Haydee Mccormack Shoe Dresser Name of Shoe Dresser: Sharon Phone Number for Shoe Dresser: [phone] Post Discharge Appointments Contact Information Discharge Discharge Address: [address] [place] [address]
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
--- NOTE | 2024-10-26 17:36 | Psychiatric Progress Note ---
Date of Service October 26, 2024 Impression / Recommendations Impression BYRON SHIELDS is a 54-year-old man who currently lives in [place] alone, has a history of persistent depressive disorder, generalized anxiety with panic attacks, alcohol use disorder (in early remission), chronic nausea and was admitted on 10/21/24 18:34 on a 201 voluntary commitment for SI with thoughts of hanging himself. Diagnostically consistent with major depressive disorder vs persistent depressive disorder as well as generalized anxiety disorder with panic attacks. Does also seem to have some dependent personality traits and subthreshold PTSD symptoms of nightmares. A: Pt reports improved mood. Tolerating medication changes so far. He appears comfortable and is engaging well with peers and with the team. Objectively, euthymic, normal energy, full affect, smiling and interactive with peers and st aff. Overall, I spent a total of 35 minutes on this case including meeting with the patient, reviewing the chart, nursing report, multidisciplinary team meeting, orders, and documentation. (1) Depression with suicidal ideation: (2) Generalized anxiety disorder with panic attacks: (3) MDD (major depressive disorder), recurrent episode, severe: (4) Nightmares: (5) Nausea & vomiting: Plan 10/26/24 Continue current medication. Discussed discharge tomorrow; pt is comfortable with this plan. 10/25/24 Continue Zoloft 50mg daily, Wellbutrin XL 150mg daily, Remeron 30mg qhs, Guanfacine 1mg qhs, Gabapentin 300mg tid. Plan to titrate dose of Sertraline as tolerated. Provided Psychoeducation on MAT for AUD. Disposition planning. 10/24/2024: -Discontinue Paxil 10/23/2024: -Decrease Paxil to 10mg daily -Start sertraline 50mg daily 10/22/2024: The patient was admitted to the [facility] ([facility] inpatient mental health unit) on q15 min checks (behavioral with suicide precautions) for safety. The patient will participate in group, recreational, and milieu therapies and will be offered additional individual and family sessions as clinically appropriate. -Start Wellbutrin XL 150mg daily -Decreased Paxil from 40mg daily to 20mg daily -Continue mirtazapine 30mg HS -Decrease guanfacine from 1mg BID to 1mg HS -Continue gabapentin 300mg TID -Consider use of alternative SSRI for anxiety after tapering Paxil -Continue ativan 1mg BID prn -Start zofran 8mg q4h prn for nausea/emesis -SW to epxlore recent barriers to outpatient therapy, could explore TMS and/or intensive IOP for CBT/DBT -Encourage further outpatient GI workup for his chronic nausea with periods of emesis Inventory Assets Strengths: supportive relationships, willing to get treatment Needs: safety and stabilization, medication adjustment, additional coping skills, increased outpatient services Suicide Risk Level Suicide Risk Level: Low (q15 min observation checks) Risk Factors Assessment Male: Yes : Yes Do You Have Access To A Gun?: No Health Problems: Yes Mental Health Diagnoses: Yes Substance Use Disorders: No (alcohol use in the past though) Previous Attempt: No Family History of Suicide: No Previous Psychiatric Hospitalization: Yes Hopelessness: Yes Protective Factors Assessment Employed: No Supportive Family: Yes Interval History Identifying Information BYRON SHIELDS is a 54-year-old man who currently lives in [place] alone, has a history of persistent depressive disorder, generalized anxiety with panic attacks, PTSD, alcohol use disorder (in early remission), chronic nausea and was admitted on 10/21/24 18:34 on a 201 voluntary commitment for SI with thoughts of hanging himself. Chief Complaint "I am feeling better". Review of Systems Sleep Information Total Hours of Sleep: 7.5 Meal Information Percent Meal Consumed - Breakfast: 100 Percent Meal Consumed - Lunch: 100 Percent Meal Consumed - Dinner: 90 Subjective Subjective Patient was seen & assessed and interval progress reviewed with treatment team. No fresh complaints at this time. He denied side effects from medication. He denied depressive symptoms, psychosis, suicidal ideation. Still precontemplative with regards to alcohol and marijuana use. He wants to be discharged to [place]. Sleep and participation in unit activities are adequate. Physical Exam Psychiatric Orientation: alert and oriented x 3 Apperance: appropriately dressed and appropriately groomed Eye Contact: good eye contact Motor Behavior: no abnormal motor movements Speech: normal rate/rhythm/volume of speech Affect: euthymic affect and mood congruent with affect Thought Process: goal directed thought process, linear/logical thought process and clear/coherent thought process Thought Content: reality based without delusions Suicidal Thoughts: denies suicidal thoughts, denies suicidal plan and denies suicidal intent Homicidal Thoughts: denies homicidal thoughts Hallucinations: no auditory hallucinations and no visual hallucinations Cognition: recent memory grossly intact, remote memory grossly intact, attention grossly intact and language grossly intact Estimated Intelligence: consistent with education level Insight: + limited insight Judgment: + limited judgement Vital Signs (Past 24 Hours) Last Vital Signs Temp 36.1 C L 10/26/24 06:00 Pulse 64 10/26/24 06:00 Resp 18 10/26/24 06:00 BP 124/79 10/26/24 06:00 Pulse Ox 97 10/26/24 06:00 O2 Del Method Room Air 10/26/24 06:00 Results & Data ([facility]) Current Inpatient Medications Current Inpatient Medications: Current Inpatient Medications Acetaminophen (Acetaminophen 325 Mg Tab) 650 mg PO Q4H PRN PRN Reason: Headache or Minor Fever Stop: 11/20/24 18:08 Al Hydrox/Mg Hydrox/Simethicone (Aluminum/Magnesium Susp 30 Ml Udc) 30 ml PO Q4H PRN PRN Reason: GI Upset Stop: 11/20/24 18:08 Bismuth Subsalicylate (Bismuth Subsalicylate 262 Mg Chew) 2 tab PO Q30M PRN PRN Reason: Loose Stool/Diarrhea Stop: 11/20/24 18:08 Bupropion HCl (Bupropion Xl 150 Mg Tabcr) 150 mg PO QAM [facility] Stop: 11/22/24 08:59 Last Admin: 10/26/24 08:00 Dose: 150 mg Docusate Sodium (Docusate Sodium 100 Mg Cap) 100 mg PO BID [facility] Stop: 11/25/24 20:59 Gabapentin (Gabapentin 300 Mg Cap) 300 mg PO TID [facility] Stop: 11/21/24 11:29 Last Admin: 10/26/24 14:05 Dose: 300 mg Guanfacine HCl (Guanfacine Hcl 1 Mg Tab) 1 mg PO HS GEETA Stop: 11/21/24 21:59 Last Admin: 10/25/24 21:24 Dose: 1 mg Hydroxyzine HCl (Hydroxyzine Hcl 25 Mg Tab) 50 mg PO HSZ PRN PRN Reason: Insomnia Stop: 11/20/24 18:08 Last Admin: 10/21/24 20:54 Dose: 50 mg Hydroxyzine HCl (Hydroxyzine Hcl 25 Mg Tab) 25 mg PO Q4H PRN PRN Reason: Anxiety Stop: 11/20/24 18:08 Lorazepam (Lorazepam 1 Mg Tab) 1 mg PO BID PRN PRN Reason: anxiety/insomnia Stop: 11/21/24 11:27 Last Admin: 10/26/24 08:02 Dose: 1 mg Magnesium Hydroxide (Magnesium Hydroxide Susp 30 Ml Udc) 30 ml PO DAILY PRN PRN Reason: Constipation Stop: 11/20/24 18:08 Mirtazapine (Mirtazapine Tab 15 Mg Tab) 30 mg PO HS [facility]ETA Stop: 11/21/24 21:59 Last Admin: 10/25/24 21:24 Dose: 30 mg Ondansetron HCl (Ondansetron 4 Mg Od Tab) 8 mg PO Q4H PRN PRN Reason: Nausea And Vomiting Stop: 11/21/24 11:29 Last Admin: 10/22/24 11:59 Dose: 8 mg Pantoprazole Sodium (Pantoprazole 40 Mg Tab) 40 mg PO QAM [facility] Stop: 11/21/24 11:29 Last Admin: 10/26/24 08:01 Dose: 40 mg Sertraline HCl (Sertraline Hcl 50 Mg Tablet) 50 mg PO QAM [facility] Stop: 11/23/24 08:59 Last Admin: 10/26/24 08:01 Dose: 50 mg Sodium Chloride (Sodium Chloride 0.65% Na Soln 45 Ml (Rembrandt)) 1 - 2 sprays NA PRN PRN PRN Reason: Nasal Dryness/Congestion Stop: 11/20/24 18:08 Mental Health & Subst Abuse Tx Psychiatrist Name of Psychiatrist: Jasper Rasmussen [facility] Psychiatrist's Date Of Appointment With Psychiatric Provider: 11/04/24 Time of Appointment with Psychiatrist: 2:20 PM Psychiatric Appointment Comment: Pt indicated that CM will assist in rescheduling. Therapist Name of Therapist: Paige Therapist's Date of Therapist Appointment: 11/11/24 Time of Therapist Appointment: 12 PM Therapy Appointment Comment: Intake with Haydee Mccormack Arrive at [phone] [facility] Allergist Name of [facility] Pediatric Allergist: Sharon Phone Number for [facility] Pediatric Allergist: [phone] Date of Appointment with Md Pediatric Allergist: 10/26/24 Time of Appointment with Md Pediatric Allergist: [phone] Case Management Appointment Comment: Cm will contact directly to schedule. Post Discharge Appointments Contact Information Discharge Discharge Address: [facility] [address] [facility], [place] [id number]
[2024-10-26] MEDS: DOCUSATE SODIUM 100 MG CAP PO SCH (20:19)
[2024-10-27 06:29] VITALS: BP 112/75; RESP 16; TEMP 97.7; O2SAT 96
[2024-10-27 08:36] LABS: 7-Aminoclonaz, Confirm NEGATIVE ng/mL (<25); Hydro-Alp Ur, GC/MS 1020 ng/mL (<25); Hydroxyethylflurazepam, Conf NEGATIVE ng/mL (<50); Hydroxymidazolam Ur, GC/MS NEGATIVE ng/mL (<50); Lorazepam, Ur GC/MS >2000 ng/mL (<50); Nordiazepam, Confirm NEGATIVE ng/mL (<50); Oxazepam Ur, GC/MS NEGATIVE ng/mL (<50); Temazepam, Confirm NEGATIVE ng/mL (<50)
[2024-10-27 10:54] VITALS: PULSE 91
--- NOTE | 2024-10-27 11:41 | Discharge Summary ---
Date of Service October 27, 2024 History of Present Illness Bill presents for psychiatric admission for worsening depression and SI with plan of hanging and ongoing anxiety. He reports this is despite a recent inpatient psychiatric hospitalization at the [facility] where he feels he should have been kept longer. Today describes his recent experience during his inpatient stay at the [facility] including various disruptive patients and that "I didn't feel ready to go and I told them that but they discharged me anyway". References that he may have gotten irritable or emotionally reactive with a nurse while admitted there. Spends a good deal of time detailing his responses to some of the other patients during this recent admission. Bill reports worsening symptoms of depression, anxiety and associated physical symptoms including nausea and dizziness. He reports constant anxiety, describing it as feeling like he is in a constant panic attack. While his anxiety has slightly improved since his stay at the [facility] he feels his depression has worsened. He endorses depressive symptoms including feeling "horrible", difficulty concentrating, low energy, inability to get out of bed, feeling "useless" and having "no reason to live". He also reports that his sleep is somewhat disrupted by nightmares but overall feels his sleep is okay. He expresses that the only thing he looks forward to his going back to sleep when he wakes up. He describes a significant decline in his daily functioning mentioning that he has been lying in bed and expresses frustration he continues to miss holidays like October 16 and past Christmases due to his depression. He reports ongoing severe depression with new onset SI within the last few days to the point he knew he needed to come to the hospital or he thought he might act on these thoughts. Notes "my mind is not straight" when asked about some recent details regarding his outpatient providers. He endorses anxiety symptoms including constant worry, panic attacks and a conflicted mental state where 1 part of his mind is not worried while another part feels worried about everything with his mind "going a million miles per hour". He also reports difficulty breathing despite recent normal evaluation for this in the emergency department and what he reports was reassuring chest imaging. He describes nightmares especially in the last week which he wonders might be related to his medications. He also describes feeling lonely which seems to exacerbate his symptoms. References that while he was on the inpatient unit in the [facility] they did feel a bit like his family. He denies current alcohol use reporting he no longer drinks regularly. He mentions having 1 drink a few weeks ago but states has been 3 to 4 months since he last drank heavily. Review of systems positive for fatigue, decreased energy, nausea, vomiting, dizziness, shortness of breath at times, difficulty concentrating, anxiety, depression, panic attacks and nightmares. Current psychiatric medications: guanfacine 1mg BID as off-label for anxiety, Paxil 40mg daily for depression/anxiety, ativan 1mg bid prn and Xanax daily as needed for panic attacks/anxiety, gabapentin 300mg TID, mirtazapine 30mg HS. Physical Exam Psychiatric Orientation: alert and oriented x 3 Apperance: appropriately dressed and appropriately groomed Eye Contact: good eye contact Motor Behavior: no abnormal motor movements Speech: normal rate/rhythm/volume of speech Affect: euthymic affect and mood congruent with affect Mood: + anxious mood Thought Process: goal directed thought process, linear/logical thought process and clear/coherent thought process Thought Content: reality based without delusions Suicidal Thoughts: denies suicidal thoughts, denies suicidal plan and denies suicidal intent Homicidal Thoughts: denies homicidal thoughts Hallucinations: no auditory hallucinations and no visual hallucinations Cognition: recent memory grossly intact, remote memory grossly intact, attention grossly intact and language grossly intact Estimated Intelligence: consistent with education level Insight: + limited insight (shows limited insight into the effects of his drug and alcohol use) Judgment: + limited judgement (reports he plans to continue smoking THC and drinking alcohol) Vital Signs (Past 24 Hours) Last Vital Signs Temp 36.5 C 10/27/24 10:50 Pulse 91 H 10/27/24 10:50 Resp 16 10/27/24 10:50 BP 112/75 10/27/24 10:50 Pulse Ox 96 10/27/24 10:50 O2 Del Method Room Air 10/27/24 06:27 Principal Diagnosis Major Depressive Disorder vs persistent depressive disorder. Generalized Anxiety Disorder with panic attacks. r/o Dependent Personality traits. r/o PTSD symptoms. Alcohol use Disorder. Polysubstance use disorder Medical History: Intractable back pain T12 burst fracture Vitamin D insufficiency Complicated UTI (urinary tract infection) Acute bronchitis due to respiratory syncytial virus (Acute) Earache on left (Acute) Psychiatric Data See daily stay summary. In short, safety was maintained and the patient was cooperative with care. Medications adjustments: Wellbutrin XL 150mg daily, Remeron 30 mg qhs, Zoloft 50mg daily, gabapentin 300mg tid, Guanfacine 1 mg qhs. Pt denied side effects and tolerated this well. Pt declined family session. A safety plan was completed prior to discharge. Pt reported plans to resume drinking and smoking after discharge. He planned to keep his follow up appointments. Day of Discharge Assessment Today the patient voices readiness for discharge. They note improvement in mood and deny thoughts to harm self or others. Thoughts remain organized and they are improved from admission. There is no evidence of psychosis. They agree to take mediations as prescribed and keep follow-up appointments. They are stable for discharge to outpatient level of care. Transition of Care Transition Of Care Record: was reviewed with the patient (YES) Advance Directives Advance Directives Information Provided: Yes Advance Directives: No Mental Health Advance Directive: No Advance Directives on File: No Living Will: No Power of Manager Lighting: No Advance Directives Reason:: Declines as Mental Health Visit. Risk Factors Assessment Male: Yes : Yes Do You Have Access To A Gun?: No Health Problems: Yes Mental Health Diagnoses: Yes Substance Use Disorders: No (alcohol use in the past though) Previous Attempt: No Family History of Suicide: No Previous Psychiatric Hospitalization: Yes Hopelessness: Yes Protective Factors Assessment Employed: No Supportive Family: Yes Total Time Total Time Spent: Greater Than 30 Minutes Discharge Data Lab Results 10/21/24 10/21/24 15:29 15:40 WBC 10.70 RBC 4.80 Hgb 11.5 L Hct 37.1 L MCV 77.3 L MCH 24.0 L MCHC 31.0 L RDW Std Deviation 48.5 H RDW Coeff of Jaquelin 17.5 H Plt Count 384 MPV 9.4 Immature Gran % (Auto) 0.4 Neut % (Auto) 68.5 Lymph % (Auto) 22.2 [place] % (Auto) 6.4 Eos % (Auto) 2.0 Baso % (Auto) 0.5 Neut # (Auto) 7.33 H Lymph # (Auto) 2.38 [place] # (Auto) 0.69 H Eos # (Auto) 0.21 Baso # (Auto) 0.05 Immature Gran # (Auto) 0.04 Sodium 137 Potassium 4.3 Chloride 106 Carbon Dioxide 23 Anion Gap 8 BUN 12 Creatinine 0.96 Est Cr Clr Drug Dosing 100.7 eGFR 93.93 BUN/Creatinine Ratio 12.5 Glucose 94 Calcium 9.1 Total Bilirubin 0.5 AST 20 ALT 18 Alkaline Phosphatase 118 H Total Protein 7.4 Albumin 3.9 Globulin 3.5 Albumin/Globulin Ratio 1.1 TSH 0.776 Urine Color Dark Yellow Urine Appearance Clear Urine pH 5.5 Ur Specific Marquez 1.024 Urine Protein Negative Urine Glucose (UA) Negative Urine Ketones Trace H Urine Blood Negative Urine Nitrite Negative Urine Bilirubin Negative Urine Urobilinogen Negative Ur Leukocyte Esterase Negative Urine Comment Salicylates < 3.0 L Urine Opiates Screen Neg Ur Methadone, Qual Neg Urine Fentanyl Screen Neg Acetaminophen < 3 L Urine Barbiturates Neg Ur Phencyclidine (PCP) Neg U Amphetamin/Meth Scrn Neg MDMA (Ecstasy) Screen Neg U OH-Alprazolam Confrm 1020 H U Benzodiazepines Scrn Pos H 7-Amino Clonazepam NEGATIVE Ur Nordiazepam Confirm NEGATIVE U OH-ethylflurazepam NEGATIVE U Lorazepam Cnf GC/MS >2000 H U Oxazepam Confm GC/MS NEGATIVE Ur Temazepam Confirm NEGATIVE U OH-Triazolam Confirm NEGATIVE U OH-Midazolam Confirm NEGATIVE Ur Cocaine Metabolite Neg U Marijuana (THC) Screen Neg Drug Screen Comment SEE NOTE Ethyl Alcohol mg/dL < 10.0 SARS-CoV-2, RNA, NAAT NEGATIVE Hospital Course (1) Depression with suicidal ideation: (2) Generalized anxiety disorder with panic attacks: (3) MDD (major depressive disorder), recurrent episode, severe: (4) Nightmares: (5) Nausea & vomiting: Plan 10/27/24: Discharge today. 10/26/24 Continue current medication. Discussed discharge tomorrow; pt is comfortable with this plan. 10/25/24 Continue Zoloft 50mg daily, Wellbutrin XL 150mg daily, Remeron 30mg qhs, Guanfacine 1mg qhs, Gabapentin 300mg tid. Plan to titrate dose of Sertraline as tolerated. Provided Psychoeducation on MAT for AUD. Disposition planning. 10/24/2024: -Discontinue Paxil 10/23/2024: -Decrease Paxil to 10mg daily -Start sertraline 50mg daily 10/22/2024: The patient was admitted to the [facility] (locked inpatient mental health unit) on q15 min checks (behavioral with suicide precautions) for safety. The patient will participate in group, recreational, and milieu therapies and will be offered additional individual and family sessions as clinically appropriate. -Start Wellbutrin XL 150mg daily -Decreased Paxil from 40mg daily to 20mg daily -Continue mirtazapine 30mg HS -Decrease guanfacine from 1mg BID to 1mg HS -Continue gabapentin 300mg TID -Consider use of alternative SSRI for anxiety after tapering Paxil -Continue ativan 1mg BID prn -Start zofran 8mg q4h prn for nausea/emesis -SW to epxlore recent barriers to outpatient therapy, could explore TMS and/or intensive IOP for CBT/DBT -Encourage further outpatient GI workup for his chronic nausea with periods of emesis Mental Health & Subst Abuse Tx Psychiatrist Name of Psychiatrist: Jasper [facility] Psychiatrist's Date Of Appointment With Psychiatric Provider: 11/04/24 Time of Appointment with Psychiatrist: 2:20 PM Psychiatric Appointment Comment: Pt indicated that CM will assist in rescheduling. Therapist Name of Therapist: Paige Therapist's Date of Therapist Appointment: 11/11/24 Time of Therapist Appointment: 12 PM Therapy Appointment Comment: Intake with Haydee Mccormack Arrive at 1[address] Podiatrist Orthopedic Name of Podiatrist Orthopedic: Sharon Phone Number for Podiatrist Orthopedic: [phone] Date of Appointment with Podiatrist Orthopedic: 10/26/24 Time of Appointment with Podiatrist Orthopedic: 1480 Case Management Appointment Comment: Cm will contact directly to schedule. Post Discharge Appointments Contact Information Discharge Discharge [address]: [address] [place] [id number] Discharge Plan Discharge Items Patient Disposition: Home - Self-Care Reason For Visit: MAJOR DEPRESSIVE DISORDER Discharge Diagnosis: Major Depressive Disorder vs persistent depressive disorder. Generalized Anxiety Disorder with panic attacks. r/o Dependent Personality traits. r/o PTSD symptoms. Condition on Discharge: Good Health Concerns: Medical History Alcohol use Polysubstance use disorder Polysubstance abuse Depression with suicidal ideation Intractable back pain T12 burst fracture Vitamin D insufficiency Complicated UTI (urinary tract infection) Acute bronchitis due to respiratory syncytial virus (Acute) Earache on left (Acute) Activity: Resume your previous activity Lifting: Gradually increase as tolerated Bathing: No limitations Sexual Activity: When tolerated Exercise/Sports: As tolerated Driving/Machine Use: No limitations Weightbearing: Full weightbearing Non-emergency contact: Psychiatrist and Therapist Call non-emergency contact if: you have any medication questions and your symp toms worsen Follow-up/Referrals: Aleena Garcias MD [Primary Care Provider] - Diet: Regular Fluids: 2000ml (8 cups) Diet Comment: Regular Diet Addtl Attending Provider Instructions: Continue current medications. Recommend not combining medication with alcohol or THC. Strongly recommend follow up with outpatient providers. Pending Studies at Discharge: No Stand-Alone Forms: My 5skills, Smoking Cessation Medications and DC Order Prescriptions: New guanfacine 1 mg Tablet 1 mg PO HS Qty: 30 0RF mirtazapine 15 mg Tablet 30 mg PO HS Qty: 30 0RF sertraline 50 mg Tablet 50 mg PO QAM Qty: 30 0RF bupropion HCl 150 mg Tablet Extended Release 24 Hr 150 mg PO QAM Qty: 30 0RF Continued gabapentin 300 mg capsule 300 mg PO TID pantoprazole 40 mg Tablet,Delayed Release (Dr/Ec) 40 mg PO QAM Qty: 30 0RF Discontinued guanfacine 1 mg tablet 1 mg PO BID paroxetine HCl 40 mg tablet 40 mg PO DAILY alprazolam 1 mg tablet 1 mg PO DAILY PRN (Reason: Anxiety) mirtazapine 30 mg tablet 30 mg PO HS lorazepam [Ativan] 1 mg tablet 1 mg PO BID PRN (Reason: anxiety/insomnia) Qty: 28 0RF Discharge Orders: Discharge Order (Routine); Ordered 10/27/24 Ordered By: Cat Shea/Other Patient Handouts: VEGA Admission Data Admit Date/Time: 10/21/24 18:34 Attending Provider: Mercy Luna Admit Provider: Mecry Luna Primary Care Provider: Aleena Garcias Other Interventions: Discharge Summary Assessment (RN) Last Done: 10/27/24 10:50 Coding Level of Care Code 06727 D/C day mgmt > 30 min Diagnoses Depression with suicidal ideation F32.A; R45.851 Generalized anxiety disorder with panic attacks F41.1; F41.0 MDD (major depressive disorder), recurrent episode, severe F33.2 Nightmares F51.5 Nausea & vomiting R11.2
== END 2024-10-27 13:26 | disposition home or self-care (01) | DRG 885 ==
LOC: ED 15:14 → 3S 18:34
DX: F41.1 Generalized anxiety disorder; F51.5 Nightmare disorder; Z79.899 Other long term (current) drug therapy; F34.1 Dysthymic disorder; R11.2 Nausea with vomiting, unspecified; Z87.891 Personal history of nicotine dependence; F33.2 Major depressive disorder, recurrent severe without psychotic features; F41.0 Panic disorder [episodic paroxysmal anxiety]; R45.851 Suicidal ideations; F10.91 Alcohol use, unspecified, in remission